=== PATIENT | female | born 1945 | race Caucasian/White ===

== ENCOUNTER 2018-12-01 16:15 | Inpatient (IN) ==
[2018-12-01] MEDS ORDERED: DUONEB (A & A) INH ONE (16:42)
[2018-12-01 17:21] LABS: BASO% 0.7 % (0.0-0.8); EOS% 1.4 % (0.0-10.0); HEMATOCRIT 48.7 % (37.0-47.0); HEMOGLOBIN 16.4 g/dL (12.0-16.0); IMM GRAN# 0.05 X1000 (0.0-0.04); IMM GRAN% 0.3 % (0.0-0.5); LYMPH# 2.79 X1000 (1.2-3.4); LYMPH% 19.3 % (20.5-51.1); MCH 29.5 PG (27-31); MCHC 33.7 g/dL (33-37); MCV 87.6 FL (81-99); MONO# 1.38 X1000 (0.11-0.59); MONO% 9.6 % (1.7-9.3); MPV 11.2 FL (7.4-10.4); NEUT# 9.92 X1000 (1.4-6.5); NEUT% 68.7 % (42.2-75.2); PLT 250 X1000 (130-400); RBC 5.56 XMIL (4.2-5.4); RDW 13.9 % (11.5-14.5); WBC 14.44 X1000 (4.8-10.8)
[2018-12-01 17:49] LABS: ALB/GLOB RATIO 1.3; ALBUMIN 4.3 g/dL (3.5-5.0); CALCIUM 9.8 mg/dL (8.8-10.2); CREATININE 2.1 mg/dL (0.5-0.9); POTASSIUM 5.2 mmol/L (3.5-5.1); TOTAL BILIRUBIN 0.4 mg/dL (0.20-1.00); TOTAL PROTEIN 7.6 g/dL (6.3-8.3)
[2018-12-01] MEDS ORDERED: ROCEPHIN 1 GM in NS 50 ML IV ONE (18:07)
[2018-12-01] MEDS ORDERED: LEVAQUIN 750 MG/D5W 750 MG/150 ML IVPB IV ONE (18:07)
[2018-12-01] MEDS ORDERED: NS 1,000 ML IV ONE (18:23)
[2018-12-01 18:26] LABS: INR 0.91
[2018-12-01 18:27] LABS: PTT 25.4 Seconds (22.3-41.8)
--- NOTE | 2018-12-01 19:01 | PROVIDER DOCUMENTATION ---
This chart was entered by Kalie Reardon Scribe, acting as scribe for Leonardo Rangel MD. HPI-Respiratory General - General Source: patient - History of Present Illness-Resp Timing: reports: still present, constant Current Respiratory Medication Therapy: Initiated see nurses note Associated Symptoms: reports: shortness of breath Similar Symptoms Previously?: No Recently seen or treated by another doctor?: Yes (had a pacemaker placed 3 days ago in [place]) <Leonardo Rangel - Last Filed: 12/01/18 19:01> <Roque Ramirez - Last Filed: 12/01/18 19:33> - General Stated Complaint: SOB Time Seen by Provider: 12/01/18 16:24 Allergies/Adverse Reactions: Patient Allergies Allergy/AdvReac Type Severity Reaction Status Date / Time No Known Allergies Allergy Verified 12/01/18 16:40 Home Medications: Home Medication List Medication Instructions Recorded Confirmed Last Taken Type ATORVAstatin [Lipitor] 80 mg PO QHS 10/30/16 10/30/16 Unknown History Albuterol Sulfate [Ventolin Hfa] 1 inh INH DIRECTED 10/30/16 10/30/16 Unknown History Diltiazem HCl [Cartia Xt] 1 tab PO DAILY 10/30/16 10/30/16 Unknown History Glipizide [Glucotrol] 1 tab PO DAILY 10/30/16 10/30/16 Unknown History Lisinopril 1 tab PO DAILY 10/30/16 10/30/16 Unknown History Metformin [Glucophage] 500 mg PO BID CC 10/30/16 10/30/16 Unknown History - History of Present Illness-Resp Nature of Presenting Problem: 73yof presents to ED by EMS cc SOB and decreased blood pressure today. Pt reports she had a pacemaker placed 3 days ago in [place]. Pt also states she has hx of lung cancer with no treatment. Pt is A&Ox3. (Leonardo Rangel) Review of Systems - Adult - REVIEW OF SYSTEMS - ADULT Constitutional: reports: see HPI, fatique. denies: chills, fever Eyes: reports: no symptoms reported Ears, Nose, Mouth & Throat: reports: no symptoms reported Cardiovascular: reports: see HPI, other (decreased blood pressure) Respiratory: reports: see HPI, shortness of breath Gastrointestinal: reports: no symptoms reported Genitourinary: reports: no symptoms reported Musculoskeletal: reports: no symptoms reported Integumentary: reports: no symptoms reported Neurological: reports: no symptoms reported Psychiatric: reports: no symptoms reported Endocrine: reports: no symptoms reported Hematologic/Lymphatic: reports: no symptoms reported Allergic/Immunologic: reports: no symptoms reported All Other Systems: Reviewed and Negative <Leonardo Rangel - Last Filed: 12/01/18 19:01> Past History - Adult - PAST MEDICAL HISTORY-ADULT Review of Records: reports: Nursing Assessment Review, Medications Reviewed, Social history reviewed & non-contributory. Major Childhood Illnesses: reports: denies history Cardiovascular: reports: denies history Respiratory: reports: denies history Gastrointestinal: reports: denies history Obstetrical/Gynecological: reports: denies history Genitourinary: reports: denies history Musculoskeletal: reports: denies history Neurological: reports: denies history Endocrine/Immune: reports: Diabetes Other Conditions: reports: denies history - PRIOR SURGERIES/PROCEDURES Surgical/Procedure History: reports: back/neck - IMMUNIZATION STATUS Childhood Immunizations: See Nurse Assessment Flu Vaccine: See Nurse Assessment - FAMILY HISTORY Family History: reviewed, not pertinent <Leonardo Rangel - Last Filed: 12/01/18 19:01> Physical Exam-General - PHYSICAL EXAM-ADULT Initial Vital Signs Reviewed: Yes - CONSTITUTIONAL General Appearance: alert, moderate distress - EYES Eyes: PERRL/EOMI, pink conjunctivae. negative: meningismus, pale conjunctivae, photophobia - HEAD, EARS, NOSE, MOUTH & THROAT HENMT: normocephalic/atraumatic, moist mucous membranes, normal ENT inspection. negative: angioedema - NECK Neck: non-tender, full range of motion, supple, normal inspection - RESPIRATORY Respiratory: chest non-tender, no pleuratic chest pain, no respiratory distress, no accessory muscle use, decreased breath sounds, rhonchi (diffuse). negative: lungs clear, normal breath sounds, crackles, rales, stridor, wheezing - CARDIOVASCULAR Cardiovascular: normal peripheral pulses, regular rate, rhythm, no edema, no gallop, no JVD, no murmur. negative: bradycardia, tachycardia - GASTROINTESTINAL (ABDOMEN) Abdominal Exam: normal bowel sounds, non tender, soft, no organomegaly, no pulsatile mass. negative: distended, guarding, rigid, rebound, tenderness - MUSCULOSKELETAL Extremity: pedal edema (left), swelling (left lower leg below knee/chronic). negative: deformity - SKIN Integumentary: normal color, warm/dry. 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 negative: facial droop, focal weakness - PSYCHIATRIC Psych/Mental Status: normal mood/affect, normal thought content, normal thought process, oriented x 3. negative: disoriented x 3, anxious, disheveled, depressed affect <Leonardo Rangel - Last Filed: 12/01/18 19:01> Progress - PLAN OF CARE/RESULTS Result Diagrams: 12/01/18 17:02 12/01/18 17:02 - REASSESSMENT Reassessment #1 Status: unchanged Reassessment Comment: eval c/w possible sepis, lactat <Leonardo Rangel - Last Filed: 12/01/18 19:01> - PLAN OF CARE/RESULTS Result Diagrams: 12/01/18 17:02 12/01/18 17:02 - CONSULTS/PCP/HOSPITALIST Notification #1 *Consult/PCP/Hospitalist*: Dr Felix Time Discussed: 19:32 Consult Disposition: Will see in ED, Admit <Roque Ramirez - Last Filed: 12/01/18 19:33> - PLAN OF CARE/RESULTS Progress/Plan/Lab Results: Vital Signs - 8 hr 12/01/18 16:21 12/01/18 16:27 12/01/18 16:32 Temperature 97.6 F Pulse Rate 79 73 Respiratory Rate 24 22 Blood Pressure 101/45 84/47 92/54 O2 Sat by Pulse Oximetry 96 94 L 94 L 12/01/18 16:37 12/01/18 16:42 12/01/18 16:47 Temperature Pulse Rate 77 80 86 Respiratory Rate 23 25 H 23 Blood Pressure 101/45 89/44 96/49 O2 Sat by Pulse Oximetry 95 96 98 12/01/18 17:17 12/01/18 17:33 12/01/18 17:50 Temperature Pulse Rate 87 82 83 Respiratory Rate 21 24 28 H Blood Pressure 113/90 100/50 110/64 O2 Sat by Pulse Oximetry 96 94 L 12/01/18 18:03 12/01/18 18:13 12/01/18 18:32 Temperature Pulse Rate 80 92 H 106 H Respiratory Rate 21 23 21 Blood Pressure 85/51 100/62 114/75 O2 Sat by Pulse Oximetry 95 95 Laboratory Results - last 24 hr 12/01/18 12/01/18 12/01/18 17:02 17:02 17:02 WBC 14.44 H RBC 5.56 H Hgb 16.4 H Hct 48.7 H MCV 87.6 MCH 29.5 MCHC 33.7 RDW Std Deviation 13.9 Plt Count 250 MPV 11.2 H Immature Gran % (Auto) 0.3 Neut % (Auto) 68.7 Lymph % (Auto) 19.3 L [place] % (Auto) 9.6 H Eos % (Auto) 1.4 Baso % (Auto) 0.7 Immature Gran # (Auto) 0.05 H Neut # (Auto) 9.92 H Lymph # (Auto) 2.79 [place] # (Auto) 1.38 H Eos # (Auto) 0.20 Baso # (Auto) 0.10 PT INR PTT (Actin FS) Sodium 135 L Potassium 5.2 H Chloride 96 L Carbon Dioxide 21 L Anion Gap 18 BUN 42 H Creatinine 2.1 H Estimated GFR/1.73 m2 23 BUN/Creatinine Ratio 20 Glucose 95 Calculated Osmolality 280 Calcium 9.8 Total Bilirubin 0.40 AST 26 ALT 9 L Alkaline Phosphatase 61 Creatine Kinase 170 Troponin T Total Protein 7.6 Albumin 4.3 Globulin 3.3 Albumin/Globulin Ratio 1.3 Plasma Lactate 1.5 12/01/18 12/01/18 17:02 17:02 WBC RBC Hgb Hct MCV MCH MCHC RDW Std Deviation Plt Count MPV Immature Gran % (Auto) Neut % (Auto) Lymph % (Auto) [place] % (Auto) Eos % (Auto) Baso % (Auto) Immature Gran # (Auto) Neut # (Auto) Lymph # (Auto) [place] # (Auto) Eos # (Auto) Baso # (Auto) PT 13.0 INR 0.91 PTT (Actin FS) 25.4 Sodium Potassium Chloride Carbon Dioxide Anion Gap BUN Creatinine Estimated GFR/1.73 m2 BUN/Creatinine Ratio Glucose Calculated Osmolality Calcium Total Bilirubin AST ALT Alkaline Phosphatase Creatine Kinase Troponin T 0.028 Total Protein Albumin Globulin Albumin/Globulin Ratio Plasma Lactate Orders Category Date Time Status Cardiac Monitoring DIRECTED Care 12/01/18 18:06 Active Calix Cath Insertion ORDERED Care 12/01/18 18:46 Active IV Insertion ORDERED Care 12/01/18 18:06 Completed Notify MD of + Sepsis Screen NOW Care 12/01/18 18:06 Active Notify Physician As Ordered Care 12/01/18 18:06 Active Nursing- Obtain EKG once Care 12/01/18 18:04 Active Saline Loc NOW Care 12/01/18 18:07 Active CHEST-PORTABLE [RAD] Stat Exams 12/01/18 16:42 Taken BLOOD CULTURE [BLDCUL] Stat Lab 12/01/18 17:08 Results BNP [PRO B-NATRIURETIC PEPTIDE] Stat Lab 12/01/18 19:31 Uncollected CBC WITH ELECTRONIC DIFF [HEME] Stat Lab 12/01/18 17:02 Completed CK TOTAL [CHEM] Stat Lab 12/01/18 17:02 Completed COMPREHENSIVE METABOLIC PANEL [CHEM] Stat Lab 12/01/18 17:02 Completed LACTATE, PLASMA [CHEM] Lab 12/01/18 20:00 Uncollected LACTATE, PLASMA [CHEM] Lab 12/01/18 23:00 Uncollected LACTATE, PLASMA [CHEM] Stat Lab 12/01/18 17:02 Completed PROTIME WITH INR [COAG] Stat Lab 12/01/18 17:02 Completed PTT [COAG] Stat Lab 12/01/18 17:02 Completed TROPONIN T Stat Lab 12/01/18 17:02 Completed URINALYSIS W/POSS RFLX CULT [URINALYSIS] Stat Lab 12/01/18 18:25 Results 0.9% Sodium Chloride Inj [Ns] 1,000 ml Med 12/01/18 18:23 Discontinued IV 999 mls/hr Albuterol 2.5MG/Ipratrop 0.5MG [Duoneb (A & A)] Med 12/01/18 16:42 Discontinued 3 ml INH NOW ONE CefTRIAXONE [Rocephin] 1 gm Med 12/01/18 18:07 Discontinued 0.9% Sodium Chloride Inj [Ns] 50 ml IV NOW Levofloxacin 750 mg/D5w [Levaquin 750 mg/D5w] Med 12/01/18 18:07 Active 750 mg in 150 ml IV NOW Aerosol Treatments Routine Oth 12/01/18 16:42 Completed Aerosol Treatments Stat Oth 12/01/18 16:42 Completed O2 Per Protocol Stat Ot 12/01/18 16:42 Completed Oxygen Device Stat [facility] 12/01/18 18:06 Completed Pulse Oximetry Stat [facility] 12/01/18 18:07 Completed Departure - Departure Certified Medical Emergency: Emergent <Leonardo Rangel - Last Filed: 12/01/18 19:01> - Departure Date of Disposition Decision: 12/01/18 Time of Disposition Decision: 19:32 Certified Medical Emergency: Emergent - Critical Care Note This patient required my direct & personal management of CC.: No <Roque Ramirez - Last Filed: 12/01/18 19:33> - Departure DIAGNOSIS: SOB (shortness of breath), Pneumonia, Renal insufficiency, Hyperkalemia Disposition: ADMITTED INPATIENT 09 Condition: Fair Additional Freetext Instructions: ED Follow Up Instructions: You have been treated by a care provider in the Emergency Department. These instructions are being provided to you so you can have an understanding of how to care for yourself upon discharge. Upon discharge from the Emergency Department, you are responsible for making arrangements for follow-up care by a physician of your choice. Take all prescribed medications as directed. Return to the Emergency Department immediately for any new or worsening symptoms . You may call the Physician Referral phone number at [phone] to obtain a list of Physicians who are taking new patients. Referrals and Follow-Ups: Nikita Worley MD [Primary Care Provider] - Attestation - Physician/ NAGI Attestation Patient care was provided by Advanced Practice Provider:: No The physician spent face to face time with patient:: Yes Advanced Practice Provider documentation review:: Supervising physician onsite and consulted in the evaluation and care of this patient. The physician did have a face to face encounter with the patient. <Leonardo Rangel - Last Filed: 12/01/18 19:01> - Physician/ NAGI Attestation Patient care was provided by Advanced Practice Provider:: No The physician spent face to face time with patient:: Yes Advanced Practice Provider documentation review:: Supervising physician onsite and consulted in the evaluation and care of this patient. The physician did have a face to face encounter with the patient. <Roque Ramirez - Last Filed: 12/01/18 19:33> This chart was documented by the indicated scribe, (Kalie Reardon, [place]) and accurately reflects the services I performed and decisions made by me, Leonardo Rangel MD, as attested by the provider's signature.
[2018-12-01 19:32] LABS: URINE SOURCE CLEAN CATCH
[2018-12-01 19:36] LABS: BILIRUBIN URINE NEGATIVE (NEGATIVE); BLOOD URINE SMALL (NEGATIVE); COLOR YELLOW; GLUCOSE URINE TRACE mg/dL (NEGATIVE); KETONE URINE NEGATIVE (NEGATIVE); LEUKOCYTES URINE LARGE (NEGATIVE); NITRITE URINE NEGATIVE (NEGATIVE); PH URINE 5.5; PROTEIN URINE 100 mg/dL (NEGATIVE); SP GRAVITY URINE 1.017; TURBIDITY URINE HAZY (CLEAR); UROBILINOGEN URINE NORMAL (NORMAL)
[2018-12-01 19:41] LABS: UR EPITHELIAL CELLS <10 /HPF (<10); URINE BACTERIA NEGATIVE /HPF; URINE RBC <10 /HPF (<10); URINE WBC TNTC /HPF (<10)
[2018-12-01 19:55] LABS: URINE YEAST NONE SEEN
--- NOTE | 2018-12-01 19:56 | Diag Imaging Result Doc PS360 ---
EXAM: CHEST-PORTABLE INDICATION: Dyspnea TECHNIQUE: One view COMPARISON: 08/15/2018 FINDINGS: The lungs are hyperinflated suggesting COPD, stable. There is evidence of prior granulomatous disease, stable. There is stable biapical pleural scarring. There is no discrete pleural fluid collection or pneumothorax. There has been interval placement of a pacemaker on the right. The leads are in expected positions. The cardiomediastinal silhouette and central vasculature are grossly unremarkable, otherwise. IMPRESSION: Stable COPD changes. No definite acute pathology by plain radiograph. Electronically signed by Royal Wolfe 12/01/2018 7:54 PM
[2018-12-01 21:35] LABS: ALLEN TEST YES; BE -5.5 mmoll (-3.0-3.0); BLOOD TYPE ARTERIAL; HCO3-(ACT) 20.6 mmoll (20.0-26.0); METHB 1.1 % (0.0-1.5); MODALITY CANNULA; O2(CT) 18.8 mL/dL (15.0-23.0); O2HB 94.6 % (95.0-99.0); PCO2(98.6) 35 mmHg (35-45); PO2(98.6) 82 mmHg (60-100); SAMPLE BLOOD; THB 14.1 g/dL (11.5-17.4); pH(98.6) 7.35 (7.35-7.45)
--- NOTE | 2018-12-01 22:16 | Diag Imaging Result Doc PS360 ---
EXAM: CT THORAX W/O CONTRAST INDICATION: Dyspnea,Hypoxia TECHNIQUE: This exam was performed using automated exposure control, adjustment of mA or kV according to patient size, and/or use of iterative reconstruction technique. COMPARISON: 06/10/2014 FINDINGS: There is mild to moderate pulmonary emphysema with an apical predominance. There is extensive bronchial mucous plugging on the left, predominantly in the left lower lobe. As a result, the left lower lobe is significantly atelectatic. There is likely superimposed consolidation at the left lower lobe. There is a small left pleural effusion. There are patchy calcified pleural plaques bilaterally that are stable. There are a few calcified granulomata. There is a stable 1 cm noncalcified nodule in the right lower lobe at the base that is assumed to represent a noncalcified granuloma given its stability. There is leftward mediastinal shift related to the left lower lobe volume loss. There is no cardiomegaly. There are shotty borderline and mildly prominent mediastinal lymph nodes that are stable. Review of the upper abdomen reveals extensive atherosclerotic calcification involving the aorta and its major branches. There is hyperdense sludge layering in the gallbladder lumen. No pericholecystic inflammatory changes appreciated. There is no evidence of acute osseous abnormality. IMPRESSION: 1.Stable mild to moderate pulmonary emphysema. 2.Extensive bronchial mucous plugging on the left, especially in the left lower lobe where there is associated significant atelectasis and likely superimposed infiltrate. 3.Small left pleural effusion. 4.Other incidental/nonacute findings detailed above. Electronically signed by Royal Wolfe 12/01/2018 10:14 PM
--- NOTE | 2018-12-01 22:17 | EKG Report ---
Test Performed on : 12/01/2018 6:32:22 PM Test Reason : SOB Blood Pressure : / mmHG Vent. Rate : 103 BPM Atrial Rate : 103 BPM P-R Int : 190 ms QRS Dur : 106 ms QT Int : 358 ms P-R-T Axes : 052 094 051 degrees QTc Int : 468 ms Sinus tachycardia. Incomplete right bundle branch block Possible Right ventricular hypertrophy ST & T wave abnormality, consider anterolateral ischemia Abnormal ECG When compared with ECG of 22-JUL-2017 09:56, T wave inversion more evident in Anterolateral leads Unconfirmed Result
[2018-12-02] MEDS: XOPENEX NEB INH SCH ×6 (01:38→22:57)
[2018-12-02] MEDS ORDERED: ZOSYN 2.25 GM in NS 50 ML IV SCH (01:38)
[2018-12-02] MEDS ORDERED: TYLENOL PR PRN (01:38)
[2018-12-02] MEDS ORDERED: NS NEB INH SCH (01:38)
[2018-12-02] MEDS ORDERED: ZOFRAN IV PRN (01:38)
[2018-12-02] MEDS: ATROVENT NEB INH SCH ×6 (01:38→22:56)
[2018-12-02] MEDS: NEXIUM IV SCH (03:26)
[2018-12-02] MEDS: ZYVOX 600 MG/D5W 600 MG/300 ML IVPB IV SCH ×2 (04:09→14:35)
[2018-12-02 06:02] LABS: BASO# 0.05 X1000 (0.0-0.2); BASO% 0.3 % (0.0-0.8); EOS# 0.12 X1000 (0.0-0.7); EOS% 0.7 % (0.0-10.0); HEMATOCRIT 42.9 % (37.0-47.0); HEMOGLOBIN 14.4 g/dL (12.0-16.0); IMM GRAN# 0.04 X1000 (0.0-0.04); IMM GRAN% 0.2 % (0.0-0.5); LYMPH# 1.51 X1000 (1.2-3.4); LYMPH% 8.7 % (20.5-51.1); MCH 29.7 PG (27-31); MCHC 33.6 g/dL (33-37); MCV 88.5 FL (81-99); MONO# 1.29 X1000 (0.11-0.59); MONO% 7.5 % (1.7-9.3); MPV 11.4 FL (7.4-10.4); NEUT# 14.27 X1000 (1.4-6.5); NEUT% 82.6 % (42.2-75.2); PLT 213 X1000 (130-400); RBC 4.85 XMIL (4.2-5.4); RDW 13.8 % (11.5-14.5); WBC 17.28 X1000 (4.8-10.8)
[2018-12-02 06:14] LABS: ALB/GLOB RATIO 1.3; ALBUMIN 3.4 g/dL (3.5-5.0); CREATININE 1.4 mg/dL (0.5-0.9); MAGNESIUM 1.8 mg/dL (1.5-2.7); POTASSIUM 4.7 mmol/L (3.5-5.1); TOTAL BILIRUBIN 0.45 mg/dL (0.20-1.00); TOTAL PROTEIN 6.1 g/dL (6.3-8.3)
[2018-12-02] MEDS: HUMULIN R SUBQ SCH ×4 (07:00→21:23)
[2018-12-02] MEDS: MAXIPIME 1 GM in NS 50 ML IV SCH ×2 (09:35→21:23)
--- NOTE | 2018-12-02 14:57 | HISTORY AND PHYSICAL ---
Ms Sandoval is a 73-year-old female who presented to the ER to by ambulance at approximately 1615 with complaints of shortness of breath. The patient reports that she has recently had a right-sided pacemaker placed 3 days ago at [facility] . She did report that since being home she has had increased weakness has not been eating and drinking well, she also reported that she been having some difficulty swallowing. She also states that for the past couple days that she has had orthopnea and has to prop up to sleep. She also reports paroxysmal nocturnal dyspnea. She she does keep a chronic cough patient is a daily smoker, knows her cough has worsened and is productive of clear thin sputum. She also reports that she has felt chilled as well. She reports that she has had worsening shortness of breath over the past 2 days though did become worse today so she reported that she had decreased blood pressure also. She denies any headache, chest pain, abdominal pain, nausea vomiting or diarrhea. She denies any dysuria or urinary frequency. The patient does report that she has some occasional swelling in her bilateral lower extremities and her left lower extremity is always more swollen than her right and this is been this way and is not of new onset though she did not report any recent worsening swelling in her legs. The patient reports that she does have a history of hypertension and did have a pacemaker placed 3 days ago. The patient did not know the reason why she had to have her pacemaker placed. She denied having any known history of congestive heart failure . She is a long-term smoker and has been smoking since she was 17 years old and currently smokes half pack of cigarettes per day. The patient also reports that approximately 2 years ago she was diagnosed with lung carcinoma and did report that they wanted her to receive treatment for this though she declined. To this date patient denies that she has had any treatment for this lung cancer . Upon evaluation according to the ER nurses note the patient was noted by EMS to be hypotensive and had O2 saturation 80s on room air upon their arrival though after being placed on nasal cannula 4 L and being given a 500 mL normal saline bolus her O2 saturation did improve to 98 % and blood pressure on arrival was slightly improved with systolic 92 and diastolic 54. It was previously noted that her systolic blood pressures were in the 80s prior to arrival. She has been afebrile since arriving to the ER though does have some leukocytosis noted white blood cell count 14,440. Chemistry did reveal elevated creatinine 2.1, BUN 42 this is increased from her previous creatinine of 1 in September 2018. Also her troponin slightly elevated at 0.028 and CK within normal limits at 170. ProBNP was 2016 . Also urinalysis did show small amount blood, large leukocyte and too numerous to count white blood cells. Chest x-ray shows stable COPD changes and no definite acute pathology noted though upon auscultation the patient did have diffuse rhonchi noted in bilateral upper lung ojeda and diminished lung sounds bases. Given her symptoms we did decide to do a CT of the chest without contrast which did show mild to moderate pulmonary emphysema. There was extensive bronchial mucus plugging in the left especially in left lower lobe though this was associated with significant atelectasis likely superimposed infiltrate. Also small pleural effusions. This time the patient will be admitted further evaluate. REVIEW OF SYSTEMS: 14 -point review of systems was conducted the patient all were negative except pertinent positives listed above HPI. PAST MEDICAL HISTORY: 1. Hypertension . 2. Status post pacemaker placement 3 days ago at [facility] . 3. COPD. 4. Nicotine dependence. 5. Diabetes mellitus. 6. Reported history of lung cancer diagnosed 2 years ago for which the patient stated she has not received treatment for. PAST SURGICAL HISTORY: 1. Status post pacemaker placement 3 days ago [facility] . 2. Hysterectomy. 3. Reported stent placement of 1 of the vessels in her neck for what the patient reports she thinks is on the left side though she could not state any further detail about the surgery. SOCIAL HISTORY: The patient is a current daily smoker she has smoked since age 17. She reports she currently smoking half pack cigarettes per day. Denied any alcohol, illicit drug use. She does live with family she does have a walker for ambulation. FAMILY HISTORY: Positive for her mother having history of diabetes mellitus, her father from unknown cancer. ALLERGIES: Patient reports no known allergies. HOME MEDICATIONS: We are waiting for the patient's home medication list be verified. We have asked them to bring the list or her medication bottles from home though also we had requested a discharge medication list from [facility] as well. Once these have been reconciled we will address her home medications and continue appropriate medications . DIAGNOSTIC DATA: White blood cell count 14,440, hemoglobin 16.4, hematocrit 48.7, platelet count 250,000, PT 13, INR 0.91, PTT 25.4, sodium 135, potassium 5.2, chloride 96, serum bicarb 21, BUN 42, creatinine 2.1, GFR 23, glucose [*]magnesium is 2, liver function tests within normal limits, CK 170 with repeat 147, troponin 0.028 with repeat less than 0.01, ProBNP is 2116. Urinalysis was obtained via catheter was positive for trace protein, small amount blood, large leukocytes, too numerous to count white blood cells, was negative for glucose, ketones, nitrites or bacteria. EKG showed sinus tachycardia, incomplete right bundle branch block rate 103, QTC of 468 . Chest x-ray shows stable COPD changes though no definite acute pathology this is per radiology. CT thorax without contrast shows stable mild to moderate pulmonary emphysema. Two extensive bronchial mucous plugging in the left especially left lower lobe with areas associated significant atelectasis and likely superimposed infiltrate. Small left pleural effusion. There are a few calcified granuloma, there is a stable 1 cm noncalcified nodule in the right lower lobe at the base that is assumed to represent a noncalcified granuloma given instability. Please see full CT report for detailed findings. PHYSICAL EXAM: VITAL SIGNS: Temperature 97.6, heart rate 106, respirations 21, blood pressure 114/75, O2 saturation 93% nasal cannula 4 L. GENERAL: Ms. Sandoval is a 73-year-old elderly frail appearing female. She was resting in bed with her eyes closed though was easily arousable with verbal stimulation. Once awoken she was alert, oriented did not appear to be any acute distress. HEENT: Head is atraumatic, normocephalic. Pupils are equal, round, reactive to light were 3 mm bilaterally and brisk. Oral mucosa is moist. NECK: Supple. Trachea midline. There was what appeared to be some slight JVD noted upon examination . CARDIOVASCULAR: Patient had S1, S2 present no murmur, gallop, rubs appreciated, slightly tachycardic rate that is regular. PULMONARY: Patient has symmetrical chest expansion bilaterally the lung sounds in bilateral upper ojeda do have rhonchi noted, lung sounds bilateral bases were diminished. The patient does have a surgical wound noted to the right upper chest. This does appear to be healing well. There is no erythema, warmth or drainage or any active bleeding noted. The dressing that is covering this is clean and dry . ABDOMEN: Soft, nondistended, nontender except for the patient reports slight tenderness upon palpation the pubic area. Bowel sounds were present in all 4 quadrants were normoactive. EXTREMITIES: No cyanosis noted though the patient did have some edema noted in her left lower extremity which was 1 to 2+ pitting edema from mid calf down. Upon questioning the patient states this is not of new onset. Her left lower extremity is normally more swollen than her right though other than this pulse, motor and sensory were intact in all extremities. Radial pulses were 3+ bilaterally, pedal pulses are 2+ bilaterally. INTEGUMENTARY: Patient's skin is pink, warm and dry. NEUROLOGICAL: Patient is alert, oriented person, place, time, situation though she answers all the questions right she does seem slow to respond to questions at times though once she answers them her response is appropriate. She does seem to have some generalized weakness though there was no deficit from 1 side compared to the other. She denied any numbness or tingling in extremities. She is able to move all extremities. ASSESSMENT AND PLAN: 1. Pneumonia, the patient's CT did show that she has extensive bronchial mucus plugging in her left especially in left lower lobe where there is an associated significant atelectasis and likely superimposed infiltrate. Also patient reports that she felt as though she has been having difficulty swallowing recently. Given that she has recently been hospitalized as well as her reports of some difficulty swallowing as well will go ahead and cover for healthcare associated and possible aspiration pneumonia. She has been placed on antibiotics of vancomycin and Zosyn which had been renally dosed. Blood cultures and sputum cultures obtained, given her mucus plugging we will go ahead and continue with aggressive pulmonary toilet with incentive spirometry frequent turn, cough and deep breathing and Xopenex and Atrovent treatments. She has been placed on supplemental oxygen nasal cannula 4 L. Arterial blood gasses were within normal limits, CO2 was 82, O2 saturation 97 . She has been placed on continuous cardiac telemetry we will continue monitor her respiratory status closely, she has also been place on aspiration precaution. 2. Acute hypoxic respiratory failure this is likely secondary to pneumonia as well as possible component of new onset congestive heart failure. Previously mentioned above we have placed on supplemental oxygen, will continue with intervention as mentioned above #1 and monitor closely . 3. Hypotension, this could be related to infection and possible early sepsis. Patient has been given a total of 1500 mL normal saline bolus, since that time her blood pressures have improved with last 1 being 114/75 and MAP 88. Given that there is a question of possible new onset congestive heart failure will hold off any further fluids, will continue monitor blood pressure closely, we will hold any antihypertensive medications at this time continue to follow. 4. Acute kidney injury . This could be secondary to hypertension as well as poor oral intake. Previously mentioned she did receive a 1500 mL normal saline bolus and given that there is question possible heart failure as well we will hold off on any further fluid at the time, will monitor her fluid volume status closely restrict intake and output, continue follow, will avoid nephrotoxic medication only give those medicine as necessary . 5. Dysphagia . Patient did report she was having some difficulty swallowing, given this we will place her NPO at this time and will implement aspiration precautions, we have ordered swallow evaluation will await the results continue to follow. 6. Possible new onset congestive heart failure. Patient has reporting dyspnea, orthopnea and paroxysmal nocturnal dyspnea. She is also hypoxic, proBNP was elevated at 2116. She also did have some slight JVD noted on examination. The patient had a echocardiogram performed September 2017 which showed EF 60% though given her new symptoms and recent cardiac procedure we will go ahead and repeat this, we have also placed order for series cardiac enzymes and repeat EKG in the morning. We did not order any Lasix at this time given that the patient was hypotensive on arrival. We will hold off on this for now we will monitor her fluid volume status, do strict intake and output and daily weight. We have placed a consult with Dr. Melendez, cardiology will await their evaluation and further recommendations for management. 7. Status post pacemaker placement, patient reports she had a pacemaker placed 3 days ago at [facility] though patient could not tell us which physician this was performed with, we have requested for the patient's records from [facility] related to her most recent admission cardiac procedure, any specialty consultations and her discharge summary and we have placed a consult with cardiology as well . Will await their evaluation further recommendations for management. 8. Diabetes mellitus . We will place patient on pattern fingerstick blood sugars, will cover her with regular insulin per patient's specific scale. Given that she has had poor oral intake and is NPO at this time awaiting a swallow evaluation we will not treat her fingerstick blood sugars until they are greater than 200. 9. Deep vein thrombosis prophylaxis be provide with SCDs. The patient has been placed on CIC with telemetry, she will have q.1 hour vital signs, will do strict input and output, daily weight, will repeat CBC, CMP and magnesium in the morning as well as series of cardiac enzymes. Further orders recommendation pending hospital course, diagnostic studies and physician evaluation. Dictated by BRENDAN Garay for Bam Felix MD cc: Bam Felix MD
--- NOTE | 2018-12-02 16:26 | CARDIOLOGY CONSULTATION ---
DATE: 12/02/2018 CHIEF COMPLAINT ON PRESENTATION: Shortness of breath. HISTORY OF PRESENT ILLNESS: Ms. Sandoval is a 73-year-old white female who recently had a pacemaker implant at [facility] 3 days ago secondary to some sinus node dysfunction. She is an extremely poor historian, complains of some shortness of breath. She is very difficult to get any history from. It seems like she has been short of breath for at least a week, possibly more. She does not report any fevers, no pain complaints. On presentation, the patient's pulse rate was 79. Her blood pressure was anywhere from the 80s to 100s systolic. Her O2 saturation was 96%. PAST MEDICAL HISTORY: 1. Coronary disease. Dobutamine nuclear scan in 2013 demonstrated some LV dilatation. She had a cardiac catheterization in 2009 demonstrating diffuse calcification of 50% in the mid vessel of the LAD. Circumflex had no critical disease with moderate diffuse calcifications. RCA had diffuse mild intimal disease. 2. Severe COPD. 3. Hypertension. 4. Hyperlipidemia. 5. Diabetes. 6. Carotid artery disease. SOCIAL HISTORY: She continues to smoke, smokes around a half pack per day. FAMILY HISTORY: Significant for a mother with a history of diabetes. Father from some unknown cancer. REVIEW OF SYSTEMS: A 10-system review of systems is unable to be obtained. The patient is quite weak. PHYSICAL EXAMINATION: Vital Signs: She is afebrile. Her heart rate is in the 120s. Her most recent blood pressure is 144/91. General: She is in [id number] distress. She is lying flat. HEENT: Oropharynx is moist. Dentures are in place. Eye examination is pink conjunctivae, white sclerae. Neck: Examination shows no obvious thyromegaly or thyroid tenderness. Cardiovascular: She sounds to be in tachycardic and regular rhythm. She has no obvious murmurs. She has no S3. She has no lower extremity edema. Chest exam: Was notable for mild tachypnea. She had poor inspiratory effort. She was not cooperative with the examination. Abdomen: Soft, nontender, nondistended. She has no obvious organomegaly. Skin: Warm and dry throughout without any rashes. Neurological: She seems to be moving all extremities. She is not very cooperative with the examination. No obvious lateralizing deficits. PERTINENT DATA: She had a chest x-ray performed demonstrating stable COPD changes this hospitalization. She had a chest CT that identified extensive bronchial mucous plugging on the left, especially in the left lower lobe, which are suggesting a superimposed infiltrate. Small left pleural effusion identified as well. Her EKG on this presentation demonstrated sinus tachycardia with a rate of 103 beats per minute. She had diffuse nonspecific ST-T changes. Suggestion of an incomplete right bundle branch block. Her laboratory data shows a white count that is elevated at 17.2, hematocrit of 42, platelet count of 213,000, sodium 137, potassium 4.7, her CO2 is 16, her BUN is 33, creatinine is 1.4. Her troponin has been negative on multiple checks this hospitalization. The proBNP was 2116 on presentation. ASSESSMENT: Ms. Sandoval is a 73-year-old female who presented with pneumonia. PLAN: I do not believe that she is in heart failure. She received fluid since admission, and her creatinine improved suggesting she was volume depleted. In addition, she appears to have an infiltrate on her CT and elevated white count, and between her renal dysfunction as well as her sepsis, that could explain the proBNP elevation. Presently, I do not have any acute recommendations. I will follow up on the results of the echocardiogram. cc: Marcial Melendez MD
--- NOTE | 2018-12-02 16:30 | ECHO REPORT ---
ORDER DATE: 12/02/2018 INDICATION: Shortness of breath, pneumonia, history of pacemaker implant. FINDINGS: 1. Right atrium appears normal size. Linear echodensity consistent with device leads is noted in the right heart chambers. 2. Mild tricuspid regurgitation. RV systolic pressure of 54. 3. Normal RV size and systolic function. 4. Mild pulmonic insufficiency. 5. Normal left atrial size with a volume index of 25. 6. No mitral prolapse. Mild mitral regurgitation. 7. Normal LV size, end-diastolic dimension of 3.8. Mild left ventricular hypertrophy with a posterior and interventricular septal wall thickness of 1.3 cm and 1.2 cm respectively. Normal LV systolic function. Estimated EF of 65% with normal wall motion. 8. Aortic valve opens well. It is trileaflet. No evidence of stenosis or insufficiency. 9. Aorta appears normal in visualized segments. 10. No pericardial effusion seen. cc: Marcial Melendez MD
[2018-12-02] MEDS: NS 1,000 ML IV SCH (17:50)
--- NOTE | 2018-12-02 20:58 | EKG Report ---
Test Performed on : 12/02/2018 11:56:57 AM Test Reason : tachycardia Blood Pressure : / mmHG Vent. Rate : 125 BPM Atrial Rate : 125 BPM P-R Int : 174 ms QRS Dur : 096 ms QT Int : 296 ms P-R-T Axes : 056 104 -11 degrees QTc Int : 427 ms Sinus tachycardia. Right ventricular hypertrophy with repolarization abnormality Septal infarct , age undetermined T wave abnormality, consider inferolateral ischemia Abnormal ECG When compared with ECG of 02-DEC-2018 06:50, (Unconfirmed) premature atrial complexes. are no longer present T wave inversion more evident in Anterior leads Unconfirmed Result
--- NOTE | 2018-12-02 20:58 | EKG Report ---
Test Performed on : 12/02/2018 06:50:39 AM Test Reason : Poss. CHF Blood Pressure : / mmHG Vent. Rate : 097 BPM Atrial Rate : 097 BPM P-R Int : 138 ms QRS Dur : 108 ms QT Int : 370 ms P-R-T Axes : 086 102 -04 degrees QTc Int : 469 ms Sinus rhythm. with premature atrial complexes. Incomplete right bundle branch block Right ventricular hypertrophy with repolarization abnormality Nonspecific T wave abnormality Abnormal ECG When compared with ECG of 02-DEC-2018 06:46, (Unconfirmed) Previous ECG has undetermined rhythm, needs review Unconfirmed Result
--- NOTE | 2018-12-02 23:42 | PROGRESS NOTE ---
DATE: 12/02/2018 SUBJECTIVE: The patient is complaining of shortness of breath and weakness. OBJECTIVE: Vital signs: Temperature 98.6 degrees, blood pressure 144/91, heart rate 126, respirations 31, O2 saturation is 91% on 4 L nasal cannula. Output 2 L.General: This is a chronically emaciated female lying in bed in no acute distress. Heart: S1, S2 normal. Tachycardic. Lungs: Coarse breath sounds bilaterally. Abdomen: Positive bowel sounds. Soft, nontender, nondistended. Extremities: No edema. No cyanosis. No calf tenderness. Neurologic: The patient is awake and alert, but very sleepy and lethargic. LABORATORY DATA: White blood cell count 17, hemoglobin 14, hematocrit 42, platelets 213,000. Sodium 137, potassium 4.7, chloride 104, CO2 is 16, BUN 33, creatinine 1.4, glucose 127. ASSESSMENT AND PLAN: 1. Acute hypoxemic respiratory failure likely secondary to the patient's underlying pneumonia. 2. Left lung pneumonia. We will continue with broad-spectrum antibiotics, bronchodilator therapy and supplemental oxygen. 3. Tachycardia. Likely secondary to the patient's underlying infection. We will continue to treat the underlying infection. 4. Status post pacemaker implantation 3 days ago. Aware. 5. Emphysema. Aware. 6. Acute kidney injury. Improved. Continue with gentle intravenous fluid hydration. 7. Leukocytosis. Secondary to the underlying infection. Continue with antibiotic therapy. 8. Metabolic acidosis. We will monitor this closely. 9. Gastrointestinal prophylaxis. The patient is on intravenous Nexium. 10. Deep vein thrombosis prophylaxis. Continue with sequential compression devices. cc: MD RAFAEL Sibley
[2018-12-03] MEDS: NEXIUM IV SCH (02:26)
[2018-12-03] MEDS: ZYVOX 600 MG/D5W 600 MG/300 ML IVPB IV SCH ×2 (02:26→13:41)
[2018-12-03] MEDS: ATROVENT NEB INH SCH ×5 (03:08→23:23)
[2018-12-03] MEDS: XOPENEX NEB INH SCH ×5 (03:09→23:23)
[2018-12-03] MEDS: NS 1,000 ML IV SCH ×3 (05:25→21:06)
[2018-12-03 05:48] LABS: BASO# 0.02 X1000 (0.0-0.2); BASO% 0.1 % (0.0-0.8); EOS# 0.03 X1000 (0.0-0.7); EOS% 0.1 % (0.0-10.0); HEMATOCRIT 43.7 % (37.0-47.0); IMM GRAN# 0.08 X1000 (0.0-0.04); IMM GRAN% 0.3 % (0.0-0.5); LYMPH# 1.46 X1000 (1.2-3.4); LYMPH% 6.1 % (20.5-51.1); MCH 30.2 PG (27-31); MCHC 34.3 g/dL (33-37); MCV 88.1 FL (81-99); MONO# 2.36 X1000 (0.11-0.59); MONO% 9.8 % (1.7-9.3); MPV 11.5 FL (7.4-10.4); NEUT# 20.07 X1000 (1.4-6.5); NEUT% 83.6 % (42.2-75.2); PLT 199 X1000 (130-400); RBC 4.96 XMIL (4.2-5.4); RDW 13.7 % (11.5-14.5); WBC 24.02 X1000 (4.8-10.8)
[2018-12-03 05:53] LABS: AGAP 13; ALB/GLOB RATIO 0.9; ALBUMIN 3.1 g/dL (3.5-5.0); ALKALINE PHOSPHATASE 55 U/L (32-104); BUN 20 mg/dL (8-22); CALCIUM 9.4 mg/dL (8.8-10.2); CHLORIDE 102 mmol/L (98-107); COSMO 279; CREATININE 0.9 mg/dL (0.5-0.9); ESTIMATED GFR > 60; GLUCOSE 218 mg/dL (70-104); GOT 19 U/L (10-30); GPT 7 U/L (10-36); POTASSIUM 4.2 mmol/L (3.5-5.1); SODIUM 135 mmol/L (136-145); TCO2 20 mmol/L (25-35); TOTAL PROTEIN 6.7 g/dL (6.3-8.3)
[2018-12-03] MEDS: HUMULIN R SUBQ SCH ×4 (06:10→20:14)
[2018-12-03 07:42] LABS: LYMPHS 5 % (21-51); MONO 5 % (1-9); SEGS 89 % (42-75)
--- NOTE | 2018-12-03 07:51 | Diag Imaging Result Doc PS360 ---
EXAM: CHEST-1 VIEW INDICATION: pneumonia TECHNIQUE: One view COMPARISON: 12/01/2018 FINDINGS: There has been interval development of an opacity at the left lung base suggesting infiltrate and/or atelectasis. There is also probably a small effusion on the left. No new consolidation is appreciated on the right. Cardiac silhouette is stable. IMPRESSION: Interval development of opacity at the left lung base as described. Electronically signed by Royal Wolfe 12/03/2018 7:49 AM
[2018-12-03] MEDS: MAXIPIME 1 GM in NS 50 ML IV SCH ×2 (09:59→21:01)
--- NOTE | 2018-12-03 10:49 | CARDIOLOGY PROGRESS NOTE ---
DATE: 12/03/2018 SUBJECTIVE: Ms. Sandoval reports that her breathing is possibly a little bit better, at least stable. PHYSICAL EXAMINATION: She is afebrile. Her heart rate continues to be elevated in the 110s. Blood pressure is 154/80. General: She is in no acute distress. Cardiovascular: She sounds to be in a tachycardic and regular rhythm. She has no obvious murmurs. She has no S3. She has no lower extremity edema. Chest Examination: Sounds relatively clear but she has a very poor inspiratory effort. Her right-sided pacemaker implant site is clean, dry, and intact. The wound is still closed. There is no sign of erythema. No exudate. Abdomen: Soft, nontender. PERTINENT DATA: Chest x-ray today demonstrates a development of opacity in the left lung base suggesting an infiltrate. Laboratory data shows a white count elevated to 24. She has a significant left shift. Her hematocrit is 43, her platelet count is 199,000. Sodium 135, potassium is 4.2, BUN is 20, creatinine 0.9. ASSESSMENT: Ms. Sandoval is a 73-year-old female who presents with a left-sided pneumonia. PLAN: At this point, she does not appear to have heart failure. Signs, symptoms, and labs suggest a left-sided pneumonia. Her pacemaker site is clean, dry, and intact. Please contact us if we can be of further assistance with this patient. cc: Marcial Melendez MD
[2018-12-03] MEDS: LEVAQUIN 500 MG/D5W 500 MG/100 ML IVPB IV SCH (12:38)
--- NOTE | 2018-12-03 15:58 | INFECTIOUS DISEASE CONSULT REP ---
DATE: 12/03/2018 CONCLUSION: Patient is admitted the hospital with a left lower lobe pneumonia secondary to bronchial mucous plugging. RECOMMENDATIONS: I agree with treating the patient with a combination of Zyvox and cefepime. The patient's white blood cell count is increasing each day. However, she has only had approximately 1 day of antibiotic treatment. Since the patient's white blood cell count is increasing, I am going to go ahead and add Levaquin and I have ordered a urine for Legionella antigen and pneumococcal antigen. DISCUSSION: The patient is unable provide a history. The history was taken from the patient's sister. The patient 3 days ago had a pacemaker placed. Following the procedure she became progressively more dyspneic and weak. She also had a fever. She normally coughs but she has been coughing even more in the past 3 days. She has not been able to bring up any sputum. The patient's CBC shows a white count of 24,200, hemoglobin 15, and platelet count 199,000. Creatinine is 0.9. GFR is greater than 60. Liver function studies are normal. The patient's CT scan shows left lower lobe pneumonia secondary to bronchial mucous plugging. PAST MEDICAL HISTORY/REVIEW OF SYSTEMS: This was unable to be answered by the patient. I did ask the patient's sister about review of systems but she did not have much information to give. She did say, however, that the patient has a chronic cough and she is chronically dyspneic, but both of these things have been worse over the past 3 days. 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 She has had a hysterectomy. PREVIOUS HOSPITALIZATIONS AN OPERATIONS: She has had labor and deliveries, a hysterectomy, placement of coronary artery stents and 3 days ago the patient had a right-sided permanent pacemaker implanted at [facility]. MEDICAL DISEASES: Positive for lung cancer, coronary artery disease, and a cardiac arrhythmia which required placement of a pacemaker. The patient also has diabetes mellitus and hypertension, hyperlipidemia. INFECTIOUS DISEASE HISTORY: Negative for pneumonia and UTI. FAMILY HISTORY: Positive for diabetes mellitus, hypertension, myocardial infarction and stroke. SOCIAL HISTORY: The patient is . The sister lives with the patient. They have a dog as a pet. The patient smokes cigarettes. She continues to smoke cigarettes. She does not drink alcoholic beverages or abuse drugs. ALLERGIES: The patient has no known drug allergies. MEDICATIONS: Taken at home include BuSpar, Cardizem, glipizide, hydrocodone, lisinopril, megestrol, oxycodone and simvastatin. FAMILY HISTORY: Is positive for diabetes mellitus, hypertension, myocardial infarction, stroke and cancer. PHYSICAL EXAMINATION: Vital Signs: Temperature is 98.4 degrees, pulse 116, respirations 14, blood pressure 154/80. The patient is 5 feet 7 inches tall, weighs 122 pounds. General: This is a chronically ill-appearing, elderly female. She appears to be in no acute distress. Head, eyes, ears, nose, and throat: I was unable to determine how well the patient could see or hear. She barely opened her mouth and I could not get a good look in her oral cavity. Neck: When I move the patient's neck it did not seem to cause her any pain. Thorax: Patient has an increased AP diameter. Lungs: Are clear. Cardiovascular: Heart rate was regular and rapid. Abdomen: Soft and not tender. Neurologic: The patient is lethargic. She did not answer my questions. She did not move her extremities to request. The patient did not have any tremor. Integument: No rash noted. Thank you for the consult. cc: Fabiano Reyes MD
--- NOTE | 2018-12-03 15:58 | PROGRESS NOTE ---
DATE: 12/03/2018 SUBJECTIVE: The patient is resting comfortably in bed. She complains of shortness of breath. OBJECTIVE: Vital Signs: Temperature 98.7 degrees, blood pressure 154/91, heart rate 116, respirations 17, O2 saturation is 97% on 4 L nasal cannula. General: This is an elderly female, lying in bed in no acute distress. Heart: S1, S2 normal. Tachycardic. Lungs: Coarse breath sounds. Abdomen: Positive bowel sounds. Soft, nontender, nondistended. Extremities: No edema, no cyanosis. Neurologic: The patient is awake and alert. DIAGNOSTIC STUDIES: White blood cell count 24, hemoglobin 15, hematocrit 43, platelets 199,000. Sodium 135, potassium 4.2, chloride 102, CO2 of 20, BUN 20, creatinine 0.9, glucose 218, albumin 3.1. Chest x-ray shows pneumonia in the left lung. ASSESSMENT AND PLAN: 1. Acute hypoxemic respiratory failure. 2. Left lung pneumonia. Continue with antibiotic therapy as directed by Dr. Reyes. 3. Status post pacemaker implantation 3 days ago. Aware. 4. Emphysema. Aware. 5. Acute kidney injury. Resolved. 6. Gastrointestinal prophylaxis. Continue on Nexium. 7. Deep vein thrombosis prophylaxis. Continue with SCDs. cc: Padma Gonzalez MD
--- NOTE | 2018-12-03 18:22 | ED EKG INTERP ---
This chart was entered by Yelitza Blackwell Scribe, acting as scribe for Leonardo Rangel MD. EKG Interpretation - EKG Time of EKG reading by physician:: 18:33 EKG Read and Signed by:: Leonardo Rangel EKG Interpretation (*Must complete 3 of following elements*): Abnormal (incomplete RBBB, poss right ventricular hypertrophy st and t wave abnormality, consider anterolateral ischemia) Rate: 103 Rhythm: sinus tachycardia [place]: normal QRS: RBB (incomplete) [place] Interval: normal ST Wave: non-specific ST changes Attestation - Physician/ NAGI Attestation Patient care was provided by Advanced Practice Provider:: No The physician spent face to face time with patient:: Yes Advanced Practice Provider documentation review:: Supervising physician onsite and consulted in the evaluation and care of this patient. The physician did have a face to face encounter with the patient. This chart was documented by the indicated scribe, (Yelitza Blackwell Scribe) and accurately reflects the services I performed and decisions made by me, Leonardo Rangel MD, as attested by the provider's signature.
--- NOTE | 2018-12-03 21:52 | PULMONOLOGY CONSULTATION ---
DATE: 12/03/2018 REASON FOR CONSULTATION: Acute respiratory failure, pneumonia, and COPD. HISTORY OF PRESENT ILLNESS: Ms. Sandoval is an 73-year-old white female with severe COPD who was previously followed in my clinic for a solitary pulmonary nodule in the right lower lobe, along with probable prior asbestos exposure and ongoing tobacco use. The nodule in the right lower lobe was approximately 1 cm in size and was not active on a PET scan. She failed to continue to follow up. She presented to the emergency room 2 days ago with increased cough, increased sputum production, increasing shortness of breath. She had a pacemaker placed approximately 3 days prior to the ER admission. CT scan of the thorax was performed which revealed a stable nodule in the right lower lobe, moderate COPD, in the left lower lobe pneumonia. PAST MEDICAL HISTORY: 1. Severe chronic obstructive pulmonary disease. Her FEV1 was 0.81 L or 32% in October 2013. 2. Recent pacemaker placement. 3. Diabetes mellitus. 4. Hypertension. 5. Status post pacemaker placement. 6. Status post hysterectomy. 7. Status post carotid endarterectomy. SOCIAL HISTORY: Ongoing tobacco use. 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 FAMILY HISTORY: Positive for diabetes, pancreatic cancer, ulcer disease and 1 sister from a motor vehicle accident. REVIEW OF SYSTEMS: Notable for shortness of breath, sputum production, generalized weakness. PHYSICAL EXAMINATION: General: Reveals a frail white female with a BMI of 19, who is awake and alert. She has no increased work of breathing. Vital signs: Blood pressure 151/87, heart rate 126, respiratory rate 16, oxygen saturation 97% on 4 L per nasal cannula. HEENT: Pupils are equal and reactive. Oropharynx appears clear. Neck: Supple. Chest: Reveals prolonged expiratory phase bilaterally with crackles at the left base. Abdomen: Scaphoid and soft. Extremities: Without edema. LABORATORIES: White blood count 24,000, hemoglobin 15.0, platelet count 199,000. Sodium 135, potassium 4.2, chloride 102, bicarb 20, BUN 20, creatinine 0.9, glucose 218. IMPRESSION: A 73-year-old with 1. Left lower lobe pneumonia with recent hospital stay. 2. Severe chronic obstructive pulmonary disease. 3. Ongoing nicotine addiction/use with cigarette use. 4. Acute hypoxemic respiratory failure. 5. Stable solitary pulmonary nodule. RECOMMENDATIONS: 1. Send sputum for culture and sensitivity. 2. Continue current antibiotics under the direction of Dr. Fabiano Reyes. 3. Continue bronchodilators. 4. Encourage smoking cessation. cc: Isidro Kendrick MD
[2018-12-04] MEDS: ZYVOX 600 MG/D5W 600 MG/300 ML IVPB IV SCH ×2 (01:55→14:23)
[2018-12-04] MEDS: NEXIUM IV SCH (01:55)
[2018-12-04] MEDS: NS 1,000 ML IV SCH ×2 (01:55→09:30)
[2018-12-04] MEDS: XOPENEX NEB INH SCH ×5 (03:20→23:36)
[2018-12-04] MEDS: ATROVENT NEB INH SCH ×5 (03:20→23:36)
[2018-12-04 05:45] LABS: RBC 4.96 XMIL (4.2-5.4); WBC 20.57 X1000 (4.8-10.8)
[2018-12-04 05:46] LABS: BASO# 0.03 X1000 (0.0-0.2); BASO% 0.1 % (0.0-0.8); EOS# 0.04 X1000 (0.0-0.7); EOS% 0.2 % (0.0-10.0); HEMATOCRIT 43.3 % (37.0-47.0); HEMOGLOBIN 14.7 g/dL (12.0-16.0); IMM GRAN# 0.07 X1000 (0.0-0.04); IMM GRAN% 0.3 % (0.0-0.5); LYMPH# 1.46 X1000 (1.2-3.4); LYMPH% 7.1 % (20.5-51.1); MCH 29.6 PG (27-31); MCHC 33.9 g/dL (33-37); MCV 87.3 FL (81-99); MONO# 1.83 X1000 (0.11-0.59); MONO% 8.9 % (1.7-9.3); NEUT# 17.14 X1000 (1.4-6.5); NEUT% 83.4 % (42.2-75.2); PLT 181 X1000 (130-400); RDW 13.9 % (11.5-14.5)
[2018-12-04 05:48] LABS: AGAP 13; BUN 14 mg/dL (8-22); CALCIUM 8.4 mg/dL (8.8-10.2); CHLORIDE 100 mmol/L (98-107); COSMO 276; CREATININE 0.7 mg/dL (0.5-0.9); ESTIMATED GFR > 60; GLUCOSE 223 mg/dL (70-104); POTASSIUM 3.9 mmol/L (3.5-5.1); SODIUM 134 mmol/L (136-145); TCO2 21 mmol/L (25-35)
[2018-12-04] MEDS: HUMULIN R SUBQ SCH ×4 (06:09→21:40)
--- NOTE | 2018-12-04 07:27 | INFECTIOUS DISEASE PROGRESS NO ---
DATE: 12/04/2018 PRESENT ILLNESS: The patient has a left lower lobe pneumonia. Recently, she had a permanent pacemaker placed at [facility]. It is on the right side. MEDICATIONS: The patient is on day 2 of cefepime and Zyvox and day 1 of Levaquin. PHYSICAL EXAMINATION: Vital Signs: Temperature is 98.1 degrees, pulse 124, respirations 15, blood pressure is 154/93. General: This is an ill-appearing elderly female. She is in no acute distress. Head, Eyes, Ears, Nose, and Throat: She appeared to be able to hear my spoken words and see near objects. She does not have any white patches in her mouth. Neck: She moved her head and neck without having any neck pain that I could discern. Thorax/Chest: She has an increased AP diameter of the chest. On the right side, there is a permanent pacemaker present. The incision is not erythematous or draining. Lungs: Clear to auscultation. Cardiovascular: Heart rate is rapid and regular. Abdomen: Soft and nontender. Neurologic: The patient is awake. She did move her extremities to request. When she did talk, I could not understand what she was saying. LABORATORY AND X-RAY: The patient's CBC today shows white count is down to 20,570, hemoglobin is 14.7, platelet count 181,000. Blood and urine cultures are negative. Sputum culture is pending. The chest x-ray from yesterday showed opacity at the left lung base. ASSESSMENT AND PLAN: The patient has a left lower lobe pneumonia. My plan is to continue with the current antibiotics, namely Levaquin, cefepime, and Zyvox pending further culture results, specifically of the sputum. COMORBIDITIES: The patient is elderly. She just was in the hospital having a procedure done. She does have lung cancer. She also has diabetes. The patient also is a cigarette smoker. cc: Fabiano Reyes MD
[2018-12-04] MEDS: MAXIPIME 1 GM in NS 50 ML IV SCH ×2 (09:21→20:31)
[2018-12-04] MEDS: MYCOSTATIN SUSP PO SCH ×4 (11:59→20:30)
[2018-12-04] MEDS: LEVAQUIN 500 MG/D5W 500 MG/100 ML IVPB IV SCH (11:59)
--- NOTE | 2018-12-04 17:21 | PROGRESS NOTE ---
DATE: 12/04/2018 SUBJECTIVE: The patient is resting comfortably in bed. No acute events noted overnight. The patient is more awake and alert today as per the family. OBJECTIVE: Vital Signs: Temperature 98.7 degrees, blood pressure 155/102, heart rate 67, respirations 21. O2 saturation is 100% on 4 L nasal cannula. General: This is a chronically ill- appearing elderly female lying in bed in no acute distress. Heart: S1, S2 normal. Tachycardic. Lungs: Coarse breath sounds bilaterally. Abdomen: Positive bowel sounds. Soft, nontender, nondistended. Extremities: No edema, no cyanosis. No calf tenderness. Neurologic: The patient is alert and oriented. LABORATORY DATA: White blood cell count 20, hemoglobin 14, hematocrit 43 platelets 181,000, sodium 134, potassium 3.9, chloride 100, CO2 21, BUN 14, creatinine 0.7, glucose 223. ASSESSMENT AND PLAN: 1. Acute hypoxemic respiratory failure. Continue to treat the underlying infection. 2. Left lung pneumonia. Continue with antibiotics, bronchodilator therapy and supplemental oxygen. 3. Status post pacemaker implantation. Aware. 4. Emphysema. Continue with supplemental oxygen. 5. Leukocytosis. Continue with antibiotic therapy. 6. Hyponatremia. Stable. We will continue to monitor closely. 7. Diabetes mellitus type 2. We will start a low dose of Levemir. Continue with sliding scale insulin. 8. Gastrointestinal prophylaxis. Continue on Nexium. 9. Deep vein thrombosis prophylaxis. Continue with SCDs. cc: Pdama Gonzalez MD MTDD
[2018-12-05] MEDS: ZYVOX 600 MG/D5W 600 MG/300 ML IVPB IV SCH ×2 (01:39→13:23)
[2018-12-05] MEDS: NEXIUM IV SCH (01:39)
[2018-12-05] MEDS: XOPENEX NEB INH SCH ×5 (03:14→23:02)
[2018-12-05] MEDS: ATROVENT NEB INH SCH ×5 (03:14→23:01)
[2018-12-05 06:05] LABS: BASO# 0.04 X1000 (0.0-0.2); BASO% 0.2 % (0.0-0.8); EOS# 0.16 X1000 (0.0-0.7); EOS% 0.9 % (0.0-10.0); HEMATOCRIT 46.7 % (37.0-47.0); IMM GRAN# 0.06 X1000 (0.0-0.04); IMM GRAN% 0.3 % (0.0-0.5); LYMPH% 6.8 % (20.5-51.1); MCH 29.7 PG (27-31); MCHC 34.3 g/dL (33-37); MCV 86.6 FL (81-99); MONO# 1.28 X1000 (0.11-0.59); MONO% 7.3 % (1.7-9.3); MPV 11.9 FL (7.4-10.4); NEUT# 14.83 X1000 (1.4-6.5); NEUT% 84.5 % (42.2-75.2); PLT 177 X1000 (130-400); RBC 5.39 XMIL (4.2-5.4); RDW 13.8 % (11.5-14.5); WBC 17.57 X1000 (4.8-10.8)
[2018-12-05] MEDS: HUMULIN R SUBQ SCH ×4 (06:24→20:35)
[2018-12-05 06:27] LABS: AGAP 15; BUN 17 mg/dL (8-22); CHLORIDE 98 mmol/L (98-107); COSMO 276; CREATININE 0.7 mg/dL (0.5-0.9); ESTIMATED GFR > 60; GLUCOSE 212 mg/dL (70-104); POTASSIUM 3.8 mmol/L (3.5-5.1); SODIUM 134 mmol/L (136-145); TCO2 21 mmol/L (25-35)
--- NOTE | 2018-12-05 08:02 | PULMONOLOGY PROGRESS NOTE ---
DATE: 12/04/2018 SUBJECTIVE: The patient is awake, alert. She has a marginal cough effort. She is without specific complaints. OBJECTIVE: Vital Signs: The patient has been afebrile for the last 24 hours. Blood pressure 139/98, heart rate 129, respiratory rate 20, oxygen saturation 99% on 4 L per nasal cannula. HEENT: Pupils are equal and reactive. Oropharynx appears clear. Neck: Neck is supple. Chest: Reveals decreased breath sounds left base with bilateral rhonchi. Cardiac exam: S1, S2. Abdomen: Soft. Extremities: Without edema. LABORATORIES: White blood count 20.57, hemoglobin 14.7, platelet count 181,000. Chemistry: Sodium 134, potassium 3.9, chloride 100, bicarbonate 21. BUN 14, creatinine 0.7. Sputum culture is pending. IMPRESSION: A 73-year-old with: 1. Left lower lobe pneumonia. 2. Recent hospital stay associated with pacemaker placement. 3. Severe chronic obstructive pulmonary disease. 4. Ongoing tobacco use/nicotine addiction. 5. Acute hypoxemic respiratory failure. 6. Stable solitary pulmonary nodule for the last several years. PLAN: 1. Await culture and sensitivity of sputum sample. 2. Continue current antibiotics. 3. Encourage cough and clearance techniques for bronchial hygiene. 4. Encourage smoking cessation. cc: Isidro Kendrick MD
--- NOTE | 2018-12-05 09:04 | PROGRESS NOTE ---
DATE: 12/05/2018 SUBJECTIVE: This is a 73-year-old who was admitted on 12/01/2018, patient of Dr. Nikita Worley, presented to the emergency room by ambulance on at 1615 with complaints of shortness of breath. Reports that she had recently had a right-sided pacemaker placed about 3 days before admission at [facility]. She did report that since being home, she has had increased weakness, not been eating or drinking well. Also reports she is having some difficulty swallowing. For the past couple of days, she has had orthopnea, had to prop up to sleep. Also reports paroxysmal nocturnal dyspnea. She does keep a chronic cough, daily smoker, knows her cough has worsened, and it is productive of clear, thin sputum. She has felt chilled, worsening shortness of breath over the last couple of days. PAST MEDICAL HISTORY: 1. Hypertension. 2. Status post pacemaker placement 3 days prior to this at [facility]. 3. COPD. 4. Nicotine dependence. 5. Diabetes mellitus type 2. 6. History of lung cancer diagnosed about 2 years ago. She has not received any treatment for it. PAST SURGICAL HISTORY: 1. Status post pacemaker placement 3 days prior at [facility]. 2. Status post hysterectomy. 3. Reported stent placement of one of the vessels in her neck, she thinks on the left side. ADMISSION DIAGNOSES: 1. Pneumonia. CT showed extensive bronchial mucous plugging on the left, especially in the left lower lobe, associated with significant atelectasis and possibly superimposed infiltrate. 2. Acute hypoxemic respiratory failure, likely secondary to pneumonia. 3. Hypotension, which could be related to infection and early sepsis. 4. Acute kidney injury. 5. Dysphagia. 6. Possible new onset of congestive heart failure and noted distended neck veins. 7. Status post pacemaker placement. 8. Diabetes mellitus type 2. IMAGING: The patient had an echocardiogram with Doppler on 12/02/2018: Normal right ventricular size. Mild tricuspid regurgitation. Right atrium normal size. Left ventricular function, estimated ejection fraction 65%. Mild left ventricular hypertrophy. No pericardial disease. She appears to have mild LVH. HOSPITAL COURSE: Cardiology was consulted, Dr. Melendez, with history of coronary artery disease, in 2013 demonstrated some LV dilatation. She had a cardiac cath in 2009 that demonstrated diffuse calcification of 50% in the mid vessel of the LAD. Circumflex with no critical disease. Moderate diffuse calcifications in RCA. Diffuse mild intimal disease. She was in heart failure. It appears mainly diastolic. Infectious Disease was consulted, Dr. Reyes. Left lower lobe pneumonia secondary to bronchial mucous plugging. She seems to have improved. OBJECTIVE: General: Today on exam, she says she feels better, she is breathing better. Vital Signs: Afebrile, temp 97.7 degrees, pulse 126, respirations 14, blood pressure 149/110. HEENT: Pupils are equal and round. Lungs: Clear in all lung ojeda. Cardiovascular: Regular rhythm and rate without murmur or S3. Abdomen: Soft. Skin: Warm and dry. Urine output was 1900 mL. LABORATORY DATA: Blood sugars 197, 218, 190. Lab reviewed from yesterday: White count is still elevated at 17,570, hematocrit is 46, platelet count is 177,000. Sodium 134, potassium 3.8, chloride 98, BUN 17, creatinine 0.7. ASSESSMENT AND PLAN: 1. Left lower lobe pneumonia. She had a recent hospital stay associated with pacemaker placement, underlying severe chronic obstructive pulmonary disease, ongoing tobacco use, acute hypoxemic respiratory failure. She has a stable solitary pulmonary nodule in the last several years. Will continue present antibiotics. Await sensitivity on the sputum sample. She appears clinically to be improving. Encourage tobacco cessation. Her present antibiotics are linezolid 600 mg intravenously every 12 hours, and Levaquin 500 mg intravenously every 24 hours. This should be day 3 of her cefepime, Zyvox, Lovenox, and Levaquin. 2. Leukocytosis, suspect secondary to the infection. Continue present antibiotics and treatment. 3. Hyponatremia. I think sodium was 134 this morning. Creatinine is 0.7, so it looks to be stable. Continue to monitor. 4. Diabetes mellitus type 2. Blood sugars look appropriate. Continue to pattern sugar. Sliding scale. 5. She is on Nexium for gastrointestinal prophylaxis. REVIEW OF ORDERS: I do not see any change. Lab. cc: Kb Aguirre MD
[2018-12-05] MEDS: MYCOSTATIN SUSP PO SCH ×4 (09:21→20:36)
[2018-12-05] MEDS: LEVEMIR SUBQ SCH (09:21)
[2018-12-05] MEDS: MAXIPIME 1 GM in NS 50 ML IV SCH ×2 (09:21→20:36)
[2018-12-05] MEDS: LEVAQUIN 500 MG/D5W 500 MG/100 ML IVPB IV SCH (10:45)
--- NOTE | 2018-12-05 13:01 | INFECTIOUS DISEASE PROGRESS NO ---
DATE: 12/05/2018 PRESENT ILLNESS: The patient has left lower lobe pneumonia. MEDICATIONS: This is day 3 of treatment with cefepime and Zyvox and day 2 of treatment with Levaquin. PHYSICAL EXAMINATION: Vital Signs: Temperature is 98 degrees, pulse 131, respirations 18, blood pressure 148/92. General: This is an ill-appearing elderly female. She is in no acute distress. Today she is lethargic. Head, Eyes, Ears, Nose, And Throat: She can hear my spoken words and see near objects. I did not see any white coating of her tongue. Neck: The patient did not have any pain when she moved her neck. Thorax: The patient on the right side has a pacemaker which was just put in a few days ago at [facility]. The incision is intact. There is no swelling or drainage. Lungs: Clear to auscultation. Cardiovascular: Heart rate is regular. Abdomen: Soft and nontender. Neurologic: As mentioned, the patient is lethargic today. She did not carry on much of a conversation with me. The patient does not have any tremor. LABORATORY AND RADIOLOGY: There is as of yet no radiographic study for today. [place] [address], hemoglobin 16, and platelet count 177,000. IgG is 810, IgA is 451. Therefore, the patient does not have an immunoglobulin deficiency. Patient's sputum is growing a normal tierra. ASSESSMENT AND PLAN: Patient has pneumonia. Will continue current antibiotics. COMORBIDITIES: The patient is elderly. She just has finished being in [facility] where she had a pacemaker put in. The patient has lung cancer and diabetes and she is a cigarette smoker. cc: Fabiano Reyes MD [facility]
[2018-12-06] MEDS: SODIUM CHLORIDE 0.9% INJ SCH (01:57)
[2018-12-06] MEDS: ZYVOX 600 MG/D5W 600 MG/300 ML IVPB IV SCH (01:57)
[2018-12-06] MEDS: NEXIUM IV SCH (01:57)
[2018-12-06] MEDS: ATROVENT NEB INH SCH ×4 (03:12→21:48)
[2018-12-06] MEDS: XOPENEX NEB INH SCH ×4 (03:12→21:48)
--- NOTE | 2018-12-06 05:29 | PULMONOLOGY PROGRESS NOTE ---
DATE: 12/05/2018 SUBJECTIVE: Patient was sleeping upon arrival. She is arousable. She continues to have a marginal cough effort. OBJECTIVE: Vital signs: The patient has been afebrile for the last 24 hours. Blood pressure 150/82, heart rate 123, respiratory rate 24, oxygen saturation 98%. HEENT: Pupils are equal and reactive. Oropharynx appears clear. Neck: Supple. Chest: Reveals decreased breath sounds with crackles at the left base. Cardiac: S1 and S2. Abdomen: Soft. Extremities: Reveal trace edema. LABORATORIES: White blood count 17.6, hemoglobin of 16.0, platelet count 177,000. Sodium 134, potassium 3.8, chloride 98, bicarbonate 31, BUN 17, creatinine 0.7. Sputum culture requires additional incubation. IMPRESSION: A 73-year-old with 1. Left lower lobe pneumonia. 2. Severe chronic obstructive pulmonary disease. 3. Ongoing tobacco use/nicotine addiction. 4. Acute hypoxemic respiratory failure. 5. Recent pacemaker placement. 6. Stable solitary pulmonary nodule on serial CT scans. PLAN: 1. Encouraged patient to deep breathe and cough, and use incentive spirometer. 2. Continue antibiotics pending results of sputum culture. 3. Encourage smoking cessation. 4. Chest x-ray tomorrow morning. cc: Isidro Kendrick MD
[2018-12-06 05:38] LABS: BASO# 0.05 X1000 (0.0-0.2); BASO% 0.4 % (0.0-0.8); EOS# 0.34 X1000 (0.0-0.7); EOS% 2.6 % (0.0-10.0); HEMATOCRIT 44.5 % (37.0-47.0); HEMOGLOBIN 15.4 g/dL (12.0-16.0); IMM GRAN# 0.06 X1000 (0.0-0.04); IMM GRAN% 0.5 % (0.0-0.5); LYMPH# 1.45 X1000 (1.2-3.4); LYMPH% 11.2 % (20.5-51.1); MCHC 34.6 g/dL (33-37); MCV 86.6 FL (81-99); MONO# 1.26 X1000 (0.11-0.59); MONO% 9.8 % (1.7-9.3); MPV 11.3 FL (7.4-10.4); NEUT# 9.76 X1000 (1.4-6.5); NEUT% 75.5 % (42.2-75.2); PLT 148 X1000 (130-400); RBC 5.14 XMIL (4.2-5.4); RDW 13.8 % (11.5-14.5); WBC 12.92 X1000 (4.8-10.8)
[2018-12-06 06:03] LABS: AGAP 12; BUN 19 mg/dL (8-22); CALCIUM 8.8 mg/dL (8.8-10.2); CHLORIDE 99 mmol/L (98-107); COSMO 274; CREATININE 0.7 mg/dL (0.5-0.9); ESTIMATED GFR > 60; GLUCOSE 204 mg/dL (70-104); POTASSIUM 3.6 mmol/L (3.5-5.1); SODIUM 133 mmol/L (136-145); TCO2 22 mmol/L (25-35)
[2018-12-06] MEDS: HUMULIN R SUBQ SCH ×4 (06:29→20:14)
--- NOTE | 2018-12-06 07:11 | Diag Imaging Result Doc PS360 ---
EXAM: CHEST-PORTABLE 12/06/2018 HISTORY: abnormal exam TECHNIQUE: AP portable at 0551 COMMENT: The left lung is now completely airless. There is ill-defined opacity in the right costophrenic angle region which was also present at the time the previous study of 12/03/2018. IMPRESSION: Worsened atelectasis of the left lung. The possibility of mucous plugging in the left mainstem bronchus cannot be excluded. Electronically signed by Celestine Marino 12/06/2018 7:08 AM
--- NOTE | 2018-12-06 09:19 | PROGRESS NOTE ---
DATE: 12/06/2018 PRIMARY CARE PHYSICIAN: Dr. Nikita Worley. SUBJECTIVE: A 73-year-old presented to the emergency room on 12/01/2018 by ambulance at approximately 1615 with complaints shortness of breath. Reports that she had recently right-sided pacemaker placed about 3 days prior to admission, at [facility]. Since going home, she had increased weakness, not able to eat or drink well. She was brought into the emergency room. CT scan of the chest showed extensive bronchial mucosal plugging in her left, especially left lower lobe, associated with significant atelectasis, probably superimposed infiltrate. Began on antibiotics. The x-ray from this morning showed worsened atelectasis in the left lung, possibly mucus plugging in the left mainstem bronchus. She does not report shortness of breath. She is not eating much. Poor appetite. OBJECTIVE: Vital Signs: She remains afebrile, temperature 98.2 degrees, pulse 117, respirations 28, blood pressure 159/102. HEENT: Pupils are equal and round. Lungs: Clear in all lung ojeda. Cardiovascular: Regular rhythm and rate without murmur or S3. Abdomen: Soft. LABORATORY DATA: Blood sugar 190, 153, 172. ASSESSMENT AND PLAN: 1. Left lower lobe pneumonia with left-sided atelectasis which appears worse, underlying severe chronic obstructive pulmonary disease, ongoing tobacco use, acute hypoxemic respiratory failure. Continue antibiotics. She is on bronchodilators, ipratropium bromide. She is on Levaquin and cefepime. 2. Poor appetite. Encourage oral intake. Will see if we can add some Ensure to supplement. 3. Diabetes mellitus type 2. Sugars appear under good control. 4. Hyponatremia, resolved. 5. Continue Nexium for gastrointestinal prophylaxis. Note, her white count has come down to 12,920. Chemistries unremarkable. cc: Kb Aguirre MD
[2018-12-06] MEDS ORDERED: INSULIN PEN NEEDLES ONE (09:24)
[2018-12-06] MEDS: LEVEMIR SUBQ SCH (09:58)
[2018-12-06] MEDS: MAXIPIME 1 GM in NS 50 ML IV SCH ×2 (09:58→20:14)
[2018-12-06] MEDS: MYCOSTATIN SUSP PO SCH ×4 (09:58→20:14)
[2018-12-06] MEDS: MUCOMYST 20% INH SCH ×2 (10:07→21:49)
[2018-12-06] MEDS: LEVAQUIN 500 MG/D5W 500 MG/100 ML IVPB IV SCH (10:49)
--- NOTE | 2018-12-06 13:26 | INFECTIOUS DISEASE PROGRESS NO ---
DATE: 12/06/2018 PRESENT ILLNESS: The patient has developed atelectasis of the left lung, possibly due to mucus plugging. She does have an infiltrate in the right lung. MEDICATIONS: This is day 4 of treatment with Zyvox and cefepime, and day 3 of treatment with Levaquin. PHYSICAL EXAMINATION: Vital Signs: Temperature is 98.2 degrees, pulse 117, respirations 28, blood pressure 159/102. General: This is an ill-appearing, lethargic, elderly female. She does not appear to be in any acute distress. Head/eyes/ears/nose/throat: She appears to be able to hear my spoken words and see near objects. I did not see any white patches in her mouth. Neck: No meningismus. Thorax: Patient's right-sided pacemaker was placed a few days ago at [facility]. The incision is intact. There is an increased AP diameter of the chest. Lungs: There are no breath sounds on the left side; the right side is clear. Cardiovascular: Heart rate is regular. Abdomen: Soft and nontender. Neurologic: The patient is lethargic, but she is arousable. She did follow request to move her extremities. LAB AND X-RAY: Chest x-ray shows left-sided atelectasis with no air present. This possibly could be due to plugging of the left-sided bronchus. On the right side, there is an opacity present. Sputum is growing a gram-negative isma. Legionella and pneumococcal antigens are negative. Creatinine 0.7. GFR is greater than 60. CBC shows a white count of 12,920, hemoglobin 15.4 and platelet count 148,000. ASSESSMENT AND PLAN: Patient has pneumonia with no air in the left lung. The patient's sputum is growing a gram-negative isma. I am going to continue cefepime, Levaquin, but discontinue Zyvox. Dr. Kendrick is seeing the patient, and hopefully if there is mucus plugging he will be able to get rid of it. COMORBIDITIES: The patient is elderly. She just finished having a pacemaker put in. She has lung cancer, diabetes mellitus, and she smokes cigarettes. cc: Fabiano Reyes MD
--- NOTE | 2018-12-06 15:51 | PULMONOLOGY PROGRESS NOTE ---
DATE: 12/06/2018 SUBJECTIVE: The patient is sleeping upon arrival. She is lying on her left side. She has a very weak and unmotivated cough effort. Family reports they cannot motivate her to cough or to eat. OBJECTIVE: Vital Signs: The patient has been afebrile for the last 24 hours, blood pressure 123/82, heart rate 120, respiratory rate 23, oxygen saturation 96%. HEENT: Pupils are equal and reactive. Oropharynx appears clear. Neck is supple. Chest reveals rhonchi bilaterally with significant decreased breath sounds, left lung. Cardiac Exam: S1, S2. Abdomen is soft. Extremities without edema. LABORATORIES: White blood count 12.92, hemoglobin 15.4, platelet count 148,000. Sodium 133, potassium 3.6, chloride 99, bicarbonate 22, BUN 19, creatinine 0.7. MICROBIOLOGY: Growing a gram-negative isma which has yet to be identified. IMPRESSION: A 73-year-old with: 1. Left lower lobe pneumonia. 2. Severe chronic obstructive pulmonary disease. 3. Progressive atelectasis with complete atelectasis of the left lung. 4. Ongoing tobacco use/nicotine addiction. 5. Acute hypoxemic respiratory failure. 6. Status post recent pacemaker placement. 7. Solitary pulmonary nodule which has been stable on serial CT scans for greater than 2 years. DISCUSSION: A 73-year-old with problems outlined above. Her bronchial hygiene is limited in part due to her weakness and in part due to motivation. I will initiate her on a chest physical therapy program, and we will initiate mucolytics. I will also place her on the schedule for bronchoscopy tomorrow morning in the event that she does not have radiographic improvement. PLAN: 1. Continue antibiotics per Infectious Disease. 2. Augment bronchial hygiene as outlined above. 3. Chest x-ray tomorrow with bronchoscopy if the left lung has not re-expanded. cc: Isidro Kendrick MD
[2018-12-07] MEDS: NEXIUM IV SCH (01:07)
[2018-12-07] MEDS: ATROVENT NEB INH SCH ×4 (03:33→22:14)
[2018-12-07] MEDS: XOPENEX NEB INH SCH ×4 (03:33→22:15)
[2018-12-07] MEDS: HUMULIN R SUBQ SCH ×4 (06:06→20:57)
--- NOTE | 2018-12-07 07:23 | Diag Imaging Result Doc PS360 ---
EXAM: CHEST-PORTABLE INDICATION: abnormal exam TECHNIQUE: One view COMPARISON: 12/06/2018 FINDINGS: There has been re-aeration of the left upper lung zone. The mid and lower lung zone on the left remain densely opacified and there is still a large effusion on the left. No new consolidation is identified on the right. The visualized cardiac silhouette is stable. IMPRESSION: Interval reaeration of the left upper lung zone. Electronically signed by Royal Wolfe 12/07/2018 7:22 AM
[2018-12-07] MEDS ORDERED: EPINEPHRINE ONE (08:46)
[2018-12-07] MEDS ORDERED: XYLOCAINE 2% ONE (08:46)
[2018-12-07] MEDS ORDERED: SODIUM CHLORIDE 0.9% 20 ML ONE (08:46)
[2018-12-07] MEDS ORDERED: XYLOCAINE 2% VISCOUS ONE (08:46)
--- NOTE | 2018-12-07 08:56 | PROGRESS NOTE ---
DATE: 12/07/2018 Ms. Sandoval has been able to drink a little bit of Ensure. She is going down for, I think a procedure to tap empyema in her left lung. OBJECTIVE: Vital Signs: Temperature is 97.9 degrees, pulse 114, respirations 26, blood pressure 150/88. HEENT: Pupils are equal and round. Lungs: Are clear in all lung ojeda. Cardiovascular: Regular rhythm and rate without murmur or S3. Abdomen: Soft. Skin: Warm and dry. Chest x-ray from this morning, interval aeration of left upper lung zone. There has been re- aeration of the left upper lung zone. There is still a large effusion on the left. No new consolidation identified on the right. ASSESSMENT AND PLAN: 1. Left lower lobe pneumonia. We will continue bronchial hygiene. Initiate her chest therapy program. Initiate mucolytics, that was started yesterday. Place her on schedule for bronchoscopy, which she is undergoing this morning, I believe. Plan is bronchoscopy this morning. I suspect there is pus and infection in the left lung. She has severe COPD with exacerbation, progressive atelectasis, acute hypoxemic respiratory failure. 2. Status post recent pacemaker placement. 3. Solitary pulmonary nodule, which has been stable on CT scan for greater than 2 years. 4. Diabetes mellitus type 2 sugars under good control. Following her sodium, sodium 133, potassium 3.6, chloride 90, BUN 19, creatinine 1.7, blood sugar 232, 196, 249. cc: Kb Aguirre MD
[2018-12-07] MEDS ORDERED: DIPRIVAN 1% ONE (09:05)
[2018-12-07] MEDS ORDERED: XYLOCAINE-MPF 2% ONE (09:36)
[2018-12-07] MEDS: MYCOSTATIN SUSP PO SCH ×4 (10:38→20:58)
[2018-12-07] MEDS: MUCOMYST 20% INH SCH ×2 (11:20→22:14)
[2018-12-07] MEDS: LEVEMIR SUBQ SCH (11:28)
[2018-12-07] MEDS: LEVAQUIN 500 MG/D5W 500 MG/100 ML IVPB IV SCH (11:28)
--- NOTE | 2018-12-07 11:35 | INFECTIOUS DISEASE PROGRESS NO ---
DATE: 12/07/2018 PRESENT ILLNESS: The patient has a left lung pneumonia. Yesterday, she had complete collapse of her lung. Today's x-ray has not been read by the radiologist, but it appears to me after looking at the chest x-ray that the upper half of the left lung is now aerated. MEDICATIONS: This is day 5 of treatment with cefepime and day 4 of treatment with Levaquin. PHYSICAL EXAMINATION: Vital Signs: Temperature is 98.6 degrees, pulse 109, respirations 22, blood pressure 155/75. General: This is an ill-appearing elderly female. She is in no acute distress this morning. Head, Eyes, Ears, Nose, and Throat: She can hear my spoken words and see near objects. She does have some white coating on her tongue this morning. Neck: No pain with movement of her neck. Thorax: The patient's right-sided pacemaker site is not swollen or erythematous. The incision is intact. Lungs: Clear on the right side. The left side has diminished breath sounds. Abdomen: Soft and nontender. Cardiovascular: Heart rate is regular. Neurologic: The patient is a little more alert today than she was yesterday. She can move her extremities to request. DIAGNOSTIC STUDIES: As mentioned above, the chest x-ray has not been read by the radiologist, but when I looked at it, it appeared that the upper left half of the lung now is aerated and the lower half is not. The patient's CBC shows a white count of 12,920, hemoglobin 15.4, and platelet count 148,000. Creatinine is 0.7, GFR is greater than 60. ASSESSMENT AND PLAN: The patient has a left lung pneumonia. Hopefully the left lung will be fully aerated by the end of the day today. The patient's sputum is growing a gram-negative isma. It has not have as of yet been released to know what the identification and susceptibility of the organism are. I am going to continue cefepime and Levaquin pending the identification and susceptibility testing of the gram-negative isma in the patient's sputum. COMORBIDITIES: 1. The patient is elderly. 2. She just finished having a pacemaker placed on her right side. 3. She has lung cancer. 4. Diabetes mellitus. 5. She continues to smoke cigarettes. ADDENDUM: The bronchial washings grew acinetobacter. Will continue Levaquin and stop cefepime. cc: Fabiano Reyes MD [facility]
--- NOTE | 2018-12-07 12:04 | INFECTIOUS DISEASE PROGRESS NO ---
DATE: 12/07/2018 ADDENDUM: The patient's sputum is growing Acinetobacter. It is susceptible to the 2 antibiotics the patient already is on, namely Levaquin and cefepime. I am going to continue Levaquin, but discontinue cefepime. Will discuss with Dr. Kendrick about the patient's pleural effusion. cc: Fabiano Reyes MD [facility]
--- NOTE | 2018-12-07 18:57 | OPERATIVE NOTE ---
PROCEDURE DATE: 12/07/2018 CLINICAL INDICATIONS: A 73-year-old with pneumonia and atelectasis of the left lung. DESCRIPTION OF PROCEDURE: The patient was identified in the holding area. All questions were answered. The patient was brought to the operating room where the procedure was performed. A time-out was performed. Topical anesthesia was achieved with viscous lidocaine in the right nostril with 2% lidocaine instilled above and below the vocal cords during the procedure. Monitored anesthesia care was provided by the Anesthesia group. When patient had received topical anesthesia and sedation, the bronchoscope was advanced through the right nostril to the level of the vocal cords. The vocal cords were smooth and without lesions. The bronchoscope was advanced into the trachea. There was mild increase in thick secretions in the trachea. When the bronchoscope reached the left mainstem, it was completely impacted with mucus. Airways to the right upper lobe and right middle lobe were normal. Airways to the right lower lobe had increased mucus as well. A washing was performed from the proximal tracheobronchial tree. The bronchoscope was directed to the left side. Mucomyst was instilled in this region. Sequential suctioning from all segments of the left lower lobe were performed. Sputum culture was obtained. The bronchoscope was directed to the right upper lobe and saline installations were performed until clear. These were not collected for specimens. Saline installations also occurred in the right upper lobe, the right middle lobe, and the right lower lobe until clear. The patient tolerated the procedure without difficulty. There were no family members in her room after the procedure to discuss the case. cc: Isidro Kendrick MD
[2018-12-08] MEDS: NEXIUM IV SCH (00:57)
[2018-12-08] MEDS: XOPENEX NEB INH SCH ×5 (03:19→21:16)
[2018-12-08] MEDS: ATROVENT NEB INH SCH ×5 (03:19→21:16)
[2018-12-08] MEDS: HUMULIN R SUBQ SCH ×4 (06:03→20:08)
--- NOTE | 2018-12-08 07:16 | Diag Imaging Result Doc PS360 ---
EXAM: CHEST-PORTABLE INDICATION: abnormal exam TECHNIQUE: One view COMPARISON: 12/07/2018 FINDINGS: There is continued improvement of aeration of the left lung. The left pleural effusion appears smaller than on the previous study. No new consolidation is identified. Cardiac silhouette is stable. IMPRESSION: Continued improvement as described. Electronically signed by Royal Wolfe 12/08/2018 7:13 AM
[2018-12-08] MEDS ORDERED: INSULIN PEN NEEDLES ONE (07:39)
[2018-12-08] MEDS: MUCOMYST 20% INH SCH ×2 (07:47→21:16)
[2018-12-08] MEDS: LEVEMIR SUBQ SCH (08:17)
[2018-12-08] MEDS: MYCOSTATIN SUSP PO SCH ×4 (08:18→20:09)
--- NOTE | 2018-12-08 08:50 | PROGRESS NOTE ---
DATE: 12/08/2018 SUBJECTIVE: Ms. Sandoval is feeling better. She had a better night sleep. Appears comfortable. She is about to start to try to eat some breakfast. I have encouraged her to try and get some food down and supplement it with some Ensure. OBJECTIVE: Vital Signs: Temperature 98.1 degrees, remains afebrile, pulse 110, respirations 18, blood pressure 182/99. Eyes: Pupils are equal round. Lungs: Clear in all lung ojeda. Cardiovascular exam: Regular rhythm and rate without murmur or S3. Abdomen: Soft. Skin: Warm and dry. Urine output 3600 mL. Blood sugar 133, 167 and 167. Chest x-ray continued improvement. There is improvement in aeration of left lung. Left pleural effusion appears smaller than previous study. No new consolidation. Dr. Kendrick performed bronchoscopy yesterday. Mild increase in thick secretions in the trachea. When the bronchoscope reached the left main stem, it was completely impacted with mucus. Airways to the right upper lobe and right middle lobe were normal. Airways to the right lower lobe had increased mucus as well. Washing was performed and suctioning of the left lower lobe was performed. So, continue present antibiotics. ASSESSMENT AND PLAN: 1. Left lower lobe pneumonia. Thick secretions which have been cleared. In aerating the left lung, she looks better. Continue bronchodilators. 2. Severe chronic obstructive pulmonary disease with exacerbation, atelectasis, left lower lung pneumonia. 3. Status post recent pacemaker placement. 4. Solitary pulmonary nodule. It has been stable on CAT scan for greater than 2 years. 5. Diabetes mellitus type 2. Sugars under good control. Her white count has come down from 24,000. Blood sugars 174, 133, 173, 167. We will check electrolytes again in the morning. Continue physical therapy. Encourage p.o. nutrition. cc: Kb Aguirre MD
[2018-12-08 10:18] LABS: CHLORIDE 100 mmol/L (98-107); POTASSIUM 4.3 mmol/L (3.5-5.1); SODIUM 137 mmol/L (136-145)
[2018-12-08 10:39] LABS: AGAP 12; BUN 21 mg/dL (8-22); COSMO 282; GLUCOSE 190 mg/dL (70-104); TCO2 25 mmol/L (25-35)
[2018-12-08 10:40] LABS: CALCIUM 9.2 mg/dL (8.8-10.2); CREATININE 0.8 mg/dL (0.5-0.9)
[2018-12-08] MEDS: LEVAQUIN 500 MG/D5W 500 MG/100 ML IVPB IV SCH (12:19)
--- NOTE | 2018-12-08 15:35 | INFECTIOUS DISEASE PROGRESS NO ---
DATE: 12/08/2018 PRESENT ILLNESS: The patient has a left lung Acinetobacter pneumonia. MEDICATIONS: This is day 5 of treatment with Levaquin. PHYSICAL EXAMINATION: Vital Signs: Temperature is 98.1 degrees pulse 110, respirations 22, blood pressure 182/99. General: This is an ill-appearing elderly female. She seems to be in slight respiratory distress. Head, eyes, ears, nose, and throat: She does not have any drainage from the nose or the ears. She does not have any white patches in her mouth. She could hear my spoken words and it appeared that she could see near objects. Neck: There is no apparent neck pain with movement of her neck. Lungs: There were bilateral rhonchi. Cardiovascular: Heart rate is regular. Thorax: The patient's right-sided pacemaker site is not swollen or erythematous. Abdomen: Soft and nontender. Neurologic: The patient was lethargic today. She did follow request to open her mouth and move her extremities. There is no tremor. LAB AND X-RAY: Chest x-ray shows improved aeration of the left lung and a decrease in the left pleural effusion. The sputum culture grew out Acinetobacter. There is no CBC or BMP for today. Cultures from the bronchial washings are negative. ASSESSMENT AND PLAN: The patient has an Acinetobacter pneumonia. It appears that it is getting better as noted on the chest x-ray above. I plan to continue with Levaquin. I have ordered a CBC, BMP, and portable chest x-ray on December 10. COMORBIDITIES: Patient is elderly. She had just finished getting a pacemaker placed on her right side at [facility]. The patient has lung cancer and diabetes mellitus. She also is a cigarette smoker. cc: Fabiano Reyes MD
[2018-12-08] MEDS ORDERED: DULCOLAX PR PRN (16:20)
[2018-12-08] MEDS: MILK OF MAGNESIA PO PRN (17:06)
[2018-12-09] MEDS: NEXIUM IV SCH (01:18)
[2018-12-09] MEDS: XOPENEX NEB INH SCH ×4 (03:33→19:33)
[2018-12-09] MEDS: ATROVENT NEB INH SCH ×4 (03:33→19:34)
[2018-12-09] MEDS: HUMULIN R SUBQ SCH ×4 (06:17→21:22)
[2018-12-09 06:26] LABS: BASO# 0.05 X1000 (0.0-0.2); BASO% 0.3 % (0.0-0.8); EOS% 3.6 % (0.0-10.0); HEMOGLOBIN 16.1 g/dL (12.0-16.0); IMM GRAN# 0.15 X1000 (0.0-0.04); IMM GRAN% 0.9 % (0.0-0.5); LYMPH# 2.28 X1000 (1.2-3.4); LYMPH% 13.9 % (20.5-51.1); MCH 29.5 PG (27-31); MCHC 33.5 g/dL (33-37); MCV 88.1 FL (81-99); MONO# 2.07 X1000 (0.11-0.59); MONO% 12.6 % (1.7-9.3); MPV 11.3 FL (7.4-10.4); NEUT# 11.29 X1000 (1.4-6.5); NEUT% 68.7 % (42.2-75.2); PLT 126 X1000 (130-400); RBC 5.45 XMIL (4.2-5.4); RDW 13.7 % (11.5-14.5); WBC 16.44 X1000 (4.8-10.8)
--- NOTE | 2018-12-09 06:43 | Diag Imaging Result Doc PS360 ---
CHEST-PORTABLE - 12/09/2018 INDICATION: pneumonia COMPARISON: 12/08/2018 FINDINGS: There has been worsening collapse of the left upper lobe, with volume loss and deviation of the mediastinum to the left. There is also a left basilar pleural effusion stable from prior. The right lung is well expanded and clear. Stable pacemaker leads. IMPRESSION: Worsening collapse of the left upper lobe with volume loss, presumably relating to mucous plugging of airways. Stable left basilar pleural effusion. Electronically signed by Shaun 12/09/2018 6:41 AM
[2018-12-09 06:55] LABS: AGAP 9; BUN 23 mg/dL (8-22); CALCIUM 9.2 mg/dL (8.8-10.2); CHLORIDE 100 mmol/L (98-107); COSMO 288; CREATININE 0.7 mg/dL (0.5-0.9); ESTIMATED GFR > 60; GLUCOSE 191 mg/dL (70-104); MAGNESIUM 2.2 mg/dL (1.5-2.7); SODIUM 140 mmol/L (136-145); TCO2 31 mmol/L (25-35)
[2018-12-09] MEDS: MUCOMYST 20% INH SCH ×2 (08:15→19:34)
--- NOTE | 2018-12-09 09:19 | PROGRESS NOTE ---
DATE: 12/09/2018 SUBJECTIVE: Ms. Sandoval was resting comfortably. She did have BiPAP on at the time. She seems to be moving air well. She is tired. OBJECTIVE: Temperature 98.9 degrees, pulse 115, respirations 17, blood pressure 180/110. Lungs are clear in all lung ojeda. Cardiovascular regular rhythm and rate without murmur or S3. Abdomen is soft. Skin is warm and dry. Urine output is 970 mL. Chest x-ray showed worsening collapse of left upper lobe, probably related to mucosal plugging of the airways. Stable left basilar pleural effusions. ASSESSMENT AND PLAN: 1. The patient has Acinetobacter pneumonia that appears to be getting better. This is day 6 of treatment with Levaquin. She had a bronchoscopy and thick mucus drainage cleared in the left lung per Dr. Kendrick. 2. Severe underlying COPD with atelectasis and thick mucus. 3. Recent pacemaker placement. 4. Solitary pulmonary nodule, which has been stable for 2 years. 5. Diabetes mellitus type 2. Sugars appear under good control. LABORATORY DATA: Labs from this morning, white count 49594 which is up from 12,000 yesterday. Hematocrit is 48 and platelet count 126,000. REVIEW OF ORDERS: 1. The patient is getting acetylcysteine 20% 3 mL inhalation b.i.d. 2. Nexium 40 mg IV q.24 hours. 3. Ipratropium bromide 0.5 mg q.6 hours. 4. Xopenex 0.63 mg inhalation q.6 hours. 5. Levaquin 500 mg IV q.24 hours. 6. Nystatin suspension swish and swallow 5 mL 4 times a day. cc: Kb Aguirre MD
[2018-12-09] MEDS: MYCOSTATIN SUSP PO SCH ×4 (09:53→21:22)
[2018-12-09] MEDS: LEVEMIR SUBQ SCH (09:53)
[2018-12-09] MEDS: LEVAQUIN 500 MG/D5W 500 MG/100 ML IVPB IV SCH (11:04)
[2018-12-10] MEDS: NEXIUM IV SCH (01:03)
[2018-12-10] MEDS: ATROVENT NEB INH SCH ×4 (03:19→20:03)
[2018-12-10] MEDS: XOPENEX NEB INH SCH ×4 (03:19→20:03)
[2018-12-10 05:31] LABS: BASO# 0.08 X1000 (0.0-0.2); BASO% 0.6 % (0.0-0.8); EOS# 0.47 X1000 (0.0-0.7); EOS% 3.3 % (0.0-10.0); HEMATOCRIT 46.1 % (37.0-47.0); HEMOGLOBIN 15.3 g/dL (12.0-16.0); IMM GRAN# 0.16 X1000 (0.0-0.04); IMM GRAN% 1.1 % (0.0-0.5); LYMPH# 2.41 X1000 (1.2-3.4); LYMPH% 16.7 % (20.5-51.1); MCH 29.2 PG (27-31); MCHC 33.2 g/dL (33-37); MONO# 1.94 X1000 (0.11-0.59); MONO% 13.4 % (1.7-9.3); MPV 11.2 FL (7.4-10.4); NEUT# 9.38 X1000 (1.4-6.5); NEUT% 64.9 % (42.2-75.2); PLT 123 X1000 (130-400); RBC 5.24 XMIL (4.2-5.4); RDW 13.6 % (11.5-14.5); WBC 14.44 X1000 (4.8-10.8)
[2018-12-10 06:18] LABS: AGAP 9; BUN 26 mg/dL (8-22); CALCIUM 8.6 mg/dL (8.8-10.2); CHLORIDE 98 mmol/L (98-107); COSMO 281; CREATININE 0.7 mg/dL (0.5-0.9); ESTIMATED GFR > 60; GLUCOSE 179 mg/dL (70-104); POTASSIUM 4.2 mmol/L (3.5-5.1); SODIUM 136 mmol/L (136-145); TCO2 29 mmol/L (25-35)
[2018-12-10] MEDS: HUMULIN R SUBQ SCH ×4 (06:42→21:15)
--- NOTE | 2018-12-10 07:10 | PROGRESS NOTE ---
DATE: 12/10/2018 SUBJECTIVE: Ms. Sandoval was sleeping, resting comfortably, says she is breathing comfortably. She still does not report eating much. She says her bowels have not moved in a while, so would like to try some milk of magnesia. OBJECTIVE: Vital Signs: Temp 98.2 degrees, pulse 115, respirations 19, blood pressure 134/81. HEENT: Pupils are equal and round. Lungs: Clear in all lung ojeda anterolateral. Cardiovascular: Regular rhythm and rate without murmur or S3. Abdomen: Soft. Skin: Warm and dry. Urine output was 1200 mL. IMAGING AND LABORATORY DATA: Blood sugars, last three were 176, 154, 170. Chest x-ray to be done this morning. ASSESSMENT AND PLAN: 1. The patient has Acinetobacter pneumonia that appears to be getting better. This is day 6 with Levaquin. She had bronchoscopic drainage per Dr. Kendrick. The left lung seems to be aerating better on that left side. 2. Severe underlying chronic obstructive pulmonary disease, atelectasis, thick mucosal secretions. 3. Recent pacemaker placement. 4. Solitary nodule, which has been stable. 5. Diabetes mellitus type 2. Sugars appear under good control. 6. Weakness, general deconditioning. 7. Complaining of some constipation. Will make sure she has some milk of magnesia. REVIEW OF ORDERS: I do not see any change note. The white count hopefully is coming down. It is down to 14,440. It was 16,000 yesterday. Hematocrit is 46, platelet count 123,000. She has, I believe, physical therapy ordered. Actually, I do not see that yet, so I will go ahead and get physical therapy and occupational therapy initiated. cc: Kb Aguirre MD
--- NOTE | 2018-12-10 07:31 | Diag Imaging Result Doc PS360 ---
CHEST-1 VIEW - 12/10/2018 INDICATION: pneumonia COMPARISON: 12/09/2018 FINDINGS: There is further progression of the collapse of the left lung with deviation of the mediastinum to the left. This is now completely opacified. The right lung remains expanded and clear. IMPRESSION: Complete collapse of the left lung with significant deviation of the mediastinum to the left. Worsened since prior. Electronically signed by Shaun 12/10/2018 7:28 AM
[2018-12-10] MEDS: MUCOMYST 20% INH SCH ×2 (08:06→20:03)
[2018-12-10] MEDS: MYCOSTATIN SUSP PO SCH ×4 (10:18→21:15)
[2018-12-10] MEDS: LEVEMIR SUBQ SCH (10:18)
[2018-12-10] MEDS: LEVAQUIN 500 MG/D5W 500 MG/100 ML IVPB IV SCH (12:24)
[2018-12-11] MEDS: NEXIUM IV SCH (01:16)
[2018-12-11] MEDS: ATROVENT NEB INH SCH ×4 (03:25→22:21)
[2018-12-11] MEDS: XOPENEX NEB INH SCH ×4 (03:26→22:21)
[2018-12-11 04:37] LABS: ALLEN TEST YES; BLOOD TYPE ARTERIAL; HCO3-(ACT) 29.5 mmoll (20.0-26.0); O2(CT) 17.6 mL/dL (15.0-23.0); O2HB 92.7 % (95.0-99.0); PCO2(98.6) 43 mmHg (35-45); PO2(98.6) 65 mmHg (60-100); SAMPLE BLOOD; SAO2 94.7 % (95.0-100.0); THB 13.5 g/dL (11.5-17.4); pH(98.6) 7.46 (7.35-7.45)
[2018-12-11 04:38] LABS: MODALITY CANNULA
[2018-12-11 06:02] LABS: BASO# 0.07 X1000 (0.0-0.2); BASO% 0.5 % (0.0-0.8); EOS# 0.55 X1000 (0.0-0.7); EOS% 3.9 % (0.0-10.0); HEMATOCRIT 44.8 % (37.0-47.0); HEMOGLOBIN 15.1 g/dL (12.0-16.0); IMM GRAN# 0.18 X1000 (0.0-0.04); IMM GRAN% 1.3 % (0.0-0.5); LYMPH# 2.46 X1000 (1.2-3.4); LYMPH% 17.3 % (20.5-51.1); MCH 29.8 PG (27-31); MCHC 33.7 g/dL (33-37); MCV 88.4 FL (81-99); MONO# 2.09 X1000 (0.11-0.59); MONO% 14.7 % (1.7-9.3); MPV 11.4 FL (7.4-10.4); NEUT# 8.86 X1000 (1.4-6.5); NEUT% 62.3 % (42.2-75.2); PLT 128 X1000 (130-400); RBC 5.07 XMIL (4.2-5.4); RDW 13.8 % (11.5-14.5); WBC 14.21 X1000 (4.8-10.8)
[2018-12-11 06:27] LABS: AGAP 12; BUN 25 mg/dL (8-22); CALCIUM 8.9 mg/dL (8.8-10.2); CHLORIDE 100 mmol/L (98-107); COSMO 285; CREATININE 0.8 mg/dL (0.5-0.9); ESTIMATED GFR > 60; GLUCOSE 162 mg/dL (70-104); SODIUM 139 mmol/L (136-145); TCO2 27 mmol/L (25-35)
[2018-12-11] MEDS: HUMULIN R SUBQ SCH ×4 (06:29→21:52)
--- NOTE | 2018-12-11 07:02 | INFECTIOUS DISEASE PROGRESS NO ---
DATE: 12/11/2018 PRESENT ILLNESS: The patient has Acinetobacter pneumonia. MEDICATIONS: This is day 8 of treatment with Levaquin. PHYSICAL EXAMINATION: Vital Signs: Temperature 98.4, pulse 107, respirations 19, blood pressure 130/90. The patient weighs 126 pounds. General: This is an ill-appearing, elderly female. She did not seem to be in any respiratory distress. HEENT: She can hear my spoken words. She appears to be able to see near objects. She does not have any white coating on her tongue. Neck: No neck pain with movement of her neck. Lungs: There were absent breath sounds on the left. The right side had some rhonchi. Cardiovascular: Heart rate is regular. Thorax: The patient's right-sided pacemaker site is not erythematous or swollen. Abdomen: Soft and nontender. Neurologic: The patient was more alert than she was when I last saw her. She did follow request to move her extremities. She does not have a tremor. IMAGING AND LABORATORY DATA: Chest x-ray shows complete collapse of the left lung. The CBC shows a white count of 14,210, hemoglobin 15.1, and platelet count 128,000. Blood gases show a pH of 7.46, a PO2 of 65, and a pCO2 of 43. Creatinine is 0.5. GFR is greater than 60. ASSESSMENT AND PLAN: The patient has Acinetobacter pneumonia. I am going to continue with Levaquin. COMORBIDITIES: The patient is elderly. She has just finished getting her pacemaker placed at [facility]. The patient has lung cancer and diabetes and she is a cigarette smoker. cc: Fabiano Reyes MD
[2018-12-11] MEDS: MUCOMYST 20% INH SCH ×2 (07:41→22:20)
--- NOTE | 2018-12-11 08:39 | PROGRESS NOTE ---
DATE: 12/11/2018 SUBJECTIVE: Ms. Sandoval says she feels better. Says she is breathing a little better. She is getting a little more food down. She still has not been out of the bed or walked. She still has a Calix catheter in. She is on BiPAP at night. She is on BiPAP when I saw her this morning. OBJECTIVE: Temp 98.4 degrees, pulse 116, respirations 20, blood pressure 130/90. Pupils are equal round. Lungs are clear in all lung ojeda. Cardiovascular regular rate without murmur or S3. Looks like urine output was close to 600 mL. Blood sugars 175 and 225. ASSESSMENT AND PLAN: 1. She has Acinetobacter pneumonia. This is the eighth day of treatment with Levaquin. She does seem to be clinically doing better. X-ray still shows poor aeration in the left lung, is read as complete collapse of left lung with significant deviation of the mediastinum to the left, worsened. Dr. Kendrick is following. 2. Severe underlying chronic obstructive pulmonary disease, looks like collapse of left lung, thick mucus, atelectasis. 3. She has had a pacemaker placement, seems to be functioning well. 4. Solitary nodule which has been stable. 5. Diabetes mellitus type 2. Sugars under decent control. 6. Weakness, general deconditioning. Continue physical therapy, occupational therapy. 7. She complains of some constipation. I will make sure she has some milk of magnesia and Dulcolax suppositories as needed. cc: Kb Aguirre MD
[2018-12-11] MEDS ORDERED: INSULIN PEN NEEDLES ONE (08:44)
--- NOTE | 2018-12-11 08:45 | Diag Imaging Result Doc PS360 ---
EXAM: CHEST-PORTABLE 12/11/2018 HISTORY: pneumonia TECHNIQUE: AP portable at 0817 COMMENT: The left hemithorax is completely opacified and there is volume loss with shift of the mediastinum to the left. The right lung contains some granulomata and there is diaphragmatic pleural calcification. Overall there has been no significant change since the previous study. IMPRESSION: Complete atelectasis of the left lung. Electronically signed by Celestine Marino 12/11/2018 8:43 AM
[2018-12-11] MEDS: MYCOSTATIN SUSP PO SCH ×4 (08:56→21:55)
[2018-12-11] MEDS: LEVEMIR SUBQ SCH (08:56)
[2018-12-11] MEDS: MILK OF MAGNESIA PO PRN (08:59)
[2018-12-11] MEDS: LEVAQUIN 500 MG/D5W 500 MG/100 ML IVPB IV SCH (11:08)
[2018-12-12] MEDS: NEXIUM IV SCH (01:22)
[2018-12-12] MEDS: SODIUM CHLORIDE 0.9% INJ SCH (01:22)
[2018-12-12] MEDS: XOPENEX NEB INH SCH ×4 (03:12→22:43)
[2018-12-12] MEDS: ATROVENT NEB INH SCH ×4 (03:12→22:43)
[2018-12-12 05:18] LABS: BE 5.9 mmoll (-3.0-3.0); BLOOD TYPE ARTERIAL; HCO3-(ACT) 29.4 mmoll (20.0-26.0); METHB 0.6 % (0.0-1.5); O2(CT) 18.9 mL/dL (15.0-23.0); O2HB 92.7 % (95.0-99.0); PCO2(98.6) 39 mmHg (35-45); PO2(98.6) 60 mmHg (60-100); SAMPLE BLOOD; SAO2 94.3 % (95.0-100.0); SRATE 10 BPM; THB 14.5 g/dL (11.5-17.4); pH(98.6) 7.49 (7.35-7.45)
[2018-12-12 05:24] LABS: MODALITY BI PAP
--- NOTE | 2018-12-12 07:19 | Diag Imaging Result Doc PS360 ---
EXAM: CHEST-1 VIEW INDICATION: SOB TECHNIQUE: One view COMPARISON: 12/11/2018 FINDINGS: There has been reaeration of the superior portion of the left lung. There is still opacification at the mid and lower lung zones on the left. Leftward mediastinal shift is again noted. No new consolidations are identified on the right. The cardiac silhouette is stable. IMPRESSION: Interval reaeration of the upper lung zone on the left. Electronically signed by Royal Wolfe 12/12/2018 7:17 AM
--- NOTE | 2018-12-12 07:47 | PULMONOLOGY PROGRESS NOTE ---
DATE: 12/11/2018 SUBJECTIVE: The patient has been moved to the 4th floor. She is lying on her left side. She has a very poor cough effort. OBJECTIVE: Vital Signs: The patient has been afebrile for the last 24 hours. Blood pressure 116/88, heart rate 103, respiratory rate 28, oxygen saturation 96 on nasal. HEENT: Pupils are equal. Oropharynx is clear. Neck: Supple. Chest: Reveals decreased breath sounds throughout the left lung. Cardiac: S1, S2. Abdomen: Soft. Extremities: Without edema. LABORATORY DATA AND DIAGNOSTICS: Cultures from bronchoscopy on the are negative. Chest x- ray today reveals complete atelectasis of the left lung. Arterial blood gas reveals a pH of 7.46, pCO2 of 43, pO2 of 65. IMPRESSION: A 73-year-old with: 1. Left lower lobe pneumonia. 2. Complete atelectasis of the left lung. This improved following bronchoscopy, but has now recollapsed. 3. Severe chronic obstructive pulmonary disease. 4. Ongoing tobacco use/nicotine addiction. 5. Generalized weakness with poor cough effort. 6. Acute hypoxemic respiratory failure. 7. Status post pacemaker placement recently at [facility]. 8. Stable pulmonary nodule for the last 2 years. PLAN: 1. Encourage BiPAP use. It does not appear she has been using this at night and this will be encouraged and I discussed this with the nurse this evening. 2. Continue chest PT, IPPB, mucolytic and bronchodilators. 3. Follow up chest x-ray tomorrow. cc: Isidro Kendrick MD
[2018-12-12] MEDS: HUMULIN R SUBQ SCH ×4 (08:00→20:26)
[2018-12-12 09:14] LABS: ALLEN TEST YES
[2018-12-12] MEDS: MUCOMYST 20% INH SCH ×3 (09:20→22:44)
[2018-12-12 09:22] LABS: BASO# 0.07 X1000 (0.0-0.2); BASO% 0.5 % (0.0-0.8); EOS# 0.29 X1000 (0.0-0.7); EOS% 2.1 % (0.0-10.0); HEMATOCRIT 44.4 % (37.0-47.0); HEMOGLOBIN 14.7 g/dL (12.0-16.0); IMM GRAN# 0.16 X1000 (0.0-0.04); IMM GRAN% 1.1 % (0.0-0.5); LYMPH# 1.87 X1000 (1.2-3.4); LYMPH% 13.2 % (20.5-51.1); MCH 29.3 PG (27-31); MCHC 33.1 g/dL (33-37); MCV 88.4 FL (81-99); MONO# 1.59 X1000 (0.11-0.59); MONO% 11.2 % (1.7-9.3); MPV 11.7 FL (7.4-10.4); NEUT# 10.16 X1000 (1.4-6.5); NEUT% 71.9 % (42.2-75.2); PLT 155 X1000 (130-400); RBC 5.02 XMIL (4.2-5.4); RDW 13.9 % (11.5-14.5); WBC 14.14 X1000 (4.8-10.8)
[2018-12-12 09:24] LABS: INR 0.9; PROTIME 12.9 Seconds (11.0-16.0)
[2018-12-12 09:25] LABS: PTT 25.2 Seconds (22.3-41.8)
[2018-12-12 09:42] LABS: AGAP 10; ALB/GLOB RATIO 1.1; ALKALINE PHOSPHATASE 56 U/L (32-104); BUN 23 mg/dL (8-22); CALCIUM 8.1 mg/dL (8.8-10.2); CHLORIDE 98 mmol/L (98-107); CK PROFILE 30 U/L (24-173); COSMO 282; CREATININE 0.8 mg/dL (0.5-0.9); ESTIMATED GFR > 60; GLUCOSE 174 mg/dL (70-104); GOT 21 U/L (10-30); GPT 12 U/L (10-36); POTASSIUM 4.6 mmol/L (3.5-5.1); SODIUM 137 mmol/L (136-145); TCO2 29 mmol/L (25-35); TOTAL BILIRUBIN 0.31 mg/dL (0.20-1.00); TOTAL PROTEIN 5.8 g/dL (6.3-8.3)
[2018-12-12] MEDS: LEVAQUIN 500 MG/D5W 500 MG/100 ML IVPB IV SCH (10:56)
[2018-12-12] MEDS: MYCOSTATIN SUSP PO SCH ×4 (10:59→20:26)
[2018-12-12] MEDS: LEVEMIR SUBQ SCH (11:02)
[2018-12-12 11:31] LABS: URINE SOURCE CATH
[2018-12-12 11:54] LABS: BILIRUBIN URINE NEGATIVE (NEGATIVE); BLOOD URINE NEGATIVE (NEGATIVE); COLOR YELLOW; GLUCOSE URINE 70 mg/dL (NEGATIVE); KETONE URINE NEGATIVE (NEGATIVE); LEUKOCYTES URINE NEGATIVE (NEGATIVE); NITRITE URINE NEGATIVE (NEGATIVE); PROTEIN URINE 100 mg/dL (NEGATIVE); SP GRAVITY URINE 1.015; TURBIDITY URINE CLEAR (CLEAR); UROBILINOGEN URINE NORMAL (NORMAL)
[2018-12-12 11:58] LABS: UR EPITHELIAL CELLS <10 /HPF (<10); URINE BACTERIA NEGATIVE /HPF; URINE RBC <10 /HPF (<10); URINE WBC <10 /HPF (<10)
--- NOTE | 2018-12-12 12:30 | PROGRESS NOTE ---
DATE: 12/12/2018 SUBJECTIVE: I was called this morning because she was unresponsive. They indicated that when they took her off BiPAP, that she desaturated. Nurse felt uncomfortable with the patient's progression and felt that there was active decompensation so went ahead and transferred her to the ICU. I saw her a little later. She was off the BiPAP. Saturations look like they are about 100% on about 5 L. She does awaken but she is still very weak and not very responsive. She certainly is at risk for decompensation. OBJECTIVE: Blood pressure 116/68, heart rate of 113, respiratory rate of 21, 93% saturation on 2 L. She is afebrile as far as I can tell, 98.1. Cardiovascular: Tachycardia. Pulmonary: Rhonchi throughout. GI: Soft, nontender, nondistended. Bowel sounds were positive. Laboratory Data: Her white count is 14 which is unchanged, hemoglobin and hematocrit 14 and 44, platelets 155,000. PH 7.49, pCO2 of 39 PaO2 of 60. That is on BiPAP. BUN and creatinine are 23 and 0.8. PROBLEM LIST: 1. Acute respiratory failure, presumably related to pneumonia, which is stable. However, her left lung is still somewhat decompressed but has opened up a little bit more than previously. We will continue mucolytic therapy and other treatments, see if we can try to open up her airway. Pulmonary is following very closely. 2. Acinetobacter pneumonia. She is on Levaquin, which I believe is day 9. Inferior is also following. 3. Oral candidiasis. She is on nystatin. 4. Type 2 diabetes, is relatively well controlled. We will continue Levemir. Sugars are at least below 200. 5. Moderate protein calorie malnutrition. We will need to continue treatment. Try to get her a little stronger. Right now, she is still very weak and debilitated. 6. Disposition. She will likely need some sort of rehabilitation services. Long-term acute care is always a possibility as well. We will continue to follow closely. cc: Enrrique Soria MD
[2018-12-12 13:46] LABS: AGAP 13; ALB/GLOB RATIO 0.7; ALBUMIN 2.2 g/dL (3.5-5.0); ALKALINE PHOSPHATASE 50 U/L (32-104); BUN 22 mg/dL (8-22); CHLORIDE 98 mmol/L (98-107); COSMO 276; CREATININE 0.8 mg/dL (0.5-0.9); ESTIMATED GFR > 60; GLUCOSE 276 mg/dL (70-104); GOT 27 U/L (10-30); GPT 11 U/L (10-36); POTASSIUM 5.2 mmol/L (3.5-5.1); SODIUM 131 mmol/L (136-145); TCO2 20 mmol/L (25-35); TOTAL BILIRUBIN 0.29 mg/dL (0.20-1.00); TOTAL PROTEIN 5.4 g/dL (6.3-8.3)
--- NOTE | 2018-12-12 14:42 | INFECTIOUS DISEASE PROGRESS NO ---
DATE: 12/12/2018 PRESENT ILLNESS: The patient has an Acinetobacter pneumonia and oral candidiasis. MEDICATIONS: This is the 9th day of treatment with Levaquin. The patient also is receiving nystatin swish and swallow. PHYSICAL EXAMINATION: Vital Signs: Temperature is 97.9 degrees, pulse 105, respirations 32, blood pressure 142/60. General: This is a chronically ill and malnourished-appearing, elderly female. She does not appear to be in any respiratory distress today. Head, eyes, ears, nose, and throat: She can hear my spoken words and see near objects. She does not have any white patches in her mouth. She has poor oral hygiene. Neck: There is no neck pain with movement of her neck. Lungs: Clear on the right. On the left there were improved breath sounds. Cardiovascular: Heart rate was regular and rapid. Thorax: The patient has a pacemaker on the right side. The site is not swollen or erythematous. Abdomen: Soft and nontender. Neurologic: The patient is alert. She can move her extremities. There is no tremor. LAB AND RADIOLOGY: Chest x-ray shows a left-sided opacity with re-aeration of the left upper lobe. The patient's CBC shows a white count of 14,140, hemoglobin 14.7, and platelet count 155,000. Arterial blood gases show a pH of 7.49, PO2 of 60, pCO2 of 39. Creatinine 0.8. GFR is greater than 60. Liver function studies are normal. Urinalysis did not have any white cells or bacteria. Blood cultures are pending. ASSESSMENT AND PLAN: Patient has Acinetobacter pneumonia. I plan to continue Levaquin. The patient also has oral candidiasis and I plan to continue nystatin. COMORBIDITIES: The patient is elderly. She recently had a pacemaker implantation done at [facility]. She has lung cancer, diabetes mellitus, and she is a cigarette smoker. cc: Fabiano Reyes MD
--- NOTE | 2018-12-12 20:15 | PULMONOLOGY PROGRESS NOTE ---
DATE: 12/12/2018 SUBJECTIVE: Patient had increased work of breathing in the evening and has been transferred to the ICU. She is currently awake, alert. She has a very poor cough effort. She is currently on nasal cannula. OBJECTIVE: The patient has been afebrile for the last 24 hours. Blood pressure 177/73, heart rate 68, oxygen saturation 93% on nasal cannula.HEENT: Pupils are equal and reactive. Oropharynx appears clear. Neck: Supple. Chest: Decreased breath sounds in left base. Cardiac: S1, S2. Abdomen: Soft. Extremities: Without edema. LABORATORY AND DIAGNOSTIC DATA: Chest x-ray reveals partial re-aeration of the left upper lobe. Arterial blood gas, pH 7.49, pCO2 of 39, pO2 of 60. IMPRESSION: A 73-year-old with: 1. Left lower lobe pneumonia. 2. Atelectasis of the left lung. This improved following bronchoscopy, but has become atelectatic with partial reexpansion again. 3. Generalized weakness with poor cough effort. 4. Acute hypoxemic respiratory failure. 5. Recent pacemaker placement at [facility]. 6. Stable solitary pulmonary nodule. PLAN: 1. Encourage patient to get out of bed. I spoke with the nurse and she will be placed in a chair today. 2. Continue chest PT, IPPV, and mucolytic bronchodilators. 3. Continue nocturnal BiPAP in an attempt to strengthen her diaphragms with a period of rest in the evening to promote cough in the daytime. cc: Isidro Kendrick MD
[2018-12-13] MEDS: NEXIUM IV SCH (01:15)
[2018-12-13] MEDS: ATROVENT NEB INH SCH ×4 (03:23→22:45)
[2018-12-13] MEDS: XOPENEX NEB INH SCH ×4 (03:23→22:45)
[2018-12-13 04:30] LABS: ALLEN TEST YES; BE 3.7 mmoll (-3.0-3.0); BLOOD TYPE ARTERIAL; HCO3-(ACT) 27.7 mmoll (20.0-26.0); METHB 1.1 % (0.0-1.5); O2(CT) 20.2 mL/dL (15.0-23.0); O2HB 93.2 % (95.0-99.0); PCO2(98.6) 39 mmHg (35-45); PO2(98.6) 68 mmHg (60-100); SAMPLE BLOOD; SAO2 95.4 % (95.0-100.0); THB 15.4 g/dL (11.5-17.4); pH(98.6) 7.46 (7.35-7.45)
[2018-12-13 04:31] LABS: MODALITY BI PAP
[2018-12-13 04:49] LABS: BASO# 0.08 X1000 (0.0-0.2); BASO% 0.5 % (0.0-0.8); EOS# 0.31 X1000 (0.0-0.7); EOS% 2.1 % (0.0-10.0); HEMATOCRIT 41.5 % (37.0-47.0); HEMOGLOBIN 14.1 g/dL (12.0-16.0); IMM GRAN# 0.15 X1000 (0.0-0.04); LYMPH% 17.7 % (20.5-51.1); MCH 29.8 PG (27-31); MCV 87.7 FL (81-99); MONO# 1.67 X1000 (0.11-0.59); MONO% 11.4 % (1.7-9.3); MPV 11.5 FL (7.4-10.4); NEUT# 9.84 X1000 (1.4-6.5); NEUT% 67.3 % (42.2-75.2); PLT 178 X1000 (130-400); RBC 4.73 XMIL (4.2-5.4); WBC 14.65 X1000 (4.8-10.8)
[2018-12-13 05:02] LABS: MAGNESIUM 1.9 mg/dL (1.5-2.7); PHOSPHORUS 3.5 mg/dL (2.7-4.5)
[2018-12-13] MEDS ORDERED: LOVENOX SUBQ SCH (06:00)
[2018-12-13] MEDS: HUMULIN R SUBQ SCH ×4 (06:05→20:24)
--- NOTE | 2018-12-13 07:11 | Diag Imaging Result Doc PS360 ---
EXAM: CHEST-1 VIEW 12/13/2018 HISTORY: SOB TECHNIQUE: AP portable at 0533 COMMENT: There is a left pleural effusion. There is volume loss on the left with shift of the mediastinum to the left. The right lung is essentially stable in appearance. There has been no significant change overall since 12/12/2018. IMPRESSION: Atelectasis versus pneumonia in the left lower lobe and lingula. Left pleural effusion. Electronically signed by Celestine Marino 12/13/2018 7:08 AM
--- NOTE | 2018-12-13 08:55 | INFECTIOUS DISEASE PROGRESS NO ---
DATE: 12/13/2018 PRESENT ILLNESS: The patient has an Acinetobacter pneumonia and oral candidiasis. MEDICATIONS: The patient has been receiving Levaquin now for 10 days. She also is receiving nystatin swish and swallow. PHYSICAL EXAMINATION: Vital Signs: Temperature is 97.7 degrees, pulse 99, respirations 28, blood pressure 156/62. General: This is a chronically ill and malnourished-appearing, elderly female. She is in no acute distress, however. Head/eyes/ears/nose/throat: She can hear my spoken words and see near objects. I did not see any white coating of her tongue. She does have poor oral hygiene, however. Neck: There is no pain with movement of the neck. Lungs: Clear to auscultation. Cardiovascular: Heart rate is regular. Thorax: Patient has a pacemaker present on the right side. The incision has healed and the site is not swollen. Abdomen: Soft and nontender. Neurologic: The patient is alert today. She carried on a coherent conversation. She can move her extremities. She does not have a tremor. LAB AND X-RAY: Chest x-ray shows left lower lobe pneumonia versus atelectasis. Blood cultures are pending. Liver function studies are normal. Blood gases show a pH of 7.46, a PO2 of 68, and a pCO2 of 39. [place] [address], hemoglobin 14.1, and platelet count of 178,000. ASSESSMENT AND PLAN: The patient has Acinetobacter factor pneumonia for which I plan on continuing Levaquin, and she also has oral candidiasis for which I plan to continue nystatin. COMORBIDITIES: Patient is elderly. She recently had a pacemaker implantation done at [facility] on the right side of her chest. The patient has lung cancer, diabetes mellitus, and she smokes cigarettes. cc: Fabiano Reyes MD
[2018-12-13] MEDS: ARIXTRA SUBQ SCH (09:16)
[2018-12-13] MEDS: LEVEMIR SUBQ SCH (09:16)
[2018-12-13] MEDS: MYCOSTATIN SUSP PO SCH ×4 (09:23→20:28)
[2018-12-13] MEDS: MUCOMYST 20% INH SCH ×3 (10:38→22:45)
[2018-12-13] MEDS: LEVAQUIN 500 MG/D5W 500 MG/100 ML IVPB IV SCH (10:54)
--- NOTE | 2018-12-13 11:10 | PULMONOLOGY PROGRESS NOTE ---
DATE: 12/13/2018 SUBJECTIVE: The patient is awake and alert. She has mildly improved cough effort but it continues to remain inadequate. OBJECTIVE: The patient has been afebrile for the last 24 hours. Blood pressure 131/61, heart rate 96, respiratory rate 22, oxygen saturation 95%. HEENT: Pupils are equal and reactive. Oropharynx appears clear. Neck is supple. Chest reveals scattered rhonchi bilaterally with decreased breath sounds, left base. Cardiac Examination: S1, S2. Abdomen is soft. Extremities are without edema. Laboratories: White blood count 14.65, hemoglobin 14.1, platelet count is 178,000. Arterial blood gas on BiPAP, pH 7.46, pCO2 of 39, pO2 of 68. Sodium 131, potassium 5.2, chloride 98, bicarbonate 20, BUN 22, creatinine 0.8. Chest x-ray reveals volume loss on the left with atelectasis and pneumonia with left pleural effusion reported. PLAN: 1. Continue BiPAP. 2. Continue aggressive bronchial hygiene with chest PT, nebulizer therapy, and mucolytics. 3. Continue oxygen for hypoxemic respiratory failure. 4. Continue antibiotic regimen per Dr. Fabiano Reyes. 5. Ultrasound base of the left lung to evaluate for possible effusion. If she has a large effusion, thoracentesis will be planned. cc: Isidro Kendrick MD
[2018-12-13] MEDS ORDERED: PRILOSEC PO ONE (11:46)
[2018-12-13] MEDS ORDERED: TOPROL XL PO SCH (12:00)
[2018-12-13] MEDS: CARDIZEM CD PO SCH (12:04)
--- NOTE | 2018-12-13 12:18 | PROGRESS NOTE ---
DATE: 12/13/2018 SUBJECTIVE: She looks very good today, sitting up in bed. She is feeding herself. She does not look like she is struggling to breathe. OBJECTIVE: Blood pressure 149/70, heart rate of 106, respiratory rate of 30, temperature was 98.6 degrees, 97% on 3 L. Cardiovascular: Regular rate and rhythm. Pulmonary: Bilateral breath sounds diminished at the bases, bronchial over the left base. GI: Soft, nontender, nondistended. Laboratory Data: White count is 14, hemoglobin and hematocrit 14 and 41, platelets 178,000. PH 7.46, pCO2 of 39, PaO2 of 68. I do not have any basic today. PROBLEM LIST: 1. Acute on chronic respiratory failure. She seems pretty stable. I am not quite sure what happened yesterday but she seems like she is stable enough to go to stepdown. We are continuing to wean her off the BiPAP per Dr. Kendrick's recommendations. We are going to look for a pleural effusion tomorrow. 2. Acinetobacter pneumonia. She is on Levaquin. Infectious diseases is following. Not inferior. Somehow that got mis-dictated. 3. Oral candidiasis. She is on nystatin. 4. Type 2 diabetes. Blood sugars are pretty well controlled, although they are starting to creep up there, I guess as her diet increases. We probably need to put her on a diabetic diet and switch her to Glucerna. We may need to adjust her Levemir accordingly. 5. Moderate protein calorie malnutrition. Again, she will be on supplements. DISPOSITION: Likely will need inpatient rehab versus LTAC. I am not sure at this point which one will be more appropriate but she seems to be doing pretty well. I am going to reorder PT and see how she does. I think she is probably stable to go to rehab. cc: Enrrique Soria MD
--- NOTE | 2018-12-13 17:50 | Diag Imaging Result Doc PS360 ---
US CHEST W/O MEDIASTINUM(LTD) - 12/13/2018 INDICATION: Evaluate for left sided pleural effusion TECHNIQUE: Ultrasound left chest COMPARISON: X-ray from earlier 12/13/2018 FINDINGS: There is a small to moderate left basilar pleural effusion. This measures about 16 x 2 cm. There is significant consolidation in the left lower lobe. IMPRESSION: [id number] left basilar pleural effusion. Severe consolidation of the left lower lobe. Electronically signed by Shaun 12/13/2018 5:47 PM
[2018-12-14] MEDS: XOPENEX NEB INH SCH ×4 (03:20→22:48)
[2018-12-14] MEDS: ATROVENT NEB INH SCH ×4 (03:20→22:48)
[2018-12-14 04:41] LABS: ALLEN TEST YES; BE 3.5 mmoll (-3.0-3.0); BLOOD TYPE ARTERIAL; HCO3-(ACT) 27.6 mmoll (20.0-26.0); METHB 1.6 % (0.0-1.5); MODALITY BI PAP; O2(CT) 18.5 mL/dL (15.0-23.0); O2HB 95.7 % (95.0-99.0); PCO2(98.6) 40 mmHg (35-45); PO2(98.6) 102 mmHg (60-100); SAMPLE BLOOD; SAO2 98.3 % (95.0-100.0); THB 13.7 g/dL (11.5-17.4); pH(98.6) 7.45 (7.35-7.45)
[2018-12-14 05:52] LABS: EOS# 0.35 X1000 (0.0-0.7); HEMOGLOBIN 13.1 g/dL (12.0-16.0); MCHC 32.8 g/dL (33-37)
[2018-12-14] MEDS: PRILOSEC PO SCH (06:00)
[2018-12-14] MEDS: HUMULIN R SUBQ SCH ×4 (06:02→22:29)
[2018-12-14 06:07] LABS: BASO# 0.02 X1000 (0.0-0.2); BASO% 0.1 % (0.0-0.8); EOS% 2.6 % (0.0-10.0); LYMPH# 1.54 X1000 (1.2-3.4); LYMPH% 11.3 % (20.5-51.1); MCV 91.5 FL (81-99); MONO# 1.35 X1000 (0.11-0.59); MONO% 9.9 % (1.7-9.3); MPV 11.7 FL (7.4-10.4); NEUT# 10.35 X1000 (1.4-6.5); NEUT% 76.1 % (42.2-75.2); PLT 184 X1000 (130-400); RBC 4.37 XMIL (4.2-5.4); RDW 14.3 % (11.5-14.5); WBC 13.61 X1000 (4.8-10.8)
[2018-12-14 06:15] LABS: AGAP 10; BUN 24 mg/dL (8-22); CALCIUM 8.6 mg/dL (8.8-10.2); CHLORIDE 102 mmol/L (98-107); COSMO 290; CREATININE 0.8 mg/dL (0.5-0.9); ESTIMATED GFR > 60; GLUCOSE 209 mg/dL (70-104); SODIUM 140 mmol/L (136-145); TCO2 28 mmol/L (25-35)
[2018-12-14 06:52] LABS: EOS 3 % (1-10); LYMPHS 10 % (21-51); MONO 9 % (1-9); SEGS 78 % (42-75)
--- NOTE | 2018-12-14 07:23 | Diag Imaging Result Doc PS360 ---
CHEST-1 VIEW - 12/14/2018 INDICATION: SOB COMPARISON: 12/13/2018 FINDINGS: Stable pacemaker. There has been significant improvement in the opacification of the left midlung and lung base. There is a persistent pleural effusion and atelectasis at the left lung base. The right lung remains grossly clear. Heart size remains normal. IMPRESSION: Significantly improved aeration of the left midlung and lung base. Persistent atelectasis and small pleural effusion. Electronically signed by Shaun 12/14/2018 7:21 AM
[2018-12-14] MEDS: MUCOMYST 20% INH SCH ×3 (07:33→22:48)
--- NOTE | 2018-12-14 08:09 | INFECTIOUS DISEASE PROGRESS NO ---
DATE: 12/14/2018 PRESENT ILLNESS: The patient has an Acinetobacter pneumonia and oral candidiasis. MEDICATIONS: This is day 11 of treatment with Levaquin for the pneumonia. The patient also is receiving nystatin swish and swallow for the oral candidiasis. PHYSICAL EXAMINATION: Vital Signs: Temperature is 98 degrees, pulse 73, respirations 37, blood pressure 127/51. General: This is a chronically ill and malnourished-appearing, elderly female. She is in no acute distress. Head, Eyes, Ears, Nose, and Throat: She can hear my spoken words and can see near objects. She does not have any white coating on her tongue but she does have poor oral hygiene. Neck: No swelling or pain with passive movement. Lungs: Clear to auscultation. Cardiovascular: Heart rate is regular. Thorax: The patient has a pacemaker present on the right side. The site is not swollen or erythematous. The incision from where the pacemaker was inserted is healed and it is not draining. Abdomen: Soft and nontender. Neurologic: The patient was lethargic this morning. LAB AND X-RAY: Chest x-ray shows better aeration of the left lung. The CBC shows the white count is down to 13,610, hemoglobin 13.1, and platelet count 184,000. Blood gases show a pH of 7.45, a PO2 of 102, and a pCO2 of 40. Creatinine is 0.8. GFR is greater than 60. The chest x-ray shows better aeration of the left lung. ASSESSMENT AND PLAN: The patient has an Acinetobacter pneumonia for which I am going to continue Levaquin. For her oral candidiasis, I am going to continue nystatin. COMORBIDITIES: The patient is elderly. She recently had a pacemaker implantation done at [facility]. She has lung cancer, diabetes mellitus, and she smokes cigarettes. cc: Fabiano Reyes MD
[2018-12-14] MEDS: MYCOSTATIN SUSP PO SCH ×4 (09:31→22:29)
[2018-12-14] MEDS: LEVEMIR SUBQ SCH (09:31)
[2018-12-14] MEDS: CARDIZEM CD PO SCH (09:32)
--- NOTE | 2018-12-14 11:47 | Diag Imaging Result Doc PS360 ---
US CHEST W/O MEDIASTINUM(LTD) - 12/14/2018 INDICATION: effusion with pneumonia TECHNIQUE: Left chest ultrasound COMPARISON: 12/13/2018 FINDINGS: The small left pleural effusion has decreased in size. Now the largest pocket is about 7 x 2 cm. There is extensive consolidated lung in the left lung base. On the chest x-ray, there is significant collapse as well. IMPRESSION: Very small left pleural effusion. Thoracentesis was not performed. Significant collapse and consolidated left lower lobe. Electronically signed by Shaun 12/14/2018 11:45 AM
[2018-12-14] MEDS: LEVAQUIN 500 MG/D5W 500 MG/100 ML IVPB IV SCH (12:00)
--- NOTE | 2018-12-14 14:48 | PROGRESS NOTE ---
DATE: 12/14/2018 INTERVAL HISTORY: The patient reports fatigue but significant improvement in her dyspnea. No other new complaints. No acute events overnight. REVIEW OF SYSTEMS: A 12-point review of systems negative except as per interval history. LABORATORY: WBC 13.6, hemoglobin 13.1, hematocrit 40.0, platelets 184. ABG with pH 7.45, pCO2 40, pO2 102, on BiPAP. Sodium 140, potassium 4.0, BUN 24, creatinine 0.8, glucose 171-226. IMAGING: Chest x-ray with significantly improved aeration of the left mid lung and lung base with some persistent atelectasis. Chest ultrasound showing small left pleural effusion not significant enough to perform thoracentesis on. Still with collapse and consolidation of the left lower lobe. VITALS: T-max 98.8, pulse 92, respirations 17, blood pressure 103/57, O2 saturation 97% on 3 L by nasal cannula. PHYSICAL EXAMINATION: General: No acute distress, chronically ill-appearing. Vital signs: As above. HEENT: Normocephalic, atraumatic. Moist mucous membranes. No cervical adenopathy. Cardiovascular: Regular rate and rhythm. No murmurs noted. Pulmonary: Breath sounds remain diminished throughout more so at the bases. No wheezing noted. Abdomen: Soft, nontender, nondistended, bowel sounds positive. Extremities: Peripheral pulses intact. No clubbing or cyanosis. Neurologic: Cranial nerves grossly intact. Mild global weakness but no focal deficits identified. Psychiatric: Normal mood and affect. Awake, alert, and oriented x3. Skin: No new rashes or lesions identified. ASSESSMENT AND PLAN: 1. [id number] hypoxic respiratory failure. The patient's oxygen requirements do appear to be decreasing. Will continue to wean as able. Multifactorial with underlying chronic obstructive pulmonary disease, new pneumonia, possible underlying lung cancer. Chest x-ray looks a little better but still with dense consolidation of the left lower lobe. If this is cancer related then collapse/consolidation may not improve significantly more. Went down to see if her effusion was large enough tap but it was not. Doing okay off BiPAP now. Will continue to wean oxygen. If we can get her off of oxygen in the next day or two, then will likely be stable to discharge to rehab. 2. Acinetobacter pneumonia. Patient on Levaquin, will continue. Infectious Disease following. 3. Oral candidiasis improving. Continue nystatin. 4. Diabetes. Some occasional xylc-kw-[id number] elevations but overall acceptable control. Continue current regimen. 5. Moderate protein calorie malnutrition. Continue supplementation and monitor. 6. Chronic obstructive pulmonary disease. No sign of exacerbation at this time. Continue to monitor. 7. Lung cancer, unclear on exact diagnosis, not clearly identified on most recent CT but given extensive consolidation in the left lower lobe it could very easily be there without us being able to see it on the CT that we have here. She believes she was diagnosed about 2 years ago and has not sought any treatment. 8. Disposition. Likely to rehab once her respiratory status is maximized more likely in the next day or two.
--- NOTE | 2018-12-14 23:10 | PULMONOLOGY PROGRESS NOTE ---
DATE: 12/14/2018 SUBJECTIVE/INTERIM HISTORY: The patient is awake and alert. She was evaluated earlier this morning and I discussed the ultrasound of her chest, which revealed a small to moderate effusion on the left side. The patient was sent down for thoracentesis and Dr. Mon indicated there was not enough fluid to perform this study. OBJECTIVE: Vital Signs: The patient has been afebrile for the last 24 hours. Blood pressure 137/71, heart rate 87, respiratory rate 18, oxygen saturation 98% on 3 L nasal cannula. HEENT: Pupils are equal and reactive. Oropharynx appears clear. Neck: Supple. Chest: Reveals diminished breath sounds left base. Cardiac: S1, S2. Abdomen: Soft. Extremities: Without edema. LABORATORIES: White blood count 13.6, hemoglobin 13.1, platelet 184,000. Sodium 140, potassium 4.0, chloride 102, bicarbonate 28, BUN 24, creatinine 0.8. IMPRESSION: A 73-year-old with 1. Left lower lobe pneumonia. 2. Poor cough effort. 3. Parapneumonic effusion. 4. Stable solitary pulmonary nodule. No prior evidence of cancer. 5. Status post recent pacemaker placement at [facility]. PLAN: 1. Continue nocturnal BiPAP. 2. Continue bronchial hygiene. 3. Attempt to mobilize patient, get her out of bed as tolerated. 4. Prognosis remains guarded. cc: Isidro Kendrick MD
[2018-12-15] MEDS: ATROVENT NEB INH SCH ×2 (03:53→09:38)
[2018-12-15] MEDS: XOPENEX NEB INH SCH ×2 (03:53→09:38)
[2018-12-15 05:53] LABS: ALLEN TEST YES; BE 3.5 mmoll (-3.0-3.0); BLOOD TYPE ARTERIAL; HCO3-(ACT) 27.6 mmoll (20.0-26.0); METHB 1.3 % (0.0-1.5); O2HB 96.5 % (95.0-99.0); PCO2(98.6) 35 mmHg (35-45); PO2(98.6) 180 mmHg (60-100); SAMPLE BLOOD; SAO2 98.9 % (95.0-100.0); pH(98.6) 7.49 (7.35-7.45)
[2018-12-15 05:55] LABS: MODALITY BI PAP
[2018-12-15] MEDS: PRILOSEC PO SCH (05:59)
[2018-12-15] MEDS: HUMULIN R SUBQ SCH ×2 (06:33→12:05)
[2018-12-15 06:41] LABS: BASO# 0.07 X1000 (0.0-0.2); BASO% 0.5 % (0.0-0.8); EOS% 3.9 % (0.0-10.0); HEMATOCRIT 41.8 % (37.0-47.0); HEMOGLOBIN 13.8 g/dL (12.0-16.0); IMM GRAN% 0.8 % (0.0-0.5); LYMPH# 1.69 X1000 (1.2-3.4); LYMPH% 13.2 % (20.5-51.1); MCH 29.5 PG (27-31); MCV 89.3 FL (81-99); MONO# 1.26 X1000 (0.11-0.59); MONO% 9.8 % (1.7-9.3); MPV 11.5 FL (7.4-10.4); NEUT% 71.8 % (42.2-75.2); PLT 202 X1000 (130-400); RBC 4.68 XMIL (4.2-5.4); RDW 14.2 % (11.5-14.5); WBC 12.82 X1000 (4.8-10.8)
[2018-12-15 07:41] LABS: AGAP 10; BUN 21 mg/dL (8-22); CALCIUM 8.8 mg/dL (8.8-10.2); CHLORIDE 101 mmol/L (98-107); COSMO 281; CREATININE 0.8 mg/dL (0.5-0.9); ESTIMATED GFR > 60; GLUCOSE 183 mg/dL (70-104); POTASSIUM 3.9 mmol/L (3.5-5.1); SODIUM 137 mmol/L (136-145); TCO2 26 mmol/L (25-35)
--- NOTE | 2018-12-15 08:56 | Diag Imaging Result Doc PS360 ---
CHEST-1 VIEW - 12/15/2018 INDICATION: SOB COMPARISON: 12/14/2018 FINDINGS: Stable significant collapse/consolidation of the left lower lobe. Stable small left pleural effusion. Stable pacemaker. Stable pulmonary vascular congestion. Heart size remains normal. IMPRESSION: No change from prior. Electronically signed by Shaun 12/15/2018 8:54 AM
[2018-12-15] MEDS: MUCOMYST 20% INH SCH (09:38)
[2018-12-15] MEDS: LEVEMIR SUBQ SCH (11:46)
[2018-12-15] MEDS: LEVAQUIN 500 MG/D5W 500 MG/100 ML IVPB IV SCH (11:47)
[2018-12-15] MEDS: ARIXTRA SUBQ SCH (11:48)
[2018-12-15] MEDS: MYCOSTATIN SUSP PO SCH (11:49)
[2018-12-15] MEDS: CARDIZEM CD PO SCH (11:49)
--- NOTE | 2018-12-15 13:36 | INFECTIOUS DISEASE PROGRESS NO ---
DATE: 12/15/2018 PRESENT ILLNESS: Ms. Sandoval is being treated for an Acinetobacter pneumonia as well as an oral candidiasis. MEDICATIONS: Today is day 12 of treatment with 500 mg of Levaquin IV daily. She is also receiving nystatin swish and swallow. PHYSICAL EXAMINATION: Vital Signs: Temperature is 97.6 degrees, pulse rate 96, respiratory rate 16, blood pressure 145/67, O2 saturation is 96% on 3 L nasal cannula. General: This is a an elderly, chronically ill-appearing female. She is sitting up in bed, currently in no acute distress. HEENT: Atraumatic, normocephalic. Oral mucous membranes are pink and dry. She has a brown coating to her tongue. Conjunctivae are pink. Cardiovascular: Heart rate and rhythm are regular. Normal sinus rhythm on the monitor. Respiratory: Lung sounds have some coarse wheezes noted bilaterally. Diminished in the bases. Abdomen: Soft, flat, and tender on palpation. Bowel sounds are active. Neurologic: She is awake, alert, oriented, and has some generalized weakness noted. No tremors. LABORATORY AND X-RAY: Today, her white count is 12.82, hemoglobin 13.8, platelet count 202,000. This morning on a 50% FiO2 on the BiPAP, her pH was 7.49, pCO2 35, PO2 180, HC03 27.6. Creatinine is 0.8. Estimated GFR is greater than 60. She previously grew an Acinetobacter baumannii in her sputum. Chest x-ray today shows no change in significant collapse and consolidation of the left lower lobe with stable pulmonary vascular congestion. ASSESSMENT AND PLAN: Ms. Sandoval is being treated for an Acinetobacter pneumonia. Her white count is slowly diminishing. For now, we will continue the Levaquin as ordered. There is also an oral candidiasis. We will continue nystatin swish and swallow as ordered. These plans have been discussed with and recommended by Dr. Reyes. COMORBIDITIES: For Ms. Sandoval, include that she is elderly with diabetes mellitus, cigarette smoking, and protein-calorie malnutrition. Dictated by BRENDAN Levine for Fabiano Reyes MD cc: Fabiano Reyes MD [facility]
--- NOTE | 2018-12-15 14:01 | DISCHARGE SUMMARY ---
ADMISSION DATE: 12/01/2018 DISCHARGE DATE: 12/15/2018 CONSULTS: Infectious Disease Dr. Reyes, Pulmonology Dr. Kendrick. PERTINENT STUDIES: Initial chest CT with mild to moderate emphysema, extensive mucous plugging in the left lower lobe with atelectasis and likely superimposed infiltrates, small left pleural effusion. Repeat chest x-ray with ongoing infiltrate in left lower lobe lingula, left pleural effusion. Chest ultrasound with small to moderate left basilar pleural effusion, consolidation of left lower lobe but not enough fluid to perform thoracentesis. Further repeat chest x-ray showing significantly improved aeration of left midlung and lung base although still some opacification and atelectasis, that was on 12/14. WBC trending up to 24 at 1 point before trending down to 12.8 at discharge. DISCHARGE DIAGNOSES: 1. Acinetobacter pneumonia number. 2. Oral candidiasis. 3. Diabetes. 4. Malnutrition. 5. Chronic obstructive pulmonary disease. 6. Pulmonary nodule. 7. Acute hypoxic respiratory failure. 8. Situational anxiety. HOSPITAL COURSE: Patient presented initially with complaints of shortness of breath. She had a pacemaker placed 3-4 days prior at [facility]. Reported poor p.o. intake, increased weakness and dyspnea. She was found to have dense left lower lobe pneumonia. She was not in COPD exacerbation although that may have been contributing to her respiratory issues. She had saturations as low as 85 but these gradually improved with antibiotics. She was saturating in the low 90s on room air at discharge. She was treated with Levaquin after discussion with Infectious Disease. She is found have some thrush which was treated with nystatin swish and swallow that she had been on for 10 days at discharge with resolution of her thrush. Diabetes was stable. There was some question of underlying lung cancer diagnosis. The patient initially stated she believed she had been diagnosed with lung cancer couple years ago but never had any treatment. After clarification with pulmonology it appears the patient had a solitary pulmonary nodule which was stable without any definite cancer diagnosis. The patient's respiratory status improved slowly but steadily but patient had some deconditioning and global weakness prompting evaluation for rehab placement. Her pacemaker appeared stable without infection and she had no cardiac events during this hospitalization. DISCHARGE VITALS: Temperature 98.5 degrees, pulse 88, respirations 18, blood pressure 123/76. DISCHARGE DIET: Diabetic. DISCHARGE MEDICATIONS: BuSpar 10 mg p.o. at bedtime, glipizide 10 mg p.o. daily, lisinopril 20 mg p.o. daily, megestrol acetate 40 p.o. daily, diltiazem extended release 120 mg p.o. daily, Dulcolax 10 mg suppository daily as needed, Levaquin 500 mg IV daily for another 9 days, milk of magnesia 30 mL p.o. daily as needed, Tylenol 500 mg p.o. or 650 mg per rectum q.4-6 hours as needed for pain. FOLLOWUP AND PLAN: Patient discharging to rehab for strengthening prior to going back home. Continue course of Levaquin. She does take some pills and could potentially take it by mouth but she expressed reluctance to take the antibiotic by mouth to Infectious Disease and they recommended continuing her on the IV as she was going to rehab. If this becomes an issue she could be transitioned to by mouth. Follow up with PCP after discharge from rehab. TIME SPENT: Greater than 30 minutes spent arranging discharge and counseling patient.
[2018-12-15 16:20] VITALS: BP 154/82
== END 2018-12-15 16:38 | DRG 871 ==
LOC: SUPCPDRO → ED 16:15 → EDIPHOLD 23:06 → SUATTDRO 23:06 → 3S 12-02 19:57 → 4N 12-11 17:08 → ICU 12-12 09:56 → 3S 12-13 18:41 → 4N 12-14 18:29
PROVIDERS: ATTEND Internal Medicine
CPT/HCPCS: 36415; 51702; 71010; 71045; 71250; 76604; 80048; 80053; 81001; 82550; 82784; 82805; 82948; 83605; 83735; 83880; 84100; 84484; 85025; 85610; 85730; 87015; 87040; 87070; 87077; 87088; 87102; 87116; 87147; 87186; 87205; 87206; 87449; 87899; 88112; 93005; 93306; 94640; 94660; 94667; 94668; 94761; 94799; 96361; 96365; 96366; 96367; 96375; 97110; 97162; 97165; 97530; 97535; 99285; A9270; J0171; J0692; J0696; J1652; J1956; J2020; J2405; J2543; J7030; XXXXX

== ENCOUNTER 2019-01-03 15:59 | Inpatient (IN) ==
[2019-01-03] MEDS ORDERED: LEVOPHED 8 MG in D5 1/2 NS 250 ML IV SCH ×2 (16:15→16:30)
[2019-01-03] MEDS ORDERED: NS 1,000 ML IV ONE ×2 (16:16→17:24)
[2019-01-03] MEDS ORDERED: NS 1,000 ML ONE (16:20)
--- NOTE | 2019-01-03 16:42 | Diag Imaging Result Doc PS360 ---
EXAM: CHEST/ABD TUBE PLACEMENT 01/03/2019 HISTORY: et/ng tube TECHNIQUE: AP portable at 1633 COMMENT: There is an NG tube with its tip below the diaphragm. The pleural fluid collection which was present on 12/15/2018 has apparently improved. IMPRESSION: NG tube in the stomach. Electronically signed by Celestine Marino 01/03/2019 4:40 PM
[2019-01-03] MEDS ORDERED: LEVAQUIN 750 MG/D5W 750 MG/150 ML IVPB IV ONE (16:46)
[2019-01-03] MEDS ORDERED: ZOSYN 4.5 GM in NS 100 ML IV ONE (16:46)
--- NOTE | 2019-01-03 16:59 | Diag Imaging Result Doc PS360 ---
EXAM: CT HEAD W/O CONTRAST HISTORY: AMS TECHNIQUE: CT head without contrast COMPARISON: None. FINDINGS: No parenchymal hemorrhage. No epidural or subdural hematoma. No subarachnoid hemorrhage. There are chronic microvascular ischemic changes. 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 No mass identified on this noncontrasted exam. No hydrocephalus. No sinus opacification. 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 This exam was performed using automated exposure control, adjustment of mA or kV according to patient size, and/or use of iterative reconstruction technique. Electronically signed by Lyndon Bazzi 01/03/2019 4:57 PM
[2019-01-03 17:45] LABS: BASO% 0.5 % (0.0-0.8); EOS# 0.01 X1000 (0.0-0.7); HEMATOCRIT 41.9 % (37.0-47.0); IMM GRAN# 0.57 X1000 (0.0-0.04); IMM GRAN% 2.7 % (0.0-0.5); LYMPH# 0.88 X1000 (1.2-3.4); LYMPH% 4.2 % (20.5-51.1); MCV 93.5 FL (81-99); MONO# 1.53 X1000 (0.11-0.59); MONO% 7.3 % (1.7-9.3); MPV 12.2 FL (7.4-10.4); NEUT# 17.89 X1000 (1.4-6.5); NEUT% 85.3 % (42.2-75.2); PLT 187 X1000 (130-400); RBC 4.48 XMIL (4.2-5.4); RDW 15.4 % (11.5-14.5); WBC 20.98 X1000 (4.8-10.8)
[2019-01-03 17:47] LABS: BILIRUBIN URINE NEGATIVE (NEGATIVE); BLOOD URINE NEGATIVE (NEGATIVE); COLOR YELLOW; GLUCOSE URINE 100 mg/dL (NEGATIVE); KETONE URINE NEGATIVE (NEGATIVE); LEUKOCYTES URINE NEGATIVE (NEGATIVE); NITRITE URINE NEGATIVE (NEGATIVE); PROTEIN URINE 70 mg/dL (NEGATIVE); SP GRAVITY URINE 1.017; TURBIDITY URINE CLEAR (CLEAR); URINE SOURCE CATH; UROBILINOGEN URINE NORMAL (NORMAL)
[2019-01-03 17:48] LABS: UR EPITHELIAL CELLS <10 /HPF (<10); URINE BACTERIA NEGATIVE /HPF; URINE RBC <10 /HPF (<10); URINE WBC <10 /HPF (<10)
[2019-01-03 17:52] LABS: INR 1.22; PROTIME 15.6 Seconds (11.0-16.0)
--- NOTE | 2019-01-03 18:04 | PROVIDER DOCUMENTATION ---
This chart was entered by Skylar Olson Scribe, acting as scribe for Roque Cruz DO. HPI-Critical Care - General Patient arrived via EMS?: Yes Source: patient, EMS (first response), group home records Unable to obtain history due to:: urgency - History of Present Illness-Critical Care Location of Pain/Injury: reports: none (found unresponsive) Severity in ED: reports: severe Onset/Duration: reports: just prior to arrival Timing: reports: still present EMS Initial Findings:: unresponsive, decreased respirations Pre-hospital Treatment: Initiated BVM Associated Symptoms: reports: other (unresponsive) Improves Condition (Modifying Factors): improves with: nothing Nitro Today/Relief: no nitro taken today Aspirin Treatment Today: no aspirin today Prior Chest Pain/Cardiac Workup: reports: no prior chest pain Similar Symptoms Previously?: No Recently Seen Here or By Another Healthcare Provider: No - Cardiopulmonary Resuscitation Onset: 1624 Witnessed arrest?: Yes (nursing staff) Bystander CPR?: No Down-time before ACLS?: see above Reason for Code Blue?: full arrest CPR initiated before doctor arrival?: Yes (nursiong staff started cpr and dr was at bedside in less then 1 minute) Initial Findings: no pulse Treatment initiated prior to doctor arrival?: Initiated oxygen, Initiated intubated, Initiated IV fluids <Roque Cruz - Last Filed: 01/03/19 18:51> <Miguel Portillo - Last Filed: 01/03/19 20:13> - General Chief Complaint: Unresponsive Stated Complaint: UNRESPONSIVE Time Seen by Provider: 01/03/19 16:13 Allergies/Adverse Reactions: Allergies Allergy/AdvReac Type Severity Reaction Status Date / Time No Known Allergies Allergy Verified 12/01/18 16:40 Home Medications: Home Medication List Medication Instructions Recorded Confirmed Last Taken Type Buspirone [Buspar] 10 mg PO QHS 12/02/18 12/02/18 Unknown History Glipizide 10 mg PO DAILY 12/02/18 12/02/18 Unknown History Lisinopril 20 mg PO DAILY 12/02/18 12/02/18 Unknown History Megestrol Acetate 40 mg PO DAILY 12/02/18 12/02/18 Unknown History Acetaminophen [Tylenol] 500 mg PO Q4H PRN PRN #60 tab 12/15/18 Unknown Rx Acetaminophen [Tylenol] 650 mg VA Q6H PRN PRN supp 12/15/18 Unknown Rx Bisacodyl [Dulcolax] 10 mg VA DAILY PRN PRN supp 12/15/18 Unknown Rx Diltiazem C.d. [Cardizem Cd] 120 mg PO DAILY cap 12/15/18 Unknown Rx Levofloxacin 500 mg/D5w [Levaquin 500 mg IV DAILY #9 ivpb 12/15/18 Unknown Rx 500 mg/D5w] Magnesium Hydroxide [Milk of 30 ml PO DAILY PRN PRN udc 12/15/18 Unknown Rx Magnesia] - History of Present Illness-Critical Care Nature of Presenting Problem: 73 yowf presents to the ed via ems as unresponsive. pt has no reaction to pain, pupils are fixed and pinpoint. per ems pt has initial BP 78/38 with bradycardia 48. pt was on nonrebreather with O2 sat 74%. pt has no family at bedside and came from [facility]. per ems pt is full code (Roque Cruz) Review of Systems - Adult - REVIEW OF SYSTEMS - ADULT ROS:: unobtainable per condition Constitutional: reports: no symptoms reported Eyes: reports: see HPI, other (fixed and pinpoint) Ears, Nose, Mouth & Throat: reports: no symptoms reported Cardiovascular: reports: no symptoms reported Respiratory: reports: see HPI, shortness of breath Gastrointestinal: reports: no symptoms reported Genitourinary: reports: see HPI, incontinence (in brief) Musculoskeletal: reports: no symptoms reported Integumentary: reports: no symptoms reported Neurological: reports: no symptoms reported Psychiatric: reports: no symptoms reported Endocrine: reports: no symptoms reported Hematologic/Lymphatic: reports: no symptoms reported Allergic/Immunologic: reports: no symptoms reported All Other Systems: Reviewed and Negative <Roque Cruz - Last Filed: 01/03/19 18:51> Past History - Adult - PAST MEDICAL HISTORY-ADULT Review of Records: reports: Old Records Reviewed, Nursing Assessment Review, Medications Reviewed, Social history reviewed & non-contributory. Major Childhood Illnesses: reports: denies history Cardiovascular: reports: HTN, pacemaker Respiratory: reports: COPD, cancer Gastrointestinal: reports: denies history Obstetrical/Gynecological: reports: denies history Genitourinary: reports: denies history Musculoskeletal: reports: denies history Neurological: reports: denies history Psychiatric: reports: denies history Endocrine/Immune: reports: Diabetes Diabetes Type: Type 2 Other Conditions: reports: cataract/glaucoma - PRIOR SURGERIES/PROCEDURES Surgical/Procedure History: reports: pacemaker, hysterectomy, back/neck - IMMUNIZATION STATUS Childhood Immunizations: See Nurse Assessment Flu Vaccine: See Nurse Assessment - FAMILY HISTORY Family History: reviewed, not pertinent - SOCIAL HISTORY Smoking: cigarettes, greater than 1 pack/day Provider spent 3-5 mins advising pt. on dangers of tobacco.: pt is unresponsive Substance Use: none/never Living Situation: care facility ([facility]) <Roque Cruz - Last Filed: 01/03/19 18:51> Physical Exam-General - PHYSICAL EXAM-ADULT Initial Vital Signs Reviewed: Yes (BP-78/36 HR-57 02-84%BVM) - CONSTITUTIONAL General Appearance: severe distress, thin, other (unresponsive) - EYES Eyes: pale conjunctivae, other (fixed and pinpoint pupils). negative: PERRL/EOMI - HEAD, EARS, NOSE, MOUTH & THROAT HENMT: dental decay. negative: moist mucous membranes (dry) - NECK Neck: normal inspection - RESPIRATORY Respiratory: respiratory distress (intubation done quickly when pt arrived at ed) - CARDIOVASCULAR Cardiovascular: normal peripheral pulses, regular rate, rhythm (pacemaker) - CHEST (BREASTS) Chest/Breast: other (pacemaker) - GASTROINTESTINAL (ABDOMEN) Abdominal Exam: distended - LYMPHATIC Lymphatic: no adenopathy - MUSCULOSKELETAL Back Exam: other (pt lying on back and due to critical time pt was not rolled over) Extremity: other (unresponsive) - SKIN Integumentary: warm/dry, pallor - NEUROLOGIC Neurologic: other (unresponsive) - PSYCHIATRIC Psych/Mental Status: other (unresponsive) <Roque Cruz - Last Filed: 01/03/19 18:51> Progress - PLAN OF CARE/RESULTS Result Diagrams: 01/03/19 17:20 01/03/19 17:20 - REASSESSMENT Reassessment #1 Time Reassessed: 16:23 (dr cruz called back to room CPR in progress) Status: worsening Reassessment #2 Time Reassessed: 16:46 (pulse back and pt is intubated and has paced rhythm) Status: improving Reassessment Comment: at bedside - XRAY 1 Impression: See EMR Report (There is an endotracheal tube with its tip approximately a centimeter above the jamey. Electronically signed by Celestine Marino 01/03/2019 4:48 PM 01/03/198 Addendum Dictated By: Celestine Marino MD : 01/03/191647 cc: Signed EXAM: CHEST/ABD TUBE PLACEMENT 01/03/2019 HISTORY: et/ng tube TECHNIQUE: AP portable at 1633 COMMENT: There is an NG tube with its tip below the diaphragm. The pleural fluid collection which was present on 12/15/2018 has apparently improved. IMPRESSION: NG tube in the stomach. Electronically signed by Celestine Marino 01/03/2019 4:40 PM 01/03/19 1640 Interpreting Physician: Celestine Marino MD Dictated Date/Time: 01/03/19 1640 cc: Roque Cruz DO; Royal Lind III, MD) - CT/MRI 1 CT Study: Head Impression: See EMR Report (EXAM: CT HEAD W/O CONTRAST HISTORY: AMS TECHNIQUE: CT head without contrast COMPARISON: None. FINDINGS: No parenchymal hemorrhage. No epidural or subdural hematoma. No subarachnoid hemorrhage. There are chronic microvascular ischemic changes. 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 No mass identified on this noncontrasted exam. No hydrocephalus. No sinus opacification. 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 This exam was performed using automated exposure control, adjustment of mA or kV according to patient size, and/or use of iterative reconstruction technique. Electronically signed by Lyndon Bazzi 01/03/2019 4:57 PM 01/03/197 Interpreting Physician: Lyndon Bazzi MD Dictated Date/Time: 01/03/191655 cc: Roque Cruz DO; Royal Lind III, MD) - CONSULTS/PCP/HOSPITALIST Notification #1 *Consult/PCP/Hospitalist*: hospitalist Consult Disposition: Admit - CHANGE OF SHIFT REPORT (ED Provider) 1 Report Given and Care Transferred to:Tammie Portillo Time of Transfer: 19:00 Items Pending: Labs, CT/MRI Results (patient intubated, septic, appropriate fluids, broad spectrum abx ordered. I asked radiology specifically to get cxr, CT pending. hyperglycemia. bp much improved prior to shift change systolic in the 120's, 100 sat on vent) <Roque Cruz - Last Filed: 01/03/19 18:51> - PLAN OF CARE/RESULTS Result Diagrams: 01/03/19 17:20 01/03/19 17:20 <Miguel Portillo - Last Filed: 01/03/19 20:13> - PLAN OF CARE/RESULTS Progress/Plan/Lab Results: Vital Signs - 8 hr 01/03/19 16:05 01/03/19 16:26 01/03/19 16:39 Pulse Rate 60 100 H Respiratory Rate 4 L 18 Blood Pressure 78/36 74/38 O2 Sat by Pulse Oximetry 76 L 97 97 01/03/19 16:59 01/03/19 17:01 01/03/19 17:09 Pulse Rate 104 H 102 H Respiratory Rate Blood Pressure 85/75 114/56 O2 Sat by Pulse Oximetry 100 01/03/19 17:11 01/03/19 17:12 01/03/19 17:20 Pulse Rate 102 H 102 H 105 H Respiratory Rate Blood Pressure 120/76 O2 Sat by Pulse Oximetry 100 100 100 01/03/19 17:22 01/03/19 17:27 01/03/19 17:30 Pulse Rate 104 H 102 H 102 H Respiratory Rate Blood Pressure 112/59 126/61 O2 Sat by Pulse Oximetry 100 100 100 01/03/19 17:32 01/03/19 17:37 01/03/19 17:40 Pulse Rate 101 H 99 H 95 H Respiratory Rate 31 H Blood Pressure 134/64 158/63 O2 Sat by Pulse Oximetry 100 100 100 01/03/19 17:42 01/03/19 17:47 01/03/19 17:50 Pulse Rate 97 H 94 H 97 H Respiratory Rate Blood Pressure 159/69 123/71 O2 Sat by Pulse Oximetry 100 100 100 01/03/19 17:53 01/03/19 17:57 01/03/19 18:00 Pulse Rate 96 H 97 H 95 H Respiratory Rate Blood Pressure 145/55 144/74 O2 Sat by Pulse Oximetry 100 100 100 01/03/19 18:02 01/03/19 18:07 01/03/19 18:10 Pulse Rate 96 H 96 H 94 H Respiratory Rate Blood Pressure 152/84 153/70 O2 Sat by Pulse Oximetry 100 100 100 01/03/19 18:12 01/03/19 18:17 01/03/19 18:20 Pulse Rate 98 H 96 H 93 H Respiratory Rate Blood Pressure 153/76 155/61 O2 Sat by Pulse Oximetry 100 100 100 01/03/19 18:22 01/03/19 18:27 01/03/19 18:30 Pulse Rate 98 H 94 H 96 H Respiratory Rate Blood Pressure 155/86 153/75 O2 Sat by Pulse Oximetry 100 100 100 01/03/19 18:32 01/03/19 18:37 01/03/19 18:40 Pulse Rate 94 H 96 H 97 H Respiratory Rate Blood Pressure 146/60 143/67 O2 Sat by Pulse Oximetry 100 100 100 01/03/19 18:42 01/03/19 18:47 01/03/19 18:50 Pulse Rate 96 H 93 H 94 H Respiratory Rate Blood Pressure 143/85 136/64 O2 Sat by Pulse Oximetry 100 100 100 01/03/19 18:52 01/03/19 18:57 01/03/19 19:00 Pulse Rate 94 H 93 H 92 H Respiratory Rate Blood Pressure 139/82 148/79 O2 Sat by Pulse Oximetry 100 100 100 01/03/19 19:02 01/03/19 19:07 01/03/19 19:10 Pulse Rate 94 H 94 H 94 H Respiratory Rate Blood Pressure 149/78 143/61 O2 Sat by Pulse Oximetry 100 100 100 01/03/19 19:12 01/03/19 19:17 01/03/19 19:20 Pulse Rate 91 H 89 91 H Respiratory Rate Blood Pressure 132/87 153/66 O2 Sat by Pulse Oximetry 100 100 100 01/03/19 19:22 01/03/19 19:27 01/03/19 19:30 Pulse Rate 93 H 85 102 H Respiratory Rate Blood Pressure 145/76 146/83 O2 Sat by Pulse Oximetry 100 100 100 01/03/19 19:32 01/03/19 19:37 01/03/19 19:40 Pulse Rate 108 H 90 91 H Respiratory Rate Blood Pressure 149/119 144/69 O2 Sat by Pulse Oximetry 100 100 100 01/03/19 19:42 Pulse Rate 89 Respiratory Rate Blood Pressure 102/71 O2 Sat by Pulse Oximetry 100 Laboratory Results - last 24 hr 01/03/19 01/03/19 01/03/19 17:04 17:04 17:20 WBC 20.98 H RBC 4.48 Hgb 13.0 Hct 41.9 MCV 93.5 MCH 29.0 MCHC 31.0 L RDW Std Deviation 15.4 H Plt Count 187 MPV 12.2 H Immature Gran % (Auto) 2.7 H Neut % (Auto) 85.3 H Lymph % (Auto) 4.2 L Trigg % (Auto) 7.3 Eos % (Auto) 0.0 Baso % (Auto) 0.5 Immature Gran # (Auto) 0.57 H Neut # (Auto) 17.89 H Lymph # (Auto) 0.88 L Trigg # (Auto) 1.53 H Eos # (Auto) 0.01 Baso # (Auto) 0.10 PT INR Sodium Potassium Chloride Carbon Dioxide Anion Gap BUN Creatinine Estimated GFR/1.73 m2 BUN/Creatinine Ratio Glucose Calculated Osmolality Calcium Total Bilirubin AST ALT Alkaline Phosphatase Troponin T Gii-X-Mbrapvfxgnc Pept 4666 H Total Protein Albumin Globulin Albumin/Globulin Ratio Plasma Lactate Urine Source CATH Urine Color YELLOW Urine Turbidity CLEAR Urine pH 6.0 Ur Specific [place] 1.017 Urine Protein 70 A Ur Glucose (Stick) 100 A Ur Ketones (Stick) NEGATIVE Urine Blood NEGATIVE Urine Nitrite NEGATIVE Urine Bilirubin NEGATIVE Urobilinogen Dipstick NORMAL Urine Leukocytes NEGATIVE Urine WBC (Auto) <10 Urine RBC (Auto) <10 U Epithel Cells (Auto) <10 Urine Bacteria (Auto) NEGATIVE 01/03/19 01/03/19 01/03/19 17:20 17:20 17:20 WBC RBC Hgb Hct MCV MCH MCHC RDW Std Deviation Plt Count MPV Immature Gran % (Auto) Neut % (Auto) Lymph % (Auto) Trigg % (Auto) Eos % (Auto) Baso % (Auto) Immature Gran # (Auto) Neut # (Auto) Lymph # (Auto) Trigg # (Auto) Eos # (Auto) Baso # (Auto) PT 15.6 INR 1.22 Sodium 142 Potassium 4.2 D Chloride 105 Carbon Dioxide 19 L Anion Gap 18 BUN 40 H Creatinine 1.3 H Estimated GFR/1.73 m2 40 BUN/Creatinine Ratio 31 Glucose 690 H* D Calculated Osmolality 326 Calcium 8.4 L Total Bilirubin 0.49 AST 444 H ALT 256 H Alkaline Phosphatase 66 Troponin T Enp-D-Gtofjwdminh Pept Total Protein 5.2 L Albumin 2.2 L Globulin 3.0 Albumin/Globulin Ratio 0.7 Plasma Lactate 8.2 H* Urine Source Urine Color Urine Turbidity Urine pH Ur Specific [place] Urine Protein Ur Glucose (Stick) Ur Ketones (Stick) Urine Blood Urine Nitrite Urine Bilirubin Urobilinogen Dipstick Urine Leukocytes Urine WBC (Auto) Urine RBC (Auto) U Epithel Cells (Auto) Urine Bacteria (Auto) 01/03/19 17:20 WBC RBC Hgb Hct MCV MCH MCHC RDW Std Deviation Plt Count MPV Immature Gran % (Auto) Neut % (Auto) Lymph % (Auto) Trigg % (Auto) Eos % (Auto) Baso % (Auto) Immature Gran # (Auto) Neut # (Auto) Lymph # (Auto) Trigg # (Auto) Eos # (Auto) Baso # (Auto) PT INR Sodium Potassium Chloride Carbon Dioxide Anion Gap BUN Creatinine Estimated GFR/1.73 m2 BUN/Creatinine Ratio Glucose Calculated Osmolality Calcium Total Bilirubin AST ALT Alkaline Phosphatase Troponin T 0.010 Say-Z-Nbswztktszp Pept Total Protein Albumin Globulin Albumin/Globulin Ratio Plasma Lactate Urine Source Urine Color Urine Turbidity Urine pH Ur Specific [place] Urine Protein Ur Glucose (Stick) Ur Ketones (Stick) Urine Blood Urine Nitrite Urine Bilirubin Urobilinogen Dipstick Urine Leukocytes Urine WBC (Auto) Urine RBC (Auto) U Epithel Cells (Auto) Urine Bacteria (Auto) Orders Category Date Time Status Fingerstick Blood Sugar [FSBS/Accucheck Result] NOW Care 01/03/19 19:40 Active CHEST-PORTABLE [RAD] Stat Exams 01/03/19 16:44 Completed CHEST/ABD TUBE PLACEMENT [RAD] Stat Exams 01/03/19 16:[address] ABDOMEN/PELVIS W/O CONTRAST [CT] Stat Exams 01/03/19 18:[address] HEAD W/O CONTRAST [CT] Stat Exams 01/03/19 16:29 Completed BLOOD CULTURE [BLDCUL] Stat Lab 01/03/19 17:35 Received CBC WITH ELECTRONIC DIFF [HEME] Stat Lab 01/03/19 17:20 Completed COMPREHENSIVE METABOLIC PANEL [CHEM] Stat Lab 01/03/19 17:20 Completed LACTATE, PLASMA [CHEM] Stat Lab 01/03/19 17:20 Completed LACTATE, PLASMA [CHEM] Stat Lab 01/03/19 19:40 Uncollected PRO B-NATRIURETIC PEPTIDE Stat Lab 01/03/19 17:04 Completed PROTIME WITH INR [COAG] Stat Lab 01/03/19 17:20 Completed TROPONIN T Stat Lab 01/03/19 17:20 Completed URINALYSIS W/POSS RFLX CULT [URINALYSIS] Stat Lab 01/03/19 17:04 Completed 0.9% Sodium Chloride Inj [Ns] 1,000 ml Med 01/03/19 16:20 Discontinued .ROUTE As directed 0.9% Sodium Chloride Inj [Ns] 1,000 ml Med 01/03/19 16:16 Discontinued IV 999 mls/hr 0.9% Sodium Chloride Inj [Ns] 1,000 ml Med 01/03/19 17:24 Discontinued IV 999 mls/hr Dextrose 5%-0.45% NaCl Inj [D5 1/2 Ns] 250 ml Med 01/03/19 16:15 Active Norepinephrine [Levophed] 8 mg IV As Directed mls/hr Levofloxacin 750 mg/D5w [Levaquin 750 mg/D5w] Med 01/03/19 16:46 Discontinued 750 mg in 150 ml IV NOW Piperacillin/Tazobactam [Zosyn] 4.5 gm Med 01/03/19 16:46 Discontinued 0.9% Sodium Chloride Inj [Ns] 100 ml IV NOW Ventilator Order Stat Oth 01/03/19 16:[address] cruz was called back to trauma room and pt had no pulse. RT was at bedside and pulled the intubation that RT placed earlier and dr cruz re intubated the pt. pt had bloody secretions that was suctioned and had 7.5 placed and 25 @ the lip line with no drugs given to intubate. pt does not respond to pain. pt had no pulse and cpr was stared by nursing staff. 1624 pulse check still no pulse. pt was given x1 epi @ 1624,. pt had return of pulse 1626 with a paced rhythm spoke with xray and they sts they would redictate the report to read 1cm above the ET tube re-evaluated, cmp pending, and CT imaging pending nursing brought me glucose >600 will sign out to night physician, CT pending. anticipate admission (Roque Cruz) Pt signed out to me by Dr. Cruz, pending admission, he had tried to admit the patient prior to the end of his shift but was unable to get a hold of the hospitalist, spoke with Dr. Felix and admitted the patient to the ICU (Miguel Portillo) Procedures - INTUBATION Time of Intubation: 16:09 (RT intubated ) Airway Evaluation: Copious Secretions Intubation Method: orotracheal Equipment: Glidescope Tube Size (cm): 7.5 (25 @ lip line) Pretreated with 100% Oxygen?: Yes ETT Primary Tube Confirmation: Capnometry CO2 Change, Direct Visualization, C hest Rise and Fall Vent Settings: See Respiratory Therapy Notes <Roque Cruz - Last Filed: 01/03/19 18:51> Departure - Critical Care Note This patient required my direct & personal management of CC.: Yes Total Time (mins): 46 Critical Care Statement: This patient required my direct personal management to treat or rule out processes, the absence of which, could potentiallly result in sudden, clinically significant life or limb threatening deterioration. <Roque Cruz - Last Filed: 01/03/19 18:51> - Departure Date of Disposition Decision: 01/03/19 Time of Disposition Decision: 20:13 Certified Medical Emergency: Emergent <Miguel Portillo - Last Filed: 01/03/19 20:13> - Departure DIAGNOSIS: Hyperglycemia Sepsis Qualifiers: Sepsis type: sepsis due to unspecified organism Sepsis acute organ dysfunction status: with acute organ dysfunction Severe sepsis acute organ dysfunction type: acute respiratory failure Acute respiratory failure type: with hypoxia Severe sepsis shock status: with septic shock Qualified Code(s): A41.9 - Sepsis, unspecified organism Respiratory failure Qualifiers: Chronicity: acute Respiratory failure complication: hypoxia Qualified Code(s): J96.01 - Acute respiratory failure with hypoxia Disposition: ADMITTED INPATIENT 09 Condition: Fair Referrals and Follow-Ups: Royal Lind III, MD [Primary Care Provider] - Attestation - Physician/ NAGI Attestation Patient care was provided by Advanced Practice Provider:: No The physician spent face to face time with patient:: Yes Advanced Practice Provider documentation review:: Supervising physician onsite and consulted in the evaluation and care of this patient. The physician did have a face to face encounter with the patient. <Roque Cruz - Last Filed: 01/03/19 18:51> This chart was documented by the indicated scribe, (Skylar Olson Olayinka) and accurately reflects the services I performed and decisions made by me, Roque Cruz, DO, as attested by the provider's signature.
--- NOTE | 2019-01-03 18:32 | Diag Imaging Result Doc PS360 ---
EXAM: CHEST-PORTABLE HISTORY: ETT placement TECHNIQUE: Chest single view COMPARISON: 4:33 PM FINDINGS: There is an endotracheal tube in good position with the tip 2 cm above the jamey. No other interval change. IMPRESSION: Endotracheal tube in good position. Electronically signed by Lyndon Bazzi 01/03/2019 6:30 PM
[2019-01-03 18:42] LABS: ALB/GLOB RATIO 0.7; ALBUMIN 2.2 g/dL (3.5-5.0); CALCIUM 8.4 mg/dL (8.8-10.2); CREATININE 1.3 mg/dL (0.5-0.9); POTASSIUM 4.2 mmol/L (3.5-5.1); TOTAL BILIRUBIN 0.49 mg/dL (0.20-1.00); TOTAL PROTEIN 5.2 g/dL (6.3-8.3)
--- NOTE | 2019-01-03 21:42 | Diag Imaging Result Doc PS360 ---
EXAM: CT ABDOMEN/PELVIS W/O CONTRAST HISTORY: abd pain, TECHNIQUE: CT abdomen and pelvis without contrast COMPARISON: None. FINDINGS: Air bronchograms in the left lower lobe with small left pleural effusion. Severe atherosclerosis. No aortic aneurysm. Small stones and sludge within the gallbladder. No adjacent inflammation. No focal hepatic, splenic, or pancreatic abnormality identified on this noncontrasted exam. Thickening to the right adrenal gland with a possible 2 cm nodule. Atrophic left kidney. Renal calcifications may be vasculature. No hydronephrosis. There is a large amount of stool within the colon and rectum. There is a Calix catheter in urinary bladder. The uterus has been removed. No abscess. The bones are osteopenic. IMPRESSION: 1.Constipation with fecal impaction 2.Left lower lobe pneumonia with small effusions 3.Severe atherosclerosis 4.Cholelithiasis 5.Right adrenal nodule This exam was performed using automated exposure control, adjustment of mA or kV according to patient size, and/or use of iterative reconstruction technique. Electronically signed by Lyndon Bazzi 01/03/2019 9:40 PM
[2019-01-03] MEDS ORDERED: EPINEPHRINE SYRINGE ONE (21:58)
--- NOTE | 2019-01-03 23:16 | HISTORY AND PHYSICAL ---
PRIMARY CARE PHYSICIAN: Nikita Worley MD CHIEF COMPLAINT: Apneic breathing, hypotensive, unresponsive. HISTORY OF PRESENTING ILLNESS: This is a 73-year-old female with a history of hypertension, diabetes mellitus type 2, hyperlipidemia, COPD, coronary disease, who was at [facility], where they found patient having apneic breathing, low O2 saturation in the 80s and hypotensive. She was brought to the emergency department. She was rapidly intubated and she will require admission for further management. Due to her presenting symptoms most of the history is obtained from her daughter. As per daughter all she knows is she got a call from the rehab facility that they were taking her to the hospital. PAST MEDICAL HISTORY: Includes hypertension, diabetes mellitus type 2, hyperlipidemia, COPD, coronary artery disease. PAST SURGICAL HISTORY: Pacemaker, coronary stent, hysterectomy. ALLERGIES: No known drug allergies. CURRENT MEDICATIONS: From the chart show she is on BuSpar 10 mg p.o. at bedtime, diltiazem 120 mg p.o. daily, glipizide 10 mg p.o. daily, lisinopril 20 mg p.o. daily, megestrol 40 mg p.o. daily. SOCIAL HISTORY: A 50+ pack year history of smoking. No history of alcohol or illicit drug use. FAMILY HISTORY: No history of coronary disease. REVIEW OF SYSTEMS: Unable to obtain due to patient being intubated and on a ventilator. PHYSICAL EXAMINATION: GENERAL: The patient is currently intubated and on a ventilator. VITAL SIGNS: Pulse 104, respirations 18, blood pressure is 74/38. HEENT: Atraumatic, normocephalic. NECK: No masses. CHEST: Rhonchi. CARDIOVASCULAR: Regular rate and rhythm. ABDOMEN: Soft, positive bowel sounds. EXTREMITIES: No edema. NEUROLOGIC: She is arousable. GENITOURINARY: No bladder distention. SKIN: Warm. LABORATORIES AND STUDIES: WBCs 20.98, hemoglobin 13.2, hematocrit 41.9, platelets 187,000. Sodium 142, potassium 4.2, chloride 105, CO2 is 19, BUN is 40, creatinine is 1.3, glucose 690. Plasma lactate is 8.2. Abdominal CT shows left lower lobe pneumonia. CT of the head no hemorrhage. ASSESSMENT: This is a 73-year-old female with a history of hypertension, diabetes mellitus type 2, coronary disease, COPD, who was found at the [facility] having apneic breathing and hypotension. She eventually became somewhat unresponsive. She was brought to the emergency department. She is currently intubated and she will require admission for further management. 1. Altered mental status, multifactorial. 2. Status post recent treatment for pneumonia. 3. Acute respiratory failure. 4. Sepsis. 5. Hypotension. 6. Diabetes mellitus type 2 with hyperglycemia. PLAN: 1. We will admit patient to ICU. 2. We will continue with neuro checks. 3. We will check blood cultures. Start patient on IV antibiotics. 4. We will continue with ventilator support and consult Pulmonary. 5. Continue with IV fluids. 6. We will monitor blood glucose closely. Continue patient on sliding scale insulin regimen. 7. We will put patient on DVT prophylaxis with SCDs and heparin. 8. We will continue to follow and reassess, make further recommendation based on patient's clinical course. cc: Bam Felix MD
[2019-01-03] MEDS ORDERED: DIPRIVAN 1% 1,000 MG/100 ML BOTTLE IV SCH (23:30)
[2019-01-03] MEDS ORDERED: VANCOMYCIN IV PER PHARMACY MISC SCH (23:40)
[2019-01-03] MEDS ORDERED: ZOFRAN IV PRN (23:40)
[2019-01-04] MEDS: ZOSYN 3.375 GM in NS 50 ML IV SCH ×5 (00:43→22:51)
[2019-01-04] MEDS: NS 1,000 ML IV SCH ×4 (00:43→21:17)
[2019-01-04] MEDS: HUMULIN R SUBQ SCH ×6 (00:44→19:43)
[2019-01-04] MEDS ORDERED: VANCOMYCIN 1,500 MG in NS 250 ML IV ONE (01:00)
[2019-01-04 04:29] LABS: ALLEN TEST NO; BE -1.9 mmoll (-3.0-3.0); BLOOD TYPE ARTERIAL; HCO3-(ACT) 23.4 mmoll (20.0-26.0); METHB 1.2 % (0.0-1.5); O2(CT) 19.9 mL/dL (15.0-23.0); O2HB 97.1 % (95.0-99.0); PCO2(98.6) 35 mmHg (35-45); PO2(98.6) 176 mmHg (60-100); SAMPLE BLOOD; SAO2 99.4 % (95.0-100.0); SRATE 18 BPM; THB 14.3 g/dL (11.5-17.4); TVOL 400 mL; pH(98.6) 7.41 (7.35-7.45)
[2019-01-04 04:30] LABS: MODALITY VENTILATOR
[2019-01-04] MEDS ORDERED: HUMULIN R SUBQ SCH (07:00)
--- NOTE | 2019-01-04 07:12 | Diag Imaging Result Doc PS360 ---
EXAM: CHEST-PORTABLE 01/04/2019 HISTORY: Ventilator Patient TECHNIQUE: AP portable at 0532 COMMENT: There is an endotracheal tube with its tip slightly below the thoracic inlet. There is a pleural effusion on the left. There is volume loss and opacity in the left lower lobe. This was also the case on 01/03/2019. IMPRESSION: Atelectasis and/or pneumonia left lower lobe. Left pleural effusion. Electronically signed by Celestine Marino 01/04/2019 7:10 AM
[2019-01-04 07:18] LABS: HEMATOCRIT 36.8 % (37.0-47.0); HEMOGLOBIN 11.7 g/dL (12.0-16.0); LYMPH% 4.3 % (20.5-51.1); MCH 28.9 PG (27-31); MCHC 31.8 g/dL (33-37); MCV 90.9 FL (81-99); MPV 12.1 FL (7.4-10.4); NEUT% 88.8 % (42.2-75.2); PLT 166 X1000 (130-400); RBC 4.05 XMIL (4.2-5.4); RDW 15.2 % (11.5-14.5); WBC 23.47 X1000 (4.8-10.8)
[2019-01-04 07:19] LABS: BASO# 0.03 X1000 (0.0-0.2); BASO% 0.1 % (0.0-0.8); IMM GRAN# 0.22 X1000 (0.0-0.04); IMM GRAN% 0.9 % (0.0-0.5); LYMPH# 1.02 X1000 (1.2-3.4); MONO# 1.39 X1000 (0.11-0.59); MONO% 5.9 % (1.7-9.3); NEUT# 20.81 X1000 (1.4-6.5)
--- NOTE | 2019-01-04 07:31 | EKG Report ---
Test Performed on : 01/03/2019 8:02:04 PM Test Reason : ED. NO EKG ORDER FOR MUSE Blood Pressure : / mmHG Vent. Rate : 093 BPM Atrial Rate : 093 BPM P-R Int : 142 ms QRS Dur : 102 ms QT Int : 374 ms P-R-T Axes : 071 080 070 degrees QTc Int : 465 ms Normal sinus rhythm. Incomplete right bundle branch block Nonspecific ST and T wave abnormality Abnormal ECG When compared with ECG of 02-DEC-2018 11:56, (Unconfirmed) Incomplete right bundle branch block is now present Criteria for Septal infarct are no longer present Unconfirmed Result
[2019-01-04 07:44] LABS: LYMPHS 6 % (21-51); MONO 4 % (1-9); SEGS 90 % (42-75)
[2019-01-04 07:52] LABS: ALB/GLOB RATIO 0.6; CALCIUM 8.9 mg/dL (8.8-10.2); CREATININE 1.1 mg/dL (0.5-0.9); POTASSIUM 3.8 mmol/L (3.5-5.1); TOTAL BILIRUBIN 0.27 mg/dL (0.20-1.00); TOTAL PROTEIN 5.3 g/dL (6.3-8.3)
[2019-01-04 07:54] LABS: HEMOGLOBIN A1C 7.2 % (4.8-6.0)
[2019-01-04] MEDS ORDERED: LOVENOX SUBQ SCH (09:00)
[2019-01-04] MEDS ORDERED: NS NEB INH SCH (11:30)
--- NOTE | 2019-01-04 11:50 | EKG Report ---
Test Performed on : 01/04/2019 05:23:57 AM Test Reason : CCU. No order in MT Blood Pressure : / mmHG Vent. Rate : 072 BPM Atrial Rate : 072 BPM P-R Int : 144 ms QRS Dur : 102 ms QT Int : 412 ms P-R-T Axes : -29 078 066 degrees QTc Int : 451 ms Atrial-paced rhythm with occasional premature ventricular complexes. Incomplete right bundle branch block Nonspecific ST and T wave abnormality Abnormal ECG When compared with ECG of 03-JAN-2019 20:02, (Unconfirmed) Electronic atrial pacemaker has replaced Sinus rhythm. Confirmed by Ev Busby MD ([id number]) on 01/04/2019 1:00:31 PM
[2019-01-04] MEDS: MORPHINE IV PRN (14:00)
[2019-01-04] MEDS: ATIVAN IV PRN ×2 (14:00→18:41)
--- NOTE | 2019-01-04 14:44 | CONSULTATION ---
DATE OF CONSULTATION: 01/04/2019 REQUESTING PROVIDER: Dr. Bam Felix MD REASON FOR CONSULTATION: Ventilator management. HISTORY OF PRESENT ILLNESS: This is a 73-year-old female with a medical history of severe COPD with ongoing tobacco abuse, recent pacemaker placement at [facility], diabetes mellitus type 2, hypertension, and solitary pulmonary nodule. Her last admission in our facility was from 12/01/2018 to 12/15/2018 with left lower lobe Acinetobacter pneumonia. She was discharged to rehab at that time. She presented to the ER yesterday afternoon around 16:00 from rehab via EMS with unresponsiveness. She initially was found with hypotension, bradycardia and hypoxia. At 16:24, she developed a full arrest and CPR lasted about 4 minutes as the nurse reported. She was soon intubated. 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 CT abdomen and pelvis without contrast showed constipation with fecal impaction, Left lower lobe pneumonia with small effusions, severe atherosclerosis, cholelithiasis and right adrenal nodule. Lab also revealed leukocytosis, severe hyperglycemia, acute kidney injury, acute liver injury, elevated proBNP and elevated plasma lactate. She has been admitted to the ICU for further evaluation and management. The patient currently is still intubated and sedated with Diprivan drip. She has some coffee-ground drainage from the NG tube and some yellow thick drainage from the ET tube. The urine in the drainage bag is brown and cloudy. The nurse reported that she had a very large fecal impaction removed this morning. The patient is currently on Levophed drip and NS at 125ml/hr. There is no family at the bedside. All other information is corrected from the E-chart. PAST MEDICAL HISTORY: 1. Severe COPD, FEV1 32% of predicted in October of 2013. 2. Ongoing tobacco abuse. 3. Pacemaker placement on 11/28/2018 at [facility]. 4. Diabetes mellitus type 2. 5. Hypertension. 6. Stable solitary 1 cm pulmonary nodule in right lower lobe, along with probable previous asbestos exposue; previously followed by Dr. Kendrick. 7. Recent admission from 12/01/2018 to 12/15/2018 with left lower lobe Acinetobacter pneumonia. PAST SURGICAL HISTORY: 1. Pacemaker placement. 2. Hysterectomy. 3. Carotid endarterectomy. SOCIAL HISTORY: The patient has been living in a senior care facility since 12/15/2018. She has been a daily smoker since age 17. She smokes a half pack per day per the H&P from 12/01/2018. She has no history of alcohol or illicit drug use. FAMILY HISTORY: Positive for diabetes mellitus type 2 and cancer. ALLERGIES: No known drug allergies. REVIEW OF SYSTEMS: Unable to be obtained. PHYSICAL EXAMINATION: Vital Signs: Temperature 98.4, blood pressure 89/47, pulse 77, respiratory rate 18, and oxygen saturation 99% on AC mechanical ventilator with FiO2 60%, spontaneous rate 18, tidal volume 400, and PEEP of 5. General: Chronically ill-appearing and intubated. Malnourished. Poor skin turgor. No acute distress noted. HEENT: Atraumatic, normocephalic. Trachea midline. ET tube in place. Mucosa pink and slightly dry. Respiratory: Mechanical ventilated. symmetrical excursion. Auscultation revealed diminished breathing sounds bibasilarly, clear otherwise. Cardiovascular: Regular rate and rhythm. Gastrointestinal: Soft and nondistended. Normoactive bowel sounds in all 4 quadrants. Extremities: No pedal edema. No cyanosis. No clubbing. Diminished dorsalis pedis bilaterally. Neurologic: Sedated, unresponsive. LABORATORY DATA: White blood cell 23.47, hemoglobin 11.7, hematocrit 36.8, and platelet 166,000. Sodium 146, potassium 3.8, chloride 114, carbon dioxide 21, BUN 44, creatinine 1.1, and glucose 220. HA1c 7.2, plasma lactate 2.30. ABG: A pH 7.41, pCO2 35, PO2 176, HC03 23.4, base excess - 1.9, and oxyhemoglobin 97.1, and lactate 2.40. IMAGING DATA: Chest x-ray this morning showed atelectasis, plus or minus pneumonia left lower lobe and left pleural effusion. ASSESSMENT: This is a 73-year-old female with a medical history of severe COPD with ongoing tobacco abuse, recent pacemaker placement, diabetes mellitus type 2, hypertension, and stable solitary pulmonary nodule right lower lobe. Her last admission in our facility was from 12/01/2018 to 12/15/2018 with left lower lobe Acinetobacter pneumonia. She has been admitted to the ICU since yesterday afternoon with unresponsiveness, status post a full arrest, acute hypoxic respiratory failure requiring intubation and shock. 1. Acute hypoxic respiratory failure requiring intubation. 2. Shock. 3. Status post a full arrest. CPR lasted about 4 minutes as the nurse reported. 4. Constipation with fecal impaction. Fecal impaction was removed this morning by the nurse. 5. Diabetes mellitus type 2 with hyperglycemia. Glucose up to 690 initially. 6. Acute kidney injury, acute liver injury, and elevated proBNP. 7. Ongoing tobacco abuse. 8. Severe COPD with stable solitary right lower lobe pulmonary nodule. PLAN: 1. Continue AC mechanical ventilator and we will start weaning trials when appropriate. 2. Continue antibiotics. Continue fluid resuscitation and pressors as needed. 3. Start bronchodilators. 4. Follow up with ABG, CBC, BMP, proBNP and chest x-ray. Follow up blood cultures. 5. Continue DVT and GI prophylaxis. 6. Further recommendations pending hospital course. Thank you for the courtesy of this consult. Dictated by BRENDAN Huizar for Jono Coombs MD cc: BRENDAN Huizar MD [facility]
[2019-01-04] MEDS: ATROVENT NEB INH SCH ×3 (16:03→21:07)
[2019-01-04] MEDS: XOPENEX NEB INH SCH ×3 (16:04→21:06)
--- NOTE | 2019-01-04 16:39 | PROGRESS NOTE ---
DATE: 01/04/2019 PRIMARY CARE PHYSICIAN: Ev Mcclelland. Mrs. Sandoval was admitted yesterday. This is a 73-year-old with history of hypertension, diabetes mellitus type 2, hyperlipidemia, COPD, coronary artery disease, was at [facility] and they found the patient having apneic breathing, low O2 saturations in the 80s. She was brought to the emergency room, rapidly intubated in and was admitted. PAST MEDICAL HISTORY: 1. Hypertension. 2. Diabetes mellitus type 2. 3. Hyperlipidemia. 4. Chronic obstructive pulmonary disease. 5. Coronary artery disease. PAST SURGICAL HISTORY: 1. Pacemaker. 2. She has had coronary stent placed. 3. Hysterectomy. ADMISSION DIAGNOSES: 1. Altered mental status, multifactorial. 2. Status post recent treatment for pneumonia. 3. Acute respiratory failure. 4. Sepsis. 5. Hypotension. 6. Diabetes mellitus type 2. HISTORY: This is a 73-year-old with history of hypertension, diabetes mellitus, coronary artery disease, COPD, found a snf with apneic breathing and intubated became somewhat unresponsive just before that. She is intubated appears comfortable. PHYSICAL EXAMINATION: Temp 98.1 degrees, pulse 70, respirations 18, blood pressure 158/53. Pupils are equal and round. Lungs are clear in all lung ojeda. Cardiovascular regular rate without murmur or S3. Abdomen is soft. Skin is warm and dry. Urine output was about 500 mL. ASSESSMENT AND PLAN: 1. Acute hypoxic respiratory failure requiring intubation. Presented with sepsis, status post full arrest. Cardiopulmonary resuscitation lasted about 4 minutes. 2. Constipation, fecal impaction. This was removed today. I am going to hold the Lovenox just today and restart again tomorrow. 3. Diabetes mellitus type 2 with hyperglycemia. Blood sugar was 690. 4. Acute kidney injury. 5. Acute liver injury, elevated proBNP. 6. Ongoing tobacco use abuse. 7. Severe chronic obstructive pulmonary disease with a stable solitary right lower lobe nodule, so continue medical mechanical ventilation. Continue antibiotics. Continue fluid resuscitation and bronchodilators. REVIEW OF ORDERS: I don't see any change at this point she is on Levaquin 750 mg IV q.24 hours, vancomycin and Zosyn were loaded. She getting Zosyn 3.375 g IV q.6 hours, vancomycin 1100 mg IV q.6 this. cc: Kb Aguirre MD
[2019-01-05] MEDS: HUMULIN R SUBQ SCH ×6 (00:58→19:43)
[2019-01-05] MEDS: MORPHINE IV PRN ×4 (01:55→19:43)
[2019-01-05] MEDS: XOPENEX NEB INH SCH ×4 (03:10→21:14)
[2019-01-05] MEDS: ATROVENT NEB INH SCH ×4 (03:10→21:15)
[2019-01-05 04:03] LABS: ALLEN TEST YES; BE -6.6 mmoll (-3.0-3.0); BLOOD TYPE ARTERIAL; HCO3-(ACT) 19.7 mmoll (20.0-26.0); O2(CT) 20.3 mL/dL (15.0-23.0); O2HB 96.2 % (95.0-99.0); PCO2(98.6) 35 mmHg (35-45); PO2(98.6) 92 mmHg (60-100); SAMPLE BLOOD; SAO2 98.3 % (95.0-100.0); SRATE 18 BPM; TVOL 400 mL; pH(98.6) 7.33 (7.35-7.45)
[2019-01-05 04:06] LABS: MODALITY VENTILATOR
[2019-01-05 04:12] LABS: BASO# 0.05 X1000 (0.0-0.2); BASO% 0.2 % (0.0-0.8); HEMATOCRIT 36.6 % (37.0-47.0); HEMOGLOBIN 11.8 g/dL (12.0-16.0); IMM GRAN# 0.31 X1000 (0.0-0.04); IMM GRAN% 1.2 % (0.0-0.5); LYMPH# 1.88 X1000 (1.2-3.4); LYMPH% 7.1 % (20.5-51.1); MCHC 32.2 g/dL (33-37); MCV 89.9 FL (81-99); MONO# 1.42 X1000 (0.11-0.59); MONO% 5.4 % (1.7-9.3); NEUT# 22.75 X1000 (1.4-6.5); NEUT% 86.1 % (42.2-75.2); PLT 177 X1000 (130-400); RBC 4.07 XMIL (4.2-5.4); RDW 15.6 % (11.5-14.5); WBC 26.41 X1000 (4.8-10.8)
[2019-01-05 04:23] LABS: CALCIUM 8.8 mg/dL (8.8-10.2); CREATININE 1.1 mg/dL (0.5-0.9); POTASSIUM 3.2 mmol/L (3.5-5.1)
[2019-01-05] MEDS: NS 1,000 ML IV SCH ×4 (05:11→23:30)
[2019-01-05 05:38] LABS: LYMPHS 7 % (21-51); MONO 2 % (1-9); SEGS 91 % (42-75)
[2019-01-05] MEDS: ZOSYN 3.375 GM in NS 50 ML IV SCH ×4 (06:31→23:30)
[2019-01-05] MEDS: ATIVAN IV PRN ×4 (06:32→23:30)
[2019-01-05] MEDS ORDERED: CARDIZEM 125 MG/D5W 125 MG/125 ML IVPB IV SCH (06:45)
--- NOTE | 2019-01-05 07:39 | Diag Imaging Result Doc PS360 ---
EXAM: CHEST-1 VIEW INDICATION: SOB TECHNIQUE: One view COMPARISON: 01/04/2019 FINDINGS: Support tubes and lines are in stable positions. The left lower lobe opacity suggesting atelectasis +/- pneumonia is unchanged. No new consolidation is identified. Cardiac silhouette is stable. IMPRESSION: Stable chest. Electronically signed by Royal Wolfe 01/05/2019 7:36 AM
[2019-01-05] MEDS ORDERED: SOLU-CORTEF IV SCH (08:30)
[2019-01-05] MEDS ORDERED: NS 500 ML IV ONE (09:50)
--- NOTE | 2019-01-05 10:13 | PROGRESS NOTE ---
DATE: 01/05/2019 SUBJECTIVE: Ms. Sandoval on the ventilator. It appears she is in atrial fib, at other times it appears she has sinus rhythm with frequent PACs. Blood pressure hovering around mid 80s to right now it is 88/40. She has good palpable pulses in the carotid and radial. OBJECTIVE: Vital Signs: Temperature 98.8 degrees, pulse 100, respirations 25, blood pressure 88/39. Eyes: Pupils are equal. Neck: No distended neck veins. Lungs: Clear in all lung ojeda. Cardiovascular exam: Regular rhythm and rate without murmur or S3. Abdomen: Soft. Skin: Warm and dry. X-RAYS: Chest x-ray: Stable chest. Left lower lobe opacity suggesting atelectasis. Questionable pneumonia. ASSESSMENT AND PLAN: 1. Acute hypoxemic respiratory failure requiring intubation. She is on the ventilator. Continue bronchodilators and pulmonary toilet. 2. Questionable pneumonia. Continue present antibiotics. 3. Constipation. Fecal impaction, which was disimpacted yesterday. 4. Diabetes mellitus type 2. Blood sugars under good control. 5. Acute kidney injury. White count is still elevated at 26,410, hematocrit 36, platelet count 177,000. Sodium 150, potassium 3.2, chloride 121, BUN 39, creatinine 1.1. Blood sugars 112, 126, 145 and 202. Continue present regimen. MEDICATIONS: She is on a Cardizem drip, ipratropium bromide inhalation 0.5 mg q. 6 hours, Xopenex 0.63 inhalation q. 6 hours, vancomycin 1100 mg IV q. 6 hours, Zosyn 3.375 g IV q. 6 hours, and she is on hydrocortisone 100 mg IV q. 8 hours. Note the creatinine is down to 1.1, and that has been pretty stable since she has been here. cc: Kb Aguirre MD
--- NOTE | 2019-01-05 11:21 | EKG Report ---
Test Performed on : 01/05/2019 11:19:55 AM Test Reason : INCREASED HR Blood Pressure : / mmHG Vent. Rate : 090 BPM Atrial Rate : 241 BPM P-R Int : 000 ms QRS Dur : 114 ms QT Int : 382 ms P-R-T Axes : 000 071 -59 degrees QTc Int : 467 ms Atrial fibrillation. Incomplete right bundle branch block ST & T wave abnormality, consider inferior ischemia ST & T wave abnormality, consider anterior ischemia Abnormal ECG When compared with ECG of 04-JAN-2019 05:23, Significant changes have occurred Confirmed by Kehinde PITTMAN, MDavid Arreola ([id number]) on 01/05/2019 4:29:09 PM
[2019-01-06] MEDS: HUMULIN R SUBQ SCH ×6 (00:23→20:15)
[2019-01-06] MEDS: XOPENEX NEB INH SCH ×4 (03:15→22:20)
[2019-01-06] MEDS: ATROVENT NEB INH SCH ×4 (03:15→22:20)
[2019-01-06] MEDS: MORPHINE IV PRN (03:33)
[2019-01-06 04:23] LABS: BE -5.4 mmoll (-3.0-3.0); BLOOD TYPE ARTERIAL; HCO3-(ACT) 20.7 mmoll (20.0-26.0); PCO2(98.6) 38 mmHg (35-45); PO2(98.6) 89 mmHg (60-100); SAMPLE BLOOD; pH(98.6) 7.33 (7.35-7.45)
[2019-01-06 04:24] LABS: ALLEN TEST YES; METHB 1.3 % (0.0-1.5); MODALITY VENTILATOR; O2(CT) 16.1 mL/dL (15.0-23.0); O2HB 95.7 % (95.0-99.0); SAO2 98.1 % (95.0-100.0); SRATE 18 BPM; THB 11.9 g/dL (11.5-17.4); TVOL 400 mL
[2019-01-06] MEDS: ZOSYN 3.375 GM in NS 50 ML IV SCH ×3 (04:45→18:12)
--- NOTE | 2019-01-06 06:33 | Diag Imaging Result Doc PS360 ---
EXAM: CHEST-1 VIEW HISTORY: SOB TECHNIQUE: Portable chest single view COMPARISON: 01/05/2019 FINDINGS: Nasogastric tube overlies the esophagus and stomach. There is a right-sided pacemaker. Endotracheal tube in good position. There are infiltrates in the lingular segment of the left upper lobe and left lower lobe with a small pleural effusion similar to the prior exam. IMPRESSION: No interval improvement. Electronically signed by Lyndon Bazzi 01/06/2019 6:31 AM
[2019-01-06] MEDS: NS 1,000 ML IV SCH ×3 (07:45→20:14)
[2019-01-06] MEDS: ATIVAN IV PRN (07:45)
--- NOTE | 2019-01-06 10:54 | PROGRESS NOTE ---
DATE: 01/06/2019 SUBJECTIVE: Ms. Sandoval is still vent dependent, unresponsive. OBJECTIVE: Vital Signs: Temperature 99.8 degrees, pulse 92, respirations 18, blood pressure 161/75. Eyes: Pupils are equal and round. Lungs: Clear in all lung ojeda. Cardiovascular exam: Regular rhythm and rate without murmur or S3. : Urine output was 1300 mL. X-RAYS: Chest x-ray from yesterday: No interval improvement. Nasogastric tube overlies the esophagus and stomach. There is right-sided pacemaker. Endotracheal tube in good position. There are infiltrates in the lingular segment of left upper lobe and left lower lobe. Small pleural effusions similar to prior exam. ASSESSMENT AND PLAN: 1. Acute hypoxemic respiratory failure requiring intubation. She is on a ventilator. Continue bronchodilators and pulmonary toilet. 2. Questionable pneumonia. 3. Constipation. 4. Diabetes mellitus type 2. 5. Acute kidney injury, which is improved. BLOOD WORK: Reviewed from yesterday. White count is still elevated at 26,410, hematocrit is 36, platelet count is 177,000. Blood sugars 122, 177, 177. Review orders: The patient is on Zosyn 3.375 g IV q. 6 hours, vancomycin 1100 mg IV q. 60 hours. Getting normal saline at 125 mL an hour and is on a Cardizem drip. cc: Kb Aguirre MD
[2019-01-06] MEDS ORDERED: NARCAN IV ONE (12:30)
[2019-01-06] MEDS ORDERED: ROMAZICON IV ONE ×2 (12:39)
[2019-01-06] MEDS ORDERED: VANCOMYCIN 1,100 MG in NS 250 ML IV SCH (13:00)
[2019-01-06 14:55] LABS: ALLEN TEST YES; BE -6.7 mmoll (-3.0-3.0); BLOOD TYPE ARTERIAL; HCO3-(ACT) 19.7 mmoll (20.0-26.0); METHB 1.1 % (0.0-1.5); O2(CT) 16.8 mL/dL (15.0-23.0); O2HB 95.2 % (95.0-99.0); PCO2(98.6) 39 mmHg (35-45); PO2(98.6) 84 mmHg (60-100); SAMPLE BLOOD; SAO2 97.6 % (95.0-100.0); THB 12.5 g/dL (11.5-17.4)
[2019-01-06 14:56] LABS: MODALITY VENTILATOR
[2019-01-06] MEDS ORDERED: DIPRIVAN 1% 1,000 MG/100 ML BOTTLE IV SCH (15:15)
[2019-01-07] MEDS: HUMULIN R SUBQ SCH ×7 (00:32→23:56)
[2019-01-07] MEDS: ZOSYN 3.375 GM in NS 50 ML IV SCH ×5 (00:32→23:55)
[2019-01-07] MEDS: ATROVENT NEB INH SCH ×4 (02:59→22:27)
[2019-01-07] MEDS: XOPENEX NEB INH SCH ×4 (02:59→22:27)
[2019-01-07] MEDS: NS 1,000 ML IV SCH ×4 (04:03→20:23)
[2019-01-07 04:32] LABS: ALLEN TEST YES; BE -4.1 mmoll (-3.0-3.0); BLOOD TYPE ARTERIAL; HCO3-(ACT) 21.7 mmoll (20.0-26.0); METHB 1.7 % (0.0-1.5); O2(CT) 16.4 mL/dL (15.0-23.0); O2HB 96.5 % (95.0-99.0); PCO2(98.6) 31 mmHg (35-45); PO2(98.6) 180 mmHg (60-100); SAMPLE BLOOD; SAO2 99.1 % (95.0-100.0); SRATE 18 BPM; THB 11.8 g/dL (11.5-17.4); TVOL 400 mL; pH(98.6) 7.41 (7.35-7.45)
[2019-01-07 04:33] LABS: MODALITY VENTILATOR
[2019-01-07] MEDS ORDERED: NS 50 ML ONE (04:35)
--- NOTE | 2019-01-07 07:22 | Diag Imaging Result Doc PS360 ---
CHEST-1 VIEW - 01/07/2019 INDICATION: SOB COMPARISON: 01/06/2019 FINDINGS: Support tubes are stable. Stable small left basilar pleural effusion. Stable collapse of the left lower lobe with volume loss of the left lung base. No new infiltrates. Heart size remains normal. Stable pacemaker. IMPRESSION: No change from prior. Electronically signed by Shaun 01/07/2019 7:20 AM
[2019-01-07] MEDS: D50W SYRINGE IV PRN (12:00)
--- NOTE | 2019-01-07 13:03 | PROGRESS NOTE ---
DATE: 01/07/2019 SUBJECTIVE: Ms. Sandoval is on the ventilator, appears comfortable. OBJECTIVE: Temperature 99.8 degrees, pulse 96, respirations 18, blood pressure 170/89. Pupils are equal. No distended neck veins. Lungs are clear in all lung ojeda. Cardiovascular Examination: Regular rhythm and rate without murmur or S3. Abdomen is soft. Skin is warm and dry. Chest x-ray, no change. Support tubes are stable. Stable small left basilar pleural effusion. Stable collapse of left lower lobe with volume loss in the left lung. No new infiltrates. Heart size remains normal. ASSESSMENT AND PLAN: 1. Acute hypoxemic respiratory failure requiring intubation. It looks like she presented with shock and status post full arrest. Cardiopulmonary resuscitation lasted about 4 minutes by report. She is intubated, still making attempts to extubate. She has had a recent pacemaker placement. Stable solitary pulmonary nodule in the right lower lobe. She was here in our facility back on 12/15/2018 with a left lower lobe Acinetobacter pneumonia. Continue present antibiotics and attempt to wean off the ventilator. 2. Recent pacemaker placed. 3. Diabetes mellitus type 2. 4. Acute kidney injury. 5. Underlying severe chronic obstructive pulmonary disease and ongoing tobacco use. LABS: Note, white count was elevated yesterday at 26,000. We will check it again tomorrow. Hematocrit was 36, hemoglobin was 11. Blood sugars have been well controlled at 106, 57, 107. REVIEW OF HER ORDERS: She is on a Cardizem drip. Appears to be predominantly atrial fibrillation. She is receiving vancomycin 1100 mg IV q.60 hours, Zosyn 3.375 g q.6 hours. cc: Kb Aguirre MD
[2019-01-07] MEDS ORDERED: ROMAZICON IV ONE (13:19)
[2019-01-08] MEDS: ATROVENT NEB INH SCH ×4 (03:34→21:00)
[2019-01-08] MEDS: XOPENEX NEB INH SCH ×4 (03:34→21:00)
[2019-01-08 04:35] LABS: ALLEN TEST NO; BE -3.6 mmoll (-3.0-3.0); BLOOD TYPE ARTERIAL; HCO3-(ACT) 22.1 mmoll (20.0-26.0); METHB 1.4 % (0.0-1.5); O2HB 96.2 % (95.0-99.0); PCO2(98.6) 32 mmHg (35-45); PO2(98.6) 99 mmHg (60-100); SAMPLE BLOOD; SAO2 99.2 % (95.0-100.0); SRATE 18 BPM; TVOL 400 mL; pH(98.6) 7.41 (7.35-7.45)
[2019-01-08 04:36] LABS: MODALITY VENTILATOR
[2019-01-08] MEDS: ZOSYN 3.375 GM in NS 50 ML IV SCH ×4 (05:00→22:59)
[2019-01-08] MEDS: NS 1,000 ML IV SCH (05:00)
[2019-01-08] MEDS: HUMULIN R SUBQ SCH ×6 (05:01→23:22)
--- NOTE | 2019-01-08 07:31 | Diag Imaging Result Doc PS360 ---
EXAM: CHEST-1 VIEW INDICATION: SOB TECHNIQUE: One view COMPARISON: 01/07/2019 FINDINGS: Support tubes and lines are in stable positions. Small left basilar pleural effusion with adjacent atelectasis is grossly stable. No new consolidation is identified. Cardiac silhouette is stable. IMPRESSION: Stable chest. Electronically signed by Royal Wolfe 01/08/2019 7:29 AM
[2019-01-08] MEDS ORDERED: NS 250 ML ONE (10:54)
[2019-01-08 11:19] LABS: BASO# 0.03 X1000 (0.0-0.2); BASO% 0.2 % (0.0-0.8); EOS# 0.15 X1000 (0.0-0.7); EOS% 0.8 % (0.0-10.0); HEMATOCRIT 35.1 % (37.0-47.0); HEMOGLOBIN 11.4 g/dL (12.0-16.0); IMM GRAN# 0.46 X1000 (0.0-0.04); IMM GRAN% 2.5 % (0.0-0.5); LYMPH# 1.68 X1000 (1.2-3.4); LYMPH% 9.1 % (20.5-51.1); MCHC 32.5 g/dL (33-37); MCV 89.3 FL (81-99); MONO# 1.33 X1000 (0.11-0.59); MONO% 7.2 % (1.7-9.3); NEUT# 14.76 X1000 (1.4-6.5); NEUT% 80.2 % (42.2-75.2); PLT 159 X1000 (130-400); RBC 3.93 XMIL (4.2-5.4); RDW 16.6 % (11.5-14.5); WBC 18.41 X1000 (4.8-10.8)
[2019-01-08 11:23] LABS: INR 1.11; PROTIME 14.5 Seconds (11.0-16.0)
[2019-01-08 11:36] LABS: ESTIMATED GFR > 60
[2019-01-08 11:49] LABS: AGAP 8; BUN 20 mg/dL (8-22); CALCIUM 8.2 mg/dL (8.8-10.2); CHLORIDE 125 mmol/L (98-107); COSMO 309; CREATININE 0.7 mg/dL (0.5-0.9); GLUCOSE 183 mg/dL (70-104); POTASSIUM 3.4 mmol/L (3.5-5.1); SODIUM 152 mmol/L (136-145); TCO2 19 mmol/L (25-35)
--- NOTE | 2019-01-08 12:13 | Diag Imaging Result Doc PS360 ---
EXAM: CHEST-PORTABLE 01/08/2019 HISTORY: PICC line placement TECHNIQUE: AP portable at 1141 COMMENT: There is an endotracheal tube with its tip just above the jamey. There is an NG tube which passes below the diaphragm. There is a right-sided PICC line, the tip of which is obscured by pacemaker leads. It does appear to be at least in the innominate vein on the right. There is alveolar opacity in both lung bases particularly the left base. This was also the case at the time the previous study of this date at 0526. IMPRESSION: Pulmonary edema and/or pneumonia. Electronically signed by Celestine Marino 01/08/2019 12:11 PM
--- NOTE | 2019-01-08 13:03 | Diag Imaging Result Doc PS360 ---
EXAM: CHEST-PORTABLE INDICATION: PICC line placement TECHNIQUE: One view COMPARISON: 01/08/2019 FINDINGS: The tip of the PICC line is still obscured by the pacemaker leads. It is at least in the innominate vein is not the SVC. Otherwise, the chest is stable as compared to the recent prior study. IMPRESSION: Stable chest with the tip of the PICC line obscured by the pacemaker leads. Electronically signed by Royal Wolfe 01/08/2019 1:01 PM
[2019-01-08] MEDS: LASIX IV SCH (13:18)
--- NOTE | 2019-01-08 14:10 | PROGRESS NOTE ---
DATE: 01/08/2019 SUBJECTIVE: She failed her weaning trial. Heart rate went up above 120. She is back on the ventilator. OBJECTIVE: Temperature 99.8 degrees, pulse 90, respirations 18, and blood pressure 164/82. Pupils are equal and round. Lungs are clear in all lung ojeda. Cardiovascular regular rhythm and rate without murmur or S3. Urine output was 2200 mL. Chest x-ray from this morning, we put a PICC line in. She has a pacemaker. Placement looks good. ASSESSMENT AND PLAN: 1. Acute hypoxemic respiratory failure requiring intubation. She is status post cardiac arrest. Cardiac resuscitation lasted about 4 minutes. We are unable to extubate her off of the ventilator at this time. Pulmonary is following. 2. Recent pacemaker placement. 3. Diabetes mellitus type 2. Sugars under good control. 4. Acute kidney injury, improved. 5. Underlying severe COPD. Review of her orders, I do not see any change at this time. She is on Zosyn 3.375 g IV q.6 and vancomycin 1100 mg IV q.60 hours. cc: Kb Aguirre MD
[2019-01-09] MEDS: VANCOMYCIN 1,150 MG in NS 250 ML IV SCH (01:13)
[2019-01-09] MEDS: HUMULIN R SUBQ SCH ×5 (03:39→19:39)
[2019-01-09] MEDS: XOPENEX NEB INH SCH ×4 (04:02→22:22)
[2019-01-09] MEDS: ATROVENT NEB INH SCH ×4 (04:02→22:22)
[2019-01-09 04:40] LABS: ALLEN TEST YES; BE -0.4 mmoll (-3.0-3.0); BLOOD TYPE ARTERIAL; HCO3-(ACT) 24.6 mmoll (20.0-26.0); O2(CT) 16.8 mL/dL (15.0-23.0); O2HB 97.4 % (95.0-99.0); PCO2(98.6) 30 mmHg (35-45); PO2(98.6) 170 mmHg (60-100); SAMPLE BLOOD; SAO2 99.5 % (95.0-100.0); SRATE 18 BPM; TVOL 400 mL; pH(98.6) 7.48 (7.35-7.45)
[2019-01-09 04:42] LABS: MODALITY VENTILATOR
[2019-01-09 05:05] LABS: BASO# 0.03 X1000 (0.0-0.2); BASO% 0.2 % (0.0-0.8); EOS# 0.28 X1000 (0.0-0.7); EOS% 1.6 % (0.0-10.0); HEMATOCRIT 35.6 % (37.0-47.0); HEMOGLOBIN 11.5 g/dL (12.0-16.0); IMM GRAN# 0.39 X1000 (0.0-0.04); IMM GRAN% 2.2 % (0.0-0.5); LYMPH# 1.49 X1000 (1.2-3.4); LYMPH% 8.4 % (20.5-51.1); MCH 28.6 PG (27-31); MCHC 32.3 g/dL (33-37); MCV 88.6 FL (81-99); MONO# 1.33 X1000 (0.11-0.59); MONO% 7.5 % (1.7-9.3); MPV 12.2 FL (7.4-10.4); NEUT# 14.15 X1000 (1.4-6.5); NEUT% 80.1 % (42.2-75.2); PLT 155 X1000 (130-400); RBC 4.02 XMIL (4.2-5.4); RDW 16.4 % (11.5-14.5); WBC 17.67 X1000 (4.8-10.8)
[2019-01-09 05:20] LABS: AGAP 6; BUN 22 mg/dL (8-22); CALCIUM 8.4 mg/dL (8.8-10.2); CHLORIDE 123 mmol/L (98-107); COSMO 304; CREATININE 0.7 mg/dL (0.5-0.9); ESTIMATED GFR > 60; GLUCOSE 84 mg/dL (70-104); POTASSIUM 3.3 mmol/L (3.5-5.1); SODIUM 152 mmol/L (136-145); TCO2 23 mmol/L (25-35)
[2019-01-09] MEDS: ZOSYN 3.375 GM in NS 50 ML IV SCH ×4 (05:34→22:48)
--- NOTE | 2019-01-09 07:37 | Diag Imaging Result Doc PS360 ---
EXAM: CHEST-1 VIEW 01/09/2019 HISTORY: SOB TECHNIQUE: AP portable at 0542 COMMENT: There is some volume loss on the left. There is an apparent pleural effusion. The heart size and pulmonary vascularity are within normal limits. The endotracheal and NG tube remain in place. The right-sided PICC line appears to terminate in the superior vena cava, however it is partially obscured by pacemaker leads. Compared to the previous study of 01/08/2019 the degree of opacification and volume loss in the left base has increased. IMPRESSION: Left pleural effusion and left lower lobe atelectasis versus pneumonia. Electronically signed by Celestine Marino 01/09/2019 7:35 AM
[2019-01-09] MEDS: LASIX IV SCH (08:23)
[2019-01-09] MEDS ORDERED: ROMAZICON IV ONE (08:27)
--- NOTE | 2019-01-09 09:14 | INFECTIOUS DISEASE CONSULT REP ---
DATE: 01/09/2019 CONCLUSION: Patient was admitted to the hospital with respiratory failure. She is intubated and in the intensive care unit. She has a left lower lobe pneumonia with an associated effusion. RECOMMENDATIONS: I agree with treating the patient with vancomycin and Zosyn. I have ordered a sputum Gram stain and culture. Dr. Gonzalez already has ordered a procalcitonin and immunoglobulin levels. DISCUSSION: The patient is unable provide a history, no family member is present. The patient lives in a [facility]. She was found to have apneic breathing and a low O2. She was brought to the emergency room and then as mentioned above, she was put in ICU and she is intubated and she on a respirator. Her lab studies [place] [address], hemoglobin 11.5, and platelet count 155,000. Blood gases show a pH of 7.48, a PO2 of 170, and a pCO2 of 30. The creatinine is 0.7. GFR is greater than 60. Blood cultures are negative. Chest x-ray shows left lower lobe effusion and pneumonia versus atelectasis. CT scan of the abdomen and pelvis shows constipation, fecal impaction, left lower lobe pneumonia with a small effusion, and gallstones. PAST MEDICAL HISTORY: Positive for hypertension, diabetes mellitus, hyperlipidemia, chronic obstructive pulmonary disease, and coronary artery disease. PAST SURGICAL HISTORY: Positive for placement of a right-sided pacemaker, placement of coronary artery stents, and hysterectomy. ALLERGIES: The patient has no drug allergies. MEDICATIONS: At the [facility] include BuSpar, diltiazem, glipizide, lisinopril, megestrol. FAMILY HISTORY: There is no history of coronary artery disease. REVIEW OF SYSTEMS: Unable to be obtained. PHYSICAL EXAMINATION: Vital Signs: Temperature is 100.2 degrees, pulse 93, respirations 18, blood pressure is 176/96. General: This is an ill-appearing, elderly female. She is intubated and sedated, but she does open her eyes and she does have a blink reflex. Head/eyes/ears/nose/throat: She has a nasogastric tube and orotracheal tube in place. There is no drainage from the nose or ears. Neck: No meningismus. Thorax: The patient has a permanent pacemaker on the right side. The site is not erythematous or draining. Lungs: Clear to auscultation. Cardiovascular: Heart rate at times is regular and at other times it is irregular. Abdomen: Soft and nontender. Neurologic: The patient's eyes were open. She does have a blink reflex. She did not follow request to move her extremities. She does not have a tremor. Integument: No rash was noted. Thank you for the consult. cc: Fabiano Reyes MD
[2019-01-09 09:31] LABS: BLOOD TYPE ARTERIAL; SAMPLE BLOOD
[2019-01-09 09:32] LABS: ALLEN TEST YES; BE -1.1 mmoll (-3.0-3.0); HCO3-(ACT) 24.1 mmoll (20.0-26.0); METHB 1.2 % (0.0-1.5); O2(CT) 16.1 mL/dL (15.0-23.0); O2HB 96.7 % (95.0-99.0); PCO2(98.6) 31 mmHg (35-45); PO2(98.6) 109 mmHg (60-100); THB 11.7 g/dL (11.5-17.4); pH(98.6) 7.46 (7.35-7.45)
[2019-01-09 09:33] LABS: MODALITY VENTILATOR
[2019-01-09] MEDS: NEXIUM IV SCH (11:01)
[2019-01-09] MEDS: SODIUM CHLORIDE 0.9% INJ SCH (11:01)
[2019-01-09] MEDS ORDERED: LABETALOL IV PRN (11:35)
[2019-01-09] MEDS ORDERED: POTASSIUM CHLORIDE 40 MEQ/SWI 40 MEQ/100 ML IVPB IV ONE (11:39)
--- NOTE | 2019-01-09 11:57 | PROGRESS NOTE ---
DATE: 01/09/2019 SUBJECTIVE: The patient is resting comfortably. She is currently unresponsive on the ventilator. She is off of sedation and currently undergoing a weaning trial. OBJECTIVE: Vital Signs: Temperature 99.6 degrees, blood pressure 176/96, heart rate 93, respirations 18, O2 saturation 99% on the mechanical ventilator, FiO2 of 40%. Intake 1.8 L, output 2.3 L. General: This is a chronically ill-appearing elderly female, currently on the ventilator. Head: Normocephalic, atraumatic. Heart: S1, S2 normal. Tachycardic. Lungs: Diminished breath sounds at the bases. No wheezing. No rales. Abdomen: Positive bowel sounds. Soft, nontender, nondistended. Extremities: The patient has ecchymotic lesions on her upper extremities with swelling in the arms, 1+ edema in the lower extremities. Neurologic: The patient does not follow commands. She does respond to painful stimuli. LABORATORY DATA: White blood cell count 17, hemoglobin 11, hematocrit 35, platelets 155,000. ABG, pH of 7.46, pCO2 31, PO2 109, bicarb 24. Sodium 152, potassium 3.3, chloride 23, BUN 22, creatinine 0.7, glucose 84, albumin 1.9. IMAGING: Chest x-ray shows left pleural effusion and left lower lobe pneumonia. ASSESSMENT AND PLAN: 1. Acute hypoxemic respiratory failure. The patient is currently undergoing a weaning trial. Continue with further management as directed by the power saw operator. 2. Status post cardiac arrest. Continue with supportive care. We will also check an echocardiogram. 3. Pneumonia. The patient is currently on broad-spectrum antibiotics. We will await the results of the sputum culture. Dr. Reyes is following. 4. Left pleural effusion. The patient is currently on diuretic therapy. We will continue to monitor this closely. 5. Status post recent pacemaker implantation. Aware. 6. Diabetes mellitus type 2. We will continue with sliding scale insulin. 7. Nutrition. The patient is currently on tube feeds. 8. Leukocytosis. Slightly improved. Continue with antibiotic therapy. 9. Anemia. We will monitor the hemoglobin and hematocrit closely. 10. Hypernatremia. We will start the patient on free water flushes via the NG tube. 11. Hypokalemia. We will replace the patient's potassium. 12. Gastrointestinal prophylaxis. We will start the patient on Nexium. 13. Encephalopathy. The initial head CT was unremarkable. We will order an EEG and consult with a neurologist. 14. Deep vein thrombosis prophylaxis. We will start the patient on Lovenox. cc: Padma Gonzalez MD
--- NOTE | 2019-01-09 13:49 | CONSULTATION ---
DATE OF CONSULTATION: 01/09/2019 REASON FOR CONSULT: Altered mental status. HISTORY OF PRESENT ILLNESS: This is a 73-year-old female who was admitted 01/03/2019 with respiratory failure. On arrival she was hypotensive, bradycardic, hypoxic and poorly responsive. She apparently sustained a cardiorespiratory arrest shortly after arrival. Coded 4 minutes. She was intubated. 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 The patient is being treated for pneumonia with an associated effusion. She had renal insufficiency on arrival with a BUN of 40 and creatinine of 1.3. Her blood sugars were significantly elevated. Additionally, she has had a transaminitis. The patient was on sedation and that was held on 01/07/2019 around 8:30 a.m. The patient has not fully woken up, and therefore, Neurology has been consulted to evaluate. PAST MEDICAL HISTORY: 1. Pacemaker placed 11/28/2018 at [facility]. 2. Type 2 diabetes. 3. Hypertension. 4. Recent admission in November of this year with left lower lobe pneumonia. 5. Severe COPD with ongoing tobacco use. 6. Solitary 1 cm pulmonary nodule, right lower lobe. 7. Carotid endarterectomy. 8. Hysterectomy. FAMILY HISTORY: Positive for cancer and type 2 diabetes. SOCIAL HISTORY: The patient has been at a nursing facility since her recent November discharge. She is an ongoing smoker. No alcohol or illicits. ALLERGIES: No known drug allergies listed. MEDICATIONS (CURRENT): 1. Sedation was held on 01/07/2019 at 8:30 a.m. 2. There is an order for p.r.n. morphine 2 mg with last dose 01/06/2019 at 3:30 a.m. OTHER MEDICATIONS: Reviewed in the chart. REVIEW OF SYSTEMS: Unobtainable due to patient intubated. PHYSICAL EXAMINATION: Vital Signs: She has been afebrile for 24 hours, blood pressure 120-170 systolic over 60s to 70s diastolic, pulse 90s to 103, respirations 28, she is on mechanical ventilation. Neurological: Ms. Sandoval is supine in bed on the ventilator. She has her eyes closed. She raises eyebrows to loud voice, but does not open eyes fully. Does not regard. Does not track. No commands. Pupils are equal, about 3.5 mm both eyes, and sluggishly reactive bilaterally. Gaze is conjugate. There is horizontal eye movement with passive head turning. No definite consistent blink to threat. Corneals intact bilaterally. 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 Positive cough/gag. Strength 3/5 in the distal right upper extremity. I do not see more proximal movement. She more readily moves her left upper extremity and that is at least 3/5 both distally and proximally. Lower extremities 2/5 today. She responds to noxious stimuli in all extremities, though degree of response seems a bit higher on the left compared to the right. Plantar response is silent bilaterally. No clonus. Reflexes are 1+ left biceps and at the wrist as well as at the knee. Reflexes are absent on the right biceps, wrist, and knee. Ankle jerks were absent bilaterally. The patient could not participate with coordination or gait. No adventitious movements noted. DIAGNOSTIC STUDIES: Noncontrast head CT on admission, personally reviewed: No acute findings. There is at least moderate generalized cerebral atrophy. Chronic microvascular ischemic changes worse on the left than on the right. 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 White count 26. Sodium of 150. BUN 40, creatinine of 1.3, now 39 and 1.1. Blood glucose 690 on admission, current 150s to 180s. A1c 7.2. AST 444, ALT 256 and now 314 and 201. ASSESSMENT AND PLAN: 1. Global encephalopathy, cannot rule out recent stroke. Sedation has been held for 48 hours. Brainstem reflexes preserved. 2. Respiratory failure requiring intubation. She is undergoing weaning trials. 3. Status post cardiac arrest on admission. 4. Pneumonia. Being followed by ID. Recommend head CT once she is able to go for this. I agree with a routine EEG, and I will review that once it is performed. I would continue holding sedating medications as able. Continue correcting underlying toxic metabolic derangements as you are doing. Thank you for the consult. We will follow. cc: Frances Green MD [facility]
[2019-01-09] MEDS ORDERED: LOVENOX SUBQ SCH (15:00)
--- NOTE | 2019-01-09 15:54 | ECHO REPORT ---
ORDER DATE: 01/09/2019 INTERPRETING PHYSICIAN: Dr. Fernando Jara ECHOCARDIOGRAPHIC MEASUREMENTS: 1. Interventricular septum: 1.2 cm. 2. Posterior wall: 1.0 cm. 3. Diastolic diameter: 3.9 cm. 4. Left atrium: 2.7 cm. 5. Aortic root: 2.7 cm. SUMMARY OF THE 2-DIMENSIONAL IMAGIN. Technically suboptimal study. Poor acoustic window. 2. Normal left ventricular cavity size. Concentric left ventricular hypertrophy. Estimated ejection fraction of 60%. There is diastolic dysfunction. 3. Mitral valve was normal. There is mitral annular calcification, there is mild mitral regurgitation. 4. There is left atrial enlargement. 5. Aortic valve leaflets not well visualized. Peak velocity across the aortic valve less than 2 m/sec. By Doppler studies, there is no aortic stenosis or regurgitation. 6. Pacing leads are noted in the right chamber. 7. Mild tricuspid regurgitation. Peak velocity across the tricuspid valve less than 2 m/sec. 8. There is no pericardial effusion or obvious intracardiac mass or thrombus seen. cc: MD Padma Donovan MD [facility]
[2019-01-09] MEDS: CULTURELLE PO SCH (20:27)
[2019-01-10] MEDS: HUMULIN R SUBQ SCH ×7 (02:55→23:24)
[2019-01-10] MEDS: ATROVENT NEB INH SCH ×4 (03:46→20:05)
[2019-01-10] MEDS: XOPENEX NEB INH SCH ×4 (03:46→20:05)
[2019-01-10 04:49] LABS: BLOOD TYPE ARTERIAL; SAMPLE BLOOD
[2019-01-10 04:50] LABS: ALLEN TEST YES; HCO3-(ACT) 25.7 mmoll (20.0-26.0); METHB 1.6 % (0.0-1.5); O2(CT) 19.1 mL/dL (15.0-23.0); O2HB 96.7 % (95.0-99.0); PCO2(98.6) 25 mmHg (35-45); PO2(98.6) 189 mmHg (60-100); SAO2 99.7 % (95.0-100.0); THB 13.8 g/dL (11.5-17.4); pH(98.6) 7.55 (7.35-7.45)
[2019-01-10 04:51] LABS: MODALITY BI PAP
[2019-01-10] MEDS: ZOSYN 3.375 GM in NS 50 ML IV SCH ×2 (05:05→10:44)
[2019-01-10 06:06] LABS: AGAP 10; BUN 23 mg/dL (8-22); CALCIUM 8.5 mg/dL (8.8-10.2); CHLORIDE 117 mmol/L (98-107); COSMO 303; CREATININE 0.9 mg/dL (0.5-0.9); ESTIMATED GFR > 60; GLUCOSE 193 mg/dL (70-104); POTASSIUM 3.8 mmol/L (3.5-5.1); SODIUM 148 mmol/L (136-145); TCO2 21 mmol/L (25-35)
[2019-01-10 06:07] LABS: ALB/GLOB RATIO 0.6; ALBUMIN 2.1 g/dL (3.5-5.0); DIRECT BILIRUBIN 0.2 mg/dL (0.00-0.20); TOTAL BILIRUBIN 0.38 mg/dL (0.20-1.00); TOTAL PROTEIN 5.5 g/dL (6.3-8.3)
[2019-01-10 06:10] LABS: BASO# 0.13 X1000 (0.0-0.2); BASO% 0.7 % (0.0-0.8); EOS# 0.31 X1000 (0.0-0.7); EOS% 1.7 % (0.0-10.0); HEMATOCRIT 43.3 % (37.0-47.0); HEMOGLOBIN 13.9 g/dL (12.0-16.0); IMM GRAN# 0.33 X1000 (0.0-0.04); IMM GRAN% 1.8 % (0.0-0.5); LYMPH# 1.74 X1000 (1.2-3.4); LYMPH% 9.6 % (20.5-51.1); MCH 29.8 PG (27-31); MCHC 32.1 g/dL (33-37); MCV 92.9 FL (81-99); MONO# 1.53 X1000 (0.11-0.59); MONO% 8.5 % (1.7-9.3); MPV 12.6 FL (7.4-10.4); NEUT# 14.04 X1000 (1.4-6.5); NEUT% 77.7 % (42.2-75.2); PLT 110 X1000 (130-400); RBC 4.66 XMIL (4.2-5.4); RDW 18.2 % (11.5-14.5); WBC 18.08 X1000 (4.8-10.8)
--- NOTE | 2019-01-10 06:47 | Diag Imaging Result Doc PS360 ---
CHEST-1 VIEW - 01/10/2019 INDICATION: SOB COMPARISON: 01/09/2019 FINDINGS: The endotracheal tube has been removed. Stable nasogastric tube in good position. Stable pacemaker. There is worsening volume loss at the left lung base, along with significant consolidation. There is worsening atelectasis and/or effusion at the right lung base. There is severe pulmonary vascular congestion. IMPRESSION: Endotracheal tube removed. Worsening atelectasis with volume loss at the left lung base. Worsening infiltrate and/or effusion at the right lung base. Electronically signed by Shaun 01/10/2019 6:45 AM
[2019-01-10] MEDS: LASIX IV SCH (08:34)
[2019-01-10] MEDS: TRANSDERM-SCOP TD SCH (08:35)
[2019-01-10] MEDS: CULTURELLE PO SCH ×2 (08:35→20:01)
--- NOTE | 2019-01-10 10:12 | INFECTIOUS DISEASE PROGRESS NO ---
DATE: 01/10/2019 PRESENT ILLNESS: The patient has a left lower lobe pneumonia and effusion. The patient also has in her right arm a deep venous thrombosis. MEDICATIONS: Currently, the patient is receiving vancomycin and Zosyn. This is the 7th day of treatment with both of those agents. PHYSICAL EXAMINATION: Vital Signs: Temperature is 98.5 degrees, pulse is 112, respiratory rate is 29, blood pressure is 144/61. General: The patient is an ill-appearing elderly female. She currently has been extubated and is wearing a BiPAP mask. Head, eyes, ears, nose, and throat: The patient has a BiPAP mask on as mentioned above. There is no drainage from the nose or ears. Neck: No apparent pain when her head is moved. Lungs: Clear to auscultation. Cardiovascular: Irregular heart rate. Thorax: Patient has a pacemaker present on the right side. The site is not swollen or erythematous. Abdomen: Soft and nontender. Extremities: The right arm is swollen and erythematous. It has a PICC in it. Neurologic: The patient's eyes were slightly open. She did not respond to verbal stimuli. There was no tremor. LAB AND X-RAY: Chest x-ray shows left lower lobe infiltrate and effusion. Liver function studies are normal. Venous Doppler study of the right arm showed deep venous thrombosis. Procalcitonin is pending. IgG is 920, IgA is 913. Stool for Clostridium difficile antigen and toxin is negative. Creatinine is 0.9. GFR is greater than 60. Liver function studies are normal. Blood gases show a pH of 7.55, a PO2 of 189, and a pCO2 of 25. CBC shows a white count of 18,080, hemoglobin 13.9, and platelet count 110,000. ASSESSMENT AND PLAN: The patient has pneumonia. I would like to continue still with vancomycin and Zosyn pending the sputum culture result. Dr. Gonzalez is going to consult Dr. Montana as to the management of the patient's deep venous thrombosis. The patient's procalcitonin level also is pending. COMORBIDITIES: She is elderly. She has diabetes mellitus and chronic obstructive pulmonary disease. cc: Fabiano Ryees MD [facility]
[2019-01-10] MEDS: MUCOMYST 20% INH SCH ×2 (10:31→20:05)
[2019-01-10] MEDS: LOVENOX SUBQ SCH ×2 (10:44→21:53)
[2019-01-10] MEDS: NEXIUM IV SCH (10:44)
[2019-01-10] MEDS: MORPHINE IV PRN ×2 (10:52→21:53)
[2019-01-10] MEDS: VANCOMYCIN 1,150 MG in NS 250 ML IV SCH (12:24)
--- NOTE | 2019-01-10 14:02 | EEG REPORT ---
DATE: 01/09/2019 ASSISTANT FILM EDITOR: Beba Paige BACKGROUND INFORMATION AND TECHNIQUE: This is a digitally recorded portable routine EEG with video. HISTORY: A 73-year-old female status post cardiac arrest, currently intubated. She is slow to wake up after sedation was held 48 hours ago. EEG is ordered to detect evidence of seizures. DESCRIPTION OF PROCEDURE: A posterior dominant alpha rhythm is not seen. The background consists of mixed frequencies, alpha, beta, and theta greater than delta activity. No definite persistent focal slowing. No epileptiform discharges. No seizures. Hyperventilation is not performed. Photic stimulation does not alter the record. No definite drowsiness pattern. Stage 2 sleep is not seen. EKG demonstrates some irregularity. IMPRESSION AND CLINICAL CORRELATION: Abnormal routine EEG due to mild to moderate generalized slowing indicative of a mild to moderate nonspecific encephalopathy. No epileptiform discharges or seizures seen on the current study. This does not rule out an underlying seizure disorder. Irregularity on the EKG strip is of uncertain clinical significance. cc: MD Padma Crowley MD
--- NOTE | 2019-01-10 14:33 | PROGRESS NOTE ---
DATE: 01/10/2019 SUBJECTIVE: The patient was extubated yesterday. The patient had a brief run of atrial fibrillation with RVR this morning. OBJECTIVE: Vital Signs: T-max 99.3 degrees, blood pressure 98/56, heart rate 114, respirations 29, O2 saturation 97% on 10 L. Intake 1 L. Output 2.4 L. General: This is a chronically ill- appearing, elderly female lying in bed, in no acute distress. Heart: S1, S2 normal. Tachycardic. Lungs: Coarse breath sounds bilaterally with rhonchi. Abdomen: Positive bowel sounds. Soft, nontender, nondistended. Extremities: There is 3+ edema with ecchymotic lesions on the right upper extremity, 1+ edema in the lower extremities. Neurologic: The patient is awake. She does respond to painful stimuli. LABS: White blood cell count 18, hemoglobin 13, hematocrit 43, platelets 110,000. Sodium 148, potassium 3.8, chloride 117, CO2 21, BUN 23, creatinine 0.9, glucose 193, calcium 8.5, albumin 2.1. Chest x-ray shows worsening atelectasis with volume loss at the lung base, worsening infiltrate at the right lung base. ASSESSMENT AND PLAN: 1. Acute hypoxemic respiratory failure status post extubation. Continue to treat the underlying pneumonia and volume overload. Pulmonology is following. 2. Status post cardiac arrest. Continue with supportive care. 3. Atrial fibrillation. We will start the patient on IV Lopressor if her blood pressure will support it. 4. Extensive right upper extremity deep vein thrombosis. We will start the patient on full dose Lovenox. We will also consult with the drywall applicator since the patient is now thrombocytopenic. 5. Pneumonia. Continue with broad-spectrum antibiotic therapy as directed by Dr. Reyes. 6. Pleural effusion. Continue to monitor closely. Continue with diuretic therapy. 7. Status post recent pacemaker implantation. Aware. 8. Diabetes mellitus type 2. Continue on sliding scale insulin. 9. Nutrition. The patient is currently NPO. Once she is more awake, we will attempt a swallow evaluation. 10. Leukocytosis. Unchanged. Continue with antibiotic therapy. 11. Hypernatremia. Improved. 12. Gastrointestinal prophylaxis. Continue on Nexium. 13. Encephalopathy. We will continue to monitor the patient for improvement. Neurology is following. cc: Padma Gonzalez MD [facility]
--- NOTE | 2019-01-10 14:36 | PROGRESS NOTE ---
DATE: 01/10/2019 Ms. Sandoval has been successfully extubated. No other major overnight events. She is afebrile. Blood pressure 98 to 128 systolic over 50s to 70s diastolic. Pulse 110s. Respirations 29. Her oxygen sats 97% on face mask. 60% FiO2. Ms. Sandoval is resting supine with eyes closed. She opens her eyes to loud voice. Moves her eyes and does appear to probably focus on my face. She does not track. No commands. Pupils equal and reactive. There is horizontal eye movement with passive head turning. She does not consistently blink to threat. Again facial asymmetry difficult to assistant plant manager but no obvious asymmetry was seen. I did not get her to move her right arm today. She more readily moved her left upper extremity at least 3/5 both distally and proximally, 2/5 in the lower extremities. Echocardiogram was technically suboptimal. There is left atrial enlargement. Estimated ejection fraction of 60% with diastolic dysfunction. No thrombus seen. White count 18. Sodium 148, BUN 23, creatinine 0.9. Routine EEG personally reviewed. Mild to moderate generalized slowing. No epileptiform discharges or seizures. ASSESSMENT AND PLAN: 1. Global encephalopathy, cannot rule out recent stroke. The sedation has been held for 72 hours. Seems more awake today compared to yesterday but still with asymmetry noted on exam. 2. Respiratory failure requiring intubation. She has been extubated overnight. 3. Status post cardiac arrest on admission. 4. Pneumonia on antibiotics. Followed by ID. I had previously recommend a head CT, though now that she has successfully been extubated, I would recommend a noncontrasted brain MRI if possible. EEG showed some generalized slowing but no evidence of seizure at this time. I would continue holding sedating medications as able and continue correcting underlying toxic metabolic derangements as you are doing. cc: Frances Green MD [facility]
[2019-01-10] MEDS ORDERED: LOPRESSOR IV PRN (14:58)
[2019-01-10] MEDS: MAXIPIME 2 GM in NS 100 ML IV SCH (17:56)
[2019-01-11] MEDS: HUMULIN R SUBQ SCH ×6 (03:36→23:44)
[2019-01-11] MEDS: ATROVENT NEB INH SCH ×4 (04:17→21:27)
[2019-01-11] MEDS: XOPENEX NEB INH SCH ×4 (04:17→21:28)
[2019-01-11] MEDS: MAXIPIME 2 GM in NS 100 ML IV SCH ×2 (04:32→17:02)
[2019-01-11 04:39] LABS: ALLEN TEST YES; BE 5.7 mmoll (-3.0-3.0); BLOOD TYPE ARTERIAL; HCO3-(ACT) 29.4 mmoll (20.0-26.0); METHB 1.2 % (0.0-1.5); MODALITY BI PAP; O2(CT) 19.9 mL/dL (15.0-23.0); O2HB 96.7 % (95.0-99.0); PCO2(98.6) 35 mmHg (35-45); PO2(98.6) 131 mmHg (60-100); SAMPLE BLOOD; SAO2 99.1 % (95.0-100.0); THB 14.5 g/dL (11.5-17.4); pH(98.6) 7.52 (7.35-7.45)
[2019-01-11 05:27] LABS: BASO# 0.04 X1000 (0.0-0.2); BASO% 0.2 % (0.0-0.8); EOS# 0.35 X1000 (0.0-0.7); EOS% 2.1 % (0.0-10.0); HEMATOCRIT 38.4 % (37.0-47.0); HEMOGLOBIN 12.5 g/dL (12.0-16.0); IMM GRAN% 1.2 % (0.0-0.5); LYMPH# 1.44 X1000 (1.2-3.4); LYMPH% 8.6 % (20.5-51.1); MCHC 32.6 g/dL (33-37); MCV 89.1 FL (81-99); MONO# 0.98 X1000 (0.11-0.59); MONO% 5.9 % (1.7-9.3); NEUT# 13.69 X1000 (1.4-6.5); PLT 164 X1000 (130-400); RBC 4.31 XMIL (4.2-5.4); RDW 16.7 % (11.5-14.5)
[2019-01-11 05:47] LABS: AGAP 9; BUN 22 mg/dL (8-22); CALCIUM 7.8 mg/dL (8.8-10.2); CHLORIDE 113 mmol/L (98-107); COSMO 304; CREATININE 0.7 mg/dL (0.5-0.9); ESTIMATED GFR > 60; GLUCOSE 189 mg/dL (70-104); POTASSIUM 3.8 mmol/L (3.5-5.1); SODIUM 149 mmol/L (136-145); TCO2 27 mmol/L (25-35)
--- NOTE | 2019-01-11 07:09 | Diag Imaging Result Doc PS360 ---
EXAM: CHEST-1 VIEW 01/11/2019 HISTORY: SOB TECHNIQUE: AP portable at 0535 COMMENT: There is an NG tube with its tip below the diaphragm. There are hazy opacities in both lung bases which on the left side appears to be associated at least in part with pleural fluid. The volume of pleural fluid on the left may be slightly diminished since 01/10/2019. There is also less volume loss on the left. IMPRESSION: Improved left pleural effusion and left lower lobe atelectasis. Pulmonary edema versus pneumonia. Electronically signed by Celestine Marino 01/11/2019 7:07 AM
[2019-01-11] MEDS: CULTURELLE PO SCH ×2 (08:47→20:03)
[2019-01-11] MEDS: LASIX IV SCH (08:47)
[2019-01-11] MEDS: MUCOMYST 20% INH SCH ×2 (09:30→21:28)
[2019-01-11] MEDS: NEXIUM IV SCH (09:47)
[2019-01-11] MEDS: LOVENOX SUBQ SCH ×2 (09:47→21:33)
--- NOTE | 2019-01-11 09:51 | INFECTIOUS DISEASE PROGRESS NO ---
DATE: 01/11/2019 PRESENT ILLNESS: The patient has bibasilar opacities that could well be pneumonia. She also has swollen right arm with a deep venous thrombosis present. MEDICATIONS: The patient is on the 8th day of treatment with vancomycin and she was on Zosyn but now she is on cefepime. PHYSICAL EXAMINATION: VITAL SIGNS: Temperature is 98.8 degrees, pulse 107, respirations 25, blood pressure 156/80. GENERAL: This is an ill-appearing elderly female. She is wearing a regular oxygen mask. HEAD, EYES, EARS, NOSE AND THROAT: She does not have any drainage coming from her nose or ears. Her eyes are deviated to one side. She does have a blink reflex but she does not follow with her eyes. NECK: No pain with movement. LUNGS: Clear to auscultation. CARDIOVASCULAR: Heart rate is irregular. THORAX: The patient has a pacemaker present on the right side. The site is not erythematous or it does not appear to be tender either. EXTREMITIES: Patient has a swollen erythematous right arm. She has a PICC in the arm. NEUROLOGICAL: As mentioned above, the patient's eyes deviate to one side but she does not track with them. She does have a blink reflex. She did not respond to verbal stimuli. LAB AND X-RAY: Chest x-ray shows bibasilar opacities. Procalcitonin is 0.27 with strands with pneumonia being likely. Stool for clostridium difficile toxin and antigen is negative. Sputum culture is growing normal tierra. CBC shows a white count of 16,700. hemoglobin 12.5 and platelet count 164,000. Blood gases shows a pH of 7.52, PO2 of 131, PO2 of 135. Creatinine 0.7. GFR is greater than 60. ASSESSMENT AND PLAN: Patient has pneumonia. I am going to continue with a combination of vancomycin and cefepime. Dr. Montana has been consulted to handle the patient's right arm thrombosis with the PICC in it. COMORBIDITIES: The patient is elderly. She has diabetes mellitus and chronic obstructive pulmonary disease. cc: Fabiano Reyes MD
[2019-01-11] MEDS: MORPHINE IV PRN ×2 (09:57→17:02)
[2019-01-11] MEDS: LOPRESSOR IV SCH ×4 (10:24→21:32)
--- NOTE | 2019-01-11 11:44 | PROGRESS NOTE ---
DATE: 01/11/2019 SUBJECTIVE: The patient remains lethargic and does not follow commands. OBJECTIVE: Vital signs: T-max 98.8 degrees, blood pressure 174/121, heart rate 113, respiratory rate 26, and O2 saturations 96% on 40%. Intake 2.2 L and output 2.5 L. General: This is a chronically ill-appearing elderly female lying in bed in no acute distress. Heart: S1, S2 normal. Tachycardic. Lungs: Equal air entry bilaterally. No wheezing. No rales. Abdomen: Positive bowel sounds. Soft, nontender, and nondistended. Extremities: The patient has 3+ edema in the right upper extremity with ecchymotic lesions involving that arm. No edema noted in the lower extremities. Neurologic: The patient does not follow commands. She does open her eyes. LABORATORY: White blood cell count 16, hemoglobin 12, hematocrit 38, and platelets 164,000. ABG pH 7.52, pCO2 35, PO2 131, bicarb 29. Sodium 149, potassium 3.8, chloride 113, CO2 27, BUN 22, creatinine 0.7, glucose 139, calcium 7.8, and proBNP 14810. Chest x-ray shows pulmonary edema versus pneumonia. Improved left pleural effusion. ASSESSMENT AND PLAN: 1. Acute hypoxemic respiratory failure status post extubation. Continue to treat underlying volume overload and pneumonia. Further management as per the filler block inserter remover. 2. Status post cardiac arrest. Aware. Continue with supportive care. 3. Extensive right upper extremity DVT. The patient is currently on full dose Lovenox. Hematology is following. 4. Pneumonia. Continue with broad-spectrum antibiotic therapy as directed by Dr. Reyes. 5. Encephalopathy. We will order a non contrasted MRI of the brain to be done today. Neurology is following. 6. Pleural effusion. Stable. 7. Hypertension. We will start the patient on scheduled Lopressor. 8. Severe protein calorie malnutrition. The patient does not follow commands. We are unable to start oral feeding or medications at this time. We will attempt a swallow evaluation once the patient is able to follow commands. She may need an ngt for now. 9. Hypernatremia. Continue with free water flushes. 10. Leukocytosis. Improved. Continue with antibiotic therapy. 11. Volume overload. Improved. Continue on Lasix. 12. Status post recent pacemaker implantation. Aware. 13. Gastrointestinal prophylaxis. Continue on Nexium. 14. Disposition. The patient remains critically ill with a high risk of mortality. cc: Padma Gonzalez MD MTDD
--- NOTE | 2019-01-11 12:11 | Diag Imaging Result Doc PS360 ---
MRI BRAIN W/O CONTRAST - 01/11/2019 INDICATION: encephalopathy COMPARISON: 01/03/2019 FINDINGS: There is significant diffuse atrophy of the cerebellum. There is also atrophy of the pavan. There is significant hyperintense signal within the pavan compatible with gliosis from chronic ischemia. There are several patchy small foci of restricted diffusion in both cerebellar hemispheres, about 3-4 in each hemisphere. There is moderate cerebral atrophy. There is marked cerebral white matter hyperintensity compatible with chronic microvascular ischemia. There are also old cortical infarctions at the left parietal and occipital lobes. No intracranial mass or hemorrhage. IMPRESSION: 1. Several small scattered recent infarctions in the cerebellar hemispheres bilaterally. 2. Extremely severe cerebellar atrophy. Severe chronic microvascular ischemia and atrophy of the pavan as well. 3. Cerebral atrophy, chronic microvascular disease, and old infarctions. Electronically signed by Shaun 01/11/2019 12:09 PM
--- NOTE | 2019-01-11 13:37 | HEMO/ONC CONSULTATION ---
DATE: 01/11/2019 REASON FOR CONSULTATION: Right upper extremity DVT. HISTORY OF PRESENT ILLNESS: The patient was brought to the emergency department on 01/03/2019 after being found with apneic breathing, low O2 saturation, and hypotensive. She was immediately intubated and admitted to the ICU for further management and evaluation. The patient was subsequently was diagnosed with acute hypoxemic respiratory failure, pneumonia, encephalopathy, hypernatremia, leukocytosis. A PICC line was placed to her right upper arm. It was noted on the that she had upper arm redness and swelling, and found to have a right upper extremity extensive DVT. The patient was started on full-dose Lovenox. It was also noted that she was neutropenic with a platelet count of 110,000. PAST MEDICAL HISTORY: Hypertension, diabetes mellitus type 2, hyperlipidemia, COPD, coronary artery disease. PAST SURGICAL HISTORY: Pacemaker, coronary stent, hysterectomy. ALLERGIES: No known drug allergies. HOME MEDICATIONS: Dulcolax, BuSpar, Cardizem CD, glipizide, lisinopril, milk of magnesia, and Megestrol acetate. SOCIAL HISTORY: She has a 50+ pack year history of smoking. Denies alcohol or illicit drug use. REVIEW OF SYSTEMS: The patient remains noncommunicative. OBJECTIVE: Vital Signs: Temperature 98.8 degrees, pulse rate 100, respiratory rate 22, blood pressure 107/60, O2 saturation 98% on 3 L via nasal cannula, 0/10 pain. Physical Examination: General: This is a chronically ill, elderly-appearing female lying in bed, in no acute distress. Cardiovascular: Heart rate and rhythm tachycardic. Normal S1, S2. Respiratory: No wheezing or rales noted. Upper airway sound clear to auscultation. No signs of respiratory distress. Gastrointestinal: Bowel sounds are positive. Soft and nontender without distention. Extremities: The patient has 3+ pitting edema in the right upper extremity with ecchymosis surrounding her upper arm. No edema noted to bilateral lower extremities. Neurological: The patient does not follow any commands. Not communicating. LABORATORY: WBCs 16.70, hemoglobin 12.5, hematocrit 38.4, platelet count 164,000, ANC 13.69. Sodium 149, creatinine 0.7, calcium 7.8. ProBNP 12,226. B12 of 558, folate 9.4. RADIOLOGY: MRI of the brain, extremely severe cerebellar atrophy and cerebral atrophy. Chest CT, improved left pleural effusion and left lower lobe atelectasis, pulmonary edema versus pneumonia. ASSESSMENT: 1. Extensive right upper extremity deep venous thrombosis. 2. Altered mental status, multifactorial. 3. Acute respiratory failure. 4. Sepsis. 5. Acute hypoxemic respiratory failure, status post extubation. PLAN: It is recommended to keep the patient on full-dose Lovenox at this time. Dr. Montana and Dr. Gonzalez have discussed this patient. We will continue to follow closely. Dictated by BRENDAN Hampton for Drew Montana MD Patient seen and examined. As above. Right upper extremity DVT and SVT, partly occlusive at the distal subclavian vein due to PICC line in place. Continue lovenox. Drew Montana MD cc: Drew Montana MD [facility]
--- NOTE | 2019-01-11 14:33 | PROGRESS NOTE ---
DATE: 01/11/2019 SUBJECTIVE: Ms. Sandoval was admitted 8 days ago and had cardiopulmonary arrest. She was resuscitated. She required mechanical ventilation and sedation. Sedatives were stopped and her recovery seemed slow. Dr. Green saw her earlier this week. EEG showed slowing with no tendency to seizure. MRI is ordered. On my exam, she is awake and appears alert, but not attentive. She did not communicate with me. She did not open or close eyes or follow commands. She did fix her gaze on me and followed me across to the other side of the bed. She has full lateral eye movement. Facial motility is symmetric. Limb tone seems symmetric. She has some rigidity in the neck, both with flexion/extension and rotation, not typical of meningismus. Head is unremarkable. IMPRESSION: Global encephalopathy following cardiopulmonary arrest. Her level of alertness seems to be improved. I do not have any urgent suggestion today. Further plans will depend on her clinical course. Thanks for asking Neurology to see Ms. Sandoval. cc: MD RAFAEL Lake III
--- NOTE | 2019-01-11 15:29 | Extremity Venous Study ---
PROCEDURE NAME: Venous U/S Right Arm - 01/10/2019 PROCEDURE: Right upper extremity venous duplex study. DATE OF STUDY: 01/10/2019. REFERRING PHYSICIAN: Lisa. READING PHYSICIAN: Sameer. WOOLEN TESTER: Austin. INDICATION: Right arm swelling with an indwelling PICC line. FINDINGS: The right internal jugular vein is compressible, patent, and without thrombus. However, in the distal right subclavian vein, an occlusive thrombus is demonstrated. This extends into the axillary vein. In addition, there is acute thrombus of the cephalic vein from the shoulder to the distal forearm, and at the basilic vein in the upper arm to the proximal forearm. INTERPRETATION: Acute DVT of the right subclavian, axillary veins, as well as acute SVT of the cephalic and basilic veins. cc: MD Padma Denis MD
[2019-01-12] MEDS: VANCOMYCIN 1,150 MG in NS 250 ML IV SCH (00:46)
[2019-01-12] MEDS: LOPRESSOR IV SCH ×5 (03:17→21:48)
[2019-01-12] MEDS: ATROVENT NEB INH SCH ×4 (03:28→21:11)
[2019-01-12] MEDS: HUMULIN R SUBQ SCH ×6 (03:28→23:54)
[2019-01-12] MEDS: XOPENEX NEB INH SCH ×4 (03:28→21:10)
[2019-01-12] MEDS: MAXIPIME 2 GM in NS 100 ML IV SCH ×2 (04:34→16:53)
[2019-01-12 05:03] LABS: ALLEN TEST YES; BLOOD TYPE ARTERIAL; HCO3-(ACT) 30.3 mmoll (20.0-26.0); METHB 1.5 % (0.0-1.5); O2(CT) 17.3 mL/dL (15.0-23.0); O2HB 94.9 % (95.0-99.0); PCO2(98.6) 42 mmHg (35-45); PO2(98.6) 77 mmHg (60-100); SAMPLE BLOOD; SAO2 97.8 % (95.0-100.0); THB 12.9 g/dL (11.5-17.4); pH(98.6) 7.48 (7.35-7.45)
[2019-01-12 05:04] LABS: MODALITY BI PAP
[2019-01-12 05:47] LABS: BASO# 0.04 X1000 (0.0-0.2); BASO% 0.3 % (0.0-0.8); EOS# 0.33 X1000 (0.0-0.7); EOS% 2.2 % (0.0-10.0); HEMATOCRIT 37.8 % (37.0-47.0); HEMOGLOBIN 12.2 g/dL (12.0-16.0); IMM GRAN# 0.17 X1000 (0.0-0.04); IMM GRAN% 1.2 % (0.0-0.5); LYMPH# 1.59 X1000 (1.2-3.4); LYMPH% 10.8 % (20.5-51.1); MCH 28.9 PG (27-31); MCHC 32.3 g/dL (33-37); MCV 89.6 FL (81-99); MONO# 0.88 X1000 (0.11-0.59); MPV 12.7 FL (7.4-10.4); NEUT# 11.72 X1000 (1.4-6.5); NEUT% 79.5 % (42.2-75.2); PLT 187 X1000 (130-400); RBC 4.22 XMIL (4.2-5.4); RDW 16.6 % (11.5-14.5); WBC 14.73 X1000 (4.8-10.8)
[2019-01-12 06:17] LABS: AGAP 9; ALB/GLOB RATIO 0.6; ALBUMIN 2.2 g/dL (3.5-5.0); ALKALINE PHOSPHATASE 56 U/L (32-104); BUN 23 mg/dL (8-22); CALCIUM 8.4 mg/dL (8.8-10.2); CHLORIDE 111 mmol/L (98-107); COSMO 304; CREATININE 0.8 mg/dL (0.5-0.9); ESTIMATED GFR > 60; GLUCOSE 148 mg/dL (70-104); GOT 33 U/L (10-30); GPT 23 U/L (10-36); POTASSIUM 3.5 mmol/L (3.5-5.1); SODIUM 150 mmol/L (136-145); TCO2 30 mmol/L (25-35); TOTAL BILIRUBIN 0.27 mg/dL (0.20-1.00); TOTAL PROTEIN 5.8 g/dL (6.3-8.3)
--- NOTE | 2019-01-12 06:43 | Diag Imaging Result Doc PS360 ---
CHEST-1 VIEW - 01/12/2019 INDICATION: SOB COMPARISON: 01/11/2019 FINDINGS: Stable nasogastric tube in good position. Stable right-sided pacemaker. Stable advanced COPD. There has been improvement in the left perihilar and basilar opacification/effusion. Otherwise persistent bibasilar airspace opacifications indicating any combination of atelectasis, infiltrate, or effusion. Heart size remains top normal. No new infiltrates. IMPRESSION: Improvement in the aeration of the left lung. Electronically signed by Shaun 01/12/2019 6:41 AM
[2019-01-12] MEDS: D5W 1,000 ML IV SCH ×2 (07:42→21:48)
[2019-01-12] MEDS: CULTURELLE PO SCH ×2 (08:14→21:49)
[2019-01-12] MEDS: LASIX IV SCH (09:19)
[2019-01-12] MEDS: LOVENOX SUBQ SCH ×2 (09:32→21:49)
[2019-01-12] MEDS: MUCOMYST 20% INH SCH ×2 (10:03→21:11)
[2019-01-12] MEDS: NEXIUM IV SCH (10:13)
[2019-01-12] MEDS: SODIUM CHLORIDE 0.9% INJ SCH (10:13)
[2019-01-12] MEDS: MORPHINE IV PRN (10:16)
--- NOTE | 2019-01-12 10:59 | PROGRESS NOTE ---
DATE: 01/12/2019 Ms. Sandoval looks about the same clinically today. She is awake and appears alert but not attentive. She did not communicate with me in any way. She did not follow any commands for me. She has conjugate roving eye movements and spontaneous eye opening and closing. Limb tone is symmetric. There is not meningismus. She continues afebrile. WBC is elevated but improved today. MRI showed extensive ischemic change in cerebellum and some concern for brainstem atrophy. Medicine list does not contain major sedative. IMPRESSION: Persistent global encephalopathy. She has not had clinically apparent seizure. There is concern for a multifactorial encephalopathy including possible anoxic brain injury. I do not have any urgent suggestions from Neurology standpoint today. cc: Charly Watts III, MD MTDD
--- NOTE | 2019-01-12 11:45 | HEMO/ONC PROGRESS NOTE ---
DATE: 01/12/2019 SUBJECTIVE: Ms. Sandoval had no significant events overnight. She remains noncommunicative. Her eyes are open, and she is looking around, but she is not following commands. OBJECTIVE: Vital Signs: Temperature 98.6 degrees, pulse rate 95, respiratory rate 28, blood pressure 133/86, O2 saturation 97% on nasal cannula at 3 L. Pain Level: She is an F2 on the Back-Lynne Faces Scale. General: This is a chronically ill female, lying in bed, in no acute distress. Skin: Warm and dry and pink. Cardiovascular: Heart rate and rhythm tachycardic. Normal S1, S2. Respiratory: Upper airways sound congested. No signs of respiratory distress. Gastrointestinal: Bowel sounds are positive. Soft and nontender without distention. Extremities: The patient has a small occlusive clot distal to the subclavian, which is improving, in the right upper extremity. Neurological: Patient does not follow any commands. She is not communicating. DIAGNOSTIC STUDIES: WBC 14.73, hemoglobin 12.2, hematocrit 37.8, platelet count 187,000, ANC 11.72. Chest x-ray shows improvement in aeration of the left lung. ASSESSMENT: 1. Extensive right upper extremity deep vein thrombosis. 2. Altered mental status, multifactorial. 3. Acute respiratory failure. 4. Sepsis. 5. Acute hypoxemic respiratory failure status post extubation. PLAN: The patient has a right upper extremity DVT and SVT, partly occlusive at the distal subclavian vein due to the PICC line placement. The patient needs to continue on Lovenox. She is improving. We will continue to follow. Dictated by BRENDAN Hampton for Drew Montana MD cc: Drew Montana MD [facility]
--- NOTE | 2019-01-12 13:47 | PULMONOLOGY PROGRESS NOTE ---
DATE: 01/12/2019 SUBJECTIVE: The patient has a blank stare upon arrival in the room. She will briefly focus on the examiner, but not consistently. OBJECTIVE: Vital Signs: The patient has been afebrile for the last 24 hours. Blood pressure 137/57, heart rate 101, respiratory rate 22, oxygen saturation 96% on 3 L per nasal cannula. HEENT: Pupils are equal. Oropharynx appears clear. Neck: Neck is supple. Chest: Reveals occasional rhonchi bilaterally with shallow inspiration. Cardiac exam: S1, S2. Abdomen: Soft with diminished bowel sounds. Extremities: Reveal trace to 1+ peripheral edema. LABORATORIES: White blood count 14.7, hemoglobin 12.2, platelet count 187,000. Sodium 150, potassium 3.5, chloride 111, bicarbonate 30. BUN 23, creatinine 0.8. Arterial blood gas on BiPAP reveals pH 7.48, pCO2 of 42, PO2 of 77. X-RAYS: Chest x-ray reveals hyperinflation consistent with COPD, decrease in left-sided perihilar infiltrate. IMPRESSION: A 73-year-old with: 1. Chronic obstructive pulmonary disease. 2. Acute hypoxemic respiratory failure. 3. Anoxic encephalopathy with recent cardiopulmonary arrest. 4. Pneumonia. 5. Deep vein thrombosis, right upper extremity. DISCUSSION: A 73-year-old with problems outlined above. Her overall prognosis is poor with her comorbid conditions and encephalopathy. RECOMMENDATIONS: 1. Continue bronchial hygiene. 2. Wean oxygen as tolerated. 3. Continue tube feeds. 4. Continue antibiotics per Infectious Disease. 5. Overall prognosis is poor. cc: Isidro Kendrick MD
--- NOTE | 2019-01-12 14:12 | PROGRESS NOTE ---
DATE: 01/12/2019 SUBJECTIVE: The patient is resting in bed. Her eyes are open, but she does not follow commands. OBJECTIVE: Vital Signs: Temperature 98.6 degrees, blood pressure 137/57, heart rate 101, respirations 22, O2 saturations 95% on 3 L nasal cannula, intake 2.3 L, output 2.4 L. General: This is a chronically ill-appearing elderly female lying in bed in no acute distress. Heart: S1, S2 normal. Tachycardic. Lungs: Equal air entry bilaterally. Diminished breath sounds at the bases. Abdomen: Positive bowel sounds. Soft, nontender, nondistended. Extremities: The patient has 3+ edema in the right upper extremity. Trace edema in the lower extremities. Neurologic: The patient's eyes are open, but she does not follow commands. She does respond to painful stimuli. LABS: White blood cell count 14, hemoglobin 12, hematocrit 37, platelets 187,000, ABG pH 7.48, pCO2 of 42, PO2 77, bicarb 30. Sodium 150, potassium 3.5, chloride 111, CO2 30, BUN 23, creatinine 0.8, glucose 148, calcium 8.4, AST 33, ALT 23, alkaline phosphatase 56, albumin 2.2. Chest x-ray shows improved aeration of the left lung. ASSESSMENT AND PLAN: 1. Acute hypoxemic respiratory failure status post extubation. The patient is now on 3 L nasal cannula. Continue with pulmonary toiletry. 2. Status post cardiac arrest. Continue supportive care. 3. Pneumonia. Slowly improving. Continue with antibiotic therapy and bronchodilator therapy. 4. Extensive right upper extremity DVT. Continue on Lovenox. Hematology is following. 5. Encephalopathy. The MRI done yesterday shows a recent stroke. We will continue with supportive care. Neurology is following. 6. Hypertension. Improved. Continue on Lopressor. 7. Hypernatremia. Will start the patient on D5W and monitor the sodium closely. 8. Severe protein calorie malnutrition. Continue on tube feeds. We will order a swallow evaluation to be done today. The patient may require PEG tube placement. 9. Volume overload. Improved. 10. Status post recent pacemaker implantation. Aware. 11. Gastrointestinal prophylaxis. Continue on Nexium. 12. Disposition. [facility] is working on LTAC placement for the patient. cc: Padma Gonzalez MD
--- NOTE | 2019-01-12 14:22 | INFECTIOUS DISEASE PROGRESS NO ---
DATE: 01/12/2019 PRESENT ILLNESS: The patient has bilateral pneumonia. She also has deep venous thrombosis involving the right arm. MEDICATIONS: This is the 8th day of treatment with vancomycin and she was at one time on Zosyn but now she is on cefepime along with vancomycin. PHYSICAL EXAMINATION: Vital Signs: Temperature is 98.8 degrees, pulse 107, respirations 22, blood pressure 102/62. General: This is an ill-appearing elderly female. She is in no acute distress. Head/eyes/ears/nose/throat: She did track with her eyes today. She apparently can hear my voice because when I asked her to move her arm, she did move it. She did not open her mouth and I could not see how her oral cavity looked. Neck: She did not seem to have any pain when I passively moved her neck. Lungs: Clear to auscultation. Cardiovascular: Heart rate is irregular. Abdomen: Soft and nontender. Extremities: The right arm has a PICC in it and it is more swollen than the left arm. The right arm also has erythema. Thorax: The patient has a pacemaker on the right side. The site is not swollen or erythematous. LAB AND X-RAY: [place] [address], hemoglobin 12.2, and platelet count 187,000. Blood gases show a pH of 7.48, a PO2 of 77, and a pCO2 of 42, creatinine 0.8, GFR is greater than 60. Chest x-ray shows decrease in infiltrates. ASSESSMENT AND PLAN: Patient has pneumonia. I plan to continue vancomycin and cefepime. She also has a right arm with deep venous thrombosis. This is being managed by Dr. Montana. COMORBIDITIES: The patient is elderly and she has diabetes mellitus and chronic obstructive pulmonary disease. cc: Fabiano Reyes MD
[2019-01-13] MEDS: LOPRESSOR IV SCH ×3 (03:06→14:42)
[2019-01-13] MEDS: ATROVENT NEB INH SCH ×4 (03:20→21:14)
[2019-01-13] MEDS: XOPENEX NEB INH SCH ×4 (03:20→21:14)
[2019-01-13] MEDS: HUMULIN R SUBQ SCH ×5 (04:37→22:02)
[2019-01-13] MEDS: MAXIPIME 2 GM in NS 100 ML IV SCH ×2 (04:39→16:31)
[2019-01-13 05:00] LABS: BE 6.8 mmoll (-3.0-3.0); BLOOD TYPE ARTERIAL; HCO3-(ACT) 30.1 mmoll (20.0-26.0); O2HB 90.4 % (95.0-99.0); PCO2(98.6) 43 mmHg (35-45); PO2(98.6) 52 mmHg (60-100); SAMPLE BLOOD; SAO2 93.3 % (95.0-100.0); THB 12.5 g/dL (11.5-17.4); pH(98.6) 7.47 (7.35-7.45)
[2019-01-13 05:01] LABS: ALLEN TEST YES; O2(CT) 15.9 mL/dL (15.0-23.0)
[2019-01-13 05:02] LABS: MODALITY BI PAP
[2019-01-13 06:39] LABS: BASO# 0.02 X1000 (0.0-0.2); BASO% 0.1 % (0.0-0.8); EOS% 2.2 % (0.0-10.0); HEMATOCRIT 37.2 % (37.0-47.0); HEMOGLOBIN 12.3 g/dL (12.0-16.0); IMM GRAN# 0.19 X1000 (0.0-0.04); IMM GRAN% 1.1 % (0.0-0.5); LYMPH% 8.4 % (20.5-51.1); MCH 29.1 PG (27-31); MCHC 33.1 g/dL (33-37); MCV 87.9 FL (81-99); MONO# 0.93 X1000 (0.11-0.59); MONO% 5.2 % (1.7-9.3); MPV 13.2 FL (7.4-10.4); NEUT# 14.77 X1000 (1.4-6.5); PLT 213 X1000 (130-400); RBC 4.23 XMIL (4.2-5.4); RDW 16.1 % (11.5-14.5); WBC 17.81 X1000 (4.8-10.8)
[2019-01-13 07:26] LABS: AGAP 3; ALB/GLOB RATIO 0.6; ALBUMIN 2.2 g/dL (3.5-5.0); BUN 25 mg/dL (8-22); CALCIUM 8.2 mg/dL (8.8-10.2); CHLORIDE 99 mmol/L (98-107); COSMO 281; CREATININE 0.7 mg/dL (0.5-0.9); DIRECT BILIRUBIN 0.1 mg/dL (0.00-0.20); ESTIMATED GFR > 60; GLUCOSE 241 mg/dL (70-104); POTASSIUM 3.7 mmol/L (3.5-5.1); SODIUM 134 mmol/L (136-145); TCO2 32 mmol/L (25-35); TOTAL BILIRUBIN 0.23 mg/dL (0.20-1.00); TOTAL PROTEIN 5.9 g/dL (6.3-8.3)
--- NOTE | 2019-01-13 07:42 | Diag Imaging Result Doc PS360 ---
CHEST-1 VIEW - 01/13/2019 INDICATION: SOB COMPARISON: 01/12/2019 FINDINGS: Stable nasogastric tube and pacemaker. Stable COPD. Heart size is top normal. Pulmonary vascularity is distended. There is worsening airspace opacification at the left hilum. Otherwise stable extensive bibasilar airspace opacifications, nonspecific. IMPRESSION: Worsening airspace opacification at the left hilum. Otherwise no change. Electronically signed by Shaun 01/13/2019 7:40 AM
[2019-01-13] MEDS: MUCOMYST 20% INH SCH ×2 (08:03→21:14)
[2019-01-13] MEDS: NEXIUM IV SCH (08:40)
[2019-01-13] MEDS: LASIX IV SCH (08:40)
[2019-01-13] MEDS: LOVENOX SUBQ SCH ×2 (08:40→22:02)
[2019-01-13] MEDS: TRANSDERM-SCOP TD SCH (08:40)
[2019-01-13] MEDS: MORPHINE IV PRN ×4 (08:41→22:06)
[2019-01-13] MEDS: CULTURELLE PO SCH ×2 (08:41→22:02)
[2019-01-13] MEDS: D5W 1,000 ML IV SCH (11:43)
[2019-01-13] MEDS: VANCOMYCIN 1 GM/NS 1 GM/250 ML IVPB IV SCH (13:40)
--- NOTE | 2019-01-13 15:57 | PROGRESS NOTE ---
DATE: 01/13/2019 SUBJECTIVE: The patient is resting comfortably in bed. No acute events noted overnight. OBJECTIVE: Vital Signs: Temperature 97.4 degrees, blood pressure 140/76, heart rate 103, respirations 19, O2 saturation 96% on 4 L nasal cannula. General: This is a chronically ill- appearing elderly female lying in bed in no acute distress. Heart: S1, S2 normal. Tachycardic. Lungs: Coarse breath sounds bilaterally. Abdomen: Positive bowel sounds. Soft, nontender, nondistended. Extremities: 2+ edema involving the right upper extremity. Neuro: The patient opens her eyes but does not follow commands. LABS: White blood cell count 17, hemoglobin 12, hematocrit 37, platelets 213,000. ABG pH 7.47, pCO2 43, PO2 52, bicarb 30. Sodium 134, potassium 3.7, chloride 99, CO2 32, BUN 25, creatinine 0.7, glucose 241. Chest x-ray an shows worsening air space opacification of the left hilum. ASSESSMENT AND PLAN: 1. Acute hypoxemic respiratory failure status post extubation. Continue to treat the underlying pneumonia, continue with bronchodilator therapy and supplemental oxygen. 2. Status post cardiac arrest. Continue supportive care. 3. Pneumonia. Continue with antibiotic therapy as directed by Dr. Reyes. 4. Extensive right upper extremity deep vein thrombosis. Continue on Lovenox. 5. Encephalopathy. The patient appears to have had a recent stroke. Will continue with the current treatment regimen. The patient is still unable to follow commands to swallow, continue with NG tube feeds. I discussed possible percutaneous endoscopic gastrostomy tube placement with the patient's daughter. 6. Hypertension. Improved. Will start the patient on Coreg. 7. Protein calorie malnutrition. Continue with tube feeds. 8. Status post recent pacemaker implantation. Aware. 9. Gastrointestinal prophylaxis. Continue on Nexium. 10. Disposition. [facility] is working on LTAC placement for the patient. Will consult physical therapy and occupational therapy. cc: Padma Gonzalez MD MTDD
--- NOTE | 2019-01-13 16:38 | PULMONOLOGY PROGRESS NOTE ---
DATE: 01/13/2019 SUBJECTIVE: The patient is arousable to alert. She will briefly track the examiner. She does not engage in conversation. She appears to be very weak. OBJECTIVE: Vital Signs: The patient is afebrile for the last 24 hours. Blood pressure 114/56, heart rate 85, respiratory rate 18, oxygen saturation 98% on 4 L per nasal cannula. HEENT: Pupils are equal and reactive. Oropharynx appears clear but dry. Neck: Supple. Chest: Reveals occasional rhonchi bilaterally. Cardiac: S1-S2. Abdomen: Soft. Extremities: Without edema. LABORATORIES: Chest x-ray reveals increasing opacification left hilum. White blood count 17.8, hemoglobin 12.3, platelet count 213,000. Sodium 134, potassium 3.7, chloride 99, bicarbonate 32, BUN 25, creatinine 0.7, glucose 241. IMPRESSION: 1. A 73-year-old with severe chronic obstructive pulmonary disease. 2. Pneumonia. 3. Hypoxemic respiratory failure. 4. Encephalopathy status post cardiopulmonary arrest. 5. Deep vein thrombosis, right upper extremity. DISCUSSION: A 73-year-old with problems outlined above. The patient does not appear to be thriving. She does not have a good cough effort. It will be difficult to clear her pneumonia with her encephalopathy, generalized weakness, and comorbid conditions. PLAN: 1. Continue bronchial hygiene. 2. Continue antibiotics per Infectious Disease. 3. Continue oxygen. 4. Continue tube feeds. 5. Recommend ongoing end of life discussions with family. Her prognosis is very poor. cc: Isidro Kendrick MD
[2019-01-13] MEDS ORDERED: AMIDATE ONE (19:17)
[2019-01-13] MEDS ORDERED: NORCURON ONE (19:17)
[2019-01-13] MEDS ORDERED: VERSED ONE (19:17)
[2019-01-13] MEDS ORDERED: QUELICIN ONE (19:18)
[2019-01-13] MEDS ORDERED: AMIDATE IV ONE (19:25)
[2019-01-13] MEDS ORDERED: QUELICIN IV ONE (19:25)
--- NOTE | 2019-01-13 19:51 | PROGRESS NOTE ---
DATE: 01/13/2019 ADDENDUM: Somewhere around couple minutes before 7 there was a CAT call on Ms Sandoval because of unresponsiveness and hypoxemia. Upon presenting Ms Sandoval was really not responding. She was clammy and cold but she still had pulse. She was just not moving air. Her O2 saturation was about 70% on the bag ventilation. Over there for over 5 minutes she continues to be remarkably hypoxemic. I was able to reach out to her attending physician (Dr. Gonzalez) who had also reached out to the family and they were okay with intubation, patient was subsequently intubated by the respiratory therapist under my direct supervision. Patient was given etomidate and succinylcholine for sequential intubation procedure. Patient was successfully intubated with GlideScope with a 7.5 tube currently at 23 cm at the mouth. A chest x-ray has been done but not populated yet at the time of the dictation. I have spoken to the son who was right on the floor at the time of the procedure. I have explained whatever happened and the need for her to now be transferred to the ICU. I have also notified her attending physician. CRITICAL TIME SPENT: 30 minutes. cc: Minesh Blum MD MTDD
[2019-01-13] MEDS: LEVOPHED 8 MG in D5 1/2 NS 250 ML IV SCH (20:00)
[2019-01-13] MEDS ORDERED: ATIVAN IV PRN (20:01)
[2019-01-13] MEDS ORDERED: DIPRIVAN 1% 1,000 MG/100 ML BOTTLE IV SCH (20:01)
--- NOTE | 2019-01-13 20:17 | Diag Imaging Result Doc PS360 ---
CHEST-PORTABLE - 01/13/2019 7:27 PM INDICATION: intubation acute resp failure COMPARISON: 5:44 AM FINDINGS: There is a new endotracheal tube in good position at T4-T5. Stable nasogastric tube in good position. Lung volumes are improved. There is significant improvement in aeration of the lower lobes bilaterally, particularly the left lower lobe which is now essentially completely clear. There is some scattered, multifocal hazy infiltrate. IMPRESSION: Good endotracheal intubation. Complete re-inflation of the left lower lobe. Overall improvement from prior. Electronically signed by Shaun 01/13/2019 8:15 PM
[2019-01-13 21:21] LABS: ALLEN TEST YES; BE 2.7 mmoll (-3.0-3.0); BLOOD TYPE ARTERIAL; HCO3-(ACT) 26.9 mmoll (20.0-26.0); METHB 1.4 % (0.0-1.5); O2(CT) 17.5 mL/dL (15.0-23.0); PCO2(98.6) 50 mmHg (35-45); PO2(98.6) 63 mmHg (60-100); SAMPLE BLOOD; SRATE 18 BPM; THB 13.4 g/dL (11.5-17.4); TVOL 500 mL; pH(98.6) 7.37 (7.35-7.45)
[2019-01-13 21:23] LABS: MODALITY VENTILATOR
[2019-01-13] MEDS: COREG NG SCH (22:02)
[2019-01-14] MEDS: HUMULIN R SUBQ SCH ×5 (00:34→23:27)
[2019-01-14] MEDS: ATROVENT NEB INH SCH ×4 (03:23→21:42)
[2019-01-14] MEDS: XOPENEX NEB INH SCH ×4 (03:23→21:42)
[2019-01-14] MEDS: LEVOPHED 8 MG in D5 1/2 NS 250 ML IV SCH ×3 (03:25→18:22)
[2019-01-14 04:49] LABS: ALLEN TEST YES; BE 4.3 mmoll (-3.0-3.0); BLOOD TYPE ARTERIAL; HCO3-(ACT) 28.3 mmoll (20.0-26.0); METHB 1.2 % (0.0-1.5); O2(CT) 17.5 mL/dL (15.0-23.0); PCO2(98.6) 33 mmHg (35-45); PO2(98.6) 88 mmHg (60-100); SAMPLE BLOOD; SRATE 18 BPM; THB 12.9 g/dL (11.5-17.4); TVOL 500 mL; pH(98.6) 7.52 (7.35-7.45)
[2019-01-14 04:50] LABS: MODALITY VENTILATOR
[2019-01-14] MEDS: MAXIPIME 2 GM in NS 100 ML IV SCH (05:16)
[2019-01-14 05:34] LABS: CALCIUM 7.7 mg/dL (8.8-10.2)
[2019-01-14 05:47] LABS: BASO# 0.07 X1000 (0.0-0.2); BASO% 0.2 % (0.0-0.8); EOS# 0.07 X1000 (0.0-0.7); EOS% 0.2 % (0.0-10.0); HEMATOCRIT 37.2 % (37.0-47.0); HEMOGLOBIN 12.3 g/dL (12.0-16.0); IMM GRAN# 0.36 X1000 (0.0-0.04); LYMPH# 1.77 X1000 (1.2-3.4); LYMPH% 4.9 % (20.5-51.1); MCH 28.9 PG (27-31); MCHC 33.1 g/dL (33-37); MCV 87.3 FL (81-99); MONO# 1.24 X1000 (0.11-0.59); MONO% 3.5 % (1.7-9.3); MPV 12.4 FL (7.4-10.4); NEUT# 32.26 X1000 (1.4-6.5); NEUT% 90.2 % (42.2-75.2); PLT 187 X1000 (130-400); RBC 4.26 XMIL (4.2-5.4); RDW 16.1 % (11.5-14.5); WBC 35.77 X1000 (4.8-10.8)
[2019-01-14 06:52] LABS: LYMPHS 4 % (21-51); MONO 2 % (1-9); SEGS 94 % (42-75)
--- NOTE | 2019-01-14 07:58 | Diag Imaging Result Doc PS360 ---
EXAM: CHEST-1 VIEW - 01/14/2019 HISTORY: SOB TECHNIQUE: Portable chest one view COMPARISON: 01/13/2019 FINDINGS: Endotracheal tube and nasogastric tube remain in place. Heart size is normal. There has been interval decrease in bilateral midlung opacities. There is increased prominence of bilateral lower lung interstitial markings. There is a tiny left pleural effusion. There is no pneumothorax identified. IMPRESSION: Interval decrease in bilateral midlung opacities. Increased prominence of bilateral lower lung interstitial markings. Electronically signed by Cy Arreguin 01/14/2019 7:56 AM
[2019-01-14] MEDS: LASIX IV SCH (08:30)
[2019-01-14] MEDS: CULTURELLE PO SCH ×2 (08:30→21:32)
[2019-01-14] MEDS: LOVENOX SUBQ SCH ×2 (08:30→21:32)
[2019-01-14] MEDS: COREG NG SCH ×2 (08:30→21:32)
[2019-01-14] MEDS: PROTONIX IV SCH (08:40)
[2019-01-14] MEDS: SODIUM CHLORIDE 0.9% INJ SCH (08:40)
[2019-01-14] MEDS ORDERED: ASPIRIN EC PO SCH (09:00)
[2019-01-14] MEDS: MUCOMYST 20% INH SCH ×2 (09:55→21:42)
[2019-01-14] MEDS ORDERED: SODIUM BICARBONATE 8.4% 100 MEQ in D5W 1,000 ML IV SCH (10:30)
[2019-01-14] MEDS: MERREM 1 GM in NS 50 ML IV SCH ×2 (10:56→17:38)
[2019-01-14] MEDS: LEVAQUIN 500 MG/D5W 500 MG/100 ML IVPB IV SCH (10:56)
[2019-01-14] MEDS: SODIUM BICARBONATE 8.4% 100 MEQ in D5W 1,000 ML IV SCH ×4 (11:34→23:26)
--- NOTE | 2019-01-14 12:30 | INFECTIOUS DISEASE PROGRESS NO ---
DATE: 01/14/2019 PRESENT ILLNESS: The patient has bilateral pneumonia. Also her white count has increased dramatically. She also has deep venous thrombosis involving the right arm where there is a PICC in place. MEDICATIONS: This is day 10 of treatment of the patient with vancomycin and the combination of Zosyn followed by cefepime for a total of 10 days also. OBJECTIVE: Vital signs: Temperature is 100, pulse is 81, respirations 18, blood pressure is 62/47. General: This is an ill-appearing elderly female. She is intubated. She does not appear to be in any acute distress. HEENT: She does have an orotracheal tube in place. There is no drainage from the nose or ears. Neck: No stiffness. Lungs: Clear to auscultation. Cardiovascular: Heart rate is at times irregular and at other times, it is paced and regular. Abdomen: Soft and nontender. Extremities: The patient has a PICC in her right arm. The arm is swollen, but at the site of the PICC, there is no purulent drainage. Thorax: The patient has a right-sided pacemaker in place in the chest. The site is not erythematous or swollen. DIAGNOSTIC DATA: Chest x-ray shows a decrease in the bilateral lung opacities. The CBC shows the white count has increased to 35,770, hemoglobin is 12.3, and platelet count is 187. Blood gases show a pH of 7.52, pO2 of 88, and pCO2 of 33. Creatinine is 1.0. GFR is 54. Blood and sputum cultures are pending. ASSESSMENT AND PLAN: The patient has pneumonia with an increasing white blood cell count. I am going to continue vancomycin, discontinue cefepime, and add meropenem and azithromycin. COMORBIDITIES: The patient is elderly. She has diabetes mellitus and chronic obstructive pulmonary disease. cc: Fabiano Reyes MD
[2019-01-14] MEDS ORDERED: MAGNESIUM SULFATE 2 GM/S.W.I. 2 GM/50 ML IVPB IV ONE (12:59)
[2019-01-14] MEDS: VANCOMYCIN 1 GM/NS 1 GM/250 ML IVPB IV SCH (13:16)
--- NOTE | 2019-01-14 13:56 | CARDIOLOGY CONSULTATION ---
DATE: 01/14/2019 HISTORY OF PRESENT ILLNESS: Cardiology was consulted. The patient is intubated. Has pneumonia, sepsis. There was a CAT call on 01/13/2019. Patient became unresponsive and was hypoxemic. She was intubated and transferred to the ICU. The patient was severely hypotensive and started on a Levophed drip, is on sodium bicarbonate infusion. She had runs of broad complex tachycardia and has abnormal troponin suggestive of type 2 non-Q-wave myocardial infarction. Chest x-ray and CT scan were done. Electrocardiogram revealed normal sinus rhythm, nonspecific ST-T changes. On telemetry, she has episodes of paced rhythm and has had broad complex tachycardia. History was obtained from the chart as patient is intubated. She is a 73-year-old lady who had a permanent pacemaker implantation secondary to sinus node dysfunction in November 2018. She also has had coronary artery disease as below. She is admitted here with increasing shortness of breath, low saturation. Was brought to the emergency room on 01/03/2019. She was intubated, extubated, and reintubated yesterday. She has an extensive history of having had left lower lobe pneumonia associated with effusion. She has chronic COPD. REVIEW OF SYSTEMS: A review of systems could not be obtained from the patient. PAST MEDICAL HISTORY AND PROBLEM LIST: 1. Pacemaker implantation in November 2018 for sinus node dysfunction. 2. Coronary artery disease. She had a cardiac catheterization in the past which revealed diffuse calcification of 50% in the mid LAD, circumflex moderate calcification, RCA had mild disease. 3. Severe COPD. 4. Recurrent pneumonia. 5. Diabetes. 6. Hyperlipidemia. 7. Has current DVT in the right upper extremity. 8. Encephalopathy secondary to cardiac arrest. 9. Her chest x-ray revealed increased bilateral midlung opacity suggestive of bilateral pneumonia. 10. 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 11. Echocardiogram on 01/09/2019 revealed an ejection fraction of 60%. CURRENT MEDICATIONS: Include: 1. Coreg via NG. 2. Enteric-coated aspirin. 3. Lovenox. 4. Lasix 40 mg IV daily. 5. Levophed. 6. Levofloxacin started today. 7. Norepinephrine drip. 8. Propofol. 9. Sodium bicarbonate drip. PHYSICAL EXAMINATION: On examination, blood pressure 140/80. Jugular venous pressure could not be assessed. First and second heart sounds were heard. There was a faint murmur. Respiratory System: Bilateral wheeze. Abdomen was soft. Central nervous system could not be assessed. LABORATORY EXAMINATION: Revealed sodium 139, potassium 4.0, BUN 31, creatinine 1.0. Troponin abnormal at 0.355. Previous troponins were unremarkable at 0.017 and 0.035. Hematology: WBC 35.77, RBC 4.2, hemoglobin 12.3, hematocrit 37.2, platelet count of 187,000. ASSESSMENT AND PLAN: 1. Ms. Mila Sandoval is a 73-year-old, lady with severe chronic obstructive pulmonary disease, coronary artery disease in the past, permanent pacemaker implanted in November for sinus node dysfunction. Has hypertension and diabetes. She is admitted with pneumonia, respiratory failure requiring reintubation. She was reintubated yesterday and was severely hypotensive, and started on a Levophed drip. The patient is a level 2 Do Not Resuscitate. 2. From a cardiac standpoint, she has an abnormal troponin, has type 2 non-Q-wave myocardial infarction. We will get a limited echocardiogram to reassess her left ventricular systolic function. Her recent echocardiogram revealed preserved left ventricular systolic function. 3. She is receiving a sodium bicarbonate drip and is on Levophed. With that, the blood pressure is normal. She had runs of broad complex tachycardia. We will give her magnesium. As far as medications are concerned, she has been started on Levaquin. However, her broad complex tachycardia was prior to starting the Levaquin. We will also check her magnesium levels. 4. For pneumonia, continue with her current medications as planned. 5. From a cardiac standpoint, she is hypotensive, requiring pressure support. Beta-blockers are on hold. We will continue with the aspirin. 6. She has anoxic encephalopathy as well. Followed by neurology. I have not made any other changes. Thank you for the consult. cc: Fernando Jara MD
--- NOTE | 2019-01-14 14:21 | PROGRESS NOTE ---
DATE: 01/14/2019 SUBJECTIVE: The events from yesterday evening were noted. The patient is currently on the ventilator and currently on a Levophed drip. OBJECTIVE: T-max 98.4 degrees, blood pressure 147/64, heart rate 74, respirations 18, O2 saturation 98% on mechanical ventilator, intake 2.1 L, output 1.5 L.General: This is a chronically ill-appearing elderly female currently unresponsive on the ventilator. Heart: S1, S2 normal, tachycardic. Lungs: Coarse breath sounds bilaterally. Abdomen: Positive bowel sounds, soft, nontender, nondistended. Extremities: There is anasarca involving both upper extremities trace pedal edema in the lower extremities. Neuro: The patient is unresponsive. LABS: White blood cell count 35, hemoglobin 12, hematocrit 37, platelets 187,000 ABG pH 7.5, pCO2 33, PO2 88, bicarb 28. Sodium 139, potassium 4, chloride 99, CO2 28, BUN 31, creatinine 1, glucose 215. ASSESSMENT AND PLAN: 1. Acute hypoxemic respiratory failure status post reintubation. Continue with ventilatory support. The patient's antibiotics have been adjusted by Dr. Reyes. 2. Pneumonia. Continue with antibiotic therapy. Repeat cultures have been ordered. 3. Sepsis. The patient is now on Levophed drip. Will continue with broad- spectrum antibiotics. 4. Status post cardiac arrest. Aware. 5. Extensive right upper extremity deep vein thrombosis. Continue on Lovenox. 6. Encephalopathy. Unchanged. 7. Subacute cerebrovascular accident. Aware. Continue with supportive care. 8. Protein calorie malnutrition. The patient's tube feeds are on hold right now. 9. Gastrointestinal prophylaxis. Continue on Nexium. 10. Status post recent pacemaker implantation. Aware. 11. Disposition. The patient is critically ill with a high risk of mortality. The patient is currently a DNR level 2. Palliative care is following. cc: Padma Gonzalez MD [facility]
[2019-01-14] MEDS ORDERED: HUMULIN R SUBQ SCH (15:59)
[2019-01-14] MEDS ORDERED: 1/2 NS 1,000 ML IV SCH (16:15)
--- NOTE | 2019-01-14 20:31 | PULMONOLOGY PROGRESS NOTE ---
DATE: 01/14/2019 INTERIM HISTORY: Last evening patient became unresponsive with progressive hypoxemia. The patient was intubated and initiated on mechanical ventilation. She has been transferred to the Intensive Care Unit. She is now on vasopressors. OBJECTIVE: Vital Signs: Blood pressure 89/50, heart rate 81, respiratory rate 18, oxygen saturation 100%. HEENT: Pupils are equal. Oropharynx appears clear. Neck: Supple. Chest: Reveals coarse rhonchi bilaterally. Cardiac: S1, S2 with regular rhythm. Abdomen: Soft with no bowel sounds. Extremities: Cool to the touch. LABORATORIES: Arterial blood gas pH 7.52, pCO2 of 33, PO2 of 88 with a normal lactate. Sodium 139, potassium 4.0, chloride 99, bicarbonate 28, BUN 31, creatinine 1.0, glucose 215. Troponin is 0.355. White blood count 35,000, hemoglobin 12.3, platelet count 187,000. Sputum culture and microbiology cultures are pending. Chest x-ray reveals improved aeration following intubation. IMPRESSION: 73-year-old with 1. Recurrent pneumonia. 2. Acute hypoxemic respiratory failure. 3. Septic shock. 4. Encephalopathy status post cardiopulmonary arrest. 5. Deep vein thrombosis. 6. Failure to thrive. 7. Protein calorie malnutrition. DISCUSSION: A 73-year-old with problems outlined above. Her intubation was not unexpected given her failure to thrive and poor prognosis. Her son was at the bedside and her case was reviewed with him. PLAN: 1. Continue bronchial hygiene. 2. Additional volume resuscitation with sepsis. 3. Continue antibiotics per Infectious Disease. 4. Wean oxygen as tolerated. 5. Tube feeds as tolerated. 6. Ongoing end of life discussions. Prognosis is very poor. Time spent critical care management: 30+ minutes cc: Isidro Kendrick MD [facility]
[2019-01-14] MEDS: D50W SYRINGE IV PRN (20:59)
[2019-01-14] MEDS ORDERED: LEVEMIR SUBQ SCH (21:00)
[2019-01-15] MEDS: LEVOPHED 8 MG in D5 1/2 NS 250 ML IV SCH ×3 (03:16→20:52)
[2019-01-15] MEDS: XOPENEX NEB INH SCH ×4 (03:19→19:27)
[2019-01-15] MEDS: ATROVENT NEB INH SCH ×4 (03:19→19:26)
[2019-01-15] MEDS: MERREM 1 GM in NS 50 ML IV SCH ×3 (03:26→18:26)
[2019-01-15 04:43] LABS: ALLEN TEST YES; BE 13.7 mmoll (-3.0-3.0); BLOOD TYPE ARTERIAL; HCO3-(ACT) 35.6 mmoll (20.0-26.0); O2(CT) 11.7 mL/dL (15.0-23.0); O2HB 93.9 % (95.0-99.0); PCO2(98.6) 36 mmHg (35-45); PO2(98.6) 56 mmHg (60-100); SAMPLE BLOOD; SAO2 96.6 % (95.0-100.0); SRATE 18 BPM; THB 8.8 g/dL (11.5-17.4); TVOL 500 mL
[2019-01-15 04:46] LABS: MODALITY VENTILATOR; pH(98.6) 7.61 (7.35-7.45)
[2019-01-15] MEDS: HUMULIN R SUBQ SCH ×5 (04:48→20:27)
[2019-01-15] MEDS ORDERED: 1/2 NS 1,000 ML IV SCH (05:00)
[2019-01-15 05:11] LABS: BASO# 0.04 X1000 (0.0-0.2); BASO% 0.2 % (0.0-0.8); EOS# 0.16 X1000 (0.0-0.7); EOS% 0.7 % (0.0-10.0); HEMATOCRIT 31.7 % (37.0-47.0); HEMOGLOBIN 10.7 g/dL (12.0-16.0); IMM GRAN# 0.16 X1000 (0.0-0.04); IMM GRAN% 0.7 % (0.0-0.5); LYMPH# 1.58 X1000 (1.2-3.4); MCH 28.8 PG (27-31); MCHC 33.8 g/dL (33-37); MCV 85.2 FL (81-99); MONO% 4.9 % (1.7-9.3); NEUT# 19.51 X1000 (1.4-6.5); NEUT% 86.5 % (42.2-75.2); PLT 186 X1000 (130-400); RBC 3.72 XMIL (4.2-5.4); RDW 15.2 % (11.5-14.5); WBC 22.55 X1000 (4.8-10.8)
[2019-01-15 05:59] LABS: ALB/GLOB RATIO 0.5; ALBUMIN 1.7 g/dL (3.5-5.0); CALCIUM 7.1 mg/dL (8.8-10.2); CREATININE 1.2 mg/dL (0.5-0.9); DIRECT BILIRUBIN 0.1 mg/dL (0.00-0.20); POTASSIUM 2.8 mmol/L (3.5-5.1); TOTAL BILIRUBIN 0.35 mg/dL (0.20-1.00); TOTAL PROTEIN 4.9 g/dL (6.3-8.3)
[2019-01-15] MEDS ORDERED: POTASSIUM CHLORIDE 40 MEQ/SWI 40 MEQ/100 ML IVPB IV ONE ×2 (06:05→14:00)
[2019-01-15 06:11] LABS: MAGNESIUM 2.2 mg/dL (1.5-2.7); PHOSPHORUS 1.1 mg/dL (2.7-4.5)
[2019-01-15] MEDS ORDERED: SODIUM PHOSPHATE 40 MMOL in NS 250 ML IV ONE (06:24)
--- NOTE | 2019-01-15 06:32 | Diag Imaging Result Doc PS360 ---
EXAM: CHEST-PORTABLE HISTORY: pneumonia TECHNIQUE: 01/14/2019 COMPARISON: 01/14/2019 FINDINGS: Endotracheal and nasogastric tubes in good position. There is a right-sided pacemaker. No cardiomegaly. Tiny left effusion. Mild increased interstitial markings in the lower lungs similar to the prior exam. IMPRESSION: Stable chest. Electronically signed by Lyndon Bazzi 01/15/2019 6:30 AM
[2019-01-15 06:35] LABS: URINE SOURCE CATH
[2019-01-15 06:43] LABS: BILIRUBIN URINE NEGATIVE (NEGATIVE); BLOOD URINE SMALL (NEGATIVE); COLOR YELLOW; GLUCOSE URINE TRACE mg/dL (NEGATIVE); KETONE URINE NEGATIVE (NEGATIVE); LEUKOCYTES URINE LARGE (NEGATIVE); NITRITE URINE NEGATIVE (NEGATIVE); PROTEIN URINE TRACE mg/dL (NEGATIVE); SP GRAVITY URINE 1.004; TURBIDITY URINE HAZY (CLEAR); UROBILINOGEN URINE NORMAL (NORMAL)
[2019-01-15 06:49] LABS: UR EPITHELIAL CELLS <10 /HPF (<10); URINE BACTERIA NEGATIVE /HPF; URINE RBC <10 /HPF (<10); URINE WBC TNTC /HPF (<10)
[2019-01-15 06:56] LABS: URINE CASTS NONE SEEN; URINE CRYSTALS NONE SEEN; URINE SMALL ROUND CELLS NONE SEEN; URINE YEAST PRESENT
[2019-01-15 07:02] LABS: UR CREAT RANDOM 7.5 mg/dL (11-20); UR PROT RANDOM 24.6 mg/dL
--- NOTE | 2019-01-15 07:47 | EKG Report ---
Test Performed on : 01/14/2019 10:08:37 AM Test Reason : ICU. NO EKG ORDER FOR MUSE Blood Pressure : / mmHG Vent. Rate : 084 BPM Atrial Rate : 084 BPM P-R Int : 158 ms QRS Dur : 090 ms QT Int : 382 ms P-R-T Axes : 061 081 059 degrees QTc Int : 451 ms Normal sinus rhythm. ST & T wave abnormality, consider anterior ischemia Abnormal ECG When compared with ECG of 05-JAN-2019 11:19, Sinus rhythm. has replaced Atrial fibrillation. Incomplete right bundle branch block is no longer present Confirmed by Kehinde PITTMAN, MDavid Arreola ([id number]) on 01/16/2019 8:29:29 AM
[2019-01-15] MEDS ORDERED: LASIX IV ONE (08:02)
[2019-01-15] MEDS: MUCOMYST 20% INH SCH ×2 (08:37→19:26)
--- NOTE | 2019-01-15 08:39 | ECHO REPORT ---
ORDER DATE: 01/14/2019 Limited echocardiogram to assess left ventricular systolic function. ECHOCARDIOGRAPHIC MEASUREMENTS: 1. Interventricular septum 0.8. 2. Left ventricular posterior wall 0.8. 3. Diastolic diameter 3.6. 4. Left atrium 3.3. SUMMARY: 1. Technically suboptimal study. 2. Pacing leads were noted in the right chamber. 3. Normal left ventricular cavity size. Estimated ejection fraction of 60 to 65%. 4. Mitral valve was normal. 5. There is mitral annular calcification. 6. There is mild mitral regurgitation. 7. There is mild tricuspid regurgitation. 8. Peak velocity across the tricuspid valve was 2.5 m/sec. 9. Pulmonary artery systolic pressure of 35 mmHg. 10. There is no pericardial effusion. There is anterior echo-free space suggestive of pericardial fat pad. cc: Fernando Jara MD
[2019-01-15] MEDS ORDERED: INSULIN PEN NEEDLES ONE (08:48)
[2019-01-15] MEDS: SODIUM CHLORIDE 0.9% INJ SCH (08:54)
[2019-01-15] MEDS: PROTONIX IV SCH (08:54)
[2019-01-15] MEDS: LEVEMIR SUBQ SCH (08:54)
[2019-01-15] MEDS: CULTURELLE PO SCH ×2 (08:55→21:39)
[2019-01-15] MEDS: COREG NG SCH ×2 (08:55→21:39)
[2019-01-15] MEDS: LOVENOX SUBQ SCH ×2 (08:56→21:39)
[2019-01-15] MEDS ORDERED: ASPIRIN PO SCH (09:15)
[2019-01-15] MEDS: MORPHINE IV PRN (09:17)
--- NOTE | 2019-01-15 09:38 | HEMO/ONC PROGRESS NOTE ---
DATE: 01/15/2019 HISTORY OF PRESENT ILLNESS/SUBJECTIVE: On Tuesday evening, the patient was found unresponsive with progressive hypoxia. She was intubated and transferred back to the ICU. The patient remains intubated this morning. Her eyes are open, although she does not follow any commands and does not appear to be responsive. She had no significant events yesterday or overnight. OBJECTIVE: Vital Signs: Temperature 98.2 degrees, pulse rate 68, respiratory rate 23, blood pressure 155/62, O2 saturation 100% on mechanical ventilation, 0/10 on Back Lynne faces scale. General: This is a chronically ill elderly female lying in bed, in no acute distress. Integumentary: Skin is warm and dry. Cardiovascular: Heart rate and rhythm regular. S1, S2 noted. Respiratory: The patient is intubated. Bilateral airway entry noted. Gastrointestinal: Bowel sounds positive. Soft, nontender, without distention. Extremities: Bilateral upper extremities have significant edema, ecchymosis in the right arm more so than the left. Bilateral lower extremities have +1 pitting edema. Cool to touch. Neurological: The patient does not follow any commands. She is not communicating. LABORATORY: WBC is 22.55, hemoglobin 10.7, hematocrit 31.7, platelet count is 186,000, ANC is 19.51. Sodium 126, potassium 2.8, creatinine 1.2, calcium 7.1, phosphorus 1.1. ASSESSMENT: 1. Extensive right upper extremity deep venous thrombosis. 2. Altered mental status, multifactorial. 3. Acute hypoxemic respiratory failure, intubated. 4. Sepsis. PLAN: There are no changes in orders for the patient's right upper extremity DVT. It is partly occlusive at the distal subclavian vein due to the PICC line placement. The patient needs to continue on Lovenox. We will continue to follow along. Dictated by BRENDAN Hampton for Drew Montana MD Patient seen and examined. As above. Patient intubated over the weekend. From hematology standpoint, continue Lovenox for DVT. No new recommendations. We will follow along peripherally. Drew Montana M.D. cc: Drew Montana MD [facility]
--- NOTE | 2019-01-15 10:21 | INFECTIOUS DISEASE PROGRESS NO ---
DATE: 01/15/2019 HISTORY OF PRESENT ILLNESS: Patient has bilateral pneumonia. She also has a deep venous thrombosis in the right arm where she has a PICC in place. MEDICATIONS: This is day 12 of vancomycin and day 1 of the combination of Levaquin and meropenem. PHYSICAL EXAMINATION: Vital Signs: Temperature is 98.4 degrees, pulse 70, respirations 16, blood pressure 155/62. General: This is an ill-appearing elderly female. She is intubated. She does not appear to be in any acute distress. HEENT: The patient has an orotracheal tube in place and a nasogastric tube in place. She did open her eyes a little bit. There is no drainage from the nose or ears. Neck: There did not seem to be any pain when I moved her neck. Lungs: Clear to auscultation. Cardiovascular: Heart rate is irregular. Abdomen: Soft. It is not tender. Thorax: Patient has a right-sided pacemaker in place. The site is not swollen or tender. Neurologic: The patient followed a request to move her arms, but she did not move her legs when I requested her to do it. She also seemed to track with her eyes. LAB AND X-RAY: Chest x-ray shows stable bilateral infiltrates. CBC shows a white count down to 22,550, hemoglobin 10.7, platelet count 186,000. Blood gases show a pH of 7.61, a PO2 of 56, a pCO2 of 36. Creatinine is 1.2, GFR is 44. Blood, sputum, and urine cultures are pending. ASSESSMENT AND PLAN: Patient has pneumonia with a white count that was increasing, now is decreasing. I am going to continue vancomycin for 2 more days to complete a 14 day course, and I am also going to continue Levaquin and meropenem. COMORBIDITIES: The patient is elderly. She has diabetes and chronic obstructive pulmonary disease. cc: Fabiano Reyes MD
[2019-01-15] MEDS: LEVAQUIN 500 MG/D5W 500 MG/100 ML IVPB IV SCH (12:23)
--- NOTE | 2019-01-15 12:33 | PROGRESS NOTE ---
DATE: 01/15/2019 Ms. Sandoval continues intubated and mechanically ventilated. She has not had major changes in her level of responsiveness. There is report that she might have squeezed hand to command earlier. On my exam today, she is a little bit more spontaneous with limb movement, particularly with the left arm, but I do not see anything purposeful. She did not communicate with me. She did not follow commands for me. She has full conjugate roving eye movement. There is spontaneous eye movement but she did not follow me from one side of the bed to the other. She did not look toward me when I called to her or when I asked her to look in one direction. IMPRESSION: Persistent global encephalopathy, concern for anoxic brain injury. Initial CT was unremarkable. 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 I do not think we need to repeat the MRI but it would be reassuring to repeat the noncontrast CT to look for laminar necrosis or other cortical change. Next step would be electroencephalogram. I have ordered these. Thanks for asking neurology to see Ms. Sandoval. cc: MD RAFAEL Lake III
[2019-01-15] MEDS: D50W SYRINGE IV PRN ×2 (12:43→20:46)
--- NOTE | 2019-01-15 17:46 | Diag Imaging Result Doc PS360 ---
EXAM: CT HEAD W/O CONTRAST 01/15/2019 HISTORY: persistent unresponsiveness TECHNIQUE: This exam was performed using automated exposure control, adjustment of mA or kV according to patient size, and/or use of iterative reconstruction technique. COMMENT: There are extensive abnormal lucency throughout the white matter of both hemispheres with small lacunae in the thalamus bilaterally and apparent lucency in the upper pavan. There is no evidence of mass effect or bleed. There is extensive dense calcification in the vertebral arteries and internal carotid arteries bilaterally. Compared to the previous study of 01/03/2019 there has been no appreciable change. IMPRESSION: Extensive chronic microvascular changes. No evidence of acute disease. Electronically signed by Celestine Marino 01/15/2019 5:43 PM
--- NOTE | 2019-01-15 17:57 | PROGRESS NOTE ---
DATE: 01/15/2019 SUBJECTIVE: The patient is resting comfortably. Her eyes are open, and she moves her arms, but does not follow commands or track people in the room. OBJECTIVE: Temperature maximum 98.1 degrees, blood pressure 132/56, heart rate 70, respirations 25, O2 saturation is 97% on mechanical ventilator.General: This is a chronically ill appearing female lying in bed in no acute distress. Heart: S1, S2. Normal. Tachycardic. Lungs: Equal air entry bilaterally. No wheezing. No rales. Abdomen: Positive bowel sounds. Soft, nontender, nondistended. Extremities: Anasarca in the upper extremity. 2+ edema in the lower extremities. Neurological: The patient opens her eyes but does not follow commands. DIAGNOSTIC STUDIES: White blood cell count 22, hemoglobin 10, hematocrit 31, platelets 186,000. ABG: PH of 7.61, pCO2 of 36, PO2 of 56, bicarbonate 35. Sodium 126, potassium 3.2, chloride 83, CO2 of 34, BUN 30, creatinine 1.2, glucose 303, albumin 1.7. ASSESSMENT AND PLAN: 1. Acute hypoxemic respiratory failure status post reintubation. Continue with ventilatory support as directed by the machine sign writer. 2. Pneumonia. Continue with antibiotic therapy as directed by Dr. Reyes. 3. Sepsis. We will try and wean the patient off of the Levophed drip. Repeat cultures are negative so far. Continue with broad-spectrum antibiotics. 4. Status post cardiac arrest. Aware. 5. Acute kidney injury. We will check urine studies. 6. Extensive right upper extremity deep vein thrombosis. Continue on Lovenox. 7. Encephalopathy. Unchanged. 8. Subacute cerebrovascular accident. Aware. 9. Protein calorie malnutrition. We will restart the patient's tube feedings. 10. Status post recent pacemaker implantation. Aware. 11. Volume overload. Will give lasix today. 12. Gastrointestinal prophylaxis. Continue on Nexium. DISPOSITION: The patient is critically ill with a high risk of mortality. The patient is currently a DNR level 2. Palliative Care is following. cc: MD RAFAEL Sibley
[2019-01-16] MEDS: HUMULIN R SUBQ SCH ×6 (00:58→20:04)
[2019-01-16] MEDS: MERREM 1 GM in NS 50 ML IV SCH ×3 (02:18→18:34)
[2019-01-16] MEDS: LEVOPHED 8 MG in D5 1/2 NS 250 ML IV SCH ×3 (02:58→20:03)
[2019-01-16] MEDS: ATROVENT NEB INH SCH ×4 (03:22→19:24)
[2019-01-16] MEDS: XOPENEX NEB INH SCH ×4 (03:22→19:24)
[2019-01-16 04:32] LABS: ALLEN TEST YES; BE 10.8 mmoll (-3.0-3.0); BLOOD TYPE ARTERIAL; HCO3-(ACT) 33.3 mmoll (20.0-26.0); METHB 1.3 % (0.0-1.5); O2(CT) 14.3 mL/dL (15.0-23.0); O2HB 96.3 % (95.0-99.0); PCO2(98.6) 39 mmHg (35-45); PO2(98.6) 90 mmHg (60-100); SAMPLE BLOOD; SAO2 99.1 % (95.0-100.0); SRATE 12 BPM; THB 10.5 g/dL (11.5-17.4); TVOL 500 mL; pH(98.6) 7.55 (7.35-7.45)
[2019-01-16 04:33] LABS: MODALITY VENTILATOR
[2019-01-16 05:03] LABS: BASO# 0.03 X1000 (0.0-0.2); BASO% 0.2 % (0.0-0.8); EOS# 0.29 X1000 (0.0-0.7); EOS% 1.6 % (0.0-10.0); HEMATOCRIT 29.8 % (37.0-47.0); HEMOGLOBIN 9.9 g/dL (12.0-16.0); IMM GRAN# 0.17 X1000 (0.0-0.04); IMM GRAN% 0.9 % (0.0-0.5); LYMPH# 1.88 X1000 (1.2-3.4); LYMPH% 10.5 % (20.5-51.1); MCH 28.4 PG (27-31); MCHC 33.2 g/dL (33-37); MCV 85.6 FL (81-99); MONO# 1.08 X1000 (0.11-0.59); MPV 12.8 FL (7.4-10.4); NEUT# 14.52 X1000 (1.4-6.5); NEUT% 80.8 % (42.2-75.2); PLT 178 X1000 (130-400); RBC 3.48 XMIL (4.2-5.4); RDW 15.7 % (11.5-14.5); WBC 17.97 X1000 (4.8-10.8)
[2019-01-16 05:33] LABS: ALB/GLOB RATIO 0.5; ALBUMIN 1.7 g/dL (3.5-5.0); DIRECT BILIRUBIN 0.1 mg/dL (0.00-0.20); PHOSPHORUS 4.3 mg/dL (2.7-4.5); TOTAL BILIRUBIN 0.22 mg/dL (0.20-1.00)
[2019-01-16 05:34] LABS: POTASSIUM 3.4 mmol/L (3.5-5.1)
[2019-01-16 05:35] LABS: CALCIUM 7.4 mg/dL (8.8-10.2); CREATININE 1.5 mg/dL (0.5-0.9)
[2019-01-16] MEDS: MORPHINE IV PRN ×3 (05:43→22:30)
[2019-01-16] MEDS ORDERED: POTASSIUM CHLORIDE 40 MEQ/SWI 40 MEQ/100 ML IVPB IV ONE (06:16)
--- NOTE | 2019-01-16 07:13 | Diag Imaging Result Doc PS360 ---
EXAM: CHEST-PORTABLE 01/16/2019 HISTORY: pneumonia TECHNIQUE: AP portable at 0552 COMMENT: There is an endotracheal tube with its tip approximately 2 cm above the jamey and an NG tube which passes below the diaphragm. There is some hazy opacity over the lung bases presumably due to interstitial pulmonary edema. This was also present on the previous study of 01/15/2019. Overall there has been no appreciable change. IMPRESSION: Pulmonary edema. Electronically signed by Celestine Marino 01/16/2019 7:10 AM
[2019-01-16] MEDS ORDERED: VANCOMYCIN 1 GM/NS 1 GM/250 ML IVPB IV ONE (08:46)
[2019-01-16] MEDS: LOVENOX SUBQ SCH ×2 (09:00→21:57)
[2019-01-16] MEDS: CULTURELLE PO SCH ×2 (09:00→21:57)
[2019-01-16] MEDS: PROTONIX IV SCH (09:00)
[2019-01-16] MEDS: SODIUM CHLORIDE 0.9% INJ SCH (09:00)
[2019-01-16] MEDS ORDERED: VANCOMYCIN IV PER PHARMACY MISC SCH (09:00)
[2019-01-16] MEDS: LEVEMIR SUBQ SCH (09:00)
[2019-01-16] MEDS: COREG NG SCH ×2 (09:00→21:57)
[2019-01-16] MEDS: TRANSDERM-SCOP TD SCH (09:00)
--- NOTE | 2019-01-16 09:14 | INFECTIOUS DISEASE PROGRESS NO ---
DATE: 01/16/2019 PRESENT ILLNESS: The patient has bilateral pneumonia. She also has deep venous thrombosis in her right arm and legs. MEDICATIONS: This is day 13 of vancomycin, and day 2 of Levaquin and meropenem. PHYSICAL EXAMINATION: Vital Signs: Temperature is 98 degrees, pulse 68, respirations 20, blood pressure 106/46. General: This is an ill-appearing female. She is intubated and obtunded. HEENT: She has an orotracheal tube and nasogastric tube in place. Her eyelids are closed. Neck: No meningismus. Lungs: Clear to auscultation. Cardiovascular: Heart rate is regular. Abdomen: Soft and nontender. Thorax: The patient has a right-sided pacemaker in place. The site is not swollen or erythematous. Neurologic: Today, the patient, as mentioned above, is obtunded. She did not respond to verbal stimuli. She does not have a tremor. IMAGING AND LABORATORY DATA: Chest x-ray shows continued bilateral infiltrates. CBC shows a white count of 17,970, hemoglobin 9.9, and platelet count 178,000. Blood gases show a pH of 7.55, a PO2 of 90, and a pCO2 of 39. Creatinine is 1.5. GFR is 34. Urine and sputum cultures are pending. Blood cultures are negative. ASSESSMENT AND PLAN: The patient has pneumonia with an increasing white count. The patient's creatinine is increasing. I have discontinued vancomycin, but I plan to continue with Levaquin and meropenem. COMORBIDITIES: The patient is elderly. She also has diabetes mellitus and chronic obstructive pulmonary disease. cc: Fabiano Reyes MD
[2019-01-16] MEDS: LEVAQUIN 500 MG/D5W 500 MG/100 ML IVPB IV SCH (11:28)
[2019-01-16] MEDS: MUCOMYST 20% INH SCH ×2 (11:44→19:24)
[2019-01-16] MEDS ORDERED: ALBUMIN 25% IV ONE (12:17)
[2019-01-16] MEDS ORDERED: LASIX IV ONE (12:18)
--- NOTE | 2019-01-16 12:26 | EEG REPORT ---
DATE: 01/15/2019 REFERRING PHYSICIAN: Dr. Charly Watts. COMMERCIAL LEASING MANAGER: Beba Paige. BACKGROUND INFORMATION AND TECHNIQUE: This is a digitally recorded portable routine EEG with video. HISTORY: A 73-year-old female, status post cardiac arrest with persistent poor responsiveness. EEG is ordered to detect evidence of seizures. EEG FINDINGS: A posterior dominant alpha rhythm is not seen. The background consists of theta, delta slowing some intermixed faster frequencies at times. No definite persistent focal slowing. No definite epileptiform discharges. No seizures. Hyperventilation and photic stimulation are not performed. No definite drowsiness patterns. Stage II sleep is not seen. EKG shows some irregularity with the RR intervals. IMPRESSION AND CLINICAL CORRELATION: Abnormal routine EEG due to moderate generalized slowing indicative of a moderate nonspecific encephalopathy. No epileptiform discharges or seizures seen on this study. This does not rule out an underlying seizure disorder. General slowing is a nonspecific finding that can be seen in processes that diffusely affect the cerebrum including toxic, metabolic, pharmacologic, post hypoxic and infectious etiologies amongst others. Clinical correlation is recommended. cc: MD Charly Crowley III, MD
--- NOTE | 2019-01-16 14:39 | PROGRESS NOTE ---
DATE: 01/16/2019 SUBJECTIVE: No major overnight events. Since I last saw the patient, she was reintubated. MRI showed some small scattered recent infarcts in the cerebellar hemispheres, as well as atrophy. A repeat head CT yesterday did not show acute findings and there was no appreciable change from previous. Report from family is that she communicates with eye blinks. OBJECTIVE: Afebrile. Blood pressure 140s over 50s, respirations 19, pulse 70s. Ms Sandoval is supine in bed. She is intubated with eyes closed. She opens her eyes to moderate voice. She does not definitely regard today. No commands. She does not track. She occasionally moves the direction of her gaze spontaneously, though I do not see constant roving eye movements today. She is easily waked but seems to drift back to sleep. She grimaces to noxious stimuli in all extremities. There is not consistent blink to threat. Pupils are equal and sluggishly reactive. There is slightly more movement of the right arm today in response to noxious stimuli, grading 2/5. No change with the other extremities. LABORATORY: White count 17 which is down trending. Sodium 132, BUN 32, creatinine 1.5; these are trending up. Blood sugars 150s to 300s. Calcium of 7.4. AST and ALT normal today. Urinalysis reviewed. EEG was personally reviewed. Abnormal with moderate generalized slowing. No epileptiform discharges or seizures. ASSESSMENT/PLAN: 1. 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 2. Pneumonia, sepsis. 3. Right upper extremity deep vein thrombosis, on lovenox. 4. Status post cardiac arrest. There is no evidence of subclinical seizure activity on recent EEG. I would continue current management as you are doing and see how she does. If she does not show improvement, we might repeat the EEG. Hold all sedating medications. cc: Frances Green MD [facility]
--- NOTE | 2019-01-16 15:39 | INFECTIOUS DISEASE PROGRESS NO ---
DATE: 01/16/2019 ADDENDUM: The microbiology laboratory called to let us know that the patient's sputum is growing methicillin-resistant Staph aureus. Because of this new finding, I have placed the patient on Zyvox. The patient was on vancomycin for a prolonged time, but it looks like it did not get rid of the methicillin-resistant Staph aureus, so I am adding Zyvox as mentioned above. cc: Fabiano Reyes MD
--- NOTE | 2019-01-16 15:48 | Diag Imaging Result Doc PS360 ---
US RENAL 2 (RETROPER) COMPLETE - 01/16/2019 INDICATION: sobia/arf TECHNIQUE: COMPARISON: CT from 01/03/2019 FINDINGS: There is a small gallstone the gallbladder measuring less than a centimeter. The left kidney is atrophic. The left kidney measures 8 x 3.7 x 3.6 cm. There is a small left renal cyst measuring 1.4 cm. The right kidney is normal. The right kidney measures 12 x 5 x 5.1 cm. No hydronephrosis. There is a Calix catheter. The urinary bladder is collapsed. IMPRESSION: 1. Atrophic left kidney. Small left renal cyst. No acute abnormality. 2. Small gallstone the gallbladder. Electronically signed by Shaun 01/16/2019 3:45 PM
[2019-01-16] MEDS: ZYVOX 600 MG/D5W 600 MG/300 ML IVPB IV SCH (16:06)
--- NOTE | 2019-01-16 17:01 | PROGRESS NOTE ---
DATE: 01/16/2019 SUBJECTIVE: The patient is currently on the ventilator. She has some bleeding on the right side of her mouth. She opens her eyes, but does not follow commands. OBJECTIVE: Vital Signs: Temperature 97.5 degrees, blood pressure 104/42, heart rate 70, respirations 18, and O2 saturations 100% on the mechanical ventilator, FiO2 of 40%. Intake 3.2 liters and output 3.7 liters. General: This is a chronically ill-appearing female lying in bed on the mechanical ventilator. Skin: The patient has multiple ecchymotic lesions on her arms. Heart: S1 and S2 normal. Tachycardic. Lungs: Equal air entry bilaterally. No wheezing. No rales. Abdomen: Positive bowel sounds. Soft, nontender, nondistended. Extremities: The patient has anasarca involving the upper extremities, 2+ edema in the lower extremities. Neurologic: The patient opens her eyes but does not follow commands. LABORATORIES: White blood cell count 17, hemoglobin 9.9, hematocrit 29, platelets 178,000. Sodium 132, potassium 4.2, chloride 91, CO2 of 29, BUN 32, creatinine 1.5, glucose 157, albumin 1.7, and proBNP 13,474. IMAGING STUDIES: Chest x-ray shows pulmonary edema. Renal ultrasound shows small gallstone in the gallbladder, atrophic left kidney. ASSESSMENT AND PLAN: 1. Acute hypoxemic respiratory failure, status post re-intubation. Continue with ventilatory support as directed by the mold filler. 2. Pneumonia secondary to methicillin-resistant Staphylococcus aureus. Continue with antibiotic therapy as directed by Dr. Reyes. 3. Sepsis. Continue to try and wean the patient off of the Levophed drip. Continue with antibiotic therapy. 4. Status post cardiac arrest. Aware. 5. Acute kidney injury. The patient has volume overload. The patient's urine output remains adequate. We will continue to monitor closely. 6. Extensive right upper extremity deep vein thrombosis. Continue on Lovenox. 7. Right lower extremity deep vein thrombosis. Continue on Lovenox. 8. Subacute cerebrovascular accident. Aware. 9. Encephalopathy. We will continue to monitor the patient for improvement. 10. Protein calorie malnutrition. Continue on tube feeds. 11. Status post recent pacemaker implantation. Aware. 12. Volume overload. We will give the patient a dose of Lasix today. 13. Gastrointestinal prophylaxis. Continue on Nexium. 14. Disposition. The patient is critically ill with a high risk of mortality. The patient is a is currently a Do Not Resuscitate level 2. Palliative care is following. cc: Padma Gonzalez MD MTDD
[2019-01-17] MEDS: HUMULIN R SUBQ SCH ×7 (00:47→23:41)
[2019-01-17] MEDS: D50W SYRINGE IV PRN (00:48)
[2019-01-17] MEDS: LEVOPHED 8 MG in D5 1/2 NS 250 ML IV SCH ×3 (02:34→23:31)
[2019-01-17] MEDS: ZYVOX 600 MG/D5W 600 MG/300 ML IVPB IV SCH ×2 (02:53→16:05)
[2019-01-17] MEDS: MERREM 1 GM in NS 50 ML IV SCH ×2 (02:53→11:36)
[2019-01-17] MEDS: ATROVENT NEB INH SCH ×4 (03:16→21:40)
[2019-01-17] MEDS: XOPENEX NEB INH SCH ×4 (03:16→21:40)
[2019-01-17 04:31] LABS: ALLEN TEST YES; BE 8.8 mmoll (-3.0-3.0); BLOOD TYPE ARTERIAL; HCO3-(ACT) 31.8 mmoll (20.0-26.0); MODALITY VENTILATOR; O2(CT) 6.3 mL/dL (15.0-23.0); O2HB 96.4 % (95.0-99.0); PCO2(98.6) 42 mmHg (35-45); PO2(98.6) 93 mmHg (60-100); SAMPLE BLOOD; SAO2 99.3 % (95.0-100.0); SRATE 12 BPM; THB 4.5 g/dL (11.5-17.4); TVOL 500 mL
[2019-01-17 05:48] LABS: CREATININE 1.9 mg/dL (0.5-0.9); POTASSIUM 3.7 mmol/L (3.5-5.1)
[2019-01-17 05:49] LABS: ALB/GLOB RATIO 0.9; ALBUMIN 2.2 g/dL (3.5-5.0); CALCIUM 7.7 mg/dL (8.8-10.2); DIRECT BILIRUBIN 0.1 mg/dL (0.00-0.20); TOTAL BILIRUBIN 0.35 mg/dL (0.20-1.00); TOTAL PROTEIN 4.6 g/dL (6.3-8.3)
[2019-01-17 05:51] LABS: MAGNESIUM 2.1 mg/dL (1.5-2.7); PHOSPHORUS 3.7 mg/dL (2.7-4.5)
[2019-01-17 06:19] LABS: BASO# 0.03 X1000 (0.0-0.2); BASO% 0.3 % (0.0-0.8); EOS# 0.45 X1000 (0.0-0.7); EOS% 4.1 % (0.0-10.0); HEMATOCRIT 23.3 % (37.0-47.0); HEMOGLOBIN 7.7 g/dL (12.0-16.0); IMM GRAN% 0.9 % (0.0-0.5); LYMPH# 1.74 X1000 (1.2-3.4); LYMPH% 15.9 % (20.5-51.1); MCH 28.9 PG (27-31); MCV 87.6 FL (81-99); MONO# 0.72 X1000 (0.11-0.59); MONO% 6.6 % (1.7-9.3); MPV 12.7 FL (7.4-10.4); NEUT# 7.89 X1000 (1.4-6.5); NEUT% 72.2 % (42.2-75.2); PLT 139 X1000 (130-400); RBC 2.66 XMIL (4.2-5.4); RDW 15.8 % (11.5-14.5); WBC 10.93 X1000 (4.8-10.8)
--- NOTE | 2019-01-17 07:13 | Diag Imaging Result Doc PS360 ---
EXAM: CHEST-PORTABLE 01/17/2019 HISTORY: vent protocol TECHNIQUE: AP portable at 0534 COMMENT: There is an endotracheal tube with its tip 1 cm above the jamey. There is an NG tube which passes below the diaphragm. There is hazy opacity over the lower lung ojeda consistent with pulmonary edema. Compared to 01/16/2019 there is slightly more pleural fluid on the left. IMPRESSION: Pulmonary edema. Left pleural effusion. Electronically signed by Celestine Marino 01/17/2019 7:11 AM
--- NOTE | 2019-01-17 08:34 | Extremity Venous Study ---
PROCEDURE NAME: Venous U/S Right Leg - 01/15/2019 REFERRING PHYSICIAN: Dr. Gonzalez. READING PHYSICIAN: Leonardo Estrella MD. KNAPSACK SPRAYER: Oliver. INDICATION: Right leg swelling. FINDINGS: Thrombus is noted at the saphenofemoral junction with decreased compressibility. This extends into the proximal superficial femoral vein throughout the mid to distal superficial femoral vein and into the popliteal vein. The right deep femoral and peroneal veins, and greater saphenous veins were imaged. They are compressible and patent without thrombus. INTERPRETATION: Extensive acute deep venous thrombosis of the right common femoral, superficial femoral, and popliteal veins. cc: MD Geeta Denis CRNP
--- NOTE | 2019-01-17 08:37 | INFECTIOUS DISEASE PROGRESS NO ---
DATE: 01/17/2019 PRESENT ILLNESS: The patient has a methicillin-resistant Staph aureus bilateral pneumonia. The patient also has deep venous thrombosis in her right arm and legs. MEDICATIONS: This is day 1 of treatment with Zyvox, and day 3 of treatment with meropenem and Levaquin. PHYSICAL EXAMINATION: Vital Signs: Temperature is 98.2 degrees, pulse 77, respirations 18, blood pressure 119/52. General: This is an ill-appearing, elderly female. She is intubated and obtunded. HEENT: Has an orotracheal tube in, and also a nasogastric tube in place. Neck: No meningismus. Lungs: Clear to auscultation. Cardiovascular: Heart rate is regular. Abdomen: Soft and nontender. Thorax: The patient has a right-sided pacemaker in place. The site is not swollen or red. Neurologic: The patient is obtunded. She did not respond to verbal stimuli. She does not have a tremor. Extremities: The patient has a PICC in her right arm. There is less swelling in the right arm. Now, the left arm is more swollen, and it is erythematous also. IMAGING AND LABORATORY DATA: Chest x-ray shows bilateral opacities and left pleural effusion. Creatinine is 1.9. GFR is 26. Blood gases show a pH of 7.5, a PO2 of 93, and a pCO2 of 42. Liver function studies are normal. Sputum grew methicillin-resistant Staph aureus. Urine grew yeast. ASSESSMENT AND PLAN: The patient has pneumonia. My plan will be to continue Zyvox, and hopefully the patient's blood counts will not continue to decrease more. Also, I plan to stop in the next day or two Levaquin because the patient's pulmonary infection most likely is due to methicillin-resistant Staphylococcus aureus. I probably will continue meropenem because the patient has cellulitis of her arms, and it may be due to some organism other than the methicillin-resistant Staphylococcus aureus in her sputum. COMORBIDITIES: The patient is elderly. She also has diabetes mellitus and chronic obstructive pulmonary disease. cc: MD RAFAEL Ng
[2019-01-17] MEDS: COREG NG SCH ×2 (09:24→20:52)
[2019-01-17] MEDS: CULTURELLE PO SCH ×2 (09:24→20:52)
[2019-01-17] MEDS: SODIUM CHLORIDE 0.9% INJ SCH (09:24)
[2019-01-17] MEDS: PROTONIX IV SCH (09:24)
[2019-01-17] MEDS: MUCOMYST 20% INH SCH ×2 (09:31→21:39)
[2019-01-17] MEDS: LEVEMIR SUBQ SCH (09:34)
[2019-01-17] MEDS: LEVAQUIN 500 MG/D5W 500 MG/100 ML IVPB IV SCH (11:36)
[2019-01-17] MEDS: MORPHINE IV PRN (11:37)
[2019-01-17 12:48] LABS: INR 1.13; PROTIME 14.6 Seconds (11.0-16.0)
[2019-01-17 14:34] LABS: HEMATOCRIT 24.6 % (37.0-47.0)
--- NOTE | 2019-01-17 15:39 | PROGRESS NOTE ---
DATE: 01/17/2019 SUBJECTIVE: The patient remains on the ventilator. She has been having bleeding from the ET tube. She is also on a Levophed drip. OBJECTIVE: Vital Signs: Temperature 98.1 degrees, blood pressure 118/53, heart rate 70, respirations 24, O2 saturation 99% on the mechanical ventilator. Intake 3.2 L. Output 3.7 L. General: This is a chronically ill-appearing elderly female, on the ventilator. Head: Normocephalic, atraumatic. Heart: S1, S2 normal. Regular rate and rhythm. Lungs: Equal air entry bilaterally. Diminished breath sounds at the bases. Abdomen: Positive bowel sounds. Soft, nontender, nondistended. Extremities: The patient has anasarca involving the upper extremities. Trace pedal edema in the lower extremities. Neurologic: The patient opens her eyes but does not follow commands. LABS: White blood cell count 10, hemoglobin 8, hematocrit 24, platelets 139,000. Sodium 130, potassium 3.7, chloride 92, CO2 26, BUN 36, creatinine 1.9, glucose 182. AST 24, ALT 12, alkaline phosphatase 63, albumin 2.2. Chest x-ray shows left perihilar and basilar opacification. ASSESSMENT AND PLAN: 1. Acute hypoxemic respiratory failure status post reintubation. Continue to treat the underlying volume overload and pneumonia. Further management as per the finishing department supervisor. 2. Pneumonia secondary to methicillin resistant Staphylococcus aureus. Continue on Zyvox. 3. Sepsis. We will continue to try and wean the patient off of the Levophed drip. We will continue to treat the underlying infection. 4. Status post cardiac arrest. Aware. 5. Acute kidney injury. Worse today. The urine output is adequate. This is likely multifactorial. We will consult Nephrology for further recommendations. 6. Extensive right upper extremity deep venous thrombosis. Continue on Lovenox. 7. Right lower extremity deep vein thrombosis. Continue on Lovenox. 8. Subacute cerebrovascular accident. Aware. The patient's mental status has not improved over the last week. The patient's family is aware. 9. Encephalopathy. Unchanged. 10. Protein calorie malnutrition. Continue on tube feeds. 11. Anemia. Hemoglobin and hematocrit are lower today. We will continue to monitor closely. 12. Volume overload. Slightly improved today. 13. Status post recent pacemaker implantation. Aware. 14. Gastrointestinal prophylaxis. Continue on Nexium. 15. Disposition. The patient is critically ill with a high risk of mortality. The patient is currently a DNR level 2. Palliative Care is following. cc: Padma Gonzalez MD [facility]TD[facility]
[2019-01-17] MEDS: MERREM 500 MG in NS 50 ML IV SCH (18:04)
--- NOTE | 2019-01-17 18:09 | PROGRESS NOTE ---
DATE: 01/17/2019 SUBJECTIVE: The patient received morphine approximately an hour before my evaluation. Nurse reports that the patient seems to communicate with eye blinks to him. She also tracked him across the room. She seemed to indicate that she was in pain. OBJECTIVE: Afebrile. Blood pressure 109/56. Pulse 60s. She remains supine in bed with head of bed elevated. She is on the ventilator. She opened her eyes to loud voice. She does not definitely follow commands. She does not definitely blink to threat. She does not have roving eye movements. However, she does move the direction of her gaze spontaneously from time to time. When I call her from the other side of her bed, she may have moved her eyes to that side briefly in response, but I am not certain about that. LABS: White count 10.9. Sodium 130. BUN 36, creatinine 1.9. ASSESSMENT AND PLAN: 1. Global encephalopathy, recent ischemic infarct within the bilateral cerebellar hemispheres, question of anoxic encephalopathy. 2. Pneumonia, sepsis. 3. Upper and lower extremity deep venous thrombosis, on Lovenox. 4. Status post cardiac arrest. Nothing definite to add to today from a neurologic standpoint in light of recent morphine administration. There are reports that she may have been more interactive before that dose. I did not see definite findings today, but we will keep monitoring her progress. I would hold all sedating medications. cc: Frances Green MD
[2019-01-17] MEDS: LOVENOX SUBQ SCH (20:52)
--- NOTE | 2019-01-17 21:04 | NEPHROLOGY CONSULTATION ---
DATE: 01/17/2019 REASON FOR ADMISSION: Unresponsive apneic breathing. REASON FOR CONSULTATION: Assist with management, acute kidney injury. CONSULTING PHYSICIAN: Padma Gonzalez MD HISTORY OF PRESENT ILLNESS: This is a 73-year-old female, who has been in the hospital for 2 weeks now. She came into the hospital originally with apneic breathing, hypoxia requiring intubation. The patient initially had a creatinine of 1.3 on admission. She had some modest improvement initially with creatinine improving down to 0.7. Over the last several days, she has had multiple pock hypotensive events with blood pressures down even into systolic of 50s. She has been placed on pressor support. She remains mechanically ventilated and unresponsive. The patient over the course of the hospitalization has developed pneumonia as well as sepsis. Her creatinine today has increased to 1.9. She has a sodium of 130, potassium of 3.7. Her WBC is 10.9, hemoglobin 7.7. PAST MEDICAL HISTORY: Hypertension, diabetes, hyperlipidemia, COPD, coronary artery disease. SURGICAL HISTORY: Hysterectomy. Coronary stenting, pacemaker. ALLERGIES: None. CURRENT MEDICATIONS: Mucomyst, Coreg, Lovenox, Levemir, Humulin, Atrovent, labetalol, Culturelle, Xopenex, Levaquin. Zyvox, Merrem, morphine. Norepinephrine, Protonix. FAMILY HISTORY: Noncontributory. SOCIAL HISTORY: She is a resident of a local skilled Facility. No current ETOH, tobacco or illicit drug use. She does have a history of smoking previously. REVIEW OF SYSTEMS: Unobtainable. PHYSICAL EXAMINATION: Vital Signs: Temperature 98.8 degrees, pulse 69, respiratory rate 22, blood pressure currently 90s over 40s. Intake over the last 24 hours 3.8 L. Output 3.1 L. 2.4 L of this was urine output. General: Critically ill-appearing, elderly female resting in bed, unresponsive. She is mechanically ventilated. HEENT: Normocephalic, atraumatic, conjunctivae are pale. Oral mucosa is extremely dry. She is orally intubated. Neck: Supple. She has positive JVD. Cardiovascular: She has a regular rate with a gallop. Pulmonary: She is clear bilaterally. Remains mechanically ventilated. Abdomen: Soft. Hypoactive. Genitourinary: Calix catheter. Extremities: She has 2+ edema. She has ulcers noted bilateral heels. She has mottling noted to feet. Integumentary: Skin is warm and dry. Neurologic: Unresponsive. LABORATORY DATA: As above, WBC of 10.9, hemoglobin 7.7. Platelets 130,000. Sodium 130. Potassium 3.7, CO2 26, creatinine 1.9 (1.5, 1.2, 1.0), calcium 7.7, albumin 2.2. She had a renal ultrasound yesterday indicated kidney sizes 8 cm and 12 cm. Atrophic left kidney. Chest x-ray today with pulmonary edema. Left pleural effusion. ASSESSMENT AND PLAN: 1. Ischemic ATN secondary to hypotensive episodes plus sepsis plus decreased cardiac output plus current medications. We will adjust her Levaquin and Merrem. She is making excellent urine currently. She has no absolute indications for intervention today. We will continue to check her labs and follow closely. 2. Pneumonia. See above for plan. 3. Hypoxemic respiratory failure, left pleural effusion. She is followed by pulmonology. She continues on diuretic therapy. Again, she is making excellent urine. Dictated by [employer] for Manjeet Pires MD Face to face encounter, data reviewed, discussed with Kita Louie on 01/17/19. I agree with the above assessment and plan of care. cc: MD Padma De Oliveira MD [facility]
[2019-01-18] MEDS: MERREM 500 MG in NS 50 ML IV SCH ×3 (01:17→17:31)
[2019-01-18] MEDS: ATROVENT NEB INH SCH ×4 (03:44→21:44)
[2019-01-18] MEDS: XOPENEX NEB INH SCH ×4 (03:44→21:44)
[2019-01-18] MEDS: ZYVOX 600 MG/D5W 600 MG/300 ML IVPB IV SCH ×2 (04:12→15:22)
[2019-01-18] MEDS: HUMULIN R SUBQ SCH ×5 (04:39→20:51)
[2019-01-18 04:41] LABS: ALLEN TEST YES; BLOOD TYPE ARTERIAL; HCO3-(ACT) 29.6 mmoll (20.0-26.0); METHB 1.7 % (0.0-1.5); O2(CT) 8.7 mL/dL (15.0-23.0); O2HB 96.3 % (95.0-99.0); PCO2(98.6) 35 mmHg (35-45); PO2(98.6) 121 mmHg (60-100); SAMPLE BLOOD; SAO2 99.5 % (95.0-100.0); SRATE 12 BPM; THB 6.2 g/dL (11.5-17.4); TVOL 500 mL; pH(98.6) 7.53 (7.35-7.45)
[2019-01-18 04:42] LABS: MODALITY VENTILATOR
[2019-01-18 06:13] LABS: BASO# 0.03 X1000 (0.0-0.2); BASO% 0.2 % (0.0-0.8); EOS# 0.61 X1000 (0.0-0.7); HEMATOCRIT 23.6 % (37.0-47.0); HEMOGLOBIN 7.6 g/dL (12.0-16.0); IMM GRAN# 0.12 X1000 (0.0-0.04); LYMPH# 2.17 X1000 (1.2-3.4); LYMPH% 17.7 % (20.5-51.1); MCH 27.9 PG (27-31); MCHC 32.2 g/dL (33-37); MCV 86.8 FL (81-99); MONO# 1.16 X1000 (0.11-0.59); MONO% 9.5 % (1.7-9.3); MPV 13.6 FL (7.4-10.4); NEUT# 8.14 X1000 (1.4-6.5); NEUT% 66.6 % (42.2-75.2); PLT 140 X1000 (130-400); RBC 2.72 XMIL (4.2-5.4); RDW 15.6 % (11.5-14.5); WBC 12.23 X1000 (4.8-10.8)
[2019-01-18 06:33] LABS: ALB/GLOB RATIO 0.7; CALCIUM 7.9 mg/dL (8.8-10.2); DIRECT BILIRUBIN 0.2 mg/dL (0.00-0.20); POTASSIUM 4.1 mmol/L (3.5-5.1); TOTAL BILIRUBIN 0.34 mg/dL (0.20-1.00); TOTAL PROTEIN 4.8 g/dL (6.3-8.3)
[2019-01-18] MEDS: LEVOPHED 8 MG in D5 1/2 NS 250 ML IV SCH ×2 (08:07→20:52)
--- NOTE | 2019-01-18 08:49 | INFECTIOUS DISEASE PROGRESS NO ---
DATE: 01/18/2019 PRESENT ILLNESS: Patient has methicillin-resistant Staph aureus bilateral pneumonia. She also has bilateral arm cellulitis. The patient also has deep venous thrombosis in her right arm and legs. MEDICATIONS: The patient is on day 2 of treatment with Zyvox and day 4 of treatment with meropenem and Levaquin. PHYSICAL EXAMINATION: Vital Signs: Temperature is 99 degrees, pulse 77, respirations 20, blood pressure 130/54. General: This is an ill-appearing elderly female. She is intubated. HEENT: She has an orotracheal tube and nasogastric tube in place. No drainage was noted from the nose or ears. Neck: Supple. Lungs: Clear to auscultation. Cardiovascular: Heart rate is regular. Thorax: Patient has a right-sided pacemaker in place. The site is not swollen or red. Abdomen: Soft and nontender. Extremities: Both arms are erythematous and slightly swollen but less than they were a week ago. The patient continues to have a PICC in her right arm. The site is not purulent or swollen. Neurologic: The patient's eyes were slightly open. She did not follow request to move her extremities. There was no tremor. LAB AND X-RAY: Chest x-ray shows bibasilar opacities. Liver function studies are normal. Sputum is growing methicillin-resistant Staph aureus. Creatinine is 2. GFR is 24. CBC shows a white count of 12,230, hemoglobin 7.6, and platelet count 140,000. Blood gases show a pH of 7.53, a PO2 of 121, and a pCO2 of 35. ASSESSMENT AND PLAN: The patient has pneumonia and arm cellulitis. I am going to continue with Zyvox and meropenem and I have discontinued Levaquin. COMORBIDITIES: The patient is elderly and she also is a diabetic and she has chronic obstructive pulmonary disease. cc: Fabiano Reyes MD
[2019-01-18] MEDS: MUCOMYST 20% INH SCH ×2 (09:22→21:44)
[2019-01-18] MEDS: SODIUM CHLORIDE 0.9% INJ SCH (09:59)
[2019-01-18] MEDS: CULTURELLE PO SCH ×2 (09:59→20:57)
[2019-01-18] MEDS: PROTONIX IV SCH (09:59)
[2019-01-18] MEDS: LEVEMIR SUBQ SCH (10:00)
[2019-01-18] MEDS: COREG NG SCH ×2 (10:00→20:56)
--- NOTE | 2019-01-18 10:26 | PROGRESS NOTE ---
DATE: 01/18/2019 SUBJECTIVE: This morning, Ms. Sandoval is said to be stable. No changes overnight per the nursing staff. No family member was at the bedside. Ms. Sandoval continues to be intubated. OBJECTIVE: Vital Signs: Blood pressure is 130/54, pulse of 75, respirations are 12, temperature is 97.7 degrees, the patient is saturating 98% on FiO2 of 30%. General Examination : Ms. Sandoval is a 73-year-old, elderly, female. She is in bed, intubated. No sedation. HEENT: Mucosa is pink and moist. Anicteric. Acyanotic. Neck: Supple. There is an old scar on the left neck, consistent with possible left endarterectomy. Chest: Good air entry bilaterally. No crepitations. Cardiovascular: Regular rate and rhythm. Abdomen: Soft. Bowel sounds present. Extremities: About 1+ to 2+ pedal edema. NEWS PRODUCER: The patient is awake. Does not follow any commands but seems to respond to painful stimulation. She is able to track with the eyes, and pupils are equal and reactive. Laboratory Data: WBC is 12.27, hemoglobin 7.6, platelet count of 140,000. PH 7.53, pCO2 of 35, PO2 of 121. Chemistry is also reviewed. Creatinine is 2.0. The patient's current medications have all been reviewed. She is still on Zyvox and meropenem. Levaquin has been discontinued. The patient is on Lovenox 60 mg subcutaneously daily. Imaging Studies: This morning, none for today. ASSESSMENT: 1. Acute hypoxemic respiratory failure. Patient has been reintubated. Today is day 5 on the ventilator after the second intubation. She seems to be doing pretty well, tolerating this well. She is currently just on 30%. I think they will start spontaneous breathing trail. We will, however, wait on pulmonary evaluation today. 2. Multifocal pneumonia with sputum positive for methicillin-resistant Staphylococcus aureus. The patient is on Zyvox and meropenem. 3. Sepsis with hypotension. Patient is currently off Levophed. 4. Status post cardiac arrest. 5. Acute kidney injury. Creatinine continues to be going up. However, the patient is making adequate urine. 6. Mild fluid overload, most likely due to hypoalbuminemia. We will replace the patient's albumin. 7. Encephalopathy. 8. Subacute/acute cerebrovascular accident, more predominantly in the bilateral cerebellum hemispheres. 9. Right lower extremity deep venous thrombosis. The patient is on therapeutic Lovenox. 10. Extensive right upper extremity deep vein thrombosis. 11. Protein calorie malnutrition. Patient is tolerating tube feedings. 12. Status post recent pacemaker implantation. PLAN: In general, it seems Ms. Sandoval seems to be doing fairly okay, pretty stable. We will be pending further recommendations from pulmonary medicine with regards to possible SBT and subsequent extubation. cc: Minesh Blum MD
[2019-01-18] MEDS: ALBUMIN 25% IV SCH (10:49)
[2019-01-18] MEDS: MORPHINE IV PRN (13:29)
--- NOTE | 2019-01-18 14:57 | PROGRESS NOTE ---
DATE: 01/18/2019 SUBJECTIVE: There is a report that Ms. Sandoval has been a little bit more responsive. Her EEG showed generalized slowing, but nothing focal and there was no evidence of tendency to seizure. OBJECTIVE: On my exam, she appeared to be asleep with eyes closed. When I called her name, she opened her eyes. When I told her to close eyes, there was a very feeble and inconsistent eye closing noted. She did not follow commands for me. She did not fix her gaze on me, but it did seem that she looked around to try to find me. She moved her left arm a little bit more often than the right. ASSESSMENT AND PLAN: I do not have any new suggestion from Neurology standpoint. She appears to be a little bit more responsive today. I still have concern for anoxic brain injury. Time will tell. Thanks for asking Neurology to see Ms. Sandoval. cc: MD RAFAEL Lake III
--- NOTE | 2019-01-18 19:28 | NEPHROLOGY PROGRESS NOTE ---
DATE: 01/18/2019 SUBJECTIVE: She is alert but still intubated. OBJECTIVE: Vital Signs: Blood pressure 114/51, heart rate 69, respirations 16, afebrile. General: No acute distress. Skin: Warm and dry. Neck: Veins are not appreciated. Heart: Regular. Lungs: Equal. No crackles. Abdomen: Soft. Extremities: Positive edema. IMPRESSION: Acute kidney injury. Ischemic acute tubular necrosis. Good urine output. Creatinine changed minimally over the last 24 hours. She does have moderate hyponatremia with little change. cc: Manjeet Pires MD
[2019-01-18] MEDS: LOVENOX SUBQ SCH (20:57)
[2019-01-19] MEDS: XOPENEX NEB INH SCH ×4 (03:15→22:38)
[2019-01-19] MEDS: ATROVENT NEB INH SCH ×4 (03:15→22:38)
[2019-01-19] MEDS: MERREM 500 MG in NS 50 ML IV SCH ×3 (03:30→17:46)
[2019-01-19] MEDS: HUMULIN R SUBQ SCH ×6 (03:59→21:33)
[2019-01-19] MEDS: ZYVOX 600 MG/D5W 600 MG/300 ML IVPB IV SCH ×2 (04:00→16:05)
[2019-01-19 04:28] LABS: ALLEN TEST YES; BE 5.4 mmoll (-3.0-3.0); BLOOD TYPE ARTERIAL; HCO3-(ACT) 29.2 mmoll (20.0-26.0); METHB 1.3 % (0.0-1.5); O2(CT) 10.7 mL/dL (15.0-23.0); O2HB 96.4 % (95.0-99.0); PCO2(98.6) 33 mmHg (35-45); PO2(98.6) 106 mmHg (60-100); SAMPLE BLOOD; SAO2 99.5 % (95.0-100.0); SRATE 12 BPM; THB 7.7 g/dL (11.5-17.4); TVOL 500 mL; pH(98.6) 7.54 (7.35-7.45)
[2019-01-19 04:29] LABS: MODALITY VENTILATOR
[2019-01-19 06:30] LABS: BASO# 0.03 X1000 (0.0-0.2); BASO% 0.3 % (0.0-0.8); EOS# 0.68 X1000 (0.0-0.7); HEMATOCRIT 21.9 % (37.0-47.0); HEMOGLOBIN 7.2 g/dL (12.0-16.0); IMM GRAN# 0.08 X1000 (0.0-0.04); IMM GRAN% 0.7 % (0.0-0.5); LYMPH# 2.19 X1000 (1.2-3.4); LYMPH% 19.2 % (20.5-51.1); MCH 28.5 PG (27-31); MCHC 32.9 g/dL (33-37); MCV 86.6 FL (81-99); MONO# 0.98 X1000 (0.11-0.59); MONO% 8.6 % (1.7-9.3); MPV 13.6 FL (7.4-10.4); NEUT# 7.43 X1000 (1.4-6.5); NEUT% 65.2 % (42.2-75.2); PLT 122 X1000 (130-400); RBC 2.53 XMIL (4.2-5.4); RDW 15.8 % (11.5-14.5); WBC 11.39 X1000 (4.8-10.8)
[2019-01-19 06:56] LABS: CALCIUM 8.2 mg/dL (8.8-10.2); POTASSIUM 3.7 mmol/L (3.5-5.1)
[2019-01-19] MEDS: TRANSDERM-SCOP TD SCH (08:15)
[2019-01-19] MEDS: SODIUM CHLORIDE 0.9% INJ SCH (08:38)
[2019-01-19] MEDS: ALBUMIN 25% IV SCH (08:38)
[2019-01-19] MEDS: PROTONIX IV SCH (08:39)
[2019-01-19] MEDS: CULTURELLE PO SCH ×2 (08:40→21:33)
[2019-01-19] MEDS: COREG NG SCH (08:40)
[2019-01-19] MEDS: LEVEMIR SUBQ SCH (08:40)
[2019-01-19] MEDS: LEVOPHED 8 MG in D5 1/2 NS 250 ML IV SCH ×2 (08:42→20:39)
--- NOTE | 2019-01-19 08:44 | INFECTIOUS DISEASE PROGRESS NO ---
DATE: 01/19/2019 HISTORY OF PRESENT ILLNESS: The patient has methicillin-resistant Staph aureus pneumonia. She also has bilateral arm cellulitis. MEDICATIONS: This is day 3 of treatment with Zyvox and day 5 of treatment with meropenem. The patient was previously on Levaquin, but I discontinued that yesterday. PHYSICAL EXAMINATION: Vital Signs: Temperature is 97.8 degrees, pulse 74, respirations 16, blood pressure is 106/45. General: This is an ill-appearing elderly female. She is intubated and she has a decreased level of consciousness. Head, eyes, ears, nose, and throat: Orotracheal and nasogastric tubes are in place. No drainage is coming from the nose or the ears. Neck: No pain with movement. No resistance to movement of the neck. Lungs: Clear to auscultation. Cardiovascular: Heart rate is regular. Thorax: The patient has a pacemaker on the right side and the site is not swollen or red. Abdomen: Soft and nontender. Extremities: Both arms are swollen and erythematous. The patient has a PICC in her right arm. That site is not purulent or swollen. Neurologic: As mentioned above, the patient has decreased level of consciousness. She did not respond to verbal stimuli. LAB AND X-RAY: There is no new radiographic study. CBC for today shows a white count of 11,390, hemoglobin 7.2, and platelet count is 122,000. Blood gases show a pH of 7.54, PO2 of 106, pCO2 of 33. Creatinine is 2, GFR is 24. ASSESSMENT AND PLAN: The patient has pneumonia and cellulitis. For now, I am going to continue Zyvox and meropenem. COMORBIDITIES: The patient is elderly and a diabetic, and she also has chronic obstructive pulmonary disease. cc: Fabiano Reyes MD
[2019-01-19] MEDS: MUCOMYST 20% INH SCH ×2 (10:14→22:37)
[2019-01-19] MEDS ORDERED: LEVAQUIN 500 MG/D5W 500 MG/100 ML IVPB IV SCH (11:00)
[2019-01-19] MEDS: MORPHINE IV PRN (11:58)
--- NOTE | 2019-01-19 12:58 | PROGRESS NOTE ---
DATE: 01/19/2019 OBJECTIVE: Ms. Sandoval appeared to be sleeping. When I called her name, she opened her eyes. She closed her eyes and that appeared initially to be to command, but was not repeated when I repeated the command. She did not follow commands to look left or right, to move her limbs or to hold up fingers. I do not have any new suggestion from Neurology standpoint. I am still concerned about the possibility of an anoxic brain injury. I hope she continues to improve, but only time will tell. Thanks for asking us to see Ms. Sandoval. cc: MD RAFAEL Lake III
--- NOTE | 2019-01-19 14:02 | NEPHROLOGY PROGRESS NOTE ---
DATE: 01/19/2019 SUBJECTIVE: She remains sedated, on the ventilator. Opens eyes. OBJECTIVE: Vital Signs: Blood pressure 121/55, heart rate 68, respirations 29, afebrile. General: No acute distress. Skin: Warm and dry. Opens eyes. Pupils are equal. Neck: Neck veins are distended with hepatojugular reflux. Heart: Regular. No gallops. Lungs: Equal with rhonchi. Abdomen: Soft, nontender. Bowel sounds present. Extremities: 2+ edema. No clubbing or cyanosis. IMPRESSION: Acute kidney injury. Ischemic acute tubular necrosis. BUN and creatinine are roughly stable over the last 48 hours. Excellent urine output. Moderate volume expansion by exam. She is receiving IV albumin but no extra IV fluids. Observe. cc: Manjeet Pires MD
--- NOTE | 2019-01-19 16:13 | PROGRESS NOTE ---
DATE: 01/19/2019 SUBJECTIVE: This morning Ms. Sandoval continues to be intubated. There was no family member at the bedside at the time of the encounter. Per the nursing staff, the night was uneventful. She seems to be interacting a little bit more. They are coming off on the vasopressor. OBJECTIVE: Current vitals: Blood pressure is 121/55, pulse of 68, respirations 16, temperature is 99.1 degrees; patient T-max is 99.1 degrees. General exam: Ms. Sandoval is a 73-year-old, elderly female. She is in bed. Continues to be intubated, no sedation. HEENT: Mucosa is pink and moist. Anicteric. Acyanotic. Neck: Supple. Chest: Good air entry bilateral. Some transmitted sounds from the ventilator. Cardiovascular: Regular rate and rhythm. No murmurs. Abdomen: Soft. Bowel sounds present. Extremities: About 2+ pedal edema. DOOR MANAGER: Patient is awake, seems to follow some basic commands. For sure she would open her eyes to her name, and she will withdrawal very actively to painful stimulation. LABORATORY DATA: Has been reviewed. Patient continues to be anemic with hemoglobin of 7.2. WBC is trending down. Platelet count is 122. ABGs have all been reviewed. Chemistry is also reviewed. Creatinine still 2.0. The patient's intake/output revealed urine output was 1600 overnight. She is currently still positive balance. IMAGING STUDIES: No imaging studies today. ASSESSMENT: 1. Acute hypoxemic respiratory failure. The patient continues to be intubated. Today is day 6 on the ventilator. This is her re-intubation. 2. Multifocal pneumonia with sputum positive for methicillin-resistant Staphylococcus aureus. The patient continues to be on Zyvox. 3. Sepsis with hypotension. The patient is weaning Levophed. 4. Status post cardiopulmonary arrest. 5. Acute kidney injury due to acute tubular necrosis. The patient continues to make adequate urine. Nephrology is on board. 6. Fluid overload. We will continue with albumin replacement. 7. Acute/subacute cerebrovascular accident, predominantly bilateral cerebellum strokes. 8. Right lower extremity and upper extremity deep vein thromboses. The patient is on therapeutic Lovenox. 9. Protein calorie malnutrition. Patient is on tube feedings. 10. Status post recent pacemaker placement. 11. Altered mental status, multifactorial, including strokes, metabolic medications, and possibility of anoxic brain injury. Neurology is on board and will follow up with further recommendations from them. PLAN: So, in general, I think Ms. Sandoval has continued to be critical, but stable. We are weaning off on the Levophed. She continues to be on antimicrobial therapy. The patient is being seen by multiple subspecialties. We are going to continue with recommendations from them. cc: Minesh Blum MD
[2019-01-19] MEDS: LOVENOX SUBQ SCH (21:33)
[2019-01-20] MEDS: HUMULIN R SUBQ SCH ×6 (00:27→21:33)
[2019-01-20] MEDS: ZYVOX 600 MG/D5W 600 MG/300 ML IVPB IV SCH ×2 (02:51→15:26)
[2019-01-20] MEDS: MERREM 500 MG in NS 50 ML IV SCH ×3 (02:52→18:09)
[2019-01-20] MEDS: ATROVENT NEB INH SCH ×4 (03:31→22:15)
[2019-01-20] MEDS: XOPENEX NEB INH SCH ×4 (03:31→22:16)
[2019-01-20 04:27] LABS: ALLEN TEST YES; BE 5.6 mmoll (-3.0-3.0); BLOOD TYPE ARTERIAL; HCO3-(ACT) 29.3 mmoll (20.0-26.0); O2(CT) 12.1 mL/dL (15.0-23.0); O2HB 96.6 % (95.0-99.0); PCO2(98.6) 41 mmHg (35-45); PO2(98.6) 105 mmHg (60-100); SAMPLE BLOOD; SAO2 100.4 % (95.0-100.0); SRATE 12 BPM; THB 8.8 g/dL (11.5-17.4); TVOL 500 mL; pH(98.6) 7.47 (7.35-7.45)
[2019-01-20 04:28] LABS: MODALITY VENTILATOR
[2019-01-20 06:18] LABS: CALCIUM 8.1 mg/dL (8.8-10.2); POTASSIUM 4.2 mmol/L (3.5-5.1)
[2019-01-20 06:30] LABS: BASO# 0.02 X1000 (0.0-0.2); BASO% 0.2 % (0.0-0.8); EOS# 0.59 X1000 (0.0-0.7); EOS% 5.2 % (0.0-10.0); HEMATOCRIT 21.4 % (37.0-47.0); HEMOGLOBIN 7.1 g/dL (12.0-16.0); IMM GRAN# 0.07 X1000 (0.0-0.04); IMM GRAN% 0.6 % (0.0-0.5); LYMPH# 2.44 X1000 (1.2-3.4); LYMPH% 21.4 % (20.5-51.1); MCH 28.9 PG (27-31); MCHC 33.2 g/dL (33-37); MONO% 8.8 % (1.7-9.3); MPV 13.4 FL (7.4-10.4); NEUT# 7.29 X1000 (1.4-6.5); NEUT% 63.8 % (42.2-75.2); PLT 104 X1000 (130-400); RBC 2.46 XMIL (4.2-5.4); RDW 15.9 % (11.5-14.5); WBC 11.41 X1000 (4.8-10.8)
[2019-01-20] MEDS ORDERED: NS 500 ML IV ONE (06:41)
[2019-01-20] MEDS ORDERED: LASIX IV ONE (07:08)
--- NOTE | 2019-01-20 07:41 | PROGRESS NOTE ---
DATE: 01/20/2019 SUBJECTIVE: This morning, Ms. Sandoval was awake and will wiggle the toes upon command. Per the nursing staff, she was responding a little bit more last night. I was also told that her blood pressures went way down, so they had to restart her back on the Levophed. She is currently at 15 mcg. OBJECTIVE: Vital signs: Blood pressure is 137/58, pulse of 67, respirations 14, temperature 97.3 degrees. General: Ms. Sandoval is a 73-year-old female, she is in bed. Continues to be intubated. HEENT: Mucosa is pink and moist. Anicteric. Acyanotic. Some mild edema on the upper extremity. Chest: Air entry is bilaterally reduced. Some crepitations in posterior lung ojeda. Cardiovascular: Regular rate and rhythm. No murmurs, no rubs, no gallops. Gastrointestinal: Abdomen is soft. Bowel sounds present. Extremities: About 2+ pedal edema. SECTION GANG WORKER: Patient is awake, is able to wiggle the toes upon command. She will move very actively all extremities upon command. LINES: Patient has a PICC line. Also, has a Calix catheter, a rectal tube, endotracheal, and NG tube. LABORATORY DATA: WBCs 11.41, hemoglobin is 7.1, platelet count of 104,000. ABG has also been reviewed. Chemistry is also reviewed. Creatinine is 2.0, which is the same as yesterday. The patient intakes and outputs: Urine output was 1025 yesterday. She continues to be positive balance. CURRENT MEDICATIONS: Have all been reviewed and no changes. DIAGNOSTIC STUDIES: A chest x-ray this morning continues to shows possible pleural effusions and pulmonary congestion. ASSESSMENT: 1. Acute hypoxemic respiratory failure. Patient continues to be intubated. 2. Multifocal pneumonia with sputum positive for methicillin-resistant Staphylococcus aureus. Patient is currently on Zyvox. 3. Sepsis with hypotension. The patient was weaned off on the Levophed but had to be restarted yesterday because of hypotension. We are going to repeat her cortisol level this morning and address it accordingly, if it is low. 4. Status post cardiopulmonary arrest. 5. Acute kidney injury due to acute tubular necrosis. The patient continues to make adequate urine. Nephrology is on board. 6. Fluid overload. The patient is getting albumin. We will give her a 1 time dose of Lasix as well. 7. Acute/subacute cerebrovascular accident, predominantly bilateral cerebellar stroke. 8. Right upper extremity and lower extremity deep venous thrombosis. Patient is on therapeutic Lovenox. 9. Protein calorie malnutrition. Patient is tolerating tube feedings. 10. Altered mental status, presumably multifactorial including cerebrovascular accidents, metabolic causes, medications, and possible anoxic brain injury. Neurology is on board. 11. Normocytic anemia. Patient's hemoglobin continues to be trending down, this morning it is at 7.1, so we are going to group and crossmatch and transfuse her 2 packed red blood cells. PLAN: Ms. Sandoval seems to be fairly stable, seems to be more alert. However, she remains hypotensive and remains on Levophed. It appears the nurses are having a hard time taking her off. We are going to check her cortisol to make sure she is not adrenal insufficient. We will also address her fluid status with albumin and Lasix. She is getting 2 units of PRBC transfusion. cc: Minesh Blum MD
--- NOTE | 2019-01-20 07:59 | Diag Imaging Result Doc PS360 ---
EXAM: CHEST-PORTABLE INDICATION: dyspnea TECHNIQUE: One view COMPARISON: 01/17/2019 FINDINGS: Support tubes and lines are in stable positions. Hazy opacities at the lung bases suggesting pulmonary edema are approximately stable. No new consolidation is identified. Cardiac silhouette is stable. IMPRESSION: Grossly stable chest. Electronically signed by Royal Wolfe 01/20/2019 7:57 AM
[2019-01-20] MEDS: ALBUMIN 25% IV SCH (08:07)
[2019-01-20] MEDS: PROTONIX IV SCH (08:07)
[2019-01-20] MEDS: SODIUM CHLORIDE 0.9% INJ SCH (08:07)
[2019-01-20] MEDS: LEVEMIR SUBQ SCH (08:08)
[2019-01-20] MEDS: CULTURELLE PO SCH ×2 (08:08→21:33)
[2019-01-20] MEDS ORDERED: INSULIN PEN NEEDLES ONE (08:09)
[2019-01-20] MEDS ORDERED: SOLU-CORTEF IV ONE (09:07)
[2019-01-20] MEDS: MUCOMYST 20% INH SCH ×2 (09:30→22:15)
[2019-01-20] MEDS: LOVENOX SUBQ SCH (21:33)
[2019-01-21] MEDS: HUMULIN R SUBQ SCH ×7 (00:28→23:54)
[2019-01-21] MEDS: MERREM 500 MG in NS 50 ML IV SCH ×3 (02:18→18:05)
[2019-01-21] MEDS ORDERED: NS 50 ML ONE (02:20)
[2019-01-21] MEDS: ZYVOX 600 MG/D5W 600 MG/300 ML IVPB IV SCH ×2 (02:50→15:55)
[2019-01-21] MEDS: XOPENEX NEB INH SCH ×4 (04:01→22:13)
[2019-01-21] MEDS: ATROVENT NEB INH SCH ×4 (04:01→22:13)
[2019-01-21 04:27] LABS: ALLEN TEST YES; BE 3.8 mmoll (-3.0-3.0); BLOOD TYPE ARTERIAL; HCO3-(ACT) 27.9 mmoll (20.0-26.0); METHB 0.6 % (0.0-1.5); O2(CT) 13.2 mL/dL (15.0-23.0); O2HB 96.3 % (95.0-99.0); PCO2(98.6) 38 mmHg (35-45); PO2(98.6) 117 mmHg (60-100); SAMPLE BLOOD; SAO2 99.1 % (95.0-100.0); SRATE 12 BPM; THB 9.6 g/dL (11.5-17.4); TVOL 500 mL; pH(98.6) 7.47 (7.35-7.45)
[2019-01-21 04:28] LABS: MODALITY VENTILATOR
[2019-01-21 05:44] LABS: BASO# 0.02 X1000 (0.0-0.2); BASO% 0.3 % (0.0-0.8); EOS# 0.02 X1000 (0.0-0.7); EOS% 0.3 % (0.0-10.0); HEMATOCRIT 26.1 % (37.0-47.0); HEMOGLOBIN 8.9 g/dL (12.0-16.0); IMM GRAN# 0.06 X1000 (0.0-0.04); LYMPH# 1.43 X1000 (1.2-3.4); LYMPH% 23.4 % (20.5-51.1); MCH 28.7 PG (27-31); MCHC 34.1 g/dL (33-37); MCV 84.2 FL (81-99); MONO% 9.8 % (1.7-9.3); MPV 13.3 FL (7.4-10.4); NEUT# 3.97 X1000 (1.4-6.5); NEUT% 65.2 % (42.2-75.2); PLT 87 X1000 (130-400)
[2019-01-21 06:26] LABS: CALCIUM 8.7 mg/dL (8.8-10.2); CREATININE 2.1 mg/dL (0.5-0.9); POTASSIUM 4.1 mmol/L (3.5-5.1)
--- NOTE | 2019-01-21 08:01 | Diag Imaging Result Doc PS360 ---
EXAM: CHEST-PORTABLE INDICATION: Vent TECHNIQUE: One view COMPARISON: 01/20/2019 FINDINGS: Support tubes and lines are in stable positions. Patchy interstitial and airspace opacities bilaterally with a basilar predominance are approximately stable given slight differences in positioning. No new consolidation is identified. Cardiac silhouette is stable. IMPRESSION: No evidence of acute pathology by plain radiograph. Electronically signed by Royal Wolfe 01/21/2019 7:58 AM
[2019-01-21] MEDS: ALBUMIN 25% IV SCH (08:06)
[2019-01-21] MEDS: SODIUM CHLORIDE 0.9% INJ SCH (08:06)
[2019-01-21] MEDS: CULTURELLE PO SCH ×2 (08:06→20:48)
[2019-01-21] MEDS: PROTONIX IV SCH (08:06)
[2019-01-21] MEDS: LEVEMIR SUBQ SCH (08:06)
[2019-01-21] MEDS: MUCOMYST 20% INH SCH ×2 (09:22→22:13)
[2019-01-21] MEDS ORDERED: LASIX IV ONE (09:38)
--- NOTE | 2019-01-21 10:14 | PROGRESS NOTE ---
DATE: 01/21/2019 SUBJECTIVE: This morning, Ms. Sandoval is awake, and she is going through SBT. No major changes overnight. The patient has been off Levophed for the past 24 hours. OBJECTIVE: Vital signs: Blood pressure is 134/64, pulse of 62, respiration is 12, temperature is 97.0. The patient is saturating 100% on mechanical ventilator. General: Ms. Sandoval is a 73- year-old female. She is in bed, does not seems to be in any distress. She is still on the ventilator and synchronizing well. HEENT: Mucosa is pink and moist. Anicteric. Acyanotic. Neck: Supple. No JVD. Chest: Good air entry bilateral. Some transmitted sounds from the ventilator. Cardiovascular: Regular rate and rhythm. No murmurs, no rubs, no gallops. GI: Abdomen is soft. Bowel sounds present. There is some edema on the lateral aspect of the abdominal wall, and there is also edema on the upper thighs. Extremities: There is 1+ pedal edema. CONCRETE WALL GRINDER OPERATOR: The patient is awake and will track and follow with the head. Moves extremities to stimulation. I's and O's: The patient's urine output was 1370 in 24 hours. She is still remarkably positive balance. ASSESSMENT: 1. Acute hypoxemic respiratory failure. The patient continues to be intubated. She is currently going through SBT. She seems to be tolerating this. 2. Multifocal pneumonia with sputum culture positive for methicillin-resistant Staphylococcus aureus. The patient is on Zyvox, today is day 5 on this medication. 3. Septic shock. The patient was on Levophed for a period of time. She has been off since yesterday. So far, blood cultures have been negative. We think this was secondary to the pneumonia. 4. Transient adrenal insufficiency. The patient is currently on steroids. This was started yesterday, and since then, blood pressures have also been normalized, and she has been off pressors. 5. Acute kidney injury due to acute tubular necrosis. The patient is making adequate urine. Nephrology is onboard. 6. Fluid overload with third spacing. The patient is getting albumin. We will also give her another dose of Lasix today. Of note Ms. Sandoval is over 20,000 mL of fluid positive balance. 7. Acute/subacute cerebrovascular accident, predominantly bilateral cerebellar infarcts noted on recent MRI. 8. Right upper and lower deep venous thromboses. The patient is on therapeutic Lovenox. 9. Protein calorie malnutrition. The patient is on tube feedings. 10. Altered mental status, multifactorial in etiology. 11. Normocytic anemia. The patient is status post 2 PRBC transfusion. Hemoglobin and hematocrit are improved. PLAN: In general, I think Ms. Sandoval seems to be fairly stable. She is currently going through SBT. We will wait for further recommendations from Pulmonary Medicine. cc: Minesh Blum MD
[2019-01-21 12:49] LABS: ALLEN TEST YES; BE 5.9 mmoll (-3.0-3.0); BLOOD TYPE ARTERIAL; HCO3-(ACT) 29.5 mmoll (20.0-26.0); METHB 0.9 % (0.0-1.5); MODALITY VENTILATOR; O2(CT) 12.2 mL/dL (15.0-23.0); O2HB 96.2 % (95.0-99.0); PCO2(98.6) 39 mmHg (35-45); PO2(98.6) 90 mmHg (60-100); SAMPLE BLOOD; SAO2 99.1 % (95.0-100.0); THB 8.9 g/dL (11.5-17.4); pH(98.6) 7.49 (7.35-7.45)
[2019-01-21] MEDS: SOLU-CORTEF IV SCH ×2 (15:55→23:50)
--- NOTE | 2019-01-21 16:18 | INFECTIOUS DISEASE PROGRESS NO ---
DATE: 01/21/2019 PRESENT ILLNESS: Patient has methicillin-resistant Staph aureus and bilateral arm cellulitis. MEDICATIONS: This is the 5th day of Zyvox and the 6th day of meropenem. PHYSICAL EXAMINATION: Vital Signs: Temperature is 98 degrees, pulse 75, respirations 19, blood pressure is 143/61. General: This is a ill-appearing elderly female. She has been extubated. She is awake. Head, eyes, ears, nose, and throat: The patient has a nasogastric tube in place but orotracheal tube has been removed. Neck: No pain with movement of the neck. Lungs: Clear to auscultation. Cardiovascular: Heart rate is regular. Thorax: Patient has a pacemaker on the right side and the site is not red, swollen or tender. Abdomen: Soft and nontender. Extremities: The patient's arms continue to be swollen and red. They also are weeping serous fluid. The patient has a PICC in the right arm. The site is not purulent. Neurologic: The patient is awake. She did turn her head when I started talking to her but she did not move her extremities when I requested her to do it. LAB AND X-RAY: Chest x-ray shows bilateral opacities. The patient's CBC shows a white count of 6100, hemoglobin 8.9, and platelet count of 87,000. Blood gases show a pH 7.49, a PO2 of 90, and a pCO2 of 39. Creatinine is 2.1. GFR is 23. ASSESSMENT AND PLAN: The patient has pneumonia and cellulitis. I am going to discontinue Zyvox because the patient's platelets are falling. I am also going to discontinue meropenem and start the patient on ceftaroline. The dose will be modified because of the patient's renal insufficiency. COMORBIDITIES: The patient is elderly, a diabetic, and she has chronic obstructive pulmonary disease. cc: Fabiano Reyes MD
[2019-01-21] MEDS: LASIX IV SCH (18:27)
--- NOTE | 2019-01-21 18:32 | NEPHROLOGY PROGRESS NOTE ---
DATE: 01/21/2019 SUBJECTIVE: She has been extubated. She looks at me, but does not really interact all that much. The nurses state that her urine output is decreasing. OBJECTIVE: Vital Signs: Blood pressure 140/80, heart rate 113, respirations 27, afebrile. Intake 3.6 L. Output 1.7 L. General: No acute distress. Skin: Pale and dry. Conjunctivae are pink. Neck: Neck veins are not appreciated. Heart: Regular and tachycardic. Lungs: Equal with a few scattered rhonchi. Abdomen: Soft, distended. Bowel sounds present. Extremities: With 2+ edema. No clubbing or cyanosis. IMPRESSION: Acute kidney injury. BUN and creatinine have been stable over the last several days. She does have modest hyponatremia but no other electrolyte or acid base abnormalities. Her albumin is 3.3. She has been treated with albumin in the last several days. We will give furosemide 100 twice daily and observe her response over the next 24 hours. cc: Manjeet Pires MD
[2019-01-21] MEDS: LOVENOX SUBQ SCH (20:48)
[2019-01-22] MEDS: MERREM 500 MG in NS 50 ML IV SCH ×2 (02:04→10:00)
[2019-01-22] MEDS: ZYVOX 600 MG/D5W 600 MG/300 ML IVPB IV SCH (02:40)
[2019-01-22] MEDS: ATROVENT NEB INH SCH ×4 (03:00→22:07)
[2019-01-22] MEDS: XOPENEX NEB INH SCH ×4 (03:00→23:08)
[2019-01-22] MEDS: HUMULIN R SUBQ SCH ×6 (03:42→23:45)
[2019-01-22 05:33] LABS: BLOOD TYPE ARTERIAL; SAMPLE BLOOD
[2019-01-22 05:34] LABS: ALLEN TEST YES; BE -0.4 mmoll (-3.0-3.0); HCO3-(ACT) 24.5 mmoll (20.0-26.0); METHB 1.1 % (0.0-1.5); O2(CT) 15.4 mL/dL (15.0-23.0); O2HB 91.8 % (95.0-99.0); PCO2(98.6) 42 mmHg (35-45); PO2(98.6) 60 mmHg (60-100); SAO2 94.9 % (95.0-100.0); THB 11.9 g/dL (11.5-17.4); pH(98.6) 7.38 (7.35-7.45)
[2019-01-22 05:36] LABS: MODALITY COOL AEROSOL
[2019-01-22 06:21] LABS: BASO# 0.01 X1000 (0.0-0.2); BASO% 0.2 % (0.0-0.8); HEMATOCRIT 29.3 % (37.0-47.0); IMM GRAN# 0.06 X1000 (0.0-0.04); IMM GRAN% 1.1 % (0.0-0.5); LYMPH# 0.85 X1000 (1.2-3.4); LYMPH% 15.8 % (20.5-51.1); MCH 28.8 PG (27-31); MCHC 34.1 g/dL (33-37); MCV 84.4 FL (81-99); MONO# 0.16 X1000 (0.11-0.59); MPV 13.2 FL (7.4-10.4); NEUT# 4.29 X1000 (1.4-6.5); NEUT% 79.9 % (42.2-75.2); PLT 103 X1000 (130-400); RBC 3.47 XMIL (4.2-5.4); RDW 16.2 % (11.5-14.5); WBC 5.37 X1000 (4.8-10.8)
[2019-01-22] MEDS: LASIX IV SCH ×2 (06:35→17:53)
[2019-01-22] MEDS: SOLU-CORTEF IV SCH ×3 (06:35→19:59)
[2019-01-22 07:51] LABS: CALCIUM 8.5 mg/dL (8.8-10.2); CREATININE 2.4 mg/dL (0.5-0.9); POTASSIUM 3.9 mmol/L (3.5-5.1)
--- NOTE | 2019-01-22 08:11 | Diag Imaging Result Doc PS360 ---
EXAM: CHEST-PORTABLE INDICATION: Vent TECHNIQUE: One view COMPARISON: 01/21/2019 FINDINGS: There has been interval extubation. The NG tube is in stable position. Patchy interstitial and airspace opacities are approximately stable. There has been development of a small left pleural effusion. No new consolidations are identified, otherwise. IMPRESSION: Development of a small left pleural effusion and interval extubation. Stable chest, otherwise. Electronically signed by Royal Wolfe 01/22/2019 8:08 AM
--- NOTE | 2019-01-22 09:45 | INFECTIOUS DISEASE PROGRESS NO ---
DATE: 01/21/2019 ADDENDUM Under physical exam: The patient has a pacemaker present on the right side. The site is not swollen or erythematous. cc: Fabiano Reyes MD
[2019-01-22] MEDS: MUCOMYST 20% INH SCH ×2 (09:48→22:07)
[2019-01-22] MEDS: TRANSDERM-SCOP TD SCH (09:58)
[2019-01-22] MEDS: PROTONIX IV SCH (09:58)
[2019-01-22] MEDS: CULTURELLE PO SCH ×2 (09:58→19:59)
[2019-01-22] MEDS: LEVEMIR SUBQ SCH (10:01)
--- NOTE | 2019-01-22 11:49 | PROGRESS NOTE ---
DATE: 01/22/2019 SUBJECTIVE: This morning, Ms. Sandoval is off the ventilator since yesterday. She is currently on a Venturi mask. She is very awake. No complaints. Ms. Sandoval continues to be nonverbal, but she will groan and moan to pain. OBJECTIVE: Vital Signs: Blood pressure is 160/103, pulse of 114, temperature is 99.1 degrees, the patient is saturating 99% on 5 L. General: Ms. Sandoval is a 73-year-old, elderly, female. She is in bed. She seems to be in mild respiratory distress. HEENT: Mucosa is pink and moist. Anicteric. Acyanotic. Neck: Supple. There is an old surgical scar on the left neck. Chest: Air entry is bilaterally reduced. There are crepitations in posterior lung ojeda. Cardiovascular: Slightly tachycardic, but no murmurs. Abdomen: Soft. There is edema on the lateral aspect of the abdominal wall. Extremities: About 1+ pedal edema. PARLIAMENTARY ARCHIVIST: The patient is awake, will track with the head, will groan and moan, but will not follow any commands to me. IMAGING AND LABORATORY DATA: CBC is reviewed. Platelet count is up to 103, hemoglobin is up to 10. Chemistry is also reviewed. Sodium is 127, creatinine is 2.4. Albumin is normalized at 3.8. A chest x-ray this morning shows development of small left pleural effusion and interval extubation. The patient's I's and O's show urine output was 1465. The patient is still positive balance of over 20,000 mL. ASSESSMENT: 1. Acute hypoxemic respiratory failure. The patient is currently extubated. A followup chest x- ray this morning seems to suggest some pulmonary edema with pleural effusion. The patient is slightly tachypneic, so we are going to continue observing her in the intensive care unit. She continues to be high risk for re-intubation. 2. Multifocal pneumonia with sputum culture positive for methicillin-resistant staphylococcus aureus. The patient is on Zyvox. Today is day 6. 3. Septic shock, resolved. 4. Transient adrenal insufficiency, improved. Will start weaning down on steroids. 5. Acute kidney injury secondary to acute tubular necrosis. 6. Fluid overload with third-spacing. The patient's albumin is now normal, so she is getting higher doses of Lasix as per Nephrology. 7. Acute cerebrovascular accident, predominantly bilateral cerebellar infarcts noted on recent MRI. 8. Right upper and lower extremity deep venous thromboses. The patient is on therapeutic Lovenox. 9. Protein calorie malnutrition. Will restart the patient's tube feedings. 10. Normocytic anemia. The patient is status post 2 packed red blood cells transfusion. 11. Altered mental status. Etiology is multifactorial. The patient is currently nonverbal, will groan and moan to painful stimulation. There is the concern that she might have anoxic brain injury. Neurology is on board. In general, I think Ms. Sandoval is fairly stable. Her ABGs are encouraging this morning. She is slightly tachypneic. She was extubated yesterday. A chest x-ray this morning shows some pulmonary edema and pleural effusions. She is getting higher doses of Lasix today. We are going to keep an eye on her kidney functions. Ms. Sandoval is a very high risk for re-intubation, so we are going to keep her in the intensive care unit for now. cc: Minesh Blum MD
--- NOTE | 2019-01-22 12:55 | PULMONOLOGY PROGRESS NOTE ---
DATE: 01/22/2019 SUBJECTIVE: The patient opens her eyes. She appears to be awake. She is not attentive. She has a very weak cough effort. OBJECTIVE: Vital Signs: The patient has been afebrile for the last 24 hours. Blood pressure 160/103, heart rate 109, respiratory rate 25, oxygen saturation 99% on face mask. HEENT: Pupils are equal and reactive. Oropharynx appears clear. Neck: Supple. Chest: Chest reveals rhonchi bilaterally. Cardiac: S1 and S2. Abdomen: Soft. Extremities: Without edema. LABORATORIES: Chest x-ray reveals bilateral infiltrates with small left-sided effusion. White blood count 5.37, hemoglobin 10.0, platelet count 103,000. Arterial blood gas reveals a pH of 7.38, pCO2 of 42, PO2 of 60. Sodium 127, potassium 3.9, chloride 88, bicarbonate 24, BUN is 59, creatinine 2.4. IMPRESSION: A 73 year old with: 1. Staphylococcus aureus pneumonia. 2. Hypoxemic respiratory failure. 3. Encephalopathy, status post cardiopulmonary arrest. 4. Failure to thrive. PLAN: 1. Continue current antibiotics under the direction of Dr. Fabiano Reyes. 2. Continue bronchial hygiene. 3. Continue diuretics per Nephrology. 4. Wean oxygen as tolerated. 5. Prognosis is poor given current mental status, without improvement despite 19 days of hospital stay. cc: Isidro Kendrick MD
--- NOTE | 2019-01-22 13:16 | NEPHROLOGY PROGRESS NOTE ---
DATE: 01/22/2019 SUBJECTIVE: She is awake, but does not verbalize. OBJECTIVE: Vital Signs: Blood pressure 124/83, heart rate 106, respirations 22, afebrile. Intake 1.8 L, output 1.6 L. General: No acute distress. Skin: Warm and dry. HEENT: Conjunctivae are pink. Neck: Neck veins remain distended. Heart: Regular and tachycardic. Lungs: Equal. Decreased breath sounds. Abdomen: Soft, nontender. Bowel sounds diminished. Extremities: There is 2+ edema with weeping. IMPRESSION: 1. Acute kidney injury. BUN and creatinine are higher today, perhaps secondary to her diuretic that I added on yesterday. I will continue the Lasix 100 mg twice daily, and observe her response over the next 24 hours. 2. Electrolytes/acid base/anemia. All in target. cc: Manjeet Pires MD
--- NOTE | 2019-01-22 14:00 | INFECTIOUS DISEASE PROGRESS NO ---
DATE: 01/22/2019 PRESENT ILLNESS: The patient has a methicillin-resistant Staphylococcus aureus pneumonia and bilateral arm cellulitis. MEDICATIONS: The patient is on ceftaroline. I have started it today and I have discontinued Zyvox and meropenem. PHYSICAL EXAMINATION: Vital Signs: Temperature is 97.3 degrees, pulse 106, respirations 22, blood pressure 124/83. General: This is an ill-appearing elderly female. She is in no acute distress. She is awake. Head, Eyes, Ears, Nose, and Throat: The patient has a nasogastric tube in place. She does not have any drainage coming from her nose or ears. I was unable to examine the patient's oral cavity. Neck: The neck was stiff. Lungs: Clear to auscultation. Cardiovascular: Heart rate is regular. Thorax: The patient has a pacemaker on the right side. The site is not erythematous or tender. Abdomen: Soft and nontender. Extremities: The patient continues to have erythema and swelling and draining from her arms. There is a PICC present in the right arm. Neurologic: The patient's eyes are open. She did not follow my request to move her extremities. She does not have a tremor. LABORATORY AND X-RAY: Chest x-ray shows bilateral opacities. The patient's CBC shows a white count of 5370, hemoglobin 10, platelet count 103,000. Blood gases show a pH of 7.38, a PO2 of 60, and a pCO2 of 42. The creatinine is 2.4, and the GFR is 20. ASSESSMENT AND PLAN: Patient has pneumonia and cellulitis. As mentioned above, I have placed the patient on ceftaroline and discontinued meropenem and Zyvox. COMORBIDITIES: The patient is elderly. She is a diabetic, and she has chronic obstructive pulmonary disease. cc: Fabiano Reyes MD
[2019-01-22] MEDS: TEFLARO 400 MG in NS 250 ML IV SCH (15:05)
[2019-01-22] MEDS: LOVENOX SUBQ SCH (20:00)
[2019-01-22] MEDS: MORPHINE IV PRN (23:47)
[2019-01-23] MEDS: TEFLARO 400 MG in NS 250 ML IV SCH ×2 (03:20→16:25)
[2019-01-23] MEDS: HUMULIN R SUBQ SCH ×5 (03:27→21:52)
[2019-01-23] MEDS: ATROVENT NEB INH SCH ×4 (03:28→21:46)
[2019-01-23] MEDS: XOPENEX NEB INH SCH ×4 (03:29→21:46)
[2019-01-23 04:33] LABS: ALLEN TEST YES; BE 3.9 mmoll (-3.0-3.0); BLOOD TYPE ARTERIAL; HCO3-(ACT) 27.9 mmoll (20.0-26.0); METHB 0.9 % (0.0-1.5); O2(CT) 13.6 mL/dL (15.0-23.0); O2HB 94.2 % (95.0-99.0); PCO2(98.6) 42 mmHg (35-45); PO2(98.6) 66 mmHg (60-100); SAMPLE BLOOD; SAO2 97.7 % (95.0-100.0); THB 10.2 g/dL (11.5-17.4); pH(98.6) 7.44 (7.35-7.45)
[2019-01-23 04:34] LABS: MODALITY COOL AEROSOL
[2019-01-23] MEDS: LASIX IV SCH ×2 (06:25→19:40)
[2019-01-23 06:45] LABS: BASO# 0.01 X1000 (0.0-0.2); BASO% 0.1 % (0.0-0.8); EOS# 0.02 X1000 (0.0-0.7); EOS% 0.3 % (0.0-10.0); HEMATOCRIT 28.8 % (37.0-47.0); HEMOGLOBIN 9.9 g/dL (12.0-16.0); IMM GRAN# 0.04 X1000 (0.0-0.04); IMM GRAN% 0.5 % (0.0-0.5); LYMPH# 1.38 X1000 (1.2-3.4); LYMPH% 18.8 % (20.5-51.1); MCH 28.9 PG (27-31); MCHC 34.4 g/dL (33-37); MCV 84.2 FL (81-99); MONO# 0.74 X1000 (0.11-0.59); MONO% 10.1 % (1.7-9.3); MPV 12.9 FL (7.4-10.4); NEUT# 5.17 X1000 (1.4-6.5); NEUT% 70.2 % (42.2-75.2); PLT 113 X1000 (130-400); RBC 3.42 XMIL (4.2-5.4); RDW 15.9 % (11.5-14.5); WBC 7.36 X1000 (4.8-10.8)
[2019-01-23 07:07] LABS: CALCIUM 8.7 mg/dL (8.8-10.2); CREATININE 2.1 mg/dL (0.5-0.9); MAGNESIUM 2.2 mg/dL (1.5-2.7); POTASSIUM 3.7 mmol/L (3.5-5.1)
--- NOTE | 2019-01-23 07:48 | PROGRESS NOTE ---
DATE: 01/23/2019 OBJECTIVE: Ms. Sandoval is breathing spontaneously. She opens and closes eyes and looks left and right spontaneously. During my time at the bedside, she did not communicate, regard me, follow commands or appear otherwise conscious. The random eye movement is less vigorously roving and more lateral conjugate semipurposeful appearing now. ASSESSMENT: I still have concern for anoxic brain injury. I hope she will continue to recover but I am not optimistic for complete neurologic recovery. No specific suggestions today. Thanks for asking Neurology to see Ms. Sandoval. cc: MD RAFAEL Lake III
[2019-01-23] MEDS: SOLU-CORTEF IV SCH ×2 (07:56→21:52)
[2019-01-23] MEDS: PROTONIX IV SCH (07:56)
[2019-01-23] MEDS: CULTURELLE PO SCH (09:50)
[2019-01-23] MEDS: LEVEMIR SUBQ SCH (09:51)
--- NOTE | 2019-01-23 10:02 | EKG Report ---
Test Performed on : 01/23/2019 10:00:09 AM Test Reason : AFIB Blood Pressure : / mmHG Vent. Rate : 112 BPM Atrial Rate : 113 BPM P-R Int : 208 ms QRS Dur : 114 ms QT Int : 332 ms P-R-T Axes : 000 067 -04 degrees QTc Int : 453 ms Sinus tachycardia. with PACs vs. atrial fibrillation Incomplete right bundle branch block ST & T wave abnormality, consider inferior ischemia Abnormal ECG When compared with ECG of 14-JAN-2019 10:08, Incomplete right bundle branch block is now present baseline artifact limits P wave determination Confirmed by Guerita PITTMAN, Cody Mccoy ([id number]) on 01/24/2019 8:26:44 AM
--- NOTE | 2019-01-23 10:43 | PROGRESS NOTE ---
DATE: 01/23/2019 SUBJECTIVE: This morning Ms. Sandoval continues to be in the ICU. She is on a Venturi mask. She is not responsive to any verbal commands. She however groans to painful stimulation. OBJECTIVE: Vital signs: Blood pressure 107/72, pulse of 101, respirations 19 and temperature 99.4 degrees. General: Ms. Sandoval is a 73-year-old female. She is in bed. She seems to be in mild distress. Mucosa is pink and moist. Anicteric. Acyanotic. Neck: Supple. Chest: Air entry is bilaterally reduced. There are crackles in both lung ojead. Cardiovascular: Tachycardic. Irregularly irregular. Abdomen: Soft. There is edema on the lateral abdominal wall. Extremities: 2+ pedal edema. BLASTING ENTRYMAN: Patient is drowsy, but easily arousable with painful stimulation. She will track with her head. She groans and moans to painful stimulation, but will not follow any commands. LABORATORY DATA: CBC is reviewed. Patient has normocytic anemia. Platelet count is improving. Chemistry is also reviewed. Creatinine is down to 2.1 from 2.4 yesterday. His BUN is 68. The patient's I's and O's, urine output 1040. [place] [address]. IMAGING STUDIES: None for this morning. ASSESSMENT: 1. Acute hypoxemic respiratory failure. Ms. Sandoval has been intubated twice, and was last successfully extubated on 01/21/2019. This is 2 days ago. She is showing signs of increased work of breathing. Her ABG this morning seems to be fairly unremarkable. However, I am concerned that she is heading towards possibly another reintubation. Pulmonary Medicine is on board. 2. Fluid overload manifested by pulmonary edema and generalized body swelling. The patient is getting high dose of Lasix from Nephrology team. 3. Multifocal pneumonia with sputum culture positive for MRSA. The patient is on Zyvox. ID is on board. 4. Septic shock. This is improved. Patient was at one point on vasopressor. 5. Transient adrenal insufficiency noted. The patient is weaning off of steroids. 6. Acute kidney injury due to ATN. Patient continues to make adequate urine. 7. 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 8. Right upper and lower extremity DVT's. Patient is on therapeutic Lovenox. 9. Protein calorie malnutrition. Patient is on tube feedings. 10. Altered mental status. Etiology is multifactorial. However, there is a concern that the patient might have suffered anoxic brain injury, and that her neurological recovery seems to be limited. 11. Atrial fibrillation. The patient is on Coreg. Rate seems to be under control. She is also on Lovenox for DVT. We will add Cardizem for better rate control. PLAN: So in general, Ms. Sandoval continues to be remarkably sick. She is showing signs of increased work of breathing, and she is not responsive verbally. She would track with her head, and she would moan some. There is a concern that she might have suffered anoxic brain injury. This morning we are concerned that she could potentially go back on the ventilator. Her resuscitation status seems to suggest no CPR. We would wait on the family members this morning to discuss with them the plan of care. The brother was at the bedside at the time of the encounter. I have notified him about the challenges that Ms. Sandoval is going through, and the possibility that she would end up again on the ventilator. He said he would prefer that any of these discussions should rather be held with the son. I am awaiting on the son. cc: Minesh Blum MD MTDD
[2019-01-23] MEDS: MUCOMYST 20% INH SCH ×2 (10:55→21:46)
--- NOTE | 2019-01-23 12:37 | INFECTIOUS DISEASE PROGRESS NO ---
DATE: 01/23/2019 PRESENT ILLNESS: The patient has methicillin-resistant Staphylococcus aureus pneumonia and bilateral arm cellulitis. MEDICATIONS: This is day 2 of treatment with ceftaroline. PHYSICAL EXAMINATION: Vital Signs: Temperature is 99.4 degrees, pulse 101, respirations 19, blood pressure 117/72. General: This is an ill-appearing elderly female. She is in no acute distress. She is awake. She did track with her eyes. Head, Eyes, Ears, Nose, and Throat: No drainage was noted from the nose or ears. Neck: The neck continues to be stiff. Lungs: Clear to auscultation. Cardiovascular: Heart rate is regular. Thorax: The patient has a pacemaker present on the right side. The site is not swollen or red. Abdomen: Soft and not tender. Extremities: The patient's arms are not as red and swollen as they had been. There is also decreased drainage. A PICC is still present in the right arm. Neurologic: The patient's eyes are open. She did have a blink reflex, but she did not follow requests to move her extremities. The patient does not have a tremor. DIAGNOSTIC STUDIES: There is no x-ray for today. Laboratory studies show a CBC with a white count of 7360, hemoglobin 9.9, platelet count 113,000. Blood gases show a pH of 7.44, a PO2 of 66, and a pCO2 of 42. Creatinine is 2.1, GFR is 23. ASSESSMENT AND PLAN: Patient has: 1. Pneumonia. 2. Cellulitis. I plan to continue ceftaroline. COMORBIDITIES: 1. Patient is elderly. 2. She is diabetic. 3. She has chronic obstructive pulmonary disease. cc: Fabiano Reyes MD
--- NOTE | 2019-01-23 12:56 | PROGRESS NOTE ---
DATE: 01/23/2019 ADDENDUM: I spoke this morning extensively with the son and another female family member who was with the son about Ms Sandoval' code status. We went over the fact that Ms Sandoval has been intubated twice and not withstanding that, her respiratory status continues to be declining after extubation. We also went over the fact that her neurological status has not improved and that the patient does not seems to be comprehending since she does not follow any commands. It is very possible that Ms Sandoval has developed a major anoxic brain injury on top of her multiple strokes, which will make her neurological recovery extremely limited. The family, at this point, do not want Ms Sandoval to be intubated again even if her respiratory status continues to decline. They also do not want any chest compression or any defibrillation. At this time, they still want us to continue with the tube feedings and they want us to continue with antibiotics if needed. They will give us further guidance as to the care going forward if the condition should change. They are okay with Ms Sandoval being moved from the ICU to the regular floor. The palliative nurse was at the conversation. At this point, the son is not ready yet for comfort care measures alone or hospice, and he said he would notify us if he should make any different changes in his disposition. I have changed Ms Sandoval' code status in the computer to reflect my conversation with the family and with the palliative nurse. cc: Minesh Blum MD
[2019-01-23] MEDS: COREG NG SCH (13:07)
[2019-01-23] MEDS ORDERED: CARDIZEM PO SCH (14:00)
--- NOTE | 2019-01-23 15:19 | NEPHROLOGY PROGRESS NOTE ---
DATE: 01/23/2019 SUBJECTIVE: Ms. Sandoval is resting quietly in bed. She has been extubated. She is on a 28% face mask. She opens her eyes randomly. OBJECTIVE: Her most recent vital signs: Temperature 98.4 degrees, blood pressure 135/72, heart rate 114, respirations 21, she is on 25% face mask, her last saturation is 96%. Intake and Output: She has had 720 in. She has had 1225 out to Calix catheter. General: This is a 73-year- old white female, resting quietly in bed. She appears chronically ill, in no acute distress. Skin: Warm and dry. HEENT: Normocephalic, atraumatic. Conjunctiva is pale. She has BRODIE. Mucous membranes are dry. Neck: Supple. Trachea midline no evidence of JVD. Cardiovascular: She has regular rate and rhythm. She is tachycardic at times. Lungs: Clear to auscultation bilaterally. Equal excursion on O2 as above. Abdomen: Soft, nontender. Positive bowel sounds, hypoactive. Genitourinary: Not inspected. Calix catheter with adequate urine output. Extremities: Has 2+ lower extremity edema with some weeping to lower wounds and blebs. Neurological: As above. LABORATORY DATA: Sodium 129, potassium 3.7, chloride 90, CO2 of 24, BUN 68, creatinine 2.1, glucose 142, her anion gap is 15. White count 7.36, hemoglobin 9.9, hematocrit 28.7, platelet count 113,000. ABGs: PH 7.44, CO2 of 42, PO2 of 66, bicarbonate 27.9 on cool aerosol, 28% face mask. ASSESSMENT AND PLAN: 1. Acute kidney injury. The patient has been on diuretic therapy. This may be related to volume depletion. She had been on Lasix 100 mg b.i.d. This continues. BUN is elevated. Creatinine has slightly improved at 68 and 2.1, consecutively. Adequate urine output is documented. 2. Electrolytes. Patient has hyponatremia. This has slowly improved to 129 today. She remains on Lasix. 3. Anemia. Hemoglobin of 9.9 today. This remains stable. 4. Respiratory distress. Patient has been extubated, remains on 28% cool aerosol mask, followed by primary care. I would to thank you for allowing us to follow with this patient. Dictated by BRENDAN Marx for Manjeet Pires MD Face to face encounter, data reviewed, discussed with Tal Grubbs on 01/23/19. I agree with the above assessment and plan of care. cc: BRENDAN Marx MD [facility]
[2019-01-23] MEDS: CULTURELLE NG SCH (21:52)
[2019-01-23] MEDS: CARDIZEM NG SCH (21:52)
[2019-01-23] MEDS: LOVENOX SUBQ SCH (21:52)
[2019-01-24] MEDS: HUMULIN R SUBQ SCH ×6 (00:42→20:29)
[2019-01-24] MEDS: ATROVENT NEB INH SCH ×4 (03:49→22:19)
[2019-01-24] MEDS: XOPENEX NEB INH SCH ×4 (03:50→22:19)
[2019-01-24] MEDS: TEFLARO 400 MG in NS 250 ML IV SCH ×2 (04:22→15:29)
[2019-01-24] MEDS: CARDIZEM NG SCH ×4 (04:22→20:40)
[2019-01-24 04:57] LABS: ALLEN TEST YES; BE 4.7 mmoll (-3.0-3.0); BLOOD TYPE ARTERIAL; HCO3-(ACT) 28.6 mmoll (20.0-26.0); METHB 0.7 % (0.0-1.5); O2(CT) 14.2 mL/dL (15.0-23.0); O2HB 96.9 % (95.0-99.0); PCO2(98.6) 42 mmHg (35-45); PO2(98.6) 156 mmHg (60-100); SAMPLE BLOOD; SAO2 99.2 % (95.0-100.0); THB 10.2 g/dL (11.5-17.4); pH(98.6) 7.45 (7.35-7.45)
[2019-01-24 04:58] LABS: MODALITY VENTIMASK
[2019-01-24 05:59] LABS: BASO# 0.01 X1000 (0.0-0.2); BASO% 0.1 % (0.0-0.8); EOS# 0.01 X1000 (0.0-0.7); EOS% 0.1 % (0.0-10.0); HEMATOCRIT 28.8 % (37.0-47.0); HEMOGLOBIN 9.6 g/dL (12.0-16.0); IMM GRAN# 0.04 X1000 (0.0-0.04); IMM GRAN% 0.5 % (0.0-0.5); LYMPH# 1.35 X1000 (1.2-3.4); MCH 28.8 PG (27-31); MCHC 33.3 g/dL (33-37); MCV 86.5 FL (81-99); MONO# 0.64 X1000 (0.11-0.59); MONO% 8.1 % (1.7-9.3); MPV 12.4 FL (7.4-10.4); NEUT% 74.2 % (42.2-75.2); PLT 106 X1000 (130-400); RBC 3.33 XMIL (4.2-5.4); RDW 16.1 % (11.5-14.5); WBC 7.95 X1000 (4.8-10.8)
[2019-01-24] MEDS: LASIX IV SCH ×2 (06:31→18:45)
--- NOTE | 2019-01-24 06:42 | Diag Imaging Result Doc PS360 ---
CHEST-PORTABLE - 01/24/2019 INDICATION: dyspnea COMPARISON: 01/22/2019 FINDINGS: Stable pacemaker and nasogastric tube in good position. Stable bilateral pleural effusions left greater than right. Stable dense calcifications in the midlungs bilaterally. Stable hazy infiltrate or atelectasis in the lung bases bilaterally. Heart size remains normal. IMPRESSION: No change from prior. Electronically signed by Shaun 01/24/2019 6:39 AM
[2019-01-24 06:49] LABS: CALCIUM 8.5 mg/dL (8.8-10.2); CREATININE 2.2 mg/dL (0.5-0.9); MAGNESIUM 2.3 mg/dL (1.5-2.7); POTASSIUM 3.5 mmol/L (3.5-5.1)
[2019-01-24] MEDS: CULTURELLE NG SCH ×2 (09:02→20:40)
[2019-01-24] MEDS: SODIUM CHLORIDE 0.9% INJ SCH (09:02)
[2019-01-24] MEDS: SOLU-CORTEF IV SCH ×2 (09:02→20:40)
[2019-01-24] MEDS: PROTONIX IV SCH (09:02)
[2019-01-24] MEDS: LEVEMIR SUBQ SCH (10:17)
[2019-01-24] MEDS: MUCOMYST 20% INH SCH ×2 (11:04→22:18)
--- NOTE | 2019-01-24 17:04 | NEPHROLOGY PROGRESS NOTE ---
DATE: 01/24/2019 TIME SEEN: 07:10. SUBJECTIVE: Ms. Sandoval is resting quietly in bed. She does not open her eyes. She remains nonverbal. OBJECTIVE: Vital Signs: Her most recent vital signs, temperature 97.9 degrees, blood pressure 146/81, heart rate 101, respirations 20. She is on 28% Ventimask. Last recorded saturation 100%. She has had 770 in and 1000 out to Calix catheter. LABORATORY DATA: Sodium 130, potassium 3.5, chloride 90, CO2 of 26, BUN 78, creatinine 2.2, glucose 192. Her anion gap is 14. Her calcium is 8.5, magnesium 2.3. White count 7.95, hemoglobin 9.6, hematocrit 28.8 with a platelet count of 106,000. PHYSICAL EXAMINATION: General: This is a 73-year-old white female resting quietly in bed. She appears chronically ill in no acute distress. Skin: Warm and dry. HEENT: Normocephalic, atraumatic. Conjunctivae are pale. She has BRODIE. Mucous membranes are dry. Neck: Supple. Trachea midline. She has trace JVD. Cardiovascular: She is regular rate and rhythm. Slightly tachycardic. No appreciable murmur. Lungs: She has scattered coarse breath sounds. She remains on O2 supplementation. Abdomen: Large, round, soft, and nontender. Positive bowel sounds. Genitourinary: Calix catheter is in place, not inspected. Extremities: Continues with 2+ lower extremity edema with an occasional weeping wound. Neurological: As mentioned above. ASSESSMENT AND PLAN: Acute kidney injury. The patient remains on diuretic therapy. The patient's BUN remains elevated. Creatinine remains stable. Adequate urine output is documented. Note change in goals of care. We will sign off and remain available as needed during her hospital stay. I would like to thank you for allowing us to follow with this patient. Dictated by BRENDAN Marx for Manjeet Pires MD Face to face encounter, data reviewed, discussed with Tal Grubbs on 01/24/19. I agree with the above assessment and plan of care. cc: BRENDAN Marx MD [facility]
--- NOTE | 2019-01-24 19:23 | INFECTIOUS DISEASE PROGRESS NO ---
DATE: 02/03/2019 PRESENT ILLNESS: Ms. Sandoval is being treated for a methicillin-resistant Staph aureus pneumonia as well as a bilateral upper extremity cellulitis. MEDICATIONS: Today is day 3 of ceftaroline 400 mg IV every 12 hours. PHYSICAL EXAMINATION: Vital Signs: Temperature is 97.6 degrees, pulse rate 106, respiratory rate 20, blood pressure 117/79, O2 saturation is 98% on a 50% FiO2 on a Venturi mask. General: This is an elderly, chronically ill-appearing female. She is lying in the bed, staring ahead, not making any eye contact. HEENT: Atraumatic, normocephalic. Oral mucous membranes are pink and dry. Conjunctivae are pale. Cardiovascular: Heart rate is regular. Respiratory: Lung sounds are clear and diminished bilaterally. No work of breathing is noted. Abdomen: Soft, flat, and nontender. Bowel sounds are hypoactive. There is an NG tube in place with tube feedings infusing. Extremities: There is a 1 to 2+ pitting edema to her forearms bilaterally with weeping noted and some erythema. A PICC line is in place to the right upper arm. That site is without edema, erythema, or drainage. LABORATORY AND X-RAY: Today, her white count is 7.95, hemoglobin 9.6, platelet count 106,000. On a 50% Venturi mask, her pH is 7.45, pCO2 of 42, PO2 of 156. HCO3 of 28.6. Creatinine is 2.2, GFR 22. Her sputum has grown a methicillin-resistant Staph aureus. Chest x-ray today shows no change from prior with stable dense calcifications in the mid lungs bilaterally, and hazy infiltrates or atelectasis in the bases. ASSESSMENT AND PLAN: Ms. Sandoval is being treated for methicillin-resistant Staphylococcus aureus pneumonia and bilateral upper extremity cellulitis. She is on day 3 of treatment with ceftaroline, which we will continue at this time. These plans have been discussed with and recommended by Dr. Reyes. COMORBIDITIES: Include that she is elderly with diabetes mellitus, chronic obstructive pulmonary disease, and coronary artery disease, with the presence of a pacemaker. Dictated by BRENDAN Levine for Fabiano Reyes MD cc: Fabiano Reyes MD [facility]
--- NOTE | 2019-01-24 19:27 | PROGRESS NOTE ---
DATE: 01/24/2019 SUBJECTIVE: There was no family member at the bedside at the time of this encounter. Ms. Sandoval continues to be nonverbal. OBJECTIVE: Vital Signs: Blood pressure 124/75, pulse of 108, respirations 22, temperature 97.9 degrees. General: Ms. Sandoval is 73-year-old female. She is in bed, in no distress. HEENT: Mucosa is pink and moist. Anicteric. Acyanotic. Neck: Supple. Chest: Crackles in posterior lung ojeda. Cardiovascular: Irregularly irregular. No murmurs. Abdomen: Soft. There is some lateralized edema. Extremities: 2+ edema. HOT BREAD BAKER: Patient is awake, nonverbal. Will track with the eyes. Patient will also groan and moan with painful stimulation. LABORATORY DATA: CBC is unremarkable. Chemistry: Creatinine is 2.2. The patient is making adequate urine. ASSESSMENT: 1. Acute hypoxemic respiratory failure. Patient has been intubated twice. She is currently Do Not Resuscitate, level 1. The patient's family does not want any more intubation. 2. Fluid overload, manifested by pulmonary edema and generalized body swelling. The patient is on Lasix. 3. Multifocal pneumonia, with sputum culture positive for Methicillin resistant Staphylococcus aureus. Patient is on Zyvox. 4. Septic shock. 5. Transient adrenal insufficiency. 6. Acute kidney injury secondary to acute tubular necrosis. 7. Acute cerebrovascular accident, predominantly bilateral cerebellar infarcts noted on MRI. 8. Right upper and lower extremity deep venous thromboses. 9. Protein-calorie malnutrition. Patient is on tube feedings. 10. Atrial fibrillation. Patient is on Coreg and Lovenox. 11. Altered mental status. 12. Aphasia. We think this is most likely due to severe anoxic brain injury on the top of the cerebrovascular accidents. 13. Do Not Resuscitate, level 1. cc: Minesh Blum MD MTDD
[2019-01-24] MEDS: LOVENOX SUBQ SCH (20:41)
[2019-01-25] MEDS: HUMULIN R SUBQ SCH ×5 (01:39→16:30)
[2019-01-25] MEDS: ATROVENT NEB INH SCH ×4 (04:06→21:46)
[2019-01-25] MEDS: XOPENEX NEB INH SCH ×4 (04:06→21:46)
[2019-01-25] MEDS: TEFLARO 400 MG in NS 250 ML IV SCH ×2 (04:18→16:12)
[2019-01-25] MEDS: CARDIZEM NG SCH ×4 (04:18→21:25)
[2019-01-25] MEDS: LASIX IV SCH (06:57)
[2019-01-25] MEDS: MUCOMYST 20% INH SCH ×2 (09:13→21:47)
[2019-01-25] MEDS ORDERED: INSULIN PEN NEEDLES ONE (10:42)
[2019-01-25] MEDS: CULTURELLE NG SCH ×2 (10:45→21:27)
[2019-01-25] MEDS: LEVEMIR SUBQ SCH (10:45)
[2019-01-25] MEDS: PROTONIX IV SCH (12:21)
[2019-01-25] MEDS: SODIUM CHLORIDE 0.9% INJ SCH (12:21)
[2019-01-25] MEDS: SOLU-CORTEF IV SCH ×2 (12:21→21:26)
--- NOTE | 2019-01-25 20:58 | PROGRESS NOTE ---
DATE: 01/25/2019 SUBJECTIVE: This morning Ms. Sandoval continues to be fairly the same. She is not verbally responsive. OBJECTIVE: Vital Signs: Blood pressure 127/70, pulse of 108, respiration is 20, temperature is 98 degrees. General: Ms. Sandoval is a 73-year-old elderly female. She is in bed and not in any distress. Mucosa is pink and moist. Anicteric. Acyanotic. Neck: Supple. Respiratory: Air entry is bilaterally reduced. There are crackles posteriorly. Cardiovascular: Irregularly irregular. No murmurs. Gastrointestinal: Abdomen is soft. There is some edema in the lateral abdomen. Extremities: There is 2+ pedal edema. Central Nervous System: Patient is awake, nonverbal. Will track with the eyes and will moan slightly with painful stimulation. LABORATORY DATA: None for today. Glucose was 194. Patient's prealbumin was 18.5. ASSESSMENT AND PLAN: 1. Aphasia, presumably due to severe anoxic brain injury. The patient continues to be, for the most part, a vegetable. 2. Acute hypoxemic respiratory failure. The patient has been intubated twice. Family members have made her no intubation and Do Not Resuscitate level 1. 3. Fluid overload manifested by pulmonary edema and generalized body swelling. We will continue with Lasix and also improving her nutritional status. 4. Protein-calorie malnutrition. Patient is tolerating tube feedings. Prealbumin is up to 18. 5. Multifocal pneumonia with culture positive for methicillin-resistant Staphylococcus aureus. The patient is on Zyvox. 6. Septic shock, resolved. 7. Transient adrenal insufficiency. Blood pressure has stabilized. We are weaning off on steroids. 8. Acute kidney injury due to acute tubular necrosis. The patient continues to make adequate urine. 9. Acute cerebrovascular accident, predominantly bilateral cerebellar infarcts noted on MRI. 10. Right upper and lower extremity deep vein thromboses. The patient is on anticoagulant. 11. Atrial fibrillation, currently on rate control. 12. Do Not Resuscitate level 1. cc: Minesh Blum MD
[2019-01-25] MEDS: LOVENOX SUBQ SCH (21:25)
--- NOTE | 2019-01-25 22:40 | INFECTIOUS DISEASE PROGRESS NO ---
DATE: 01/25/2019 PRESENT ILLNESS: The patient has methicillin-resistant Staph aureus pneumonia and a bilateral upper extremity cellulitis. MEDICATIONS: The patient has been on ceftaroline now for 4 days. PHYSICAL EXAMINATION: Vital Signs: Temperature is 98 degrees, pulse 108, respirations 20, blood pressure 127/70. General: This is an ill-appearing, middle-aged female. She is in no acute distress. Head/eyes/ears/nose/throat: There is no drainage coming from her nose or ears. She just stared ahead and did not have a blink reflex. Neck: There was stiffness. Lungs: Clear to auscultation. Had bilateral rhonchi. Cardiovascular: Heart rate is regular. Thorax: The patient has a pacemaker. The area is not swollen or bleeding. Abdomen: Is soft and apparently not tender. Neurologic: Patient just stares straight ahead. She does not have a blink reflex. She does not have a tremor. LAB AND X-RAY: There is no new lab for today and there is no new chest x-ray for today. ASSESSMENT AND PLAN: The patient has a methicillin-resistant Staph aureus pneumonia and bilateral upper extremity cellulitis. The patient is on day 4 of treatment with ceftaroline. I plan to continue it. COMORBIDITIES: The patient is elderly. She does have diabetes mellitus, chronic obstructive pulmonary disease, coronary artery disease, and she has the presence of a pacemaker. cc: Fabiano Reyes MD
[2019-01-26] MEDS: HUMULIN R SUBQ SCH ×5 (00:56→18:58)
[2019-01-26] MEDS: XOPENEX NEB INH SCH ×3 (03:38→16:18)
[2019-01-26] MEDS: ATROVENT NEB INH SCH ×3 (03:38→16:18)
[2019-01-26] MEDS: TEFLARO 400 MG in NS 250 ML IV SCH (05:04)
[2019-01-26] MEDS: CARDIZEM NG SCH ×4 (05:04→18:57)
[2019-01-26 07:02] LABS: BASO# 0.01 X1000 (0.0-0.2); BASO% 0.1 % (0.0-0.8); HEMATOCRIT 27.7 % (37.0-47.0); IMM GRAN# 0.03 X1000 (0.0-0.04); IMM GRAN% 0.3 % (0.0-0.5); LYMPH# 1.08 X1000 (1.2-3.4); LYMPH% 9.9 % (20.5-51.1); MCH 28.7 PG (27-31); MCHC 32.5 g/dL (33-37); MCV 88.2 FL (81-99); MONO# 0.65 X1000 (0.11-0.59); MPV 12.2 FL (7.4-10.4); NEUT# 9.15 X1000 (1.4-6.5); NEUT% 83.7 % (42.2-75.2); PLT 100 X1000 (130-400); RBC 3.14 XMIL (4.2-5.4); RDW 16.1 % (11.5-14.5); WBC 10.92 X1000 (4.8-10.8)
--- NOTE | 2019-01-26 07:23 | Diag Imaging Result Doc PS360 ---
EXAM: CHEST-1 VIEW INDICATION: pneumonia TECHNIQUE: One view COMPARISON: 01/24/2019 FINDINGS: The NG tube is in stable position. There is now complete opacification of the left hemithorax. This may be due to a large effusion. The right lung is stable. The cardiac silhouette is stable. IMPRESSION: Interval complete opacification of the left hemithorax. Electronically signed by Royal Wolfe 01/26/2019 7:21 AM
[2019-01-26 07:25] LABS: ALBUMIN 3.4 g/dL (3.5-5.0); CALCIUM 8.7 mg/dL (8.8-10.2); PHOSPHORUS 5.7 mg/dL (2.7-4.5); POTASSIUM 4.4 mmol/L (3.5-5.1)
[2019-01-26] MEDS: SOLU-CORTEF IV SCH (08:43)
[2019-01-26] MEDS: PROTONIX IV SCH (08:43)
[2019-01-26] MEDS: CULTURELLE NG SCH (08:43)
[2019-01-26] MEDS: SODIUM CHLORIDE 0.9% INJ SCH (08:43)
[2019-01-26] MEDS: LEVEMIR SUBQ SCH (08:45)
[2019-01-26] MEDS: MUCOMYST 20% INH SCH (11:39)
[2019-01-26 16:15] VITALS: BP 127/69
--- NOTE | 2019-01-26 18:40 | INFECTIOUS DISEASE PROGRESS NO ---
DATE: 01/26/2019 PRESENT ILLNESS: Ms. Sandoval has methicillin-resistant Staphylococcus aureus pneumonia as well as bilateral upper extremity cellulitis. Today her breathing is more labored and there is white out noted on the left side on the chest x-ray. MEDICATIONS: Today is day 5 of treatment with ceftaroline 400 mg IV every 12 hours. PHYSICAL EXAMINATION: Vital Signs: Temperature is 97.6 degrees, pulse rate 48, respiratory rate 24, blood pressure 114/66, O2 saturation is 94% on a 50% Ventimask. General: This is a critically ill-appearing elderly female. She is lying in bed currently in moderate respiratory distress. HEENT: Oral mucous membranes are pink and dry. Conjunctivae are pale. Cardiovascular: Heart sounds are difficult to hear. Respiratory: Patient has rhonchi to bilateral upper lobes and rales noted to the mid and bases diminished on the left side. She is using her accessory muscles to breathe. Abdomen: Soft, round and nontender to palpation. Bowel sounds are active. There is NG tube in place and she is receiving tube feeding. Bilateral upper extremities have less edema and erythema. Neurologic: She is staring ahead not making eye contact or following any commands. LABORATORY AND X-RAY: Today her white count is 10.92, hemoglobin 9, platelet count 100,000. Creatinine is 2, GFR is 24. Her sputum previously grew methicillin-resistant Staph aureus. Chest x-ray today shows complete opacification of the left hemithorax. ASSESSMENT AND PLAN: Ms. Sandoval has a methicillin-resistant Staph aureus pneumonia with worsening on the chest x-ray today which shows a complete opacification of the left hemithorax. Dr. Reyes has spoken with Dr. Blum. At this point we will continue the antibiotics as ordered and Dr. Blum plans to speak with the family when available. She also has a bilateral upper extremity cellulitis which seems to be improving. These plans have been discussed with and recommended by Dr. Reyes. 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 Dictated by BRENDAN Levine for Fabiano Reyes MD cc: Fabiano Reyes MD
--- NOTE | 2019-01-27 15:35 | DISCHARGE SUMMARY ---
ADMISSION DATE: 01/03/2019 DISCHARGE DATE: 01/26/2019 LENGTH OF STAY: 23 days. DISPOSITION: Home with hospice. CONSULTATION DURING THIS ADMISSION: Pulmonary Medicine was consulted. Patient was seen by Dr. Coombs, followed up by Dr. Kendrick. Neurology was consulted. Patient was seen by Dr. Zelaya, followed up by Dr. Watts. Infectious Disease consulted. Patient was seen by Dr. Reyes. Nephrology was consulted. Patient was seen by Dr. Pires. Cardiology consulted. Patient was seen by Dr. Jara. INVASIVE PROCEDURES DONE DURING THIS ADMISSION: None. IMAGING STUDIES OF SIGNIFICANCE: Multiple images were done. Significant included a head CT scan on admission showed no hemorrhage, chronic microvascular changes with small old bilateral infarcts. A CT scan of the abdomen and pelvis showed constipation with fecal impaction, left lower lobe pneumonia with pleural effusion, severe atherosclerosis, cholelithiasis, and right adrenal nodule. An echocardiogram did show ejection fraction of 60% with diastolic dysfunctions. An MRI of the brain showed several small scattered recent infarctions in the cerebellar hemisphere bilateral. There is also extremely severe cerebellar atrophy, severe chronic microvascular ischemic and atrophy of the pavan. There was cerebral atrophy, chronic microvascular and old infarcts. Doppler ultrasound of the right leg showed an extensive acute DVT of the right common femoral, superficial femoral, and popliteal vein. Renal ultrasound showed an atrophic left kidney. A small gallstone in gallbladder. Multiple x-rays were done. ADMISSION DIAGNOSES: 1. Altered mental status. 2. Status post treatment for pneumonia. 3. Acute respiratory failure. 4. Sepsis. DIAGNOSIS AT THE TIME OF DISCHARGE: 1. Unresponsiveness, most likely secondary to persistent vegetative state from severe anoxic brain injury. 2. Acute hypoxemic respiratory failure. Patient was intubated twice during the hospital course. 3. Fluid overload. 4. Severe protein calorie malnutrition. 5. Multifocal pneumonia with culture positive for MRSA. 6. Septic shock. 7. Transient adrenal insufficiency. 8. Acute kidney injury secondary to ATN. 9. 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 10. Right upper and lower acute DVTs. 11. Atrial fibrillation. 12. Multi-organ failure with extreme poor prognosis. DISCHARGE MEDICATIONS: To be dictated by the hospice team. PRESENTING COMPLAINT: Apneic breathing, hypotensive, unresponsiveness. HISTORY OF PRESENTING COMPLAINT: Ms. Sandoval is a 73-year-old female. History of multiple comorbidities including hypertension, diabetes, COPD, coronary artery disease, has coronary stent, has also pacemaker, came to the emergency department because of difficulty breathing. The patient came from [facility], was found to have an oxygen saturation of 80. She was also hypotensive. She was evaluated and admitted to the ICU for critical care management. HOSPITAL COURSE: Ms. Sandoval was initially admitted. However, tour escort of her hospital stay, she was intubated. She stated she did stay on the ventilator until 01/09/2019. She was extubated. She was started on broad-spectrum IV antibiotics, was seen by multiple subspecialties. During the hospital course, it was also found that Ms. Sandoval was not responding very well. It was theorized that she probably might have suffered an anoxic brain injury. Ms. Sandoval was extubated from the . However, she was reintubated on the because of respiratory failure. She remained on the ventilator until 01/21/2019. She was successfully extubated again. However, she remained very unresponsive. She remained aphasic. She will not follow any commands. She has been on antibiotics for multiple infectious pathologies and was seen by multiple subspecialties. She did develop atrial fibrillation RVR during the hospital course and was seen by Cardiology. She also had an acute kidney injury, was seen by Nephrology. Palliative Medicine was consulted. Patient was seen by the palliative nurse. Multiple discussions were held with the family members and the patient was made DNR level 1. This morning, the patient x-ray seems to suggest a complete opacification of the left hemithorax, which we think she probably had a large pleural effusion or she had a mucus plug causing a complete atelectasis of the hemithorax. Ms. Sandoval has not shown any improvement from neurological standpoint. She has not shown any improvement in any of her major organs failing. Hospice was recommended. The family did make a choice. She was evaluated by [facility]. The patient is currently being discharged home with hospice. All the discharge instructions have been discussed with the family members. TIME SPENT FOR DISCHARGE: 38 minutes. cc: Minesh Blum MD
--- NOTE | 2019-02-06 08:49 | DISCHARGE SUMMARY ---
ADMISSION DATE: 01/03/2019 DISCHARGE DATE: 01/26/2019 ADDENDUM TO DISCHARGE SUMMARY: Date of Admission: 01/03/2019 Date of : 01/26/2019 Time of : 19:30 The patient was pronounced by 2 nurses. Briefly Ms. Sandoval was actually discharged home with hospice. She had all the arrangements done to go home with the family and [facility]. Unfortunately, at about 19:20 of the day of discharge, she was found by her nurse lying bed with the Ventimask and there was no respiration effort or palpable pulses. Another nurse was notified. The night hospitalist team were notified and patient was subsequently pronounced on 19:30. DIAGNOSIS AT THE TIME OF : 1. Acute hypoxemic respiratory failure. 2. Multifocal Methicillin resistant staphylococcus aureus pneumonia. 3. Severe anoxic brain injury with persistent vegetative state. 4. Septic shock. 5. Acute kidney injury secondary to acute tubular necrosis. 6. Acute cerebrovascular accident , predominantly bilateral cerebellar infarcts. 7. Right upper and lower extremities deep venous thrombosis. 8. Multi organ failure. Please refer to the details of the discharge summary dictated on that same day on her chart. cc: Minesh Blum MD
== END 2019-01-26 19:20 | disposition expired | DRG 870 ==
LOC: SUPCPDRO → ED 15:59 → SUATTDRO 22:31 → ICU 22:31 → 2N 01-13 06:09 → ICU 01-13 19:36 → 4N 01-23 17:32
PROVIDERS: ATTEND Internal Medicine